=== PATIENT | female | born 1955 | race Caucasian/White ===

== ENCOUNTER → 2017-11-10 17:59 | Outpatient (CLI) | payer OTHER, SELFPAY ==
[2017-11-16 10:28] LABS: HPV Reflexed? NOT INDICATED
== END ==
PROVIDERS: Family Provider Internal Medicine; PCP Internal Medicine; Visit Provider Obstetrics & Gynecology
DX: Z12.4 Encounter for screening for malignant neoplasm of cervix (principal)
CPT/HCPCS: 88175; G0145

== ENCOUNTER → 2020-01-16 | Outpatient (CLI) | payer MEDICARE, OTHER, SELFPAY | END | disposition home or self-care (01) | LOC: LABSPEC 10:45 | PROVIDERS: PCP Internal Medicine; Referring Provider Internal Medicine Gastroenterology; Visit Provider Internal Medicine Gastroenterology | DX: Z20.828 Contact with and (suspected) exposure to other viral communicable diseases (principal) | CPT/HCPCS: 87635; C9803; U0003 ==

== ENCOUNTER → 2020-02-05 08:06 | Outpatient (CLI) | payer MEDICARE, OTHER, SELFPAY ==
--- NOTE | 2020-02-05 08:07 | US_ITS ---
STUDY: ABDOMINAL ULTRASOUND - RIGHT UPPER QUADRANT REASON FOR VISIT: Female, 64 years old fatty liver TECHNIQUE: Ultrasound evaluation of the right upper quadrant was performed with real-time and static cummins-scale imaging. TECHNICAL QUALITY: Adequate. COMPARISON: Comparison is made with prior examination dated 10/05/2010. FINDINGS: Liver: The liver is mildly enlarged and measures 19.2 cm. There is increased echogenicity consistent with fatty infiltration. The bile ducts are within normal limits. There is hepatic color flow. The direction of portal flow is hepatopetal. There is no demonstrated mass lesion. Gallbladder: The patient is status post cholecystectomy. Common Bile Duct (C.B.D.): The common bile duct measures 4 mm. Pancreas: Normal size of the head, body and tail of the pancreas. There is normal echogenicity of the pancreas. There is no demonstrated pancreatic mass or cyst. Right Kidney: Normal size of the right kidney. The right kidney measures 10.8 cm x 5.5 cm x 4.8 cm. Normal renal cortex. The right cortex measures 1.6 cm. There is no demonstrated renal mass or cyst. There is no right hydronephrosis. IMPRESSION: Mild hepatomegaly and fatty infiltration of the liver. Electronically Signed: Denny Chelsy, at 12:13 EST , Service support , STUDY: ABDOMINAL ULTRASOUND - ELASTOGRAPHY REASON FOR VISIT: Female, 64 years old. Fatty infiltration of the liver. TECHNIQUE: Liver stiffness measurements were obtained on a [employer] ultrasound machine using a CA 1-7 probe following the SRU guidelines. 3 measurements were obtained using a 2-D-SWE method. The IQR/M was 20% suggesting a quality data set. TECHNICAL QUALITY: Adequate. COMPARISON: None. FINDINGS: Liver: There is no demonstrated mass lesion. Median liver stiffness measured 7 kPa. US/Abdomen Limited IMPRESSION: Liver stiffness measures 7 kPa compatible with F2 -- F 3 Metavir score. Electronically Signed: Denny Valentino, at 12:15 EST , Service support ,
== END ==
PROVIDERS: PCP Internal Medicine; Referring Provider Internal Medicine Gastroenterology; Visit Provider Internal Medicine Gastroenterology
DX: K76.0 Fatty (change of) liver, not elsewhere classified (principal)
CPT/HCPCS: 76705; 76981

== ENCOUNTER 2020-07-15 10:48 | Day surgery (SDC) | payer MEDICARE, OTHER, SELFPAY ==
[2020-07-04 16:11] LABS: Hematocrit 41.6 % (37-47); Mean Corp Hgb Conc 31.3 g/dL (32-36); Mean Corpuscular Hgb 28.3 pg (27.0-32.0); Mean Corpuscular Volume 90.6 fL (81-99); Mean Platelet Vol. 12.9 fl (6.2-12.0); Platelet Count 206 K/mm3 (150-450); RBC Distribution Width CV 12.9 % (11.6-14.6); RBC Distribution Width SD 42.3 fl (35.1-43.9); Red Blood Count 4.59 M/mm3 (4.2-5.4); White Blood Count 7.4 K/mm3 (4.4-11.0)
[2020-07-04 16:19] LABS: Partial Thromboplast Time 30.1 Seconds (24.1-36.2); Prothrombin Time (Protime)PT. 12.5 SECONDS (11.7-14.9)
[2020-07-04 16:42] LABS: ALB/GLOB Ratio 0.9 RATIO (0.9-2.4); AST(SGOT) 46 U/L (15-37); Alanine Aminotransfer ALT/SGPT 53 U/L (13-56); Albumin, Serum 3.6 g/dL (3.2-5.0); Alkaline Phosphatase 91 U/L (45-117); Anion Gap 6 (5-15); BUN 15 mg/dL (7-18); BUN/Creat Ratio 15.9 RATIO (10-20); Calcium,Total 9.4 mg/dL (8.5-10.1); Chloride 104 mmol/L (98-107); Creatinine, Serum 0.94 mg/dL (0.55-1.02); EST Glomerular Filtration Rate 63 mL/min (>60); Est Glom Filt Rate - Afr Amer 76 mL/min (>60); Globulin 4.1 g/dL (2.2-4.2); Glucose 197 mg/dL (74-106); Potassium 3.8 mmol/L (3.5-5.1); Protein, Total 7.7 g/dL (6.4-8.2); Sodium Level 139 mmol/L (136-145)
[2020-07-08 10:15] LABS: Magnesium 2.1 mg/dL (1.6-2.6)
[2020-07-08 10:46] LABS: Hemoglobin A1c 7.2 % (3.8-5.6)
--- NOTE | 2020-07-14 21:21 | PCM.HP.BLA ---
History and Physical Date of Admission: 07/15/20 Surgical History and Physical Jen Pappas, a 65 year old female 2 0 0 0 2, presents for Vaginal Hysterectomy and AP Repair on July 15, 2020 at 7:30. -- Prolapse Symptoms -- Prolapse symptoms which began years ago. Jen claims it started gradually and has been present years. It occurs all the time. It is located in the vagina. Severity is severe and worsening; It is aggravated by cough and sneezing. Associated signs and symptoms are some incontinence. MEDICATIONS HISTORY: Patient is also takin. metformin 500 mg tablet, Two po bid 2. metoprolol tartrate 25 mg tablet, One pill by mouth once a day 3. glipizide 10 mg tablet, daily 4. Jardiance 10 mg tablet, daily 5. losartan 50 mg-hydrochlorothiazide 12.5 mg tablet, daily 6. naproxen sodium 220 mg capsule 7. omeprazole 20 mg capsule,delayed release, daily ALLERGIES: septra/sulfa, Rash and itching, Sulfa (Sulfonamide Antibiotics), Hives and/or rash, Tylenol and Liver toxicity Infections - Chicken pox Illnesses - HTN, DM II, microscopic colitis Accidents - no injuries of consequence Hospitalizations - Childbirth and see surgery by [facility]; Review of Systems: GENERAL - Denies fever, or chills SKIN - Denies skin changes EYES - Denies visual changes EARS - Denies difficulty hearing NOSE - Denies nasal congestion or bleeding MOUTH - Denies sore throat or difficulty swallowing NECK - Denies pain or swelling RESPIRATORY - Denies shortness of breath or wheezing CARDIOVASCULAR - Denies palpitations or chest pain GASTROINTESTINAL - Denies nausea, vomiting, diarrhea, constipation GENITOURINARY - Denies dysuria, frequency of urination, incontinence of urine MUSCULOSKELETAL - Denies joint or muscle pain NEUROLOGICAL - Denies localized numbness or weakness PSYCHIATRIC - Denies depression or anxiety ENDOCRINE - Denies heat or cold intolerance, weight loss or gain HEMATO-IMMUNOLOGIC - Denies excessive bleeding with cuts SOCIAL HISTORY: Alcohol Use - RARELY Smoking - denies smoking Diet - no special diet Lifestyle - high stress lifestyle Exercise - minimal Seat Belt Use - always Employer - retired Illicit Drug Use - denies use of street drugs Sexual Activity - Hours 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 MENSTRUAL HISTORY: LMP Known?- Postmenopausal, LMP - 06/14/07 PAST PREGNANCIES: Total Pregnancies - 2; Full Term Pregnancies - 2; Premature - 0; Abortions, Induced - 0; Abortions, Spontaneous - 0; Ectopics - 0; Multiple Births - 0; Living Children - 2 SURGICAL HISTORY: 1. D and C 2. cholecystectomy 3. hydrothermal ablation 4. 10/12/2007 H/S, D+C ; Lj Dickinson M.D. - PMB 5. rotator cuff surgery right arm, 01-27 6. 10/15/2010 left knee ; Dr. Tello 7. 08/08/2010 right knee ; Dr. Tello vein stripping bilat 2013 (L) Shoulder Surgery . 05/2013 (L) Vein Stripping PHYSICAL EXAM BP- 136/74 Sitting, Right arm, large cuff Weight- 226.39181 lbs Height- 67 inch BMI:35.47 CONSTITUTIONAL - NAD, well nourished, and well developed SKIN - No rash, lesions, or ulcers HEENT - Normocephalic, PERRLA, EOMI NECK - no nodes, no nuchal rigidity and thyroid normal size and texture LYMPH NODES - Palpation of lymph nodes in neck and groins within normal limits LUNGS - CTA x2 without wheezes, crackles or rales CARDIAC - Regular rate and rhythm without rubs, murmurs, or gallops BREAST - no dominant masses, no tenderness, no axillary adenopathy, no nipple discharge and no skin changes ABDOMEN - Without hepatosplenomegaly, distention, masses, rebound, or guarding; normal bowel sounds, no hernias EXTREMITIES - No edema or calf tenderness NEUROLOGICAL - Cranial nerves II-XII grossly intact PSYCHIATRIC - A and O to time, place, person, mood and affect External Genital Vagina - non-tender without lesions Urethra/Urethral Meatus - non-tender Bladder - non-tender Vagina - loss of rugae, cystocele to introitus, mild rectocele and open perineum Cervix - without cervical motion tenderness and has normal size and features without evident lesions and cervix to within 2 cm of introitus Uterus - multiparous size 6 cm & wt 75-125 g Adnexa - clear without masses or tenderness ASSESSMENT/PLAN: Cystocele Midline, Incomplete Uterovaginal Prolapse, Rectocele, Stress Incontinence and Female Very symptomatic. Wants to proceed with surgery. Declines pessary. Discussed Vag Hyst, AP Repair with/without TVT and wants to do without TVT first and if still has XIAO would then see Urology for XIAO if remains. Discussed RBA at length and all questions answered. Rx intravaginal estradiol given and has been used for about a month.
[2020-07-15] VITALS (16 sets, daily range): BP systolic 128–147; BP diastolic 65–90; PULSE 65–79; RESP 16–18; TEMP 36.3–36.8; O2SAT 93–100; BMI 34.4
[2020-07-15] MEDS: Lactated Ringers 1,000 ML 40 ML IV (11:22)
[2020-07-15] MEDS: Gabapentin 600 MG Tablet PO (11:23)
[2020-07-15 11:35] LABS: Bedside Glucose 163 mg/dL (70-110)
[2020-07-15] MEDS: Cefazolin 2 GM in 0.9% Normal Saline 100 ML IV (12:14)
--- NOTE | 2020-07-15 12:45 | HYST_PTH ---
PATIENT: RASHEL DAVALOS LOC: [facility] [place] U#:[id number] AGE/SX: 65/F ROOM: RE07/15/[address]: Dr. Lj Dickinson MD : [id number] BED: DIS: 07/16/2020 SPEC #: [id number] RECD: 07/15/20 15:09 STATUS: TIFFANIE REErika #: [id number] ÁNGELA: 07/15/20 12:[address]: Lj Dickinson DEPT: SURGICAL PATHOLOGY RECD BY: Daxa Hunt ENTERED: 07/16/20 08:35 SP TYPE: HYSTERECT OTHR DR: Dr. Sandra Miller, DO Tissues: Uterus, NOS Procedures: Surgery Specimen Level V HEADER OPERATION: ERAS, vaginal hysterectomy, A & P repair PRE-OP DIAGNOSIS: Cystocele midline, incomplete uterovaginal prolapse, rectocele, stress incontinence TISSUE SUBMITTED: Uterus MICROSCOPIC DIAGNOSIS Uterus, vaginal hysterectomy: Cervix ? mild chronic cystic cervicitis. Endometrium ? weakly proliferative to atrophic endometrium. Myometrium ? focal superficial adenomyosis. ONEYDA:andria 07/17/2020 MICROSCOPIC DESCRIPTION Slides are reviewed. GROSS DESCRIPTION Received in fixative is one container labeled with the patient's name and designated uterus. The specimen consists of a hysterectomy specimen consisting of uterus with cervix weighing 36 gm and measuring 7 x 4 x 2.5 cm. The serosal surface is focally ragged and congested. The ectocervix appears to be partly disrupted. A portion of anterior ectocervix is not clearly demarcated. The external os is slit-like in contour. No mass lesion is identified. The endocervical canal measures 2 cm in length and the endocervical mucosa is manuel, glistening and unremarkable. The narrow, elongated endometrial cavity measures 3 cm in length and up to 0.5 cm in width. The endometrium is without any mass lesion and measures <0.1 cm in thickness. Sections of the uterine wall do not reveal any mass lesion and it measures up to 1.5 cm in thickness. Sports Medicine Physician sections are submitted in six cassettes as follows: 1?- anterior cervix, 2 - posterior cervix, 3 & 4 - anterior uterine wall, 5 & 6 - posterior uterine wall. / ONEYDA:andria 07/16/20 TC:5 CPT: 98460
[2020-07-15] MEDS: Lactated Ringers 1,000 ML 125 ML IV ×2 (14:16→20:55)
[2020-07-15] MEDS: Ondansetron 4 MG/2 ML Vial IV (14:26)
--- NOTE | 2020-07-15 14:42 | PCM.OPRPT ---
Report of Operation Date of Procedure: 07/15/20 Pre-Operative Diagnosis: Uterovaginal Prolapse, Cystocele, Rectocele Post-Operative Diagnosis: Uterovaginal Prolapse, Cystocele, Rectocele Surgery/Procedure Performed:: Vaginal Hysterectomy and Anterior Posterior Repair Description of Surgical Findings:: 6 cm uterus with normal-appearing fallopian tubes and ovaries. Cystocele which protruded 2 cm outside the vaginal introitus. Moderate rectocele. recycling operations manager: Arnaldo Morrison recycling operations manager: Fatimah Whipple Type of Anesthesia:: General - Endotracheal Anesthesiologist: Ciara Wright Specimen's removed: Uterus and vaginal mucosa Drains: Snyder to straight drain Estimated Blood Loss (mL): 200 cc Fluids Replaced: Crystalloid Description of Procedure: Surgeon: Lj Dickinson MD, FACOG Indications: This is a 65-year-old patient who is been having problems with prolapse symptoms and some stress incontinence. Conservative measures including intravaginal estrogen have not been helpful. Given this the patient desires that we proceed the above procedure. She has been counseled regarding the risk and indications of this procedure including the possibility of bleeding, infection, and injury to surrounding structures such as bowel bladder. All questions were answered. Procedure: Patient was taken to the operating room where after induction of general anesthesia she was placed in the dorsal lithotomy position and prepped and draped in the usual sterile fashion. A Nsyder catheter was placed. Anterior cervix was grasped with a tenaculum and anterior cervix circumscribed with cautery on a setting of 35 W coagulation. Anterior vaginal mucosa was undermined and anterior peritoneum was easily entered. The posterior aspect of the cervix was circumscribed with a knife and posterior peritoneum easily entered. Progressive bites were taken on either side of the uterine cervix and each pedicle ligated with 0 Vicryl suture. Superior pedicles were ligated ?2 with 0 Vicryl suture and sidewall pedicles were examined and oversewn where necessary with [id number] 0 Vicryl suture to achieve hemostasis. Posterior vaginal cuff was oversewn with running locked 0 Vicryl suture. Hemostasis was noted and peritoneum was closed in a pursestring fashion incorporating superior pedicles into the stitch. Hemostasis was noted. Attention was turned toward the anterior repair portion of the procedure. Anterior vaginal mucosa was undermined and divided and then imbricated toward the midline with interrupted 0 Vicryl sutures. Vaginal mucosa was trimmed and then closed with interrupted 2-0 chromic suture. Vaginal cuff was then closed front to back with interrupted [id number] 0 Vicryl suture. Hemostasis was noted. Attention was turned toward the posterior repair portion of the procedure. Remnants of the hymenal ring were grasped with Allises and a V-shaped incision was made in the perineum. Rectovaginal mucosa was then undermined divided and then imbricated toward the midline with interrupted 0 Vicryl suture. Vaginal mucosa was trimmed and then closed with running locked 2-0 chromic suture. Perineum was closed in the usual fashion with running and subcuticular, and [id number] 2-0 chromic suture. Hemostasis was noted. Snyder catheter was again opened and clear yellow urine was noted. Vagina was packed with iodoform tape. Patient tolerated the procedure well was taken to recovery room in satisfactory condition; sponge instrument and needle counts were all reportedly correct. Estimated blood loss for the case was 200 cc. Cefotan 2 g IV was given prior to beginning the operative procedure. There were no apparent complications of the surgery. Specimen to pathology was uterus and vaginal mucosa. Grafts/Implants Used: None - Complications None - Admit VTE Documentation VTE Present on Admission: Yes VTE Mechan Device Prophylaxis: SCD's VTE Pharm Prophylaxis ordered?: Yes
--- NOTE | 2020-07-15 14:49 | PCM.DC.VHY ---
Discharge Diet: No Restrictions Discharge Activity: Return to Normal Activity, May Not Drive - while taking narcotic pain medications., May Shower May resume sexual activity in: 6-8 weeks, 6 weeks Call your doctor if your incision/area has: Continuous Slow Oozing, Sudden Increased Bleeding, Increased Pain/ Swelling, Increased Redness, Foul Smelling Discharge Call your doctor if you observe: Fever of 101 or Higher, Inability to urinate, Inability to have a bowel movement, Using more than one pad per hour Additional Instructions: Nothing in the vagina for 6 weeks please; no lifting more than 20-25 lbs for 6 weeks. Use either Naprosyn as directed or Ibuprophen 800 mg orally every 8 hours as needed for pain. If Ibuprophen is not effective then use the Oxycodone but keep in mind it can cause serious constipation issues. Drink lots of water. Call if bleeding more than a pad per hour. Use the colace as constipation is a big issue after this type of surgery. Steps and walking are OK. Activity is encouraged but do not over do it !! Allergies/Adverse Reactions: Allergies Sulfa (Sulfonamide Antibiotics) Allergy (Verified 07/15/20 10:57) Hives sulfamethoxazole [From Septra] Allergy (Verified 07/15/20 10:57) Hives trimethoprim [From Septra] Allergy (Verified 07/15/20 10:57) Hives acetaminophen [From Tylenol] Adverse Reaction (Verified 07/15/20 10:57) d/t fatty liver Medications to take at Discharge metFORMIN HCl [Glucophage] 1,000 mg PO BIDCM 01/17/13 Cholecalciferol (VIT D3) [Vitamin D] 1,000 unit PO DAILY 07/08/20 Empagliflozin [Jardiance] 10 mg PO QHS 07/08/20 Glipizide [Glipizide ER] 10 mg PO DAILY 07/08/20 Losartan/Hydrochlorothiazide [Losartan-Hctz 50-12.5 mg Tab] 1 each PO QHS 07/08/20 Metoprolol Tartrate [Lopressor (Beta Fiorella)] 25 mg PO QHS 07/08/20 Multivitamin with Minerals [Multiple Vitamin] 1 each PO DAILY 07/08/20 Naproxen 500 mg PO PRN PRN 07/08/20 [place]-3 Fatty Acids/Fish Oil [Fish Oil 1,000 mg Capsule] 1 each PO BID 07/08/20 Omeprazole Magnesium [Prilosec Otc] 20 mg PO PRN PRN 07/08/20 Docusate Sodium [Colace] 100 mg PO BID PRN PRN #60 capsule 07/15/20 Oxycodone [Oxyir] 5 mg PO Q6H PRN PRN 7 Days #10 tablet 07/15/20 The following prescriptions were given: Docusate Sodium [Colace] 100 mg PO BID PRN PRN #60 capsule PRN Reason: Constipation Transmission Status: Pending to [facility] Oxycodone [Oxyir] 5 mg PO Q6H PRN PRN 7 Days #10 tablet PRN Reason: Pain Score 6-10 Transmission Status: Sent to [facility] Primary Care Physician: Sandra Miller DO [Primary Care Provider] - Test Results: Test results from this visit will be discussed in further detail at your follow-up appointment, if applicable. Please Follow Up With: Lj Dickinson MD When: 2 to 3 weeks
[2020-07-15 15:06] LABS: Bedside Glucose 159 mg/dL (70-110)
[2020-07-15] MEDS: Ketorolac 15 MG/ML Vial IV ×2 (18:04→23:08)
[2020-07-15] MEDS: 0.9% Saline Lock 10 ML Syringe IV (18:04)
[2020-07-15] MEDS: metFORMIN HCl 500 MG Tablet 1000 MG PO (18:04)
[2020-07-15] MEDS: oxyCODONE 5 MG Tablet PO (19:22)
[2020-07-15] MEDS: Enoxaparin 30 MG/0.3 ML Syringe SC (20:04)
[2020-07-15] MEDS: Ondansetron ODT 4 MG Tablet PO (22:15)
[2020-07-15 22:30] LABS: Bedside Glucose 215 mg/dL (70-110)
[2020-07-15] MEDS: Metoprolol Tartrate 25 MG Tablet PO (23:05)
[2020-07-15] MEDS: Docusate Sodium 100 MG Capsule PO (23:06)
[2020-07-15] MEDS: Empagliflozin 10 MG Tablet PO (23:06)
[2020-07-16 00:39] VITALS: BP 126/62; PULSE 69; RESP 18; TEMP 36.4; O2SAT 96
[2020-07-16] MEDS: 0.9% Saline Lock 10 ML Syringe IV (04:55)
[2020-07-16] MEDS: Ketorolac 15 MG/ML Vial IV ×2 (05:05→12:56)
[2020-07-16 07:20] LABS: Bedside Glucose 119 mg/dL (70-110)
--- NOTE | 2020-07-16 07:30 | PCM.PN.OB ---
Subjective Subjective: Patient without complaints. Tolerating diet well. Wants to go home. This note is for July 16, 2020. Objective Data Objective Data Vital Signs: Vital Signs Temp Pulse Resp BP Pulse Ox 98.1 F 65 18 119/55 L 96 07/16/20 13:18 07/16/20 13:18 07/16/20 13:18 07/16/20 13:18 07/16/20 13:18 Oxygen Flow Rate (L/min) 1 Oxygen Delivery Method Room Air Weight: 226 lb 3.108 oz Body Mass Index (BMI) 34.4 Finger Stick Blood Glucose 159 Intake & Output: Intake and Output for Last 24 Hours 07/15/20 07/16/20 07/17/20 23:59 23:59 23:59 Intake Total 3067.25 / 3067.25 1100 / 1100 Output Total 1400 / 1400 950 / 950 Balance 1667.25 / 1667.25 150 / 150 Lab / Micro Data Result Diagrams: 07/16/20 05:45 07/16/20 05:45 Labs: Laboratory Results - last 24 hr 07/16/20 11:53 POC Glucose 178 H Physical Exam Narrative Vaginal pack removed and minimal bleeding noted. Good urine output. Hemoglobin okay. Assessment & Plan Assessment/Plan (1) Prolapse of female genital organs: Status: Acute Code(s): N81.9 - Female genital prolapse, unspecified Qualifiers: Prolapse type: incomplete uterovaginal prolapse Qualified Code(s): N81.2 - Incomplete uterovaginal prolapse Plan: Doing well postoperative day #1 status post vaginal hysterectomy and anterior posterior repair. Will discharge to home with routine instructions.
[2020-07-16 07:48] LABS: Creatinine, Serum 0.83 mg/dL (0.55-1.02); EST Glomerular Filtration Rate 73 mL/min (>60); Est Glom Filt Rate - Afr Amer 88 mL/min (>60); Estimated Creatinine Clearance 66.35 ml/min
[2020-07-16 08:06] LABS: Hematocrit 37.3 % (37-47); Hemoglobin 11.5 g/dL (12.0-15.0); Mean Corp Hgb Conc 30.8 g/dL (32-36); Mean Corpuscular Volume 90.8 fL (81-99); Mean Platelet Vol. 12.8 fl (6.2-12.0); Platelet Count 190 K/mm3 (150-450); RBC Distribution Width CV 12.7 % (11.6-14.6); RBC Distribution Width SD 41.7 fl (35.1-43.9); Red Blood Count 4.11 M/mm3 (4.2-5.4); White Blood Count 11.1 K/mm3 (4.4-11.0)
[2020-07-16] MEDS: metFORMIN HCl 500 MG Tablet 1000 MG PO (08:20)
[2020-07-16] MEDS: glipiZIDE XL 5 MG Tablet 10 MG PO (08:20)
[2020-07-16 08:25] VITALS: PULSE 76
[2020-07-16 08:30] VITALS: BP 121/63; PULSE 68; RESP 18; TEMP 36.4; O2SAT 97
[2020-07-16 08:43] LABS: Scan Indicated on CBC? Y/N NO
[2020-07-16 09:02] VITALS: O2SAT 92
[2020-07-16] MEDS: Losartan Potassium 50 MG Tablet PO (10:50)
[2020-07-16] MEDS: Docusate Sodium 100 MG Capsule PO (10:50)
[2020-07-16] MEDS: hydroCHLOROthiazide 12.5mg 12.5 MG PO (10:50)
[2020-07-16 12:00] LABS: Bedside Glucose 178 mg/dL (70-110)
[2020-07-16 13:18] VITALS: BP 119/55; PULSE 65; RESP 18; TEMP 36.7; O2SAT 96
== END 2020-07-16 13:37 ==
LOC: SDC 10:48 → AC 10:49 → MS3 14:56
PROVIDERS: Anesthesiology; PCP Family Medicine; Referring Provider Obstetrics & Gynecology; Visit Provider Obstetrics & Gynecology
PROC: (CPT 58260; principal; 2020-07-15 12:25)
DX: N81.2 Incomplete uterovaginal prolapse (principal); N39.3 Stress incontinence (female) (male); N72 Inflammatory disease of cervix uteri; N80.0 Endometriosis of uterus; I34.1 Nonrheumatic mitral (valve) prolapse; I10 Essential (primary) hypertension; E11.9 Type 2 diabetes mellitus without complications; K76.0 Fatty (change of) liver, not elsewhere classified; Z79.84 Long term (current) use of oral hypoglycemic drugs; Z79.899 Other long term (current) drug therapy
CPT/HCPCS: 00944; 57260; 58260; 36415; 80053; 82565; 82962; 83036; 83735; 85027; 85610; 85730; 86850; 86900; 86901; 88307; 99251; J7120; A4216; G0463; J2405

== ENCOUNTER → 2020-07-25 | Outpatient (CLI) | payer MEDICARE, OTHER, SELFPAY ==
[2020-07-15 16:34] VITALS: BMI 34.4
== END | disposition home or self-care (01) ==
LOC: LABSPEC 15:24
PROVIDERS: PCP Family Medicine; Visit Provider Obstetrics & Gynecology
DX: R30.0 Dysuria (principal)
CPT/HCPCS: 87086; 87088

== ENCOUNTER 2021-03-05 10:36 | Day surgery (SDC) | payer MEDICARE, OTHER, SELFPAY ==
--- NOTE | 2021-03-03 08:47 | EKG12_ITS ---
Test Reason : PREOP Blood Pressure : / mmHG Vent. Rate : 062 BPM Atrial Rate : 062 BPM P-R Int : 140 ms QRS Dur : 094 ms QT Int : 428 ms P-R-T Axes : 057 -09 020 degrees QTc Int : 434 ms Normal sinus rhythm Normal ECG Confirmed by CHRISTEL PENA, JOSE ALEJANDRO ([id number]), communications editor MICHAEL BENJAMIN ([id number]) on 03/04/2021 7:28:31 AM Referred By: Daniel Sapp Confirmed By:JOSE ALEJANDRO KEARNEY MD
[2021-03-03 09:33] LABS: Hematocrit 43.5 % (37-47); Hemoglobin 14.2 g/dL (12.0-15.0); Mean Corp Hgb Conc 32.6 g/dL (32-36); Mean Corpuscular Hgb 29.6 pg (27.0-32.0); Mean Corpuscular Volume 90.6 fL (81-99); Mean Platelet Vol. 12.8 fl (6.2-12.0); Platelet Count 201 K/mm3 (150-450); RBC Distribution Width CV 12.8 % (11.6-14.6); RBC Distribution Width SD 42.1 fl (35.1-43.9)
[2021-03-03 09:50] LABS: Hemoglobin A1c 7.2 % (3.8-5.6)
[2021-03-03 09:57] LABS: Anion Gap 7 (5-15); BUN 16 mg/dL (7-18); Calcium,Total 9.5 mg/dL (8.5-10.1); Chloride 102 mmol/L (98-107); EST Glomerular Filtration Rate 59 mL/min (>60); Est Glom Filt Rate - Afr Amer 71 mL/min (>60); Glucose 190 mg/dL (74-106); Potassium 3.9 mmol/L (3.5-5.1); Sodium Level 137 mmol/L (136-145)
[2021-03-05 11:12] VITALS: BP 119/62; PULSE 69; RESP 18; TEMP 36.9; O2SAT 96; BMI 33.3
[2021-03-05 13:05] LABS: Bedside Glucose 177 mg/dL (70-110)
[2021-03-05] MEDS: Lidocaine 1% /Epi 1:100 (20ml) 20 ML Vial (13:09)
--- NOTE | 2021-03-05 13:52 | PCM.HP.STD ---
HPI - General HPI Narrative RASHEL DAVALOS, is a 66 F who presents for placement of a transvaginal tension-free vaginal tape she has a history of stress urinary incontinence and is failed conservative measures. COUNTS INCLUDE 234 BEDS AT THE [facility] Medical History (Updated 02/26/21 @ 15:11 by Adelita Palma) Alcohol use Arthritis Back pain Cardiology follow-up encounter Diabetes Dietary restriction Fatty liver Heartburn High cholesterol History of echocardiogram History of hiatal hernia History of renal disease History of stress test Hx of mitral valve prolapse Hypertension Injury of head and neck Leg cramps Non-smoker Wears glasses Home Medications metformin 1,000 mg PO BIDCM 01/17/13 [History Last Taken Unknown] cholecalciferol (vitamin D3) 1,000 unit PO DAILY 07/08/20 [History Last Taken Unknown] glipizide 10 mg PO DAILY 07/08/20 [History Last Taken Unknown] losartan-hydrochlorothiazide 1 each PO QHS 07/08/20 [History Last Taken Unknown] metoprolol tartrate 25 mg PO QHS 07/08/20 [History Last Taken Unknown] multivitamin with minerals 1 each PO DAILY 07/08/20 [History Last Taken Unknown] naproxen 500 mg PO PRN PRN 07/08/20 [History Last Taken Unknown] omega-3 fatty acids-fish oil 1 each PO BID 07/08/20 [History Last Taken Unknown] omeprazole magnesium 20 mg PO PRN PRN 07/08/20 [History Last Taken 07/15/20] Jardiance 25 mg PO DAILY 02/26/21 [History Last Taken Unknown] estradiol 0.5 mg PO SUTH 02/26/21 [History Last Taken Unknown] pravastatin 10 mg PO QHS 02/26/21 [History Last Taken Unknown] cephalexin 500 mg PO BID #10 cap 03/05/21 [Rx Last Taken Unknown] Allergy/AdvReac Type Severity Reaction Status Date / Time Sulfa (Sulfonamide Allergy Hives Verified 03/05/21 11:09 Antibiotics) sulfamethoxazole Allergy Hives Verified 03/05/21 11:09 [From Septra] trimethoprim [From Septra] Allergy Hives Verified 03/05/21 11:09 acetaminophen [From Tylenol] AdvReac d/t fatty Verified 03/05/21 11:09 liver Surgical History (Updated 02/26/21 @ 15:11 by Adelita Schriber) History of cardiac catheterization History of esophagogastroduodenoscopy (EGD) Hx of cholecystectomy Hx of left knee surgery Hx of repair of left rotator cuff Hx of repair of right rotator cuff Hx of right knee surgery Hx of vaginal hysterectomy Hx of vein stripping Social History Smoking Status: Never smoker Vital Signs Vital Signs Vital Signs: 03/05/21 11:11 03/05/21 11:12 Temperature 98.4 F Temperature Source Temporal Pulse Rate 69 Respiratory Rate 18 Respiratory Pattern Normal Blood Pressure 119/62 Blood Pressure Mean 81 Blood Pressure Source Monitor Blood Pressure Position Semi-Fowlers Blood Pressure Location Right Arm Pulse Ox 96 Oxygen Delivery Method Room Air Weight Weight: 99.337 kg Body Mass Index (BMI) 33.3 Results Lab / Micro Data Result Diagrams: 03/03/21 09:02 03/03/21 09:02 Labs: Laboratory Results - last 24 hr 03/05/21 11:06: POC Glucose 177 H
--- NOTE | 2021-03-05 13:53 | PCM.DC ---
Discharge Instructions Diet Discharge Diet: No restrictions Activity Discharge Activity: Return to Normal Activity and May Not Drive (while taking narcotic pain medications.) Dressing / Incision Call your doctor if you observe: Fever of 101 or Higher Follow Up Care Please Follow Up With: Daniel Sapp MD When: Call [phone] for an appointment Test Results: Test results from this visit will be discussed in further detail at your follow-up appointment, if applicable. Discharge Plan Admission Primary Reason for Your Visit: Sling Attending Provider: Daniel Sapp Primary Care Provider: Sandra Miller Discharge Orders/Prescriptions Prescriptions: New cephalexin 500 mg capsule 500 mg PO BID Qty: 10 RF: 0 Continued metformin 500 MG tablet 1,000 mg PO BIDCM RF: 0 glipizide 10 MG tablet extended release 24hr 10 mg PO DAILY RF: 0 multivitamin with minerals 1 EACH tablet 1 each PO DAILY RF: 0 losartan-hydrochlorothiazide 1 EACH tablet 1 each PO QHS RF: 0 naproxen 500 MG tablet 500 mg PO PRN PRN (Reason: Pain 1-10 Or Fever) RF: 0 omeprazole magnesium 20 MG tablet,delayed release (DR/EC) 20 mg PO PRN PRN (Reason: Indigestion) RF: 0 metoprolol tartrate 25 MG tablet 25 mg PO QHS RF: 0 cholecalciferol (vitamin D3) 25 MCG tablet 1,000 unit PO DAILY RF: 0 omega-3 fatty acids-fish oil 1 EACH capsule 1 each PO BID RF: 0 pravastatin 10 mg Tablet 10 mg PO QHS RF: 0 estradiol 0.5 mg Tablet 0.5 mg PO SUTH RF: 0 Jardiance 25 mg Tablet 25 mg PO DAILY RF: 0 Referrals / Follow Up: Daniel Sapp MD [STAFF PHYSICIAN] - Sandra Miller DO [Primary Care Provider] - Disposition Disposition (needs filled in before D/C Order can be placed): Home, Self Care
--- NOTE | 2021-03-05 13:54 | OP.PCM_ITS ---
Report of Operation Date of Procedure: 03/05/21 Pre-Operative Diagnosis: Stress urinary incontinence Post-Operative Diagnosis: same Surgery/Procedure Performed:: Tension Free Vaginal Sling Description of Surgical Findings:: Patient presents today for placement of a tension-free vaginal sling, she has a diagnosis of incontinence and has been evaluated in the preoperative setting. We discussed how the procedure will be done what to expect afterwards. She understands is possible she may need a catheter in the short-term. We discussed the risk of bleeding and also the possibility of infection with the placement of the sling. We discussed the fact that we can be using artificial mesh and that there is a small risk of infection, erosion into the urethra, vaginal area, bladder and a small risk that she may require surgery down the road to address any problems or erosions with the mesh in the long-term. She was also given no guarantees as to how well the sling would work and that her incontinence may not improved to her satisfaction. After reviewing this with the patient she agreed to proceed with the placement of the sling. Patient was taken back to the operating room, after smooth induction of general anesthesia she was placed in dorsolithotomy position. She underwent vaginal prep and was placed in dorsolithotomy position. A Snyder catheter was placed into the bladder and Inflated with 10 cc of sterile water into the balloon. I then marked out the bladder neck with a marking pen and marked out the mid urethra. The urethra was then infiltrated with lidocaine with 1:1000 epinephrine, after the injecting into the urethra then a midline incision was made in the urethra long enough to create a space for the trocar. I then used curved Metzenbaum scissors to dissect periurethrally up to the right side undern eath the pubic bone, and then dissect periurethrally up to the left side underneath the pubic bone creating the tunnel for the sling. I then went up to the pubic bone and the patient was in Trendelenburg position and marked two incision site 2 cm from the midline on the left and right side. I then infiltrated the skin with lidocaine and then made a small stab incision in the right and left side exactly where the heard were above the pubic bone. Making sure that the bladder was completely empty I then guided the suprpubid desera trocar top-down on the right side first coming behind the pubic bone following it into the incision below the urethra. Once the suprapubic trocar was passed then I deflated the balloon and remove the Snyder catheter went into the bladder with a 70 degree lens and inspected the bladder and there was no perforation damage or injury to the bladder, no damage to the ureter, and no damage to the urethra. I then hooked the end of the desara sling to the suprapubic trocar and advanced it up through the tunnel and then put a snap on the end of the sling. I then went to the other side to pass the sling. The 18fr Snyder catheter was replaced into the bladder with 10 cc of water into the balloon and then drained the bladder completely and then I guided the suprapubic trocar down on the left side from top down behind the pubic bone into the incision below the urethra. I then deflated the balloon removed the Snyder catheter and performed a cystoscopy again and inspected the bladder with a 70 degree there was no injury to the bladder, the ureter, or the urethra on inspection. I then grabbed the other end of the sling and using the suprapubic trocar pulled the sling on the other side and put a snap on the sling end. I then put a snap in the middle the sling and then both ends of the slings were then pulled up and then the sling was tensioned below the urethra ensuring that the sling was flat that there was no kinking or pulling or twisting and laid nicely tension-free underneath the urethra. Then both ends of the slings were cut and then the plastic sheath covering the mesh was removed deploying the sling, the excess mesh was then trimmed from the suprapubic area and the mesh ends were dunked down deep in the subcutaneous fat. The Snyder catheter was removed and we checked the bladder with a 30 and 70 degree lens making sure there is no injury to the urethra, bladder and no perforation with a mesh. The urine was nice and clear with no blood. I then closed the incision below the urethra with a running 3-0 Vicryl and thenclosed the 2 suprapubic incisions with interrupted 4-0 Monocryl. The bladder was left empty anesthetic was reversed and she was taken back to the PACU and will undergo a voiding trial before discharge. Type of Anesthesia: General Admit VTE Documentation VTE Present on Admission: No VTE Mechan Device Prophylaxis: SCD's VTE Pharm Prophylaxis ordered?: No
[2021-03-05 14:03] VITALS: BP 119/62; BP 128/64; PULSE 71; RESP 16; TEMP 36.1; O2SAT 97
[2021-03-05 14:15] VITALS: BP 115/61; BP 119/62; PULSE 68; RESP 16; O2SAT 97
[2021-03-05 14:30] VITALS: BP 117/62; BP 119/62; PULSE 69; RESP 16; O2SAT 99
[2021-03-05 14:45] VITALS: BP 119/62; BP 120/80; PULSE 70; RESP 16; TEMP 36.3; O2SAT 96
[2021-03-05 14:56] LABS: Bedside Glucose 122 mg/dL (70-110)
[2021-03-05] MEDS: oxyCODONE 5 MG Tablet PO (15:35)
[2021-03-05 16:07] VITALS: BP 119/62; BP 129/63; PULSE 66; RESP 16; O2SAT 99
== END 2021-03-05 16:28 | disposition home or self-care (01) ==
LOC: SDC 10:36 → AC 10:37
PROVIDERS: Anesthesiology; PCP Family Medicine; Referring Provider Urology; Visit Provider Urology
PROC: 0TJB8ZZ Inspection of Bladder, Via Natural or Artificial Opening Endoscopic (ICD-10-PCS; CPT 57288; principal; 2021-03-05 12:25)
DX: N39.3 Stress incontinence (female) (male) (principal); I10 Essential (primary) hypertension; E11.9 Type 2 diabetes mellitus without complications; E78.00 Pure hypercholesterolemia, unspecified; K21.9 Gastro-esophageal reflux disease without esophagitis; M19.90 Unspecified osteoarthritis, unspecified site; Z79.84 Long term (current) use of oral hypoglycemic drugs; Z79.899 Other long term (current) drug therapy
CPT/HCPCS: 57288; 36415; 80048; 82962; 83036; 85027; 93005; J7120; C1771; J2405

== ENCOUNTER → 2022-10-23 | Outpatient (CLI) | payer MEDICARE, OTHER, SELFPAY ==
--- NOTE | 2022-10-23 09:53 | US_ITS ---
STUDY: ABDOMINAL ULTRASOUND - RIGHT UPPER QUADRANT; ELASTOGRAPHY REASON FOR VISIT: Female, 67 years old. Fatty infiltration of the liver. TECHNIQUE: Ultrasound evaluation of the right upper quadrant was performed with real-time and static cummins-scale imaging. Point quantification shear wave elastography was performed ([employer]). TECHNICAL QUALITY: Adequate. COMPARISON: None. FINDINGS: Liver: The liver measures 18.7 cm. There is increased echogenicity consistent with fatty infiltration. The bile ducts are within normal limits. There is hepatic color flow. The direction of portal flow is hepatopetal. There is no demonstrated mass lesion. Median liver stiffness measured 9.6 kPa. Gallbladder: The patient is status post cholecystectomy. Common Bile Duct (C.B.D.): The common bile duct measures 7.1 mm. Pancreas: There is increased echogenicity of the pancreas. There is no demonstrated pancreatic mass or cyst. Right Kidney: Normal size of the right kidney. The right kidney measures 10.5 cm x 6 cm x 4.4 cm. Normal renal cortex. The right cortex measures 1.5 cm. There is no demonstrated renal mass or cyst. There is no right hydronephrosis. US/ABD Limited w/ Elastography IMPRESSION: 1. Liver stiffness measures 9.6 kPa compatible with F2-F3 (Mild to moderate liver fibrosis) Metavir score. Electronically Signed: Denny Valentino MD at 13:21 EDT ,
== END | disposition home or self-care (01) ==
LOC: US 09:51
PROVIDERS: PCP Family Medicine; Referring Provider Internal Medicine Gastroenterology; Visit Provider Internal Medicine Gastroenterology
DX: K76.0 Fatty (change of) liver, not elsewhere classified (principal)
CPT/HCPCS: 76705; 76981

== ENCOUNTER 2023-04-02 13:56 | Inpatient (IN) | payer MEDICARE, OTHER, SELFPAY ==
--- NOTE | 2023-04-02 15:09 | PCM.HP.STD ---
[facility] - General General Date of Admission: 04/02/23 Date of Service: 04/02/23 Chief Complaint: Debility due to MS with cardiac arrest and Takotsubo's cardiomyopathy. HPI Narrative RASHEL DAVALOS, is a 68 F with a PMH of CAD, DM II, HTN, MVP, GERD, VILLASENOR, CKD and CABG on 03/08/2023 at [facility] by Dr. Christian. She had a MCINTOSH to the LAD and a saphenous vein graft to the first diagonal. She was discharged home on 03/12/2023. On 03/14/23 she developed CP and her family summoned EMS. Approximately 1 minute prior to arrival of EMS she arrested. When EMS arrived they found her unresponsive with a heart rhythm of Torsades. She received 1 shock, 1 epi and IV fluids were started. During transport to [facility] she was in and out of PEA and had spontaneous breathing. At arrival to the ED at [facility] she had VT and was shocked X 1 and intubated. She was placed on amiodarone, Levophed for severe hypotension and propofol. EKG showed diffuse nonspecific ST changes. She was transported to [facility] for urgent cardiac catheterization. Echocardiogram showed an EF of about 10%, down from 55% post CABG. there was septal akinesis with severe global hypokinesis of the left ventricle. She had Impella placement and was placed on heparin. She had a right heart cath following Impella placement and the RA pressure was 17 mmHg. RV was 53/23 mmHg, PA was 55/27 mmHg and the wedge was 25 mmHg. Left heart cath showed the left anterior descending to be a large-caliber vessel tapering down towards the apex. There was a 70% mid lesion just after the first diagonal branch. The distal LAD filled via a MCINTOSH graft. There was SALLY-3 flow distally. The saphenous vein graft to the major diagonal branch had mid vessel occlusion and immediately after the anastomosis. The left circumflex was a moderate caliber vessel with no significant disease. The obtuse marginal, right coronary, right posterior descending and right posterior lateral arteries had no significant disease. There was minimal left to left collaterals filling the distal major diagonal branch. The Impella was removed on 03/17/2023 and she was extubated. She was still requiring pressors to maintain an adequate blood pressure. While in the intensive care unit she had paroxysmal atrial fibrillation but had no further ventricular dysrhythmias. She developed thrombocytopenia which could have been due to shock liver, HIT or hemolysis. She was closely monitored for any further signs of TAYLER but, argatroban/bivalirudin was not immediately started. She went on to develop left upper extremity DVT thought to be due to TAYLER and she was started on on argatroban infusion. Additional complications at [facility] included a right pneumothorax requiring a chest tube and bilateral exudative pleural effusions thought to be secondary to aspiration pneumonia. The chest tube was removed on 03/21/2023. Follow-up chest x-ray was negative for pneumothorax. She had persistent dysphagia and failed an MBS. Barium swallow on 03/23/2023 demonstrated aspiration of thin and mildly thick liquids.. MBS also showed a Zenker's diverticulum A PEG tube was inserted on 03/23/2023 to provide adequate nutrition. Argatroban was held for a short time to allow insertion of the PEG tube. Significant lab at prior hospitals included an LDL of 64, HDL of 24 and triglycerides of 188. Hemoglobin A1c was 5.6. While at [facility] she had acute transaminitis due to shock liver. Transesophageal echocardiogram on 03/24/2023 showed a 55% left ventricular ejection fraction and normal left ventricular systolic function. There were no wall motion abnormalities. The IVC diameter decreased by greater than 50% during inspiration which reflects an estimated normal right atrial pressure. All records from [facility] were personally reviewed. Lab results from 04/01/2023 showed a sodium of 133, potassium 3.2, CO2 of 24, normal phosphorus, BUN of 18 and a creatinine of 0.63. Hemoglobin is 10.1 and the white blood cell count is normal. Platelets are within normal limits and thrombocytopenia has resolved. Magnesium is 2.0. AST, ALT, alkaline phosphatase and bilirubin were all normal at the time of discharge from [facility]. She was seen by ENT prior to discharge from [facility] and had a bedside laryngoscopy which revealed completely normal laryngeal exam. Vocal cords had normal movement and were without lesions. She had dysphonia secondary to resolving vocal weakness after intubation. Bilateral nasal passages had swelling, crusting, debris, dryness and irritation and saline nasal spray was prescribed. She was also placed on Bactroban in the nasal passages twice daily and started on Nasonex. [facility] Medical History (Updated 04/02/23 @ 17:[address] Gail Pena DO) Back pain Cardiology follow-up encounter Diabetes mellitus, type 2 Family history of heart disease GERD (gastroesophageal reflux disease) History of hiatal hernia History of renal disease Hx of mitral valve prolapse Hyperlipidemia Hypertension Injury of head and neck Low HDL (under 40) VILLASENOR (nonalcoholic steatohepatitis) Non-smoker Osteoarthritis Pneumothorax Prolapse of anterior vaginal wall Prolapse of female genital organs Wears glasses Zenkers diverticulum Home Medications metformin 500 mg tablet 1,000 mg PO BIDCM glucose 01/17/13 [History Last Taken Unknown] glipizide 10 mg tablet, extended release 24 hr 10 mg PO DAILY glucose 07/08/20 [History Last Taken Unknown] metoprolol tartrate 25 mg tablet 25 mg PO DAILY blood pressure 07/08/20 [History Last Taken Unknown] multivitamin with minerals 1 each PO DAILY supplement 07/08/20 [History Last Taken Unknown] naproxen 500 mg tablet 500 mg PO PRN PRN Pain 1-10 Or Fever 07/08/20 [History Last Taken Unknown] omega-3 fatty acids-fish oil 340 mg-1,000 mg capsule 1 each PO BID supplement 07/08/20 [History Last Taken Unknown] omeprazole magnesium 20 mg tablet,delayed release 20 mg PO PRN PRN Indigestion 07/08/20 [History Last Taken 07/15/20] empagliflozin 25 mg tablet (Jardiance) 25 mg PO DAILY glucose 02/26/21 [History Last Taken Unknown] estradiol 0.5 mg tablet 0.5 mg PO SUTH estrogen 02/26/21 [History Last Taken Unknown] pravastatin 10 mg tablet 10 mg PO QHS . 02/26/21 [History Last Taken Unknown] amiodarone 200 mg tablet 200 mg feeding tube DAILY heart 04/02/23 [History Last Taken 04/02/23] apixaban 5 mg tablet 5 mg feeding tube BID blood thinner 04/02/23 [History Last Taken Unknown] aspirin 81 mg chewable tablet 1 tab feeding tube DAILY heart 04/02/23 [History Last Taken 04/02/23] atorvastatin 40 mg tablet 40 mg feeding tube QHS cholesterol 04/02/23 [History Last Taken Unknown] cholecalciferol (vitamin D3) 125 mcg (5,000 unit) tablet (Vitamin D3) 50,000 unit feeding tube MO supplement 04/02/23 [History Last Taken Unknown] ciprofloxacin HCl 500 mg tablet (Cipro) 500 mg feeding tube BID ATB 04/02/23 [History Last Taken 04/02/23] fluticasone propionate 50 mcg/actuation nasal spray,suspension (Allergy Relief (fluticasone)) 2 spray intranasal DAILY allergy 04/02/23 [History Last Taken 04/02/23] lansoprazole 30 mg capsule,delayed release (Prevacid) 30 mg feeding tube DAILY heart burn 04/02/23 [History Last Taken Unknown] losartan 25 mg tablet (Cozaar) 12.5 mg feeding tube DAILY blood pressure 04/02/23 [History Last Taken Unknown] melatonin 3 mg tablet 3 mg feeding tube QHS sleep 04/02/23 [History Last Taken Unknown] nitroglycerin 0.4 mg sublingual tablet 0.4 mg sublingual Q5M heart 04/02/23 [History Last Taken Unknown] nystatin 100,000 unit/mL oral suspension 400,000 unit PO TID thrush 04/02/23 [History Last Taken 04/02/23] oxycodone 5 mg tablet 5 mg PO Q4H PRN pain 04/02/23 [History Last Taken Unknown] semaglutide 0.25 mg or 0.5 mg (2 mg/3 mL) subcutaneous pen injector (Ozempic) 0.25 mg subcut STARKEY glucose 04/02/23 [History Last Taken Unknown] Allergy/AdvReac Type Severity Reaction Status Date / Time Sulfa (Sulfonamide Allergy Hives Verified 03/05/21 11:09 Antibiotics) sulfamethoxazole Allergy Hives Verified 03/05/21 11:09 [From Septra] trimethoprim [From Septra] Allergy Hives Verified 03/05/21 11:09 acetaminophen [From Tylenol] AdvReac d/t fatty Verified 03/05/21 11:09 liver Surgical History (Updated 04/02/23 @ 16:[address] 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 Snores but denies restless leg, chronic fatigue. Her states he has never observed her stop breathing at night. ; Denies abnormal hearing, headache(s) or hearing loss Cardiovascular Cardiovascular: Reports dyspnea on exertion and edema; Denies chest pain, lightheadedness, orthopnea, palpitations, paroxysmal nocturnal dyspnea or syncope Respiratory/Chest Respiratory/Chest: Reports shortness of breath with exertion; Denies cough, dyspnea, shortness of breath at rest or wheezing Gastrointestinal Gastrointestinal: Reports constipation and diarrhea; Denies abdominal pain, dyspepsia, hematemesis, hematochezia, nausea or vomiting Genitourinary Genitourinary: Reports other; Denies dysuria, hematuria, nocturia, urinary frequency, urinary hesitancy, urinary incontinence or urinary urgency Musculoskeletal Musculoskeletal: Reports back pain, joint stiffness and muscle weakness; Denies joint pain, joint swelling or neck pain Integumentary Integumentary: Denies acne, alopecia, hirsutism, jaundice or rash Neurologic Neurologic: Reports weakness; Denies abnormal speech, confusion, disequilibrium, dizziness, focal weakness, frequent falls, headache(s), paresthesias, radicular pain, restless legs, seizures, tremor(s) or vertigo Psychiatric Psychiatric: Reports anxiety; Denies depression, homicidal ideation or suicidal ideation Endocrine Endocrinology: Denies change in body appearance, polydipsia or polyuria Hematologic/Lymphatic Hematologic/Lymphatic: Reports easy bruising; Denies easy bleeding or lymphadenopathy Allergic/Immunologic Allergic/Immunologic: Reports rhinitis; Denies eczemia or asthma Physical Exam Const alert, oriented x3 and well nourished Constitutional Narrative: Hoarse voice. Pleasant, appropriate, makes good eye contact when speaking with me. Appears stated age. Does not appear toxic. General Appearance: cooperative HEENT normocephalic and head/scalp atraumatic HEENT Narrative: Very dry mucous membranes. Eyes PERRL, EOMs intact bilaterally, conjunctivae normal and no scleral icterus Eyes Narrative: No visual field cuts. Neck full ROM, supple, No nodes and no carotid bruits Chest Chest Narrative: CABG incision is healing well and there is no dehiscence. Chest: symmetrical chest wall rise Resp normal respiratory effort, normal air movement, no use of accessory muscles and clear to auscultation bilaterally Resp Narrative: Anterior and lateral. No cough with deep breathing. Not tachypneic. Effort and Inspection: able to speak in complete sentences Cardio regular rate, regular rhythm, no murmurs, no rub and no gallops Cardio Narrative: No ectopy GI soft to palpation and non-tender GI Narrative: Bowel sounds are somewhat diminished. No significant tympany. No guarding with palpation of the abdomen. PEG site is without erythema or purulent discharge. She had no significant discomfort with palpation in the. PEG area. No abdominal bruits. Inspection: Negative for abdominal aortic bruit Narrative: No visible vaginal discharge. Normal external female genitalia. No evidence of intertrigo. She has some hyperpigmentation of the perineum. Extremity Extremity Narrative: No ankle edema. Dorsalis pedis pulses are 3/3 bilaterally. She has bilateral heel decubiti. The right heel shows a unstageable ulcer with a fair amount of eschar present. The left heel has a smaller stage II decubitus ulcer with no eschar. No increased warmth to touch in the heel. No purulent discharge and no odor. There is swelling of the left upper extremity and hand secondary to DVT. She is on apixaban 5 mg twice daily for anticoagulation. General Extremity: Negative for clubbing Peripheral Pulses: Yes pulses 2+ throughout Skin no jaundice and no mottling Skin Narrative: No rashes...... see the extremity exam for description of the bilateral heel decubiti. She has stage II decubiti in the perirectal area on both buttocks. The sternal incision is intact with no dehiscence. There is no rg-incisional erythema and no rg-incisional swelling. Drain sites have small scabs and are healing. Neuro oriented x3, CN's II-XII intact bilaterally and moves all extremities Psych mental status grossly normal, thought process normal, cooperative, denies hallucinations, denies homicidal ideation and denies suicidal ideation Psych Narrative: She admits to feeling anxious and she is having trouble falling asleep and staying asleep at night. Appearance: appropriate and well kempt Attitude: engaged Activity / Motor Behavior: appropriate eye contact Speech: normal speech Assessment & Plan Assessment/Plan (1) Physical debility: (2) History of coronary artery bypass graft x 2: PLAN: MCINTOSH to the LAD and saphenous vein graft to the first diagonal on 03/08/2023 at [facility] by Dr. Lozano. (3) STEMI (ST elevation myocardial infarction): PLAN: 03/14/23 due to total occlusion of SVG to diagonal at the anastomosis. (4) History of torsades de pointes: PLAN: With witnessed Out of hospital arrest. (5) Takotsubo cardiomyopathy: PLAN: Initial EF with STEMI was 10% and at DC from [facility] it was 55% with no wall motion abnormalities. (6) Ventricular tachycardia (paroxysmal): PLAN: Has a life visit at presentation to [facility] - may need a AICD in the future but, has had no recurrence of Torsades or VT the last week at [facility]. (7) Paroxysmal atrial fibrillation: PLAN: She is on amiodarone. (8) Shock liver: PLAN: LFTs were back to baseline at the time of discharge from [facility]. (9) History of heparin-induced thrombocytopenia: PLAN: Was on our Bactroban at [facility] but was then transition to apixaban. (10) Aspiration pneumonia: QUALIFIERS: Aspiration pneumonia type: unspecified Laterality: bilateral Lung location: unspecified part of lung Qualified Code(s): J69.0 - Pneumonitis due to inhalation of food and vomit (11) History of thoracentesis: PLAN: BL for exudative effusions more likely than not secondary to aspiration/pneumonia. (12) Pneumothorax: QUALIFIERS: Pneumothorax type: unspecified pneumothorax Qualified Code(s): J93.9 - Pneumothorax, unspecified (13) History of chest tube placement: PLAN: R side (14) Dysphagia: QUALIFIERS: Dysphagia type: unspecified Qualified Code(s): R13.10 - Dysphagia, unspecified PLAN: Had a PEG placed (15) Acute blood loss anemia: PLAN: Stable (16) Deep vein thrombosis (DVT) of left upper extremity: QUALIFIERS: Affected thrombotic vein of extremity: unspecified vein of extremity Chronicity: acute Qualified Code(s): I82.622 - Acute embolism and thrombosis of deep veins of left upper extremity PLAN: Possibly secondary to TAYLER but, she had been on Estrogen as an OP. (17) History of cardiac catheterization: PLAN: 03/14/2023 (18) Decubitus ulcer of both feet: PLAN: Right foot is open with eschar present and unstageable at the present time. Left foot is a stage II with no eschar. (19) Decubitus ulcer limited to breakdown of skin (stage 2): QUALIFIERS: Pressure injury location: buttock Laterality: unspecified laterality Qualified Code(s): L89.302 - Pressure ulcer of unspecified buttock, stage 2 PLAN: Stage II decubitus ulcers in the bilateral perirectal area. (20) Diabetes mellitus, type 2: QUALIFIERS: Diabetes mellitus chcf insulin use: without supervisor intermediates use Diabetes mellitus complication status: with circulatory complication Diabetes mellitus complication detail: with other circulatory complications Qualified Code(s): E11.59 - Type 2 diabetes mellitus with other circulatory complications (21) VILLASENOR (nonalcoholic steatohepatitis): PLAN: She had acute shock liver while at the previous hospital secondary to hypotension, biventricular congestive heart failure and acute STEMI. (22) Hyperlipidemia: QUALIFIERS: Hyperlipidemia type: mixed hyperlipidemia Qualified Code(s): E78.2 - Mixed hyperlipidemia (23) Low HDL (under 40): PLAN: 24 (24) GERD (gastroesophageal reflux disease): QUALIFIERS: Esophagitis presence: esophagitis presence not specified Qualified Code(s): K21.9 - Gastro-esophageal reflux disease without esophagitis (25) Hx of mitral valve prolapse: (26) History of renal disease: PLAN: Paperwork from [facility] states she has stage III chronic renal failure however the GFR at discharge from [facility] was greater than 90 which is not consistent with stage III chronic renal failure. (27) Zenkers diverticulum: (28) Urine retention: PLAN: Plan PLAN PT for gait stability OT for ADL's ST for evaluation Analgesics as needed Bowel protocol Fall precautions Assess for Anxiety/Depression -patient admits to being anxious and having insomnia. She has trouble falling asleep and then staying asleep. Will start Remeron 15 mg p.o. nightly. GI prophylaxis with lansoprazole DVT prophylaxis -continue apixaban 5 mg p.o. twice daily for paroxysmal atrial fibrillation and DVT of the left upper extremity. Follow up with cardiology, PCP, cardiothoracic surgery following DC from Rehab AM lab including CMP, CBC, Mag and Phos Decrease metformin to 500 mg twice daily from 1000 mg twice daily due to complaint of diarrhea when given with tube feed. Consult the dietitian to place the patient on bolus feedings rather than continuous tube feed Accu-Cheks before meals and at bedtime Rosuvastatin is not on formulary and she has been taking 40 mg daily so will start atorvastatin 80 mg daily. Limited visitation to no more than 15 minutes at a time and no more than 3 people a day. I told the patient and her that we could limit visitation is much as they want because she will need her rest. Continue fluticasone and nasal saline. RX Biotene for dry mouth Straight cath and order a UA. She did have urine retention following discontinuation of the Snyder catheter and has had to be straight cath occasionally. Make the senna/docusate 2 tablets p.o. twice daily as needed constipation. Postvoid residuals x 3 Charges/Coding Visit Charges Inpatient E&M: 25363 Init Hosp L3
[2023-04-02 16:35] LABS: Bedside Glucose 250 mg/dL (74-106)
[2023-04-02 16:46] VITALS: BMI 28.3
[2023-04-02 16:47] VITALS: BP 126/69; PULSE 75; RESP 17; TEMP 36.8; O2SAT 97
--- NOTE | 2023-04-02 17:30 | REHABEVAL_ITS ---
Admission Information Primary Diagnosis:: Physical debility secondary to acute STEMI/witnessed cardiac arrest and Takotsubo's CM. Status Changes from Prescreening?: No changes Identified Actual Problem List:: DVT (Left upper extremity), Infection, Aspiration, Skin Intergrity, Pain, ALteration in Cmfrt, Bowel, Incontinence, Alteration in Sleep, Alteration in Nutrition, Mobility Impaired, Self Care Deficit, BP, Hypotension and Alteration-Leisure Activ. Potential Problem List:: DVT, Bleeding, Infection, UTI, Aspiration, Falls, Skin Integrity and Depression Risk of Complications DVT: MARKEL Alfaro and - (Apixaban 5 mg p.o. twice daily for paroxysmal atrial fibrillation and DVT left upper extremity) Bleeding: Monitor Lab Values, Nursing to Teach Precautions for anti-coagulation therapy., Wound, if applicable, to be assessed every shift. and Stroke patients assessed for lethargy or change in status. Infection: Clinical Staff to Monitor for S/S of infection: and S/S of infection include fever, redness, warmth, etc. Urinary Tract Infection: Monitor for frequency, burning, discomfort, or incontinence. and Nursing will obtain urine sample for urinalysis and C&S when ordered. Aspiration: Clinical staff will monitor for coughing, drooling, congestion., Speech will evaluate swallowing and dsyphasia. and Nursing will monitor patient swallowing during meals. Falls: Patient will be evaluated for Fall Precautions and Patient will be placed on Fall Precautions as indicated per protocol. Skin Breakdown: Nursing will assess skin daily using assessment tool. and Nursing will place on Skin Breakdown Precautions as indicated. Pain: Clinical staff will assess patient's pain level per protocol., Medications will be given, if needed, and the pain level reassessed. and Other methods: Massage, distraction, decrease stimulus, etc. used PRN. Plan of Care Patient requires physician specializing in physical medicine and rehab oversight to provide close medical supervision of rehab issues including: Pain Management, Sleep Problems, Bowel and Bladder, Medical and co-morbidity Management, DVT prophylaxis, Rehabilitation Leadership and Coordination of treatment team Patient needs Physical Therapy: For a minimum of 1 hour and At least 5 out of 7 days Patient needs Physical Therapy to improve:: Mobility, Strengthening, Transfers, Stretching, ROM, Endurance, Stairs, Gait and Balance Patient needs Occupational Therapy: For a minimum of 1 hour and At least 5 out of 7 days Patient needs Occupational Therapy to improve ADL's incl.: Eating, Grooming, Bathing, Dressing, Toileting, Toilet transfers, Community Reintegration, Higher functioning activities, Household tasks, Adaptive Equipment, Splinting and Other activities as determined Patient requires speech therapy: For a minimum of 1 hour and At least 5 out of 7 days Patient requires speech therapy for: Swallowing, Cognition, Language Skills and Compensatory Strategies Patient requires 24/7 Rehabilitation Nursing for: Pain Issues, Identifying and preventing risk factors, Monitoring and reporting current medical conditions, Assisting with ambulation, transfer, and all ADL's, Teaching patients about disease process and medications, Family teaching, Providing safe environment, Bowel and Bladder Issues, Skin integrity and Medication Management Patient needs Wood Processing Worker/ Case Management for: Discharge Planning, Arranging Home Equipment or Services and Family Interventions Patient needs Dietary and Nutrition Services for: Adequate Nutrition, Nutritional Supplements and Nutritional Education Goals Goals Patient will remain: free from falls and or injury at time of discharge. Patient will perform eating at: MOD I level of assist. Patient will perform bed mobility at: MOD I level of assist. Patient will complete transfers from bed to chair at: MOD I level of assist. Patient will ambulate: with LRD and - (At least 50 feet with the least restrictive device at mod I) Patient will complete upper body dressing at: MOD I level of assist. Patient will complete lower body dressing at: MOD I level of assist. (With adaptive equipment as needed) Patient will complete toilet transfer at: MOD I level of assist. (Supervision) Patient will complete toileting at: MOD I level of assist. Patient will perform bathing at: - (Supervision) Patient will perform Tub/Shower transfer at: - (Supervision) Patient will complete grooming at: MOD I level of assist. Patient will complete home management skills at: MOD I level of assist. Patient will achieve: - (1 curb step and 8 stairs at mod I) Patient will have pain level of: of 3 or less Patient's skin will: remain intact Patient will receive: adequate nutrition. Discharge Planning Estimated Length of stay (days): 30 Anticipated D/C Destination: Home w/ family or friends Was Preadmission Assessment Accurate?: Yes
[2023-04-02] MEDS: Insulin Lispro 100 UNIT/ML INSULN.PEN SC ×2 (18:26→20:54)
[2023-04-02 19:35] VITALS: BP 126/69; PULSE 75; RESP 17; TEMP 36.8; O2SAT 97
[2023-04-02 20:15] VITALS: PULSE 84; RESP 18; O2SAT 96
[2023-04-02] MEDS: Ipratropium/Albuterol Sulfate 3 ML AMPUL.NEB INHALATION (20:15)
[2023-04-02] MEDS: APIXABAN 5 MG TABLET GT (20:33)
[2023-04-02] MEDS: Ciprofloxacin 500 MG Tablet GT (20:33)
[2023-04-02 20:34] VITALS: BP 126/69; PULSE 75
[2023-04-02] MEDS: Atorvastatin Calcium 80 MG Tablet GT (20:34)
[2023-04-02] MEDS: Metoprolol Tartrate 25 MG Tablet GT (20:34)
[2023-04-02] MEDS: NYSTATIN 500,000 UNIT/5 ML UDC 400000 UNIT PO (20:35)
[2023-04-02] MEDS: Mirtazapine 15 MG Tablet PO (20:36)
[2023-04-02] MEDS: Pivot 1.5 Cal 1,000 ML BOTTLE 200 ML GT (21:09)
[2023-04-02 21:15] LABS: Bedside Glucose 299 mg/dL (74-106)
[2023-04-03 00:54] LABS: Bacteria 0 SEEN /hpf (None Seen); Mucous, Urine 0 SEEN /hpf (<or=2+); Red Blood Cells-Urine 0 SEEN /hpf (0-5)
[2023-04-03 01:26] LABS: Color, Urine Yellow (Yellow); Glucose, Dipstick 1000 mg/dl (Normal); Ketone-Dipstick Negative (Negative); Leukocyte Esterase-Dipstick 500 /ul (Negative); Nitrite-Dipstick Negative (Negative); Occult Blood-Urine 10 /ul (Negative); Protein-Dipstick 15 mg/dl (Negative); Urine Bilirubin Dipstick Negative (Negative); Urine Clarity Clear (Clear); Urine Urobilinogen Normal (Normal)
[2023-04-03 01:53] LABS: Squamous Epithelial Cells - UA 5-10 SEEN /hpf (5-10); White Blood Cells 10-25 SEEN /hpf (0-5)
[2023-04-03 01:54] LABS: Yeast-Urine 2+ /hpf (None Seen)
[2023-04-03] MEDS: NYSTATIN 500,000 UNIT/5 ML UDC 400000 UNIT PO ×3 (05:30→20:47)
[2023-04-03 06:00] VITALS: BMI 28.5
--- NOTE | 2023-04-03 06:36 | NURSING ---
PEG site dressing changed. Site cleansed w/ soap and water, rinsed, and dried. One split 2x2 applied- did not secure w/ tape. Scant amount of dried blood to site w/ cleaning. Pt tolerated well. Bumper is tight to abdomen.
[2023-04-03 06:45] VITALS: PULSE 76; RESP 16; O2SAT 98
[2023-04-03] MEDS: Ipratropium/Albuterol Sulfate 3 ML AMPUL.NEB INHALATION ×2 (06:45→19:30)
[2023-04-03 06:58] LABS: Bedside Glucose 277 mg/dL (74-106)
[2023-04-03 07:40] LABS: Absolute Lymphocyte Count 1.68 X10^3/uL (0.83-4.51); Absolute Neutrophil Count 4.1 X10^3/uL (2.0-7.7); Basophil# 0.06 X10^3/uL; Basophil% 0.9 % (0-1); Eosinophil# 0.16 X10^3/uL; Eosinophils% 2.4 % (0-5); Hemoglobin 10.6 g/dL (12.0-15.0); Lymphocyte # 1.68 X10^3/ul (0.83-4.51); Lymphocyte % 25.5 % (19-41); Mean Corp Hgb Conc 30.3 g/dL (32-36); Mean Corpuscular Hgb 30.6 pg (27.0-32.0); Mean Corpuscular Volume 101.2 fL (81-99); Mean Platelet Vol. 11.5 fl (6.2-12.0); Monocyte# 0.55 X10^3/uL; Monocyte% 8.3 % (0-10); NRBC Flagged by Analyzer 0 % (0-5); Neutrophil # 4.08 X10^3/uL (2.7-7.7); Platelet Count 273 K/mm3 (150-450); RBC Distribution Width SD 59.2 fl (35.1-43.9); Red Blood Count 3.46 M/mm3 (4.2-5.4); White Blood Count 6.6 K/mm3 (4.4-11.0)
[2023-04-03] MEDS: Insulin Lispro 100 UNIT/ML INSULN.PEN SC ×4 (08:03→22:18)
[2023-04-03 08:04] VITALS: PULSE 77
[2023-04-03] MEDS: Ciprofloxacin 500 MG Tablet GT ×2 (08:04→20:37)
[2023-04-03] MEDS: Metoprolol Tartrate 25 MG Tablet GT ×2 (08:04→20:37)
[2023-04-03] MEDS: Empagliflozin 25 MG Tablet GT (08:04)
[2023-04-03] MEDS: APIXABAN 5 MG TABLET GT ×2 (08:04→20:37)
[2023-04-03] MEDS: Multivitamin/Minerals/Iron (9 mg/15 ml) Liquid GT (08:04)
[2023-04-03] MEDS: Aspirin 81 MG TAB.CHEW GT (08:05)
[2023-04-03] MEDS: Losartan Potassium 25 MG Tablet 12.5 MG GT (08:05)
[2023-04-03] MEDS: Lansoprazole 15 MG Capsule.DR 30 MG GT (08:05)
[2023-04-03] MEDS: Amiodarone 200 MG Tablet GT (08:05)
[2023-04-03] MEDS: metFORMIN HCl 500 MG Tablet GT ×2 (08:05→17:20)
[2023-04-03] MEDS: Fluticasone 0.05% 1 SPRAY NASAL.SRY 2 SPRAY NASAL (08:06)
[2023-04-03] MEDS: glipiZIDE XL 5 MG Tablet 10 MG PO (08:06)
[2023-04-03 08:44] LABS: ALB/GLOB Ratio 0.5 RATIO (0.9-2.4); AST(SGOT) 21 U/L (15-37); Alanine Aminotransfer ALT/SGPT 18 U/L (13-56); Alkaline Phosphatase 114 U/L (45-117); Anion Gap 7 (5-15); BUN 11 mg/dL (7-18); BUN/Creat Ratio 17.4 RATIO (10-20); Calcium,Total 8.8 mg/dL (8.5-10.1); Chloride 110 mmol/L (98-107); Creatinine, Serum 0.63 mg/dL (0.55-1.02); EST Glomerular Filtration Rate 99 mL/min (>60); Est Glom Filt Rate - Afr Amer 120 mL/min (>60); Estimated Creatinine Clearance 74.85 ml/min; Globulin 3.9 g/dL (2.2-4.2); Glucose 288 mg/dL (74-106); Magnesium 2.2 mg/dL (1.6-2.6); Phosphorus 2.5 mg/dL (2.5-4.9); Potassium 3.9 mmol/L (3.5-5.1); Protein, Total 5.9 g/dL (6.4-8.2); Sodium Level 138 mmol/L (136-145)
[2023-04-03 09:38] VITALS: BP 121/63; PULSE 77; RESP 14; TEMP 36.3; O2SAT 93
[2023-04-03 11:47] LABS: Bedside Glucose 160 mg/dL (74-106)
--- NOTE | 2023-04-03 15:49 | EKG12_ITS ---
Test Reason : S/P CABG Blood Pressure : / mmHG Vent. Rate : 079 BPM Atrial Rate : 079 BPM P-R Int : 180 ms QRS Dur : 092 ms QT Int : 490 ms P-R-T Axes : 040 049 127 degrees QTc Int : 561 ms Normal sinus rhythm Low voltage QRS T wave abnormality, consider lateral ischemia Abnormal ECG No previous ECGs available Confirmed by CHRISTEL PENA, JOSE ALEJANDRO ([id number]), book or script editor MICHAEL BENJAMIN ([id number]) on 04/05/2023 2:06:25 PM Referred By: Gail Pena Confirmed By:JOSE ALEJANDRO KEARNEY MD
[2023-04-03 16:46] LABS: Bedside Glucose 195 mg/dL (74-106)
[2023-04-03] MEDS: Juven (unflavored) Packet 1 PACKET PO (17:20)
[2023-04-03 19:30] VITALS: PULSE 80; RESP 16; O2SAT 98
[2023-04-03 19:55] VITALS: BP 115/67; PULSE 81; RESP 16; TEMP 36.9; O2SAT 97
[2023-04-03 20:37] VITALS: BP 115/67; PULSE 87
[2023-04-03] MEDS: Atorvastatin Calcium 80 MG Tablet GT (20:37)
[2023-04-03] MEDS: Mirtazapine 15 MG Tablet PO (20:37)
[2023-04-03] MEDS: Pivot 1.5 Cal 1,000 ML BOTTLE 200 ML GT (20:38)
[2023-04-03 22:40] LABS: Bedside Glucose 225 mg/dL (74-106)
[2023-04-04 05:55] VITALS: BMI 28.6
[2023-04-04] MEDS: NYSTATIN 500,000 UNIT/5 ML UDC 400000 UNIT PO ×3 (05:57→21:12)
[2023-04-04 06:39] LABS: Bedside Glucose 178 mg/dL (74-106)
[2023-04-04] MEDS: Ipratropium/Albuterol Sulfate 3 ML AMPUL.NEB INHALATION (07:04)
[2023-04-04 07:05] VITALS: PULSE 74; RESP 16; O2SAT 97
[2023-04-04 07:24] VITALS: BP 125/69; PULSE 73; RESP 16; TEMP 36.6; O2SAT 94
[2023-04-04 08:17] VITALS: PULSE 73
[2023-04-04] MEDS: Lansoprazole 15 MG Capsule.DR 30 MG GT (08:17)
[2023-04-04] MEDS: Insulin Lispro 100 UNIT/ML INSULN.PEN SC ×4 (08:17→21:10)
[2023-04-04] MEDS: Juven (unflavored) Packet 1 PACKET PO ×2 (08:17→17:31)
[2023-04-04] MEDS: Metoprolol Tartrate 25 MG Tablet GT ×2 (08:17→21:11)
[2023-04-04] MEDS: Losartan Potassium 25 MG Tablet 12.5 MG GT (08:18)
[2023-04-04] MEDS: Amiodarone 200 MG Tablet GT (08:18)
[2023-04-04] MEDS: glipiZIDE XL 5 MG Tablet 10 MG PO (08:18)
[2023-04-04] MEDS: Empagliflozin 25 MG Tablet GT ×2 (08:18→08:19)
[2023-04-04] MEDS: Aspirin 81 MG TAB.CHEW GT (08:18)
[2023-04-04] MEDS: metFORMIN HCl 500 MG Tablet GT ×2 (08:19→17:31)
[2023-04-04] MEDS: APIXABAN 5 MG TABLET GT ×2 (08:19→21:10)
[2023-04-04] MEDS: Fluticasone 0.05% 1 SPRAY NASAL.SRY 2 SPRAY NASAL (08:19)
[2023-04-04] MEDS: Multivitamin/Minerals/Iron (9 mg/15 ml) Liquid GT (08:19)
[2023-04-04] MEDS: Ciprofloxacin 500 MG Tablet GT ×2 (08:19→21:10)
[2023-04-04] MEDS: SEMAGLUTIDE 0.25 MG/0.368 ML PEN.INJCTR 0.5 MG SQ (09:44)
[2023-04-04 11:52] LABS: Bedside Glucose 265 mg/dL (74-106)
[2023-04-04] MEDS: oxyCODONE 5 MG Tablet GT (14:03)
[2023-04-04 17:38] LABS: Bedside Glucose 213 mg/dL (74-106)
[2023-04-04] MEDS: Senna/Docusate Sodium 1 Tablet 2 TABLET GT (18:09)
[2023-04-04 20:59] VITALS: BP 119/60; PULSE 83; RESP 16; TEMP 36.7; O2SAT 96
[2023-04-04] MEDS: Pivot 1.5 Cal 1,000 ML BOTTLE 200 ML GT (21:07)
[2023-04-04 21:11] VITALS: PULSE 83
[2023-04-04] MEDS: Atorvastatin Calcium 80 MG Tablet GT (21:11)
[2023-04-04] MEDS: Mirtazapine 15 MG Tablet PO (21:12)
[2023-04-04] MEDS: Menthol/Lanolin/Calamine/Znox 113 GM Tube 1 APPLIC TOPICAL (21:24)
[2023-04-04 22:00] LABS: Bedside Glucose 192 mg/dL (74-106)
[2023-04-05] VITALS (7 sets, daily range): BP systolic 112–148; BP diastolic 65–85; PULSE 80–93; RESP 16–84; TEMP 36.4–36.6; O2SAT 16–96; BMI 28.7
[2023-04-05 07:01] LABS: Bedside Glucose 195 mg/dL (74-106)
[2023-04-05] MEDS: Multivitamin/Minerals/Iron (9 mg/15 ml) Liquid GT (09:11)
[2023-04-05] MEDS: glipiZIDE XL 5 MG Tablet 10 MG PO (09:11)
[2023-04-05] MEDS: metFORMIN HCl 500 MG Tablet GT ×2 (09:11→17:58)
[2023-04-05] MEDS: Aspirin 81 MG TAB.CHEW GT (09:11)
[2023-04-05] MEDS: Metoprolol Tartrate 25 MG Tablet GT ×2 (09:11→20:45)
[2023-04-05] MEDS: Lansoprazole 15 MG Capsule.DR 30 MG GT (09:12)
[2023-04-05] MEDS: APIXABAN 5 MG TABLET GT ×2 (09:12→20:44)
[2023-04-05] MEDS: Amiodarone 200 MG Tablet GT (09:12)
[2023-04-05] MEDS: Losartan Potassium 25 MG Tablet 12.5 MG GT (09:12)
[2023-04-05] MEDS: Fluticasone 0.05% 1 SPRAY NASAL.SRY 2 SPRAY NASAL (09:13)
[2023-04-05] MEDS: Insulin Lispro 100 UNIT/ML INSULN.PEN SC ×2 (09:14→12:28)
[2023-04-05] MEDS: Menthol/Lanolin/Calamine/Znox 113 GM Tube 1 APPLIC TOPICAL ×2 (09:40→20:43)
--- NOTE | 2023-04-05 11:30 | PCM.PROGNOTE ---
Subjective Subjective Tamara was seen on team rounds today. Afebrile VSS Maintaining appropriate oxygen saturation on RA Oral intake has been good until this a.m. The blood sugar record was reviewed. Blood sugars are not adequately controlled. Discussed with nursing -nursing reports that the patient was nauseated this a.m. and vomited. She refused breakfast. She ate 75 to 100% of her lunch and supper yesterday. Reviewed the PT/OT/ST notes. Tamara was placed on a easy to chew, carb controlled diet with thin liquids over the weekend. Medication list reviewed. Jen is c/o R medial foot pain on the dorsal surface over the 5th metatarsal. She had an XRAY of the alysha in the recent past and there was no fracture or dislocation. the pain occurs with weight bearing. She has had nausea/vomiting this morning but, she feels somewhat better after Compazine and she is able to keep water down. All lab drawn Wednesday was personally reviewed. Serum bicarb was borderline low at 21. Due to Jardiance? Magnesium and phosphorus were within normal limits. LFTs were normal. Albumin is low at 2.0. Calcium corrected for hypoalbuminemia is high at 10.7 but I suspect this is due to being bedridden for a prolonged period of time. Tamara denies chest pain, shortness of breath, palpitations, lightheadedness, dysuria and calf pain. Objective Data Objective Data Vital Signs: Vital Signs Temp Pulse Resp BP Pulse Ox O2 Del Method 97.6 F L 86 16 112/76 93 Room Air 04/05/23 09:45 04/05/23 09:45 04/05/23 09:45 04/05/23 09:45 04/05/23 09:45 04/05/23 09:45 Oxygen Delivery Method Room Air Weight: 188 lb 14.978 oz Body Mass Index (BMI) 28.7 Intake & Output: Intake and Output for Last 24 Hours 04/03/23 04/04/23 04/05/23 23:59 23:59 23:59 Intake Total 1440 / 1440 3040 / 3040 350 / 350 Output Total 1850 / 2650 3550 / 3550 1000 / 1000 Balance -410 / -1210 -510 / -510 -650 / -650 Lab / Micro Data 04/05/23 12:18 01/15/24 12:18 Labs: Laboratory Results - last 24 hr 04/04/23 11:32: POC Glucose 265 H 04/04/23 17:20: POC Glucose 213 H 04/04/23 21:06: POC Glucose 192 H 04/05/23 06:16: POC Glucose 195 H Micro: Microbiology 04/03/23 11:30 Urine Catheter - Catheter Urine Culture - Final Culture exhibits no growth. Physical Exam Const alert and oriented x3 Constitutional Narrative: Looks fatigued and ill. MM are moist. General Appearance: cooperative Orientation / Consciousness: Negative for confused Resp normal respiratory effort and clear to auscultation bilaterally Effort and Inspection: Negative for tachypneic or respiratory distress Cardio regular rate, regular rhythm and no gallops GI GI Narrative: The abdomen is soft to palpation and nontender. There is no abdominal distention. Bowel sounds are somewhat diminished but they are present in all 4 quadrants. No guarding with palpation. No tympany. Extremity no calf tenderness General Extremity: Negative for edema Skin Rashes: no rashes Wound Narrative: The eschar on the R heel is softening and the area around the eschar is more pink than red today and there is no odor and no purulent DC. No increased warmth to touch. she is tender R lateral side of the posterior heel. She can guide me the area that is painful on the R foot with bearing weight.......it is over the fifth mid metatarsal and it could be a stress fracture. Neuro CN's II-XII intact bilaterally and no focal motor deficits Psych thought process normal, cooperative and affect normal Appearance: appropriate Attitude: No agitated Activity / Motor Behavior: Negative for restless Assessment & Plan Assessment/Plan (1) Nausea & vomiting: (2) Physical debility: (3) History of coronary artery bypass graft x 2: (4) STEMI (ST elevation myocardial infarction): (5) Deep vein thrombosis (DVT) of left upper extremity: QUALIFIERS: Affected thrombotic vein of extremity: unspecified vein of extremity Chronicity: acute Qualified Code(s): I82.622 - Acute embolism and thrombosis of deep veins of left upper extremity (6) Acute blood loss anemia: (7) Shock liver: (8) Takotsubo cardiomyopathy: PLAN: Plan 1. Continue therapy 2. Hold tube feeds for now....... may no longer need tube feed as she was taking 75 to 100% of her meals prior to being nauseated today. Her grandchildren visited over the weekend and she thinks they may have gotten her sick. 3. Compazine 5 mg p.o. or PEG every 6 hours as needed nausea 4. Continue sliding scale insulin for now. Once she starts eating again consider increasing glipizide to 10 mg twice daily. 5. BMP now and also H&H. Capacity Legal Inspector [employer]ards Reflex Medical hold order details:: IF a medical hold is selected below, a suggested order for a MEDICAL HOLD will reflex upon signing the document. Next of kin: [place] law dictates a PRIORITY LIST for identifying legal decision-maker/legal next of kin in the following order (LNOK): 1st: The patient?s legal guardian, if any 2nd: The patient's spouse (if status is questionable, consult Risk Management) 3rd: The patient?s adult child(jay) (majority, if multiple children) 4th: The patient?s parents 5th: The patient?s adult siblings (majority, if multiple children siblings) Charges/Coding Visit Charges Inpatient E&M: 28269 Subs Hosp L2
[2023-04-05 11:39] LABS: Bedside Glucose 153 mg/dL (74-106)
[2023-04-05] MEDS: proCHLORPERazine 5 MG Tablet GT (12:25)
[2023-04-05 12:26] LABS: Hematocrit 35.8 % (37-47)
--- NOTE | 2023-04-05 13:09 | CASEMGMT ---
Social Work IDT met with patient and via conference call for Team meeting. Discussed patient's progress in PT/OT/ST/SN. Educated to Medicare benefit. SW to update pt and once Medicare approval days are given. IDT encouraged pt to participate more in therapy. Staff noted pt's preference is to remain in bed for all tasks and therapy. SW to speak with pt further about participation once assessment is completed. Pt's goal is to return home with at [facility] [address] Will ReTeam next week. SW will continue to follow for DC planning. JOHN RmW
[2023-04-05 14:03] LABS: Anion Gap 6 (5-15); BUN 16 mg/dL (7-18); BUN/Creat Ratio 25.2 RATIO (10-20); Calcium,Total 9.1 mg/dL (8.5-10.1); Chloride 109 mmol/L (98-107); Creatinine, Serum 0.64 mg/dL (0.55-1.02); EST Glomerular Filtration Rate 98 mL/min (>60); Est Glom Filt Rate - Afr Amer 119 mL/min (>60); Estimated Creatinine Clearance 75.02 ml/min; Glucose 136 mg/dL (74-106); Potassium 3.8 mmol/L (3.5-5.1); Sodium Level 139 mmol/L (136-145)
--- NOTE | 2023-04-05 16:02 | CHAPLAIN ---
Type of Pastoral Visit _x__ Initial Visit ___ Follow-up Visit ___ On-call Visit ___ General Patient Visit ___ Spiritual Assessment ___ Family Conference ___ Bereavement ___ Rapid Response ___ Code Blue ___ Other (describe below) Pastoral Care Referral From _x_ Patient ___ Family ___ Nurse ___ Physician ___ Guest Services Coordinator ___ Patient Resource Coordinator ___ Other (describe below) Sacrament/Intervention _x__ Active listening ___ Anointing ___ Hinduism ___ Bereavement ___ Communion ___ Cassandra exploration ___ ___ Life review _x__ Prayer ___ Reconciliation ___ Sacrament of Sick _x__ Supportive presence ___ Wedding ___ Other (describe below) Pastoral Comments patient was sleeping but easily awoke to her name; pt gives details of what it looked/felt like for her two heart attacks; pt is thankful to be closer to home and in a good rehab facility; pt has family in the area; two pastors have checked on this patient since she has been in rehab; pt admits to being tired after a long day of therapy and asks for this vp purchasing to return another day
[2023-04-05 17:15] LABS: Bedside Glucose 115 mg/dL (74-106)
[2023-04-05] MEDS: traMADol 50 MG Tablet PO (17:58)
[2023-04-05] MEDS: Ipratropium/Albuterol Sulfate 3 ML AMPUL.NEB INHALATION (19:30)
[2023-04-05] MEDS: Atorvastatin Calcium 80 MG Tablet GT (20:45)
[2023-04-05] MEDS: Mirtazapine 15 MG Tablet PO (20:45)
[2023-04-05] MEDS: NYSTATIN 500,000 UNIT/5 ML UDC 400000 UNIT PO (20:49)
[2023-04-05 21:20] LABS: Bedside Glucose 134 mg/dL (74-106)
[2023-04-06] VITALS (8 sets, daily range): BP systolic 109–122; BP diastolic 59–65; PULSE 72–91; RESP 16–18; TEMP 36.3–36.4; O2SAT 94–96; BMI 28.6
[2023-04-06] MEDS: NYSTATIN 500,000 UNIT/5 ML UDC 400000 UNIT PO ×3 (06:32→21:54)
[2023-04-06] MEDS: Ipratropium/Albuterol Sulfate 3 ML AMPUL.NEB INHALATION ×2 (07:08→19:55)
[2023-04-06 07:18] LABS: Bedside Glucose 144 mg/dL (74-106)
[2023-04-06] MEDS: Fluticasone 0.05% 1 SPRAY NASAL.SRY 2 SPRAY NASAL (09:08)
[2023-04-06] MEDS: Losartan Potassium 25 MG Tablet 12.5 MG GT (09:09)
[2023-04-06] MEDS: Lansoprazole 15 MG Capsule.DR 30 MG GT (09:09)
[2023-04-06] MEDS: Multivitamin/Minerals/Iron (9 mg/15 ml) Liquid GT (09:09)
[2023-04-06] MEDS: metFORMIN HCl 500 MG Tablet GT ×2 (09:09→18:12)
[2023-04-06] MEDS: Amiodarone 200 MG Tablet GT (09:09)
[2023-04-06] MEDS: Aspirin 81 MG TAB.CHEW GT (09:09)
[2023-04-06] MEDS: Metoprolol Tartrate 25 MG Tablet GT ×2 (09:09→21:55)
[2023-04-06] MEDS: glipiZIDE XL 5 MG Tablet 10 MG PO (09:09)
[2023-04-06] MEDS: Empagliflozin 25 MG Tablet GT (09:10)
[2023-04-06] MEDS: APIXABAN 5 MG TABLET GT ×2 (09:10→21:57)
[2023-04-06] MEDS: oxyCODONE 5 MG Tablet GT ×2 (09:13→21:45)
[2023-04-06] MEDS: Menthol/Lanolin/Calamine/Znox 113 GM Tube 1 APPLIC TOPICAL ×2 (09:15→21:57)
[2023-04-06 11:21] LABS: Bedside Glucose 189 mg/dL (74-106)
[2023-04-06] MEDS: Insulin Lispro 100 UNIT/ML INSULN.PEN SC ×3 (12:10→21:56)
[2023-04-06] MEDS: Collagenase 30gm Tube 1 APPLIC TOPICAL (14:24)
--- NOTE | 2023-04-06 16:58 | PCM.PROGNOTE ---
Subjective Subjective Afebrile VSS Maintaining appropriate oxygen saturation on RA Oral intake is good Discussed with nursing - no problems that need addressed Reviewed the PT/OT/ST notes Medication list reviewed. Tamara denies nausea or vomiting today. She also denies abdominal pain and diarrhea. She tells me that the surgical shoe helps considerably with pain when she is bearing weight on the right foot. The AFO for heel pressure relief was brought in by her today and will be applied anytime she is in bed. Jen denies cephalgia, chest pain, shortness of breath at rest, palpitations, lightheadedness, epigastric pain, nausea/vomiting, dysuria and calf tenderness. Her biggest complaint is she feels very tired. Visitors are making the situation worse because they are staying too long and increasing her exhaustion. she is not able to ask them to leave. She is OK with us posting a sign on the door that all visitors must report to the nurses station prior to entering her room. Objective Data Objective Data Vital Signs: Vital Signs Temp Pulse Resp BP Pulse Ox O2 Del Method 97.5 F L 82 16 109/59 L 95 Room Air 04/06/23 07:36 04/06/23 09:09 04/06/23 08:22 04/06/23 09:09 04/06/23 08:22 04/06/23 08:22 Oxygen Delivery Method Room Air Weight: 188 lb 7.924 oz Body Mass Index (BMI) 28.6 Intake & Output: Intake and Output for Last 24 Hours 04/04/23 04/05/23 04/06/23 23:59 23:59 23:59 Intake Total 3040 / 3040 1400 / 1400 785 / 785 Output Total 3550 / 3550 2600 / 2600 1430 / 1430 Balance -510 / -510 -1200 / -1200 -645 / -645 Lab / Micro Data 04/05/23 12:18 04/05/23 12:18 Labs: Laboratory Results - last 24 hr 04/05/23 16:52: POC Glucose 115 H 04/05/23 21:00: POC Glucose 134 H 04/06/23 06:45: POC Glucose 144 H 04/06/23 11:03: POC Glucose 189 H Micro: Microbiology 04/03/23 11:30 Urine Catheter - Catheter Urine Culture - Final Culture exhibits no growth. Physical Exam Const alert, oriented x3 and no apparent distress Orientation / Consciousness: Negative for confused Resp normal respiratory effort Resp Narrative: Still with coarse crackles in the bases which I suspect are due to atelectasis. They do clears somewhat with a few deep breaths. She is using the incentive spirometer and also the PEP. Still coughing with deep breathing. No conversational dyspnea and she is able to speak in complete sentences. Effort and Inspection: Negative for tachypneic Cardio regular rate, regular rhythm, no rub and no gallops Cardio Narrative: No ectopy GI normal to inspection, nondistended, normoactive bowel sounds, soft to palpation and non-tender GI Narrative: The PEG site has no discharge and no erythema around the site. She has no pain with palpation around the PEG tube. The abdomen is not distended and bowel sounds are present. Narrative: No visible vaginal discharge. Normal external female genitalia. No evidence of intertrigo. She has some hyperpigmentation of the perineum. Extremity no calf tenderness General Extremity: Negative for edema Skin no jaundice Rashes: no rashes Assessment & Plan Assessment/Plan (1) Nausea & vomiting: QUALIFIERS: Vomiting type: unspecified Qualified Code(s): R11.2 - Nausea with vomiting, unspecified (2) Physical debility: (3) History of coronary artery bypass graft x 2: (4) STEMI (ST elevation myocardial infarction): QUALIFIERS: Involved coronary artery: other coronary artery Qualified Code(s): I21.29 - ST elevation (STEMI) myocardial infarction involving other sites (5) Deep vein thrombosis (DVT) of left upper extremity: QUALIFIERS: Affected thrombotic vein of extremity: unspecified vein of extremity Chronicity: acute Qualified Code(s): I82.622 - Acute embolism and thrombosis of deep veins of left upper extremity (6) Acute blood loss anemia: (7) Shock liver: (8) Takotsubo cardiomyopathy: (9) Urine retention: PLAN: Plan 1. Continue therapy 2. Place a sign on her door and have visitors stop at the nurses station prior to going into her room. Nursing will ask her if she is wanting a visit and if not will ask visitors to leave. Will also tell them to limit their visit to no more than 10 minutes. 3. Continue stool softeners. 4. Voiding trial later this week. Capacity Legal Heat Set Operator Reflex Medical hold order details:: IF a medical hold is selected below, a suggested order for a MEDICAL HOLD will reflex upon signing the document. Next of kin: [place] law dictates a PRIORITY LIST for identifying legal decision-maker/legal next of kin in the following order (LNOK): 1st: The patient?s legal guardian, if any 2nd: The patient's spouse (if status is questionable, consult Risk Management) 3rd: The patient?s adult child(jay) (majority, if multiple children) 4th: The patient?s parents 5th: The patient?s adult siblings (majority, if multiple children siblings) Charges/Coding Visit Charges Inpatient E&M: 68206 Subs Hosp L2
[2023-04-06 17:45] LABS: Bedside Glucose 159 mg/dL (74-106)
[2023-04-06] MEDS: Mirtazapine 15 MG Tablet PO (21:54)
[2023-04-06] MEDS: Atorvastatin Calcium 80 MG Tablet GT (21:56)
[2023-04-06 22:23] LABS: Bedside Glucose 174 mg/dL (74-106)
[2023-04-07] VITALS (8 sets, daily range): BP systolic 101–117; BP diastolic 62–79; PULSE 78–95; RESP 14–17; TEMP 36.1–36.2; O2SAT 93–97; BMI 28.4
[2023-04-07] MEDS: NYSTATIN 500,000 UNIT/5 ML UDC 400000 UNIT PO ×3 (05:01→21:49)
[2023-04-07 07:16] LABS: Bedside Glucose 109 mg/dL (74-106)
[2023-04-07] MEDS: Fluticasone 0.05% 1 SPRAY NASAL.SRY 2 SPRAY NASAL ×2 (09:05→21:47)
[2023-04-07] MEDS: Metoprolol Tartrate 25 MG Tablet GT ×2 (09:05→21:56)
[2023-04-07] MEDS: glipiZIDE XL 5 MG Tablet 10 MG PO (09:05)
[2023-04-07] MEDS: APIXABAN 5 MG TABLET GT ×2 (09:05→21:47)
[2023-04-07] MEDS: Aspirin 81 MG TAB.CHEW GT (09:05)
[2023-04-07] MEDS: Losartan Potassium 25 MG Tablet 12.5 MG GT (09:06)
[2023-04-07] MEDS: Empagliflozin 25 MG Tablet GT (09:06)
[2023-04-07] MEDS: Multivitamins,Therapeutic Tablet 1 TABLET PO (09:06)
[2023-04-07] MEDS: metFORMIN HCl 500 MG Tablet GT ×2 (09:06→17:15)
[2023-04-07] MEDS: Amiodarone 200 MG Tablet GT (09:06)
[2023-04-07] MEDS: Lansoprazole 15 MG Capsule.DR 30 MG GT (09:06)
[2023-04-07] MEDS: Menthol/Lanolin/Calamine/Znox 113 GM Tube 1 APPLIC TOPICAL ×2 (09:08→21:52)
[2023-04-07 11:24] LABS: Bedside Glucose 129 mg/dL (74-106)
[2023-04-07] MEDS: oxyCODONE 5 MG Tablet GT (12:04)
[2023-04-07] MEDS: Ipratropium/Albuterol Sulfate 3 ML AMPUL.NEB INHALATION ×2 (12:13→19:45)
[2023-04-07] MEDS: Collagenase 30gm Tube 1 APPLIC TOPICAL (13:18)
[2023-04-07 17:11] LABS: Bedside Glucose 167 mg/dL (74-106)
[2023-04-07] MEDS: Insulin Lispro 100 UNIT/ML INSULN.PEN SC (17:15)
[2023-04-07 21:33] LABS: Bedside Glucose 149 mg/dL (74-106)
[2023-04-07] MEDS: Atorvastatin Calcium 80 MG Tablet GT (21:48)
[2023-04-07] MEDS: Mirtazapine 15 MG Tablet PO (21:49)
[2023-04-07] MEDS: Petrolatum 33% Tube 1 APPLIC TOPICAL (21:51)
[2023-04-08] MEDS: NYSTATIN 500,000 UNIT/5 ML UDC 400000 UNIT PO ×3 (05:59→21:05)
[2023-04-08] MEDS: Petrolatum 33% Tube 1 APPLIC TOPICAL ×2 (05:59→20:58)
[2023-04-08 06:00] VITALS: BMI 27.8
[2023-04-08] MEDS: Menthol/Lanolin/Calamine/Znox 113 GM Tube 1 APPLIC TOPICAL ×2 (06:00→21:00)
[2023-04-08 06:10] VITALS: PULSE 74; RESP 16; O2SAT 93
[2023-04-08 06:58] LABS: Bedside Glucose 139 mg/dL (74-106)
[2023-04-08] MEDS: Ipratropium/Albuterol Sulfate 3 ML AMPUL.NEB INHALATION ×2 (07:38→18:50)
[2023-04-08] MEDS: Losartan Potassium 25 MG Tablet 12.5 MG GT (07:51)
[2023-04-08] MEDS: APIXABAN 5 MG TABLET GT (07:51)
[2023-04-08] MEDS: glipiZIDE XL 5 MG Tablet 10 MG PO (07:52)
[2023-04-08] MEDS: Empagliflozin 25 MG Tablet GT (07:52)
[2023-04-08] MEDS: Aspirin 81 MG TAB.CHEW GT (07:52)
[2023-04-08] MEDS: Amiodarone 200 MG Tablet GT (07:52)
[2023-04-08] MEDS: Multivitamins,Therapeutic Tablet 1 TABLET PO (07:52)
[2023-04-08 07:53] VITALS: PULSE 80
[2023-04-08] MEDS: Lansoprazole 15 MG Capsule.DR 30 MG GT (07:53)
[2023-04-08] MEDS: Metoprolol Tartrate 25 MG Tablet GT (07:53)
[2023-04-08] MEDS: metFORMIN HCl 500 MG Tablet GT ×2 (07:53→16:26)
[2023-04-08] MEDS: Fluticasone 0.05% 1 SPRAY NASAL.SRY 2 SPRAY NASAL ×2 (07:53→21:02)
[2023-04-08] MEDS: Collagenase 30gm Tube 1 APPLIC TOPICAL (07:54)
[2023-04-08 10:00] VITALS: BP 108/65; PULSE 80; RESP 16; TEMP 36.3; O2SAT 94
[2023-04-08 11:31] LABS: Bedside Glucose 122 mg/dL (74-106)
--- NOTE | 2023-04-08 15:12 | PN_ITS ---
Subjective Subjective Afebrile VSS Maintaining appropriate oxygen saturation on RA Oral intake is improving. She is eating 50 to 100% of the majority of meal she takes now. She has good fluid intake. Fluid balance has been negative every day since she arrived on acute rehab and this is likely due to mobilization of fluids used at the previous hospital to treat hypotension in addition to pressors. She has no symptoms of dehydration. Blood sugar record was reviewed. Blood sugars are excellent control. There is a rare need for any additional lispro with meals and if she gets lispro it is only 1 unit. Will discontinue sliding scale insulin. Has not had a TSH since 2011.. Discussed with nursing - no problems that need addressed Reviewed the PT/OT/ST notes Medication list reviewed. Has only needed 0-2 Oxycodone a day for pain control No discharges from the [facility]. The AFO is in place on the right lower extremity anytime she is in bed or in the recliner with her legs elevated to take the pressure off the right heel d ecubitus ulcers. Pain is well-controlled. Her only complaint is constipation. She tells me she is sleeping well at night. She denies cephalgia, lightheadedness, palpitations, chest pain, shortness of breath at rest, nausea/vomiting/abdominal pain, dysuria and calf tenderness. She fatigues easily. she is getting a lot of company and they are not limiting their visits. On person wanted to know if she and 13 other people could bring a BD cake in this weekend for a birthday celebration. She was told no. Will have the visitors stop at the nurses station prior to going into the room and we will ask the pt if she is up for company. Limit visits to 15 minutes, expept for immediate family. Objective Data Objective Data Vital Signs: Vital Signs Temp Pulse Resp BP Pulse Ox O2 Del Method 97.4 F L 80 16 108/65 94 Room Air 04/08/23 10:00 04/08/23 10:04/08/23 10:00 04/08/23 10:04/08/23 10:04/08/23 10:00 Oxygen Delivery Method Room Air Weight: 183 lb 3.266 oz Body Mass Index (BMI) 27.8 Intake & Output: Intake and Output for Last 24 Hours 04/06/23 04/07/23 04/08/23 23:59 23:59 23:59 Intake Total 1155 / 1155 2710 / 2710 200 / 200 Output Total 3080 / 3080 2875 / 2875 1475 / 1475 Balance -1925 / -1925 -165 / -165 -1275 / -1275 Lab / Micro Data 04/05/23 12:18 04/05/23 12:18 Labs: Laboratory Results - last 24 hr 04/07/23 16:42: POC Glucose 167 H 04/07/23 21:14: POC Glucose 149 H 04/08/23 06:04: POC Glucose 139 H 04/08/23 11:09: POC Glucose 122 H Micro: Microbiology 04/03/23 11:30 Urine Catheter - Catheter Urine Culture - Final Culture exhibits no growth. Physical Exam Const alert and no apparent distress Constitutional Narrative: Voice is still hoarse and she looks fatigued but she has better color in her face. She has noticed some difficulty with memory since the cardiac arrest. General Appearance: cooperative and well developed HEENT head/scalp atraumatic Mouth: dry mucous membranes Eyes PERRL and EOMs intact bilaterally Resp Resp Narrative: Normal respiratory effort. Not tachypneic. No conversational dyspnea and she is speaking in complete sentences. She has coarse crackles in both bases posteriorly and when I have her take a deep breath she coughs. We discussed that this is more likely than not secondary to atelectasis and I recommended she use the incentive spirometer 10 times an hour while awake. Cardio regular rate, regular rhythm, no murmurs, no rub and no gallops Cardio Narrative: No ectopy. Denies palpitations. Denies lightheadedness. GI normal to inspection, nondistended, normoactive bowel sounds, soft to palpation and non-tender GI Narrative: Bowel sounds are very active at present. Tells me that she has not had a bowel movement in 4 days. The PEG tube site is clean with no erythema and no discharge. Extremity no calf tenderness General Extremity: edema bilateral (Still with trace ankle edema bilaterally but the pretibial edema has completely resolved and she has no posterior thigh edema.) Skin Rashes: no rashes Wound Narrative: Will examine the wounds on her buttocks and also both heels tomorrow when the dressings are changed. Neuro CN's II-XII intact bilaterally and no focal motor deficits Psych Psych Narrative: Thought processes a little slow and I suspect there may be some anoxic encephalopathy following the cardiac arrest and hypotension. She is working with speech therapy. Appearance: appropriate Attitude: No agitated Activity / Motor Behavior: Negative for restless Assessment & Plan Assessment/Plan (1) Nausea & vomiting: (2) Physical debility: (3) History of coronary artery bypass graft x 2: (4) STEMI (ST elevation myocardial infarction): (5) Deep vein thrombosis (DVT) of left upper extremity: QUALIFIERS: Affected thrombotic vein of extremity: unspecified vein of extremity Chronicity: acute Qualified Code(s): I82.622 - Acute embolism and thrombosis of deep veins of left upper extremity (6) Acute blood loss anemia: (7) Shock liver: (8) Takotsubo cardiomyopathy: PLAN: Plan 1. Continue therapy 2. Discontinue the Kuldeep wrap's to the lower extremities and apply MARKEL hose instead per patient request. The edema is much improved since admission and the Kuldeep wrap's are falling down. 3. She had a low blood sugar this afternoon so I am going to Discontinue glipizide and continue blood sugars before meals and at bedtime with sliding scale insulin coverage. Metformin was decreased at admission from 1000 mg twice daily to 500 mg twice daily. Continue Jardiance and Ozempic. 4. Voiding trial tomorrow 5. Change the stool softeners to scheduled rather than as needed since she is now complaining of constipation. Capacity Legal Bottom Br[employer]her Reflex Medical hold order details:: IF a medical hold is selected below, a suggested order for a MEDICAL HOLD will reflex upon signing the document. Next of kin: [place] law dictates a PRIORITY LIST for identifying legal decision-maker/legal next of kin in the following order (LNOK): 1st: The patient?s legal guardian, if any 2nd: The patient's spouse (if status is questionable, consult Risk Management) 3rd: The patient?s adult child(jay) (majority, if multiple children) 4th: The patient?s parents 5th: The patient?s adult siblings (majority, if multiple children siblings) Charges/Coding Visit Charges Inpatient E&M: 91234 Subs Hosp L2
[2023-04-08 17:07] LABS: Bedside Glucose 76 mg/dL (74-106)
[2023-04-08 18:50] VITALS: PULSE 93; RESP 18
[2023-04-08 20:16] VITALS: BP 129/59; PULSE 85; RESP 18; TEMP 36.8; O2SAT 93
[2023-04-08] MEDS: Senna/Docusate Sodium 1 Tablet 2 TABLET PO (21:03)
[2023-04-08] MEDS: Mirtazapine 15 MG Tablet PO (21:03)
[2023-04-08] MEDS: Atorvastatin Calcium 80 MG Tablet PO (21:03)
[2023-04-08] MEDS: APIXABAN 5 MG TABLET PO (21:03)
[2023-04-08 21:04] VITALS: BP 129/59; PULSE 85
[2023-04-08] MEDS: Metoprolol Tartrate 25 MG Tablet PO (21:04)
[2023-04-08 21:59] LABS: Bedside Glucose 147 mg/dL (74-106)
[2023-04-09] MEDS: Menthol/Lanolin/Calamine/Znox 113 GM Tube 1 APPLIC TOPICAL ×2 (03:52→20:47)
[2023-04-09] MEDS: Petrolatum 33% Tube 1 APPLIC TOPICAL ×2 (03:53→20:47)
[2023-04-09 04:03] VITALS: BMI 28.0
[2023-04-09 06:53] VITALS: PULSE 84; RESP 16
[2023-04-09] MEDS: Ipratropium/Albuterol Sulfate 3 ML AMPUL.NEB INHALATION ×2 (06:53→19:50)
[2023-04-09 06:54] LABS: Bedside Glucose 124 mg/dL (74-106)
[2023-04-09 08:15] VITALS: BP 118/72; PULSE 83; RESP 18; TEMP 36.6; O2SAT 95
[2023-04-09 08:46] VITALS: PULSE 83
[2023-04-09] MEDS: Losartan Potassium 25 MG Tablet 12.5 MG PO (08:46)
[2023-04-09] MEDS: Metoprolol Tartrate 25 MG Tablet PO ×2 (08:46→20:46)
[2023-04-09] MEDS: Amiodarone 200 MG Tablet PO (08:46)
[2023-04-09] MEDS: Empagliflozin 25 MG Tablet PO (08:52)
[2023-04-09] MEDS: Aspirin 81 MG TAB.CHEW PO (08:52)
[2023-04-09] MEDS: APIXABAN 5 MG TABLET PO ×2 (08:52→20:46)
[2023-04-09] MEDS: Multivitamins,Therapeutic Tablet 1 TABLET PO (08:52)
[2023-04-09] MEDS: Senna/Docusate Sodium 1 Tablet 2 TABLET PO ×2 (08:52→20:51)
[2023-04-09] MEDS: metFORMIN HCl 500 MG Tablet PO ×2 (08:53→16:21)
[2023-04-09] MEDS: Fluticasone 0.05% 1 SPRAY NASAL.SRY 2 SPRAY NASAL ×2 (08:55→20:48)
[2023-04-09] MEDS: NYSTATIN 500,000 UNIT/5 ML UDC 400000 UNIT PO ×3 (08:55→20:46)
[2023-04-09 11:46] LABS: Bedside Glucose 108 mg/dL (74-106)
[2023-04-09] MEDS: oxyCODONE 5 MG Tablet PO (12:53)
[2023-04-09] MEDS: Collagenase 30gm Tube 1 APPLIC TOPICAL (14:06)
[2023-04-09 17:08] LABS: Bedside Glucose 183 mg/dL (74-106)
--- NOTE | 2023-04-09 18:33 | PN_ITS ---
Subjective Subjective Afebrile VSS Maintaining appropriate oxygen saturation on RA Oral intake is good. She is taking in 75 to 100% of her meals and has not required any tube feed. Oral fluid intake has also been good. Discussed with nursing - no problems that need addressed. Reviewed the PT/OT/ST notes Medication list reviewed. The patient. Fasting blood sugar this morning is 124. Blood sugar prior to supper was 183. Will continue to monitor before meals and at bedtime. No chest pain, no shortness of breath at rest, no dysuria, no calf tenderness, no nausea/vomiting/abdominal pain. Still complaining of constipation. The Snyder catheter was discontinued today and she is still retaining urine. Will continue with straight cath as needed for the next 72 hours and if she continues to retain will consult Dr. Latrice Tom. Tamara informs me that she had a bladder sling in the past done by Dr. Sapp. She has had a hysterectomy in the past. Tamara would like to decrease oxycodone use because she knows it causes constipation but she is only had 1 dose since admission. Objective Data Objective Data Vital Signs: Vital Signs Temp Pulse Resp BP Pulse Ox O2 Del Method 97.9 F 83 18 118/72 95 Room Air 04/09/23 08:15 04/09/23 08:46 04/09/23 08:15 04/09/23 08:15 04/09/23 08:15 04/09/23 08:15 Oxygen Delivery Method Room Air Weight: 184 lb 8.43 oz Body Mass Index (BMI) 28.0 Intake & Output: Intake and Output for Last 24 Hours 04/07/23 04/08/23 04/09/23 23:59 23:59 23:59 Intake Total 2710 / 2710 1060 / 1060 860 / 860 Output Total 2875 / 2875 2375 / 2725 1425 / 1425 Balance -165 / -165 -1315 / -1665 -565 / -565 Lab / Micro Data 04/05/23 12:18 04/05/23 12:18 Labs: Laboratory Results - last 24 hr 04/08/23 21:40: POC Glucose 147 H 04/09/23 06:36: POC Glucose 124 H 04/09/23 11:21: POC Glucose 108 H 04/09/23 16:48: POC Glucose 183 H Micro: Microbiology 04/03/23 11:30 Urine Catheter - Catheter Urine Culture - Final Culture exhibits no growth. Physical Exam Const alert, oriented x3 and no apparent distress Constitutional Narrative: Looks a little more rested today. General Appearance: cooperative and well developed Orientation / Consciousness: Negative for confused HEENT normocephalic and head/scalp atraumatic Eyes PERRL, EOMs intact bilaterally, conjunctivae normal and no scleral icterus Eyes Narrative: No visual field cuts. Neck full ROM, supple, No nodes and no carotid bruits Chest Chest Narrative: CABG incision is healing well and there is no dehiscence. Chest: symmetrical chest wall rise Resp normal respiratory effort Resp Narrative: Still with coarse crackles in the bases which I suspect are due to atelectasis. They do clears somewhat with a few deep breaths. She is using the incentive spirometer and also the PEP. Still coughing with deep breathing. No conversational dyspnea and she is able to speak in complete sentences. Effort and Inspection: Negative for tachypneic Cardio regular rate, regular rhythm, no rub and no gallops Cardio Narrative: No ectopy GI normal to inspection, nondistended, normoactive bowel sounds, soft to palpation and non-tender GI Narrative: The PEG site has no discharge and no erythema around the site. She has no pain with palpation around the PEG tube. The abdomen is not distended and bowel sounds are present. Inspection: Negative for abdominal aortic bruit Narrative: No visible vaginal discharge. Normal external female genitalia. No evidence of intertrigo. She has some hyperpigmentation of the perineum. Extremity no calf tenderness Extremity Narrative: No ankle edema. Dorsalis pedis pulses are 3/3 bilaterally. She has bilateral heel decubiti. The right heel shows a unstageable ulcer with a fair amount of eschar present. The left heel has a smaller stage II decubitus ulcer with no eschar. No increased warmth to touch in the heel. No purulent discharge and no odor. There is swelling of the left upper extremity and hand secondary to DVT. She is on apixaban 5 mg twice daily for anticoagulation. General Extremity: Negative for edema Skin no jaundice and no mottling Skin Narrative: No rashes...... see the extremity exam for description of the bilateral heel decubiti. She has stage II decubiti in the perirectal area on both buttocks. The sternal incision is intact with no dehiscence. There is no rg-incisional erythema and no rg-incisional swelling. Drain sites have small scabs and are healing. Rashes: no rashes Wound Narrative: He is stage I and II decubiti on the buttocks that were present at admission are improving. The unstageable decubitus ulcer on the right heel is shrinking in size and is more superficial. The eschar is softening and there is no purulent DC. AFO for pressure relief on the heel is present anytime she is in bed and she feels this is helping. there was a tiny bit of bleeding from the R heel after she ambulated today. Neuro oriented x3, CN's II-XII intact bilaterally, moves all extremities and no focal motor deficits Psych mental status grossly normal, thought process normal, cooperative, affect normal, denies hallucinations, denies homicidal ideation and denies suicidal ideation Psych Narrative: Thought processes a little slow and I suspect there may be some anoxic encepha lopathy following the cardiac arrest and hypotension. She is working with speech therapy. Appearance: appropriate and well kempt Attitude: engaged and No agitated Activity / Motor Behavior: appropriate eye contact; Negative for restless Speech: normal speech Assessment & Plan Assessment/Plan (1) Nausea & vomiting: (2) Physical debility: (3) History of coronary artery bypass graft x 2: (4) STEMI (ST elevation myocardial infarction): (5) Deep vein thrombosis (DVT) of left upper extremity: QUALIFIERS: Affected thrombotic vein of extremity: unspecified vein of extremity Chronicity: acute Qualified Code(s): I82.622 - Acute embolism and thrombosis of deep veins of left upper extremity (6) Acute blood loss anemia: (7) Shock liver: (8) Takotsubo cardiomyopathy: PLAN: Plan 1. Continue therapy 2. Continue to have visitors stop at the nurses station prior to going into her room and then we will check with Tamara to see if she wants company. Limit visits to no more than 10 to 15 minutes except for immediate family. 3. Continue to monitor Accu-Cheks before meals and at bedtime. Would like all BS's < 150 with no hypoglycemia. May need to add back 5 mg of Glipizide in the AM if the $PM BS's remain elevated. 4. Obtain a KUB of the abdomen to rule out fecal impaction as contributing to constipation and urine retention. Continue to straight cath as needed for the n ext 72 hours and reevaluate on Wednesday. If she is still retaining will consult Dr. Latrice Tom from urology. 5. BMP, CBC and magnesium are ordered for Wednesday a.m. Charges/Coding Visit Charges Inpatient E&M: 47060 Subs Hosp L2
--- NOTE | 2023-04-09 18:40 | RAD_ITS ---
STUDY: X-RAY - ABDOMEN/PELVIS REASON FOR EXAM: Female, 68 years old. Constipation/urinary retention TECHNIQUE: Single AP view of the abdomen / pelvis. COMPARISON: None. FINDINGS: Limited by prominent overlying artifact from defibrillator vest. Atelectasis or infiltrate in the left lung base. PEG tube appears to be in satisfactory position within the stomach. There is an unremarkable bowel gas pattern. There is no demonstrated free abdominal air. The visualized liver, spleen and kidneys are grossly normal in size and morphology. Normal soft tissue structures. Normal visualized osseous structures. RAD/Abdomen Single View (Portable) IMPRESSION: Limited as above. No gross acute abnormality seen. Electronically Signed: Stu Andrade MD at 19:04 [facility] ,
[2023-04-09 19:37] VITALS: BP 101/53; PULSE 76; RESP 18; TEMP 36.6; O2SAT 92
[2023-04-09 19:50] VITALS: PULSE 81; RESP 16
[2023-04-09 20:46] VITALS: BP 101/53; PULSE 76
[2023-04-09] MEDS: Atorvastatin Calcium 80 MG Tablet PO (20:46)
[2023-04-09] MEDS: Mirtazapine 15 MG Tablet PO (20:46)
[2023-04-09 23:05] LABS: Bedside Glucose 164 mg/dL (74-106)
[2023-04-10] MEDS: Menthol/Lanolin/Calamine/Znox 113 GM Tube 1 APPLIC TOPICAL ×2 (06:33→21:36)
[2023-04-10] MEDS: Petrolatum 33% Tube 1 APPLIC TOPICAL ×2 (06:33→21:37)
[2023-04-10] MEDS: NYSTATIN 500,000 UNIT/5 ML UDC 400000 UNIT PO ×2 (06:33→13:57)
[2023-04-10 06:39] VITALS: BMI 27.0
[2023-04-10 06:53] LABS: Bedside Glucose 115 mg/dL (74-106)
[2023-04-10 07:11] VITALS: PULSE 77; RESP 16
[2023-04-10 07:40] VITALS: BP 107/61; PULSE 76; RESP 18; TEMP 36.1; O2SAT 93
--- NOTE | 2023-04-10 08:20 | NURSING ---
0800 bladder scan over 400cc as per order gamboa to be inserted urine specimen sent to lab for UA, CS. pt tolerated procedure well day shift RN to send urine to lab. Urine clear/yellow 400cc removed from gamboa bag
[2023-04-10 08:36] LABS: Bacteria 0 SEEN /hpf (None Seen); Mucous, Urine 0 SEEN /hpf (<or=2+); Red Blood Cells-Urine 0 SEEN /hpf (0-5); Squamous Epithelial Cells - UA 0 SEEN /hpf (5-10); White Blood Cells 0 SEEN /hpf (0-5)
[2023-04-10] MEDS: Multivitamins,Therapeutic Tablet 1 TABLET PO (08:53)
[2023-04-10] MEDS: Aspirin 81 MG TAB.CHEW PO (08:53)
[2023-04-10] MEDS: metFORMIN HCl 500 MG Tablet PO ×2 (08:53→17:36)
[2023-04-10] MEDS: Amiodarone 200 MG Tablet PO (08:54)
[2023-04-10] MEDS: Losartan Potassium 25 MG Tablet 12.5 MG PO (08:54)
[2023-04-10] MEDS: APIXABAN 5 MG TABLET PO ×2 (08:54→21:33)
[2023-04-10] MEDS: Empagliflozin 25 MG Tablet PO (08:55)
[2023-04-10] MEDS: Fluticasone 0.05% 1 SPRAY NASAL.SRY 2 SPRAY NASAL ×2 (08:58→21:31)
[2023-04-10 08:59] VITALS: BP 107/61; PULSE 76
[2023-04-10] MEDS: Metoprolol Tartrate 25 MG Tablet PO ×2 (08:59→21:33)
[2023-04-10 09:06] LABS: Color, Urine Yellow (Yellow); Glucose, Dipstick 1000 mg/dl (Normal); Ketone-Dipstick 5 mg/dl (Negative); Leukocyte Esterase-Dipstick Negative /ul (Negative); Nitrite-Dipstick Negative (Negative); Occult Blood-Urine Negative /ul (Negative); Protein-Dipstick Negative (Negative); Urine Bilirubin Dipstick Negative (Negative); Urine Clarity Clear (Clear); Urine Urobilinogen 1 mg/dl (Normal); Urine pH 6.5 (5.0 - 8.0)
[2023-04-10 11:44] LABS: Bedside Glucose 165 mg/dL (74-106)
[2023-04-10] MEDS: Insulin Lispro 100 UNIT/ML INSULN.PEN SC ×2 (12:08→17:35)
[2023-04-10] MEDS: Collagenase 30gm Tube 1 APPLIC TOPICAL (13:56)
[2023-04-10 17:10] LABS: Bedside Glucose 150 mg/dL (74-106)
[2023-04-10] MEDS: oxyCODONE 5 MG Tablet PO (18:46)
[2023-04-10 19:55] VITALS: BP 105/63; PULSE 84; RESP 17; TEMP 36.7; O2SAT 95
[2023-04-10 21:00] VITALS: PULSE 84; RESP 18
[2023-04-10] MEDS: Ipratropium/Albuterol Sulfate 3 ML AMPUL.NEB INHALATION (21:00)
[2023-04-10 21:33] VITALS: BP 105/63; PULSE 84
[2023-04-10] MEDS: Mirtazapine 15 MG Tablet PO (21:33)
[2023-04-10] MEDS: Atorvastatin Calcium 80 MG Tablet PO (21:34)
[2023-04-10 22:35] LABS: Bedside Glucose 142 mg/dL (74-106)
[2023-04-11] MEDS: Menthol/Lanolin/Calamine/Znox 113 GM Tube 1 APPLIC TOPICAL ×2 (03:50→20:38)
[2023-04-11] MEDS: Petrolatum 33% Tube 1 APPLIC TOPICAL ×2 (03:50→20:38)
[2023-04-11 04:10] LABS: Bedside Glucose 127 mg/dL (74-106)
[2023-04-11 07:32] VITALS: BP 103/64; PULSE 77; RESP 16; TEMP 36.4; O2SAT 95
[2023-04-11] MEDS: Aspirin 81 MG TAB.CHEW PO (08:42)
[2023-04-11] MEDS: Multivitamins,Therapeutic Tablet 1 TABLET PO (08:43)
[2023-04-11] MEDS: Amiodarone 200 MG Tablet PO (08:43)
[2023-04-11] MEDS: Losartan Potassium 25 MG Tablet 12.5 MG PO (08:43)
[2023-04-11] MEDS: metFORMIN HCl 500 MG Tablet PO ×2 (08:43→16:30)
[2023-04-11] MEDS: APIXABAN 5 MG TABLET PO ×2 (08:44→20:38)
[2023-04-11] MEDS: Empagliflozin 25 MG Tablet PO (08:44)
[2023-04-11] MEDS: Fluticasone 0.05% 1 SPRAY NASAL.SRY 2 SPRAY NASAL ×2 (08:44→20:35)
[2023-04-11 08:45] VITALS: PULSE 77
[2023-04-11] MEDS: Metoprolol Tartrate 25 MG Tablet PO ×2 (08:45→20:38)
[2023-04-11] MEDS: Collagenase 30gm Tube 1 APPLIC TOPICAL (08:48)
[2023-04-11] MEDS: Senna/Docusate Sodium 1 Tablet 2 TABLET PO ×2 (08:52→20:37)
[2023-04-11] MEDS: SEMAGLUTIDE 0.25 MG/0.368 ML PEN.INJCTR 0.5 MG SQ (08:53)
[2023-04-11 09:00] VITALS: BMI 27.6
[2023-04-11 10:49] VITALS: PULSE 75; RESP 16
[2023-04-11] MEDS: Ipratropium/Albuterol Sulfate 3 ML AMPUL.NEB INHALATION ×2 (10:49→19:30)
[2023-04-11 12:16] LABS: Bedside Glucose 121 mg/dL (74-106)
[2023-04-11] MEDS: NYSTATIN 500,000 UNIT/5 ML UDC 400000 UNIT PO ×2 (14:40→20:39)
[2023-04-11 15:35] VITALS: BP 107/63; PULSE 72; RESP 15; TEMP 37; O2SAT 98
[2023-04-11 16:32] LABS: Bedside Glucose 138 mg/dL (74-106)
[2023-04-11 19:30] VITALS: PULSE 82; RESP 16
[2023-04-11 20:38] VITALS: PULSE 82
[2023-04-11] MEDS: Mirtazapine 15 MG Tablet PO (20:38)
[2023-04-11] MEDS: Atorvastatin Calcium 80 MG Tablet PO (20:38)
[2023-04-11 21:29] LABS: Bedside Glucose 144 mg/dL (74-106)
[2023-04-12] VITALS (7 sets, daily range): BP systolic 94–103; BP diastolic 53–64; PULSE 81–89; RESP 16–18; TEMP 36.4–37.2; O2SAT 93–97; BMI 27.0
[2023-04-12] MEDS: proCHLORPERazine 5 MG Tablet PO (01:10)
[2023-04-12] MEDS: Petrolatum 33% Tube 1 APPLIC TOPICAL ×2 (05:18→20:57)
[2023-04-12] MEDS: Menthol/Lanolin/Calamine/Znox 113 GM Tube 1 APPLIC TOPICAL ×2 (05:18→20:58)
[2023-04-12 05:44] LABS: Bedside Glucose 134 mg/dL (74-106)
[2023-04-12 06:07] LABS: Hematocrit 34.9 % (37-47); Hemoglobin 10.9 g/dL (12.0-15.0); Mean Corp Hgb Conc 31.2 g/dL (32-36); Mean Corpuscular Hgb 30.1 pg (27.0-32.0); Mean Corpuscular Volume 96.4 fL (81-99); Mean Platelet Vol. 11.8 fl (6.2-12.0); Platelet Count 280 K/mm3 (150-450); RBC Distribution Width SD 49.3 fl (35.1-43.9); Red Blood Count 3.62 M/mm3 (4.2-5.4); White Blood Count 7.1 K/mm3 (4.4-11.0)
[2023-04-12 06:50] LABS: Anion Gap 8 (5-15); BUN 8 mg/dL (7-18); BUN/Creat Ratio 14.7 RATIO (10-20); Calcium,Total 9.4 mg/dL (8.5-10.1); Chloride 107 mmol/L (98-107); Creatinine, Serum 0.54 mg/dL (0.55-1.02); EST Glomerular Filtration Rate 117 mL/min (>60); Est Glom Filt Rate - Afr Amer 142 mL/min (>60); Estimated Creatinine Clearance 73.72 ml/min; Glucose 150 mg/dL (74-106); Magnesium 2.1 mg/dL (1.6-2.6); Potassium 4.1 mmol/L (3.5-5.1); Sodium Level 138 mmol/L (136-145)
[2023-04-12] MEDS: Aspirin 81 MG TAB.CHEW PO (07:38)
[2023-04-12] MEDS: Empagliflozin 25 MG Tablet PO (07:38)
[2023-04-12] MEDS: Fluticasone 0.05% 1 SPRAY NASAL.SRY 2 SPRAY NASAL ×2 (07:38→20:56)
[2023-04-12] MEDS: metFORMIN HCl 500 MG Tablet PO ×2 (07:38→17:41)
[2023-04-12] MEDS: Multivitamins,Therapeutic Tablet 1 TABLET PO (07:38)
[2023-04-12] MEDS: Amiodarone 200 MG Tablet PO (07:38)
[2023-04-12] MEDS: APIXABAN 5 MG TABLET PO ×2 (07:41→20:54)
[2023-04-12] MEDS: Senna/Docusate Sodium 1 Tablet 2 TABLET PO ×2 (07:44→20:55)
[2023-04-12] MEDS: Ipratropium/Albuterol Sulfate 3 ML AMPUL.NEB INHALATION ×2 (07:58→20:15)
--- NOTE | 2023-04-12 11:35 | PN_ITS ---
Subjective Subjective Jen was seen on team rounds today. Her was present in the room for rounds. Afebrile VSS-blood pressure is on the low side today at 94/64. Heart rate is within normal limits. She denies lightheadedness. Maintaining appropriate oxygen saturation on RA Oral intake is good for food and not as good for fluids. Urine output has been exceeding oral fluid intake. She is not on a diuretic. Her weight on Wednesday was 178 pounds which is down from 188.1 pounds the prior week. Constipation has resolved. Snyder catheter was reinserted over the weekend for large postvoid residuals. The blood sugar record was reviewed. Blood sugars are under excellent control. Discussed with nursing - no problems that need addressed. She is sleeping well at night. Reviewed the PT/OT/ST notes Medication list reviewed. She has not taken an oxycodone since 04/10/2023. All lab from this AM was personally reviewed. The white blood cell count is normal at 7.1. Hemoglobin is stable at 10.9. Platelets are within normal limits. Sodium is 138 and the potassium is 4.1. Serum bicarb is normal at 23. The BUN is 8 with a creatinine of 0.54 and a BUNs/creatinine ratio of 14.7. Magnesium is 2.1 and the calcium is 9.4....... Objective Data Objective Data Vital Signs: Vital Signs Temp Pulse Resp BP Pulse Ox O2 Del Method 97.5 F L 81 16 94/64 97 Room Air 04/12/23 07:27 04/12/23 09:22 04/12/23 09:22 04/12/23 07:39 04/12/23 09:22 04/12/23 09:22 Oxygen Delivery Method Room Air Weight: 182 lb Body Mass Index (BMI) 27.6 Intake & Output: Intake and Output for Last 24 Hours 04/10/23 04/11/23 04/12/23 23:59 23:59 23:59 Intake Total 1400 / 1400 1400 / 1400 Output Total 3185 / 3185 1950 / 2200 1450 / 1450 Balance -1785 / -1785 -550 / -800 -1450 / -1450 Lab / Micro Data 04/12/23 05:48 04/12/23 05:48 Labs: Laboratory Results - last 24 hr 04/11/23 11:49: POC Glucose 121 H 04/11/23 16:15: POC Glucose 138 H 04/11/23 20:41: POC Glucose 144 H 04/12/23 05:18: POC Glucose 134 H 04/12/23 05:48: WBC 7.1, RBC 3.62 L, Hgb 10.9 L, Hct 34.9 L, MCV 96.4, MCH 30.1, MCHC 31.2 L, RDW Std Deviation 49.3 H, RDW Coeff of Reyna 14.0, Plt Count 280, MPV 11.8, Sodium 138, Potassium 4.1, Chloride 107, Carbon Dioxide 23.0, Anion Gap 8, BUN 8, Creatinine 0.54 L, Estim Creat Clear Calc 73.72, Est GFR (MDRD) Af Amer 142, Est GFR (MDRD) Non-Af 117, BUN/Creatinine Ratio 14.7, Glucose 150 H, Calcium 9.4, Magnesium 2.1 Micro: Microbiology 04/03/23 11:30 Urine Catheter - Catheter Urine Culture - Final Culture exhibits no growth. Physical Exam Const alert and oriented x3 Constitutional Narrative: Looks exhausted on rounds today. She is pale and her voice is weaker. She is lying in bed. General Appearance: cooperative Resp Resp Narrative: Still with coarse crackles in the bases but air exchange is mildly improved over what it was last week. No wheezes or rhonchi noted. She still coughs when she takes a deep breath. She tells me she is using the IS and the Pep. Cardio regular rate, regular rhythm, no rub and no gallops Cardio Narrative: No ectopy Extremity Extremity Narrative: the stage 2 decub on the plantar surface of the L foot is much smaller and g ranulating well. No erythema, no odor and no purulent DC. The unstageable decubitus on the plantar surface of the R foot is improving. I debrided all the tissue at the periphery of the wound today and she tolerated the procedure well. There is desquamation present of the heel. The central eschar is hard and I could not debride at the bedside. The area was anesthetized with Lidocaine and I was able to score the eschar without her having pain. the area around the eschar is superficial and there is new epithelium at the periphery. There is no erythema of the heel, no odor and no purulent discharge. She tolerated the scoring of the eschar well. Will continue Santyl covered by an Adaptic or Vaseline gauze, covered by 4 x 4's and then application of the AFO daily. Continue Mepilex on the left heel. Skin Wound Narrative: The sternal incision is intact with no dehiscence, no discharge and no rg-incisional erythema. Assessment & Plan Assessment/Plan (1) Nausea & vomiting: QUALIFIERS: Vomiting type: unspecified Qualified Code(s): R11.2 - Nausea with vomiting, unspecified (2) Physical debility: (3) History of coronary artery bypass graft x 2: (4) STEMI (ST elevation myocardial infarction): QUALIFIERS: Involved coronary artery: other coronary artery Qualified Code(s): I21.29 - ST elevation (STEMI) myocardial infarction involving other sites (5) Deep vein thrombosis (DVT) of left upper extremity: QUALIFIERS: Affected thrombotic vein of extremity: unspecified vein of extremity Chronicity: acute Qualified Code(s): I82.622 - Acute embol ism and thrombosis of deep veins of left upper extremity (6) Acute blood loss anemia: (7) Shock liver: (8) Takotsubo cardiomyopathy: (9) Urine retention: PLAN: Plan 1. Continue therapy 2. Consult Dr. Latrice Tom for urine retention 3. Encourage increased fluid intake.......Since she is not c/o lightheadedness will not give IV fluids at this time. I suspect the mild decrease in the BP is due to IV volume depletion. Both the Cozaar and the Lopressor were held today. Will decrease the Metoprolol to 12.5 mg BID. Due to the recent STEMI and CABG I do not want to hold the beta [place] completely. 4. Check a serum albumin. The calcium is 9.4 today and her last albumin was 2.0. If you corrected for hypoalbuminemia this puts the calcium in the high range. I do not feel she is going to be ready to go home Wednesday. She is still very weak and fatigues easily. She is adamant she will be going home. will come in for shared care later this week. I urged her to reconsider SNF for 1-2 weeks to strengthen prior to going home. I am concerned she will do a lot of sitting and not progress in her recovery.......her expressed the same concerns to her. Charges/Coding Visit Charges Inpatient E&M: 59018 Subs Hosp L2
[2023-04-12 12:11] LABS: Albumin, Serum 2.3 g/dL (3.2-5.0)
[2023-04-12 12:11] LABS: Bedside Glucose 120 mg/dL (74-106)
--- NOTE | 2023-04-12 13:52 | CASEMGMT ---
Social Work IDT met with patient and for Team meeting. Discussed patient's progress in PT/OT/ST/SN. Educated to Medicare DC 04/18. IDT recommending pt continue with skilled therapy in SNF for 1-2 more weeks. Pt has not improved with activity tolerance and physical abilities to return home safely, per IDT recommendation. Pt is adamant about returning home. agrees with IDT and prefers pt DC to a SNF for continued therapy. SW suggested attend therapy training to determine pt's LOC and husbands abilities to assist. agreed and scheduled for 04/14 at 0800. Then pt and to discuss DC plans and notify this worker. SW will continue to follow for DC planning. JOHN RmW
[2023-04-12 17:17] LABS: Bedside Glucose 127 mg/dL (74-106)
[2023-04-12] MEDS: NYSTATIN 500,000 UNIT/5 ML UDC 400000 UNIT PO ×2 (17:40→20:54)
[2023-04-12] MEDS: Collagenase 30gm Tube 1 APPLIC TOPICAL (17:41)
[2023-04-12] MEDS: Lidocaine/Prilocaine HCl 5 GM Tube TOPICAL (17:42)
[2023-04-12] MEDS: Atorvastatin Calcium 80 MG Tablet PO (20:16)
[2023-04-12] MEDS: Mirtazapine 15 MG Tablet PO (20:16)
[2023-04-12] MEDS: Insulin Lispro 100 UNIT/ML INSULN.PEN SC (20:55)
[2023-04-12] MEDS: Metoprolol Tartrate 25 MG Tablet 12.5 MG PO (21:01)
[2023-04-12 21:23] LABS: Bedside Glucose 157 mg/dL (74-106)
[2023-04-13] VITALS (8 sets, daily range): BP systolic 104–116; BP diastolic 55–68; PULSE 80–97; RESP 16; TEMP 36.6–37; O2SAT 94; BMI 26.9
[2023-04-13] MEDS: Petrolatum 33% Tube 1 APPLIC TOPICAL ×2 (05:36→21:12)
[2023-04-13] MEDS: Menthol/Lanolin/Calamine/Znox 113 GM Tube 1 APPLIC TOPICAL ×2 (05:36→21:13)
[2023-04-13 06:09] LABS: Bedside Glucose 156 mg/dL (74-106)
[2023-04-13] MEDS: Ipratropium/Albuterol Sulfate 3 ML AMPUL.NEB INHALATION ×2 (07:18→19:50)
[2023-04-13] MEDS: Insulin Lispro 100 UNIT/ML INSULN.PEN SC (08:08)
[2023-04-13] MEDS: metFORMIN HCl 500 MG Tablet PO ×2 (08:12→17:29)
[2023-04-13] MEDS: Multivitamins,Therapeutic Tablet 1 TABLET PO (08:12)
[2023-04-13] MEDS: Aspirin 81 MG TAB.CHEW PO (08:12)
[2023-04-13] MEDS: Amiodarone 200 MG Tablet PO (08:13)
[2023-04-13] MEDS: Losartan Potassium 25 MG Tablet 12.5 MG PO (08:13)
[2023-04-13] MEDS: APIXABAN 5 MG TABLET PO ×2 (08:13→21:12)
[2023-04-13] MEDS: Metoprolol Tartrate 25 MG Tablet 12.5 MG PO ×2 (08:14→21:18)
[2023-04-13] MEDS: Fluticasone 0.05% 1 SPRAY NASAL.SRY 2 SPRAY NASAL ×2 (08:14→21:13)
[2023-04-13] MEDS: Empagliflozin 25 MG Tablet PO (08:14)
[2023-04-13] MEDS: Senna/Docusate Sodium 1 Tablet 2 TABLET PO ×2 (08:15→21:14)
--- NOTE | 2023-04-13 10:39 | PCM.PROGNOTE ---
Subjective Subjective Afebrile VSS-blood pressure is a little better today at 104/68. Mean arterial pressure is good at 80. Orthostatics were + yesterday. Maintaining appropriate oxygen saturation on RA Oral intake is good. We are giving extra fluid via the PEG. Fluid intake still consistently less than fluid output. Weight is down 11 pounds since admission. Calcium corrected for hypoalbuminemia is high at 10.76. this may be the reason for diuresis. The blood sugar record was reviewed. Blood sugars are under excellent control with no blood sugars over 170 and no hypoglycemia. Discussed with nursing - no problems that need addressed Reviewed the PT/OT/ST notes Medication list reviewed. Jen denies chest pain, lightheadedness, shortness of breath at rest, palpitations, nausea/vomiting/abdominal pain, diarrhea, calf pain and suprapubic pain. She complains of still feeling tired and weak. Objective Data Objective Data Vital Signs: Vital Signs Temp Pulse Resp BP Pulse Ox O2 Del Method 97.8 F 82 16 104/68 94 Room Air 04/13/23 07:46 04/13/23 08:14 04/13/23 07:46 04/13/23 08:14 04/13/23 07:46 04/13/23 07:46 Oxygen Delivery Method Room Air Weight: 177 lb 7.554 oz Body Mass Index (BMI) 26.9 Intake & Output: Intake and Output for Last 24 Hours 04/11/23 04/12/23 04/13/23 23:59 23:59 23:59 Intake Total 1400 / 1400 1080 / 1200 570 / 570 Output Total 1950 / 2200 2425 / 3145 1470 / 1470 Balance -550 / -800 -1345 / -1945 -900 / -900 Lab / Micro Data 04/12/23 05:48 04/12/23 05:48 Labs: Laboratory Results - last 24 hr 04/12/23 05:48: Albumin 2.3 L 04/12/23 11:36: POC Glucose 120 H 04/12/23 16:45: POC Glucose 127 H 04/12/23 20:52: POC Glucose 157 H 04/13/23 05:50: POC Glucose 156 H Micro: Microbiology 04/03/23 11:30 Urine Catheter - Catheter Urine Culture - Final Culture exhibits no growth. Physical Exam Const alert and oriented x3 Constitutional Narrative: Voice is still weak and hoarse. HEENT Mouth: dry mucous membranes Resp Resp Narrative: Still with coarse crackles in both bases that improved after a few deep breaths but do not completely resolve. No wheezing, no rhonchi. Occasional cough productive of clear sputum. No conversational dyspnea. Cardio regular rate, regular rhythm, no murmurs, no rub and no gallops Cardio Narrative: No ectopy GI normal to inspection, nondistended, normoactive bowel sounds, soft to palpation and non-tender GI Narrative: The PEG site has no erythema and no purulent discharge around it. No guarding with palpation around the tube. Extremity no calf tenderness General Extremity: Negative for edema Skin Rashes: no rashes Wound Narrative: The decubitus ulcers of the left foot, bilateral buttocks and right foot are all improving and have no sign of infection Neuro CN's II-XII intact bilaterally and no focal motor deficits Neuro Narrative: Generalized weakness Coordination / Balance: [id number] test normal and [id number] test normal Speech: speech normal Psych Appearance: appropriate Assessment & Plan Assessment/Plan (1) Hypercalcemia: (2) Uses LifeVest defibrillator: (3) Constipation: QUALIFIERS: Constipation type: slow transit constipation Qualified Code(s): K59.01 - Slow transit constipation (4) Sudden cardiac due to cardiac arrhythmia: (5) Urine retention: (6) Physical debility: (7) Deep vein thrombosis (DVT) of left upper extremity: QUALIFIERS: Affected thrombotic vein of extremity: unspecified vein of extremity Chronicity: acute Qualified Code(s): I82.622 - Acute embolism and thrombosis of deep veins of left upper extremity (8) Diabetes mellitus, type 2: QUALIFIERS: Diabetes mellitus halfway insulin use: without halfway use Diabetes mellitus complication status: with circulatory complication Diabetes mellitus complication detail: with other circulatory complications Qualified Code(s): E11.59 - Type 2 diabetes mellitus with other circulatory complications PLAN: Plan 1. Continue therapy 2. Decrease the Accu-Cheks to twice daily. 3. Continue water flushes 300 cc 4 times daily. 4. Recheck orthostatics in a.m. 5. Check a PTH level. I suspect the high calcium is due to immobility for the past few weeks. Charges/Coding Visit Charges Inpatient E&M: 99250 Subs Hosp L2
[2023-04-13 12:38] LABS: PTHIN 27.2 pg/mL (18.4-80.1)
[2023-04-13 17:23] LABS: Bedside Glucose 125 mg/dL (74-106)
[2023-04-13] MEDS: Collagenase 30gm Tube 1 APPLIC TOPICAL (17:28)
[2023-04-13] MEDS: Mirtazapine 15 MG Tablet PO (20:47)
[2023-04-13] MEDS: Atorvastatin Calcium 80 MG Tablet PO (20:49)
[2023-04-14 06:00] VITALS: BMI 27.3
[2023-04-14] MEDS: Petrolatum 33% Tube 1 APPLIC TOPICAL ×2 (06:14→20:40)
[2023-04-14] MEDS: Menthol/Lanolin/Calamine/Znox 113 GM Tube 1 APPLIC TOPICAL ×2 (06:16→20:36)
[2023-04-14 07:05] LABS: Bedside Glucose 139 mg/dL (74-106)
[2023-04-14 07:43] VITALS: BP 102/63; BP 120/73; BP 87/63; PULSE 71; PULSE 84; RESP 16; TEMP 36.4; O2SAT 95
[2023-04-14 10:04] VITALS: PULSE 84
[2023-04-14] MEDS: metFORMIN HCl 500 MG Tablet PO ×2 (10:04→16:44)
[2023-04-14] MEDS: Aspirin 81 MG TAB.CHEW PO (10:04)
[2023-04-14] MEDS: Metoprolol Tartrate 25 MG Tablet 12.5 MG PO ×2 (10:04→20:37)
[2023-04-14] MEDS: Amiodarone 200 MG Tablet PO (10:05)
[2023-04-14] MEDS: Empagliflozin 25 MG Tablet PO (10:05)
[2023-04-14] MEDS: APIXABAN 5 MG TABLET PO ×2 (10:05→20:34)
[2023-04-14] MEDS: Multivitamins,Therapeutic Tablet 1 TABLET PO (10:05)
[2023-04-14] MEDS: Losartan Potassium 25 MG Tablet 12.5 MG PO (10:05)
[2023-04-14] MEDS: Fluticasone 0.05% 1 SPRAY NASAL.SRY 2 SPRAY NASAL ×2 (10:06→20:35)
[2023-04-14] MEDS: Senna/Docusate Sodium 1 Tablet 2 TABLET PO ×2 (10:07→20:34)
[2023-04-14] MEDS: Collagenase 30gm Tube 1 APPLIC TOPICAL (10:08)
[2023-04-14] MEDS: Acetaminophen 325 MG Tablet 650 MG PO ×2 (12:08→20:49)
--- NOTE | 2023-04-14 16:04 | CASEMGMT ---
Social Work Pt's presented to this worker's office stating after therapy training today, pt agreed to TCU for another week of therapy. SW sent referral to TCU. Will await outcome. JOHN RmW
--- NOTE | 2023-04-14 16:12 | CHAPLAIN ---
Type of Pastoral Visit ___ Initial Visit _x__ Follow-up Visit ___ On-call Visit ___ General Patient Visit ___ Spiritual Assessment ___ Family Conference ___ Bereavement ___ Rapid Response ___ Code Blue ___ Other (describe below) Pastoral Care Referral From _x__ Patient ___ Family ___ Nurse ___ Physician ___ Diet Counselor ___ Upholstery Department Supervisor ___ Other (describe below) Sacrament/Intervention _x__ Active listening ___ Anointing ___ Anglican ___ Bereavement ___ Communion ___ Cassandra exploration ___ _x__ Life review _x__ Prayer ___ Reconciliation ___ Sacrament of Sick _x__ Supportive presence ___ Wedding ___ Other (describe below) Pastoral Comments patient was seen briefly early on in her therapy days; several attempts to visit again did not materialize until today; pt is welcoming and talks mostly about her family and desire to get out of the hospital when I am ready; pt interacts but also limits the conversation when she admitted to being weary; supportive presence and prayer given
[2023-04-14 16:52] LABS: Bedside Glucose 130 mg/dL (74-106)
[2023-04-14 19:22] VITALS: BP 109/61; PULSE 83; RESP 16; TEMP 36.3; O2SAT 98
[2023-04-14] MEDS: Atorvastatin Calcium 80 MG Tablet PO (20:34)
[2023-04-14] MEDS: Mirtazapine 15 MG Tablet PO (20:35)
[2023-04-14 20:37] VITALS: BP 102/60; PULSE 80
--- NOTE | 2023-04-14 20:41 | CON.PCM_ITS ---
Assessment & Plan Assessment/Plan (1) Urine retention: (2) Constipation: PLAN: Plan trial of void tomorrow continue bowel management continue ambulation etc follow up 1-2 weeks after discharge HPI Consult Data Date of Consult: 04/14/23 HPI Narrative Reason for Consultation: urinary retention HPI Narrative: RASHEL DAVALOS, is a 68 F who is here for rehabilitation after a cardiac arrest and stabilization. She was transferred here from [facility] over the weekend. She was very constipated and had a recent urine culture with linda. She had a trial of void upon arrival, and the gamboa was reinserted for residual of more than 500cc. She has a history of urinary sling insertion and hysterectomy more than 4 years ago, but had normal voiding function other than mild stress incontinence prior to this admission. She has rare urinary tract infections, no nocturia, urgency or hematuria. Over the last 3-4 days she has had several large bowel movements and significant improvement in her mobility and ambulation. She would like to have another trial of void when we feel she is ready. [facility] Medical History (Updated 04/14/23 @ 20:[address] Latrice Tom MD) Back pain Cardiology follow-up encounter Constipation Diabetes mellitus, type 2 Family history of heart disease GERD (gastroesophageal reflux disease) History of hiatal hernia History of renal disease Hx of mitral valve prolapse Hyperlipidemia Hypertension Injury of head and neck Low HDL (under 40) VILLASENOR (nonalcoholic steatohepatitis) Non-smoker Osteoarthritis Pneumothorax Prolapse of anterior vaginal wall Prolapse of female genital organs Wears glasses Zenkers diverticulum Home Medications metformin 500 mg tablet 1,000 mg PO BIDCM glucose 01/17/13 [History Last Taken U nknown] glipizide 10 mg tablet, extended release 24 hr 10 mg PO DAILY glucose 07/08/20 [History Last Taken Unknown] metoprolol tartrate 25 mg tablet 25 mg PO DAILY blood pressure 07/08/20 [History Last Taken Unknown] multivitamin with minerals 1 each PO DAILY supplement 07/08/20 [History Last Taken Unknown] naproxen 500 mg tablet 500 mg PO PRN PRN Pain 1-10 Or Fever 07/08/20 [History Last Taken Unknown] omega-3 fatty acids-fish oil 340 mg-1,000 mg capsule 1 each PO BID supplement 07/08/20 [History Last Taken Unknown] omeprazole magnesium 20 mg tablet,delayed release 20 mg PO PRN PRN Indigestion 07/08/20 [History Last Taken 07/15/20] empagliflozin 25 mg tablet (Jardiance) 25 mg PO DAILY glucose 02/26/21 [History Last Taken Unknown] estradiol 0.5 mg tablet 0.5 mg PO SUTH estrogen 02/26/21 [History Last Taken Unknown] pravastatin 10 mg tablet 10 mg PO QHS . 02/26/21 [History Last Taken Unknown] amiodarone 200 mg tablet 200 mg feeding tube DAILY heart 04/02/23 [History Last Taken 04/02/23] apixaban 5 mg tablet 5 mg feeding tube BID blood thinner 04/02/23 [History Last Taken Unknown] aspirin 81 mg chewable tablet 1 tab feeding tube DAILY heart 04/02/23 [History Last Taken 04/02/23] atorvastatin 40 mg tablet 40 mg feeding tube QHS cholesterol 04/02/23 [History Last Taken Unknown] cholecalciferol (vitamin D3) 125 mcg (5,000 unit) tablet (Vitamin D3) 50,000 unit feeding tube MO supplement 04/02/23 [History Last Taken Unknown] ciprofloxacin HCl 500 mg tablet (Cipro) 500 mg feeding tube BID ATB 04/02/23 [History Last Taken 04/02/23] fluticasone propionate 50 mcg/actuation nasal spray,suspension (Allergy Relief (fluticasone)) 2 spray intranasal DAILY allergy 04/02/23 [History Last Taken 04/02/23] lansoprazole 30 mg capsule,delayed release (Prevacid) 30 mg feeding tube DAILY heart burn 04/02/23 [History Last Taken Unknown] losartan 25 mg tablet (Cozaar) 12.5 mg feeding tube DAILY blood pressure 04/02/23 [History Last Taken Unknown] melatonin 3 mg tablet 3 mg feeding tube QHS sleep 04/02/23 [History Last Taken Unknown] nitroglycerin 0.4 mg sublingual tablet 0.4 mg sublingual Q5M heart 04/02/23 [History Last Taken Unknown] nystatin 100,000 unit/mL oral suspension 400,000 unit PO TID thrush 04/02/23 [History Last Taken 04/02/23] oxycodone 5 mg tablet 5 mg PO Q4H PRN pain 04/02/23 [History Last Taken Unknown] semaglutide 0.25 mg or 0.5 mg (2 mg/3 mL) subcutaneous pen injector (Ozempic) 0.25 mg subcut STARKEY glucose 04/02/23 [History Last Taken Unknown] Allergy/AdvReac Type Severity Reaction Status Date / Time Sulfa (Sulfonamide Allergy Hives Verified 03/05/21 11:09 Antibiotics) sulfamethoxazole Allergy Hives Verified 03/05/21 11:09 [From Septra] trimethoprim [From Septra] Allergy Hives Verified 03/05/21 11:09 acetaminophen [From Tylenol] AdvReac d/t fatty Verified 03/05/21 11:09 liver Surgical History History of cardiac catheterization History of cardiac catheterization History of coronary artery bypass graft x 2 History of esophagogastroduodenoscopy (EGD) Hx of cholecystectomy Hx of left knee surgery Hx of repair of left rotator cuff Hx of repair of right rotator cuff Hx of right knee surgery Hx of vaginal hysterectomy Hx of vein stripping Social History household members: spouse current occupational status: 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 pets and animals: Yes pets and animals: dog(s) Smoking Status: Never smoker alcohol intake: current alcohol intake frequency: holidays/special occasions only substance use type: does not use ROS Constitutional Constitutional: Reports systems reviewed and no addt'l complaints, except as documented Eyes Eyes: Reports systems reviewed and no addt'l complaints, except as documented ENT HEENT: Reports systems reviewed and no addt'l complaints, except as documented Cardiovascular Cardiovascular: Reports systems reviewed and no addt'l complaints, except as documented Respiratory/Chest Respiratory/Chest: Reports systems reviewed and no addt'l complaints, except as documented Gastrointestinal Gastrointestinal: Reports bloating and constipation Genitourinary Genitourinary: Reports difficulty urinating and urinary incontinence; Denies flank pain, nocturia or urinary urgency Musculoskeletal Musculoskeletal: Reports systems reviewed and no addt'l complaints, except as documented Integumentary Integumentary: Reports systems reviewed and no addt'l complaints, except as documented Neurologic Neurologic: Reports systems reviewed and no addt'l complaints, except as documented Psychiatric Psychiatric: Reports systems reviewed and no addt'l complaints, except as doc umented Endocrine Endocrinology: Reports systems reviewed and no addt'l complaints, except as documented Hematologic/Lymphatic Hematologic/Lymphatic: Reports systems reviewed and no addt'l complaints, except as documented Physical Exam Const alert, oriented x3 and no apparent distress General Appearance: cooperative, comfortable and well kempt HEENT normocephalic, head/scalp atraumatic, hearing grossly normal bilaterally, external ears normal, external nose normal and moist oral mucous membranes Eyes General Eye: normal appearance of both eyes Neck supple Lymph Lymphatic: no lymphedema noted Chest inspection of chest normal Resp normal respiratory effort and normal air movement Cardio regular rate GI normal to inspection, nondistended, normoactive bowel sounds and soft to palpation Narrative: gamboa catheter draining clear yellow urine Extremity normal to inspection Extremity Narrative: right lower leg in boot Skin no rashes or lesions noted Neuro oriented x3, CN's II-XII intact bilaterally and moves all extremities Psych mental status grossly normal, thought process normal, cooperative and affect normal Lab / Micro Data 04/12/23 05:48 04/12/23 05:48 Labs: Laboratory Results - last 24 hr 04/14/23 06:46: POC Glucose 139 H 04/14/23 16:32: POC Glucose 130 H
[2023-04-14 21:05] VITALS: PULSE 78; RESP 16
[2023-04-14] MEDS: Ipratropium/Albuterol Sulfate 3 ML AMPUL.NEB INHALATION (21:05)
[2023-04-15] MEDS: Petrolatum 33% Tube 1 APPLIC TOPICAL (05:45)
[2023-04-15] MEDS: Menthol/Lanolin/Calamine/Znox 113 GM Tube 1 APPLIC TOPICAL ×2 (05:45→21:26)
[2023-04-15 06:00] VITALS: BMI 27.2
--- NOTE | 2023-04-15 06:00 | NURSING ---
Pts gamboa was removed per 's order.
[2023-04-15 06:55] LABS: Bedside Glucose 132 mg/dL (74-106)
[2023-04-15 07:20] VITALS: BP 99/61; PULSE 80; RESP 16; TEMP 36.2; O2SAT 99
[2023-04-15] MEDS: Ipratropium/Albuterol Sulfate 3 ML AMPUL.NEB INHALATION (07:20)
[2023-04-15 07:22] VITALS: PULSE 77; RESP 16; O2SAT 97
[2023-04-15] MEDS: APIXABAN 5 MG TABLET PO ×2 (08:09→21:24)
[2023-04-15] MEDS: Fluticasone 0.05% 1 SPRAY NASAL.SRY 2 SPRAY NASAL ×2 (08:09→21:25)
[2023-04-15 08:10] VITALS: PULSE 80
[2023-04-15] MEDS: Amiodarone 200 MG Tablet PO (08:10)
[2023-04-15] MEDS: Multivitamins,Therapeutic Tablet 1 TABLET PO (08:10)
[2023-04-15] MEDS: Metoprolol Tartrate 25 MG Tablet 12.5 MG PO ×2 (08:10→21:25)
[2023-04-15] MEDS: Aspirin 81 MG TAB.CHEW PO (08:10)
[2023-04-15] MEDS: Empagliflozin 25 MG Tablet PO (08:11)
[2023-04-15] MEDS: Losartan Potassium 25 MG Tablet 12.5 MG PO (08:11)
[2023-04-15] MEDS: Collagenase 30gm Tube 1 APPLIC TOPICAL (08:12)
[2023-04-15] MEDS: metFORMIN HCl 500 MG Tablet PO ×2 (08:12→17:04)
[2023-04-15] MEDS: Senna/Docusate Sodium 1 Tablet 2 TABLET PO (08:13)
[2023-04-15] MEDS: Acetaminophen 325 MG Tablet 650 MG PO ×2 (08:18→21:30)
[2023-04-15] MEDS: Juven (unflavored) Packet 1 PACKET PO (08:25)
--- NOTE | 2023-04-15 10:21 | NURSING ---
Dr Tom made aware of Snyder cath removal this am. Pt voided 300ml and bladder scan for 54ml. New order to Bladder scan again in AM can call for scan greater than 250ml
--- NOTE | 2023-04-15 11:49 | PCM.PROGNOTE ---
Subjective Subjective Afebrile VSS Maintaining appropriate oxygen saturation on RA Oral intake is good Urine output continues to exceed fluid intake. Weight has decreased from 188.1 pounds at admission to rehab 04/22/1978 today. The blood sugar record was reviewed and the blood sugars are under excellent control with no hypoglycemia. Discussed with nursing -the Snyder catheter was removed last night per Dr. Tom's order. Postvoid residual this morning was 54. She has failed 2 prior attempts at Snyder removal. Reviewed the PT/OT/ST notes she is supervision/set up for eating, upper body dressing and grooming and requires moderate assistance with bathing, lower body dressing and toileting. Still requiring total assistance for tub/shower transfer. Had shakes in her legs and arms with stair climbing. Still fatigues easily. Required voice cues 50% of the time for hand placement when going from the edge of the bed to the wheelchair and 20% of the time to push up from surfaces. Able to ambulate only very short distances of 10 to 15 feet with a front wheel walker at contact-guard assist before fatiguing. Medication list reviewed. Dr. Tom's consult was personally reviewed. PTH is normal at 27.2. Hypercalcemia is more likely than not secondary to immobility. Jen denies lightheadedness, vertigo, CP, SOB at rest, SOB with exertion, cough, nausea, vomiting, abd pain, diarrhea, constipation, dysuria, calf pain and ankle swelling. Still fatiguing very easily. Objective Data Objective Data Vital Signs: Vital Signs Temp Pulse Resp BP Pulse Ox O2 Del Method 97.2 F L 80 16 99/61 97 Room Air 04/15/23 07:20 04/15/23 08:10 04/15/23 07:22 04/15/23 07:20 04/15/23 07:22 04/15/23 07:22 Oxygen Delivery Method Room Air Weight: 179 lb 0.246 oz Body Mass Index (BMI) 27.2 Intake & Output: Intake and Output for Last 24 Hours 04/13/23 04/14/23 04/15/23 23:59 23:59 23:59 Intake Total 3020 / 3020 2370 / 2370 720 / 720 Output Total 3270 / 3270 1150 / 1450 2400 / 2400 Balance -250 / -250 1220 / 920 -1680 / -1680 Lab / Micro Data 04/12/23 05:48 04/12/23 05:48 Labs: Laboratory Results - last 24 hr 04/14/23 16:32: POC Glucose 130 H 04/15/23 06:38: POC Glucose 132 H Micro: Microbiology 04/10/23 08:00 Urine Catheter - Snyder Urine Culture - Final Yeast, not Kianna albicans 04/03/23 11:30 Urine Catheter - Catheter Urine Culture - Final Culture exhibits no growth. Physical Exam Const alert, oriented x3 and no apparent distress Constitutional Narrative: Frequently clearing her throat. HEENT Mouth: dry mucous membranes Resp Resp Narrative: Nontachypneic, no conversational dyspnea. Few coarse crackles in the bases but generally much improved over last week. Effort and Inspection: Negative for labored Cardio regular rate, regular rhythm and no gallops GI normal to inspection, nondistended, normoactive bowel sounds, soft to palpation and non-tender GI Narrative: The PEG site is without erythema or discharge. She has no pain with palpation around the PEG site. They are not using the PEG tube for feedings now however it cannot be removed for at least 6 weeks after it was placed due to increased risk for hemorrhage with removal. Extremity no calf tenderness Skin Skin Narrative: The decubitus ulcers on the right side of the buttocks are healed. There is still a stage II ulcer on the left buttock. The R heel decubitus is shrinking. The eschar now measures 1.2 X 2.3. The eschar is softer since it was scored a few days ago. The eschar is tender to palpation. There is no erythema or increased warmth to touch around the decubitus. No odor. No purulent discharge. After application of lidocaine ointment for 5 minutes the eschar was debrided. She tolerated the procedure well. The remaining eschar was scored once again and a dressing with Santyl was reapplied. Rashes: no rashes Neuro CN's II-XII intact bilaterally and no focal motor deficits Psych cooperative and affect normal Appearance: appropriate Assessment & Plan Assessment/Plan (1) Uses LifeVest defibrillator: (2) Constipation: QUALIFIERS: Constipation type: slow transit constipation Qualified Code(s): K59.01 - Slow transit constipation (3) Hypercalcemia: (4) Sudden cardiac due to cardiac arrhythmia: (5) Urine retention: (6) Physical debility: (7) Deep vein thrombosis (DVT) of left upper extremity: QUALIFIERS: Affected thrombotic vein of extremity: unspecified vein of extremity Chronicity: acute Qualified Code(s): I82.622 - Acute embolism and thrombosis of deep veins of left upper extremity (8) Diabetes mellitus, type 2: 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 Continue therapy 2. Add a calcium restriction to her diet 3. Continue to urged increased fluid intake Charges/Coding Visit Charges Inpatient E&M: 74942 Subs Hosp L2
[2023-04-15 14:39] VITALS: BP 100/67; BP 113/74; BP 117/62; PULSE 75; PULSE 87; PULSE 90
[2023-04-15] MEDS: Juven (unflavored) Packet 1 PACKET JT (17:04)
[2023-04-15 17:10] LABS: Bedside Glucose 143 mg/dL (74-106)
[2023-04-15 19:30] VITALS: BP 144/68; PULSE 80; RESP 16; TEMP 36.4; O2SAT 98
[2023-04-15] MEDS: Atorvastatin Calcium 80 MG Tablet PO (20:36)
[2023-04-15] MEDS: Mirtazapine 15 MG Tablet PO (20:36)
[2023-04-15] MEDS: AMOXICILLIN 500 MG CAPSULE PO (21:24)
[2023-04-15 21:25] VITALS: PULSE 80
[2023-04-16 06:00] VITALS: BMI 27.1
[2023-04-16] MEDS: AMOXICILLIN 500 MG CAPSULE PO ×3 (06:29→20:15)
[2023-04-16] MEDS: Petrolatum 33% Tube 1 APPLIC TOPICAL (06:30)
[2023-04-16] MEDS: Menthol/Lanolin/Calamine/Znox 113 GM Tube 1 APPLIC TOPICAL ×2 (06:30→20:17)
[2023-04-16 06:56] LABS: Bedside Glucose 136 mg/dL (74-106)
[2023-04-16 07:51] VITALS: PULSE 91; RESP 16
[2023-04-16] MEDS: Ipratropium/Albuterol Sulfate 3 ML AMPUL.NEB INHALATION ×2 (07:51→20:28)
[2023-04-16] MEDS: Aspirin 81 MG TAB.CHEW PO (08:04)
[2023-04-16] MEDS: Losartan Potassium 25 MG Tablet 12.5 MG PO (08:04)
[2023-04-16] MEDS: Multivitamins,Therapeutic Tablet 1 TABLET PO (08:04)
[2023-04-16] MEDS: Juven (unflavored) Packet 1 PACKET JT (08:04)
[2023-04-16 08:05] VITALS: PULSE 75
[2023-04-16] MEDS: Metoprolol Tartrate 25 MG Tablet 12.5 MG PO ×2 (08:05→20:16)
[2023-04-16] MEDS: Empagliflozin 25 MG Tablet PO (08:05)
[2023-04-16] MEDS: APIXABAN 5 MG TABLET PO ×2 (08:06→20:15)
[2023-04-16] MEDS: Amiodarone 200 MG Tablet PO (08:06)
[2023-04-16] MEDS: Fluticasone 0.05% 1 SPRAY NASAL.SRY 2 SPRAY NASAL (08:06)
[2023-04-16] MEDS: metFORMIN HCl 500 MG Tablet PO ×2 (08:06→16:44)
[2023-04-16 08:12] VITALS: BP 117/61; PULSE 75; RESP 17; TEMP 36.3; O2SAT 95
[2023-04-16] MEDS: Acetaminophen 325 MG Tablet 650 MG PO (12:32)
[2023-04-16] MEDS: Lidocaine 5% 35GM Tube 1 APPLIC TOPICAL (14:21)
[2023-04-16] MEDS: Collagenase 30gm Tube 1 APPLIC TOPICAL (14:24)
--- NOTE | 2023-04-16 15:00 | PCM.PROGNOTE ---
Subjective Subjective Afebrile VSS Maintaining appropriate oxygen saturation on RA Oral intake is good. Urinary output exceeds fluid intake more often than not. This is likely secondary to hypercalcemia due to immobility. The blood sugar record was reviewed and the blood sugars are under excellent control with no hypoglycemia. Discussed with nursing -the Snyder catheter remains out and she has had no residuals greater than 200. Reviewed the PT/OT notes Medication list reviewed. Jen is c/o PND and is frequently clearing her throat. Has mild cough with clear sputum. Denies shortness of breath, chest pain, chills, night sweats. Denies dysuria or suprapubic pain. No calf tenderness. Objective Data Objective Data Vital Signs: Vital Signs Temp Pulse Resp BP Pulse Ox O2 Del Method 97.3 F L 75 17 117/61 95 Room Air 04/16/23 08:12 04/16/23 08:12 04/16/23 08:12 04/16/23 08:12 04/16/23 08:12 04/16/23 08:12 Oxygen Delivery Method Room Air Weight: 179 lb 0.246 oz Body Mass Index (BMI) 27.1 Intake & Output: Intake and Output for Last 24 Hours 04/14/23 04/15/23 04/16/23 23:59 23:59 23:59 Intake Total 2370 / 2370 3460 / 3460 1540 / 1540 Output Total 1150 / 1450 4150 / 4150 1000 / 1000 Balance 1220 / 920 -690 / -690 540 / 540 Lab / Micro Data 04/12/23 05:48 04/12/23 05:48 Labs: Laboratory Results - last 24 hr 04/15/23 16:53: POC Glucose 143 H 04/16/23 06:36: POC Glucose 136 H Micro: Microbiology 04/10/23 08:00 Urine Catheter - Snyder Urine Culture - Final Yeast, not Kianna albicans 04/03/23 11:30 Urine Catheter - Catheter Urine Culture - Final Culture exhibits no growth. Physical Exam Const alert, oriented x3 and no apparent distress Constitutional Narrative: Frequently clearing her throat. HEENT Mouth: dry mucous membranes Resp Resp Narrative: Nontachypneic, no conversational dyspnea. Few coarse crackles in the bases but generally much improved over last week. Effort and Inspection: Negative for labored Cardio regular rate, regular rhythm and no gallops GI normal to inspection, nondistended, normoactive bowel sounds, soft to palpation and non-tender GI Narrative: The PEG site is without erythema or discharge. She has no pain with palpation around the PEG site. They are not using the PEG tube for feedings now however it cannot be removed for at least 6 weeks after it was placed due to increased risk for hemorrhage with removal. Extremity no calf tenderness Skin Skin Narrative: The decubitus ulcers on the right side of the buttocks are healed. There is still a stage II ulcer on the left buttock. The R heel decubitus is shrinking. The eschar now measures 1.2 X 2.3. The eschar is softer since it was scored a few days ago. The eschar is tender to palpation. There is no erythema or increased warmth to touch around the decubitus. No odor. No purulent discharge. After application of lidocaine ointment for 5 minutes the eschar was debrided. She tolerated the procedure well. The remaining eschar was scored once again and a dressing with Santyl was reapplied. Rashes: no rashes Neuro CN's II-XII intact bilaterally and no focal motor deficits Psych cooperative and affect normal Appearance: appropriate Assessment & Plan Assessment/Plan (1) Physical debility: (2) Sudden cardiac due to cardiac arrhythmia: PLAN: Torsades (3) History of torsades de pointes: PLAN: Likely due to acute STEMI caused by total occlusion of the SVG to the diagonal. (4) History of coronary artery bypass graft x 2: PLAN: 03/08/[address] Christian at [facility]. (5) STEMI (ST elevation myocardial infarction): QUALIFIERS: Involved coronary artery: other coronary artery Qualified Code(s): I21.29 - ST elevation (STEMI) myocardial infarction involving other sites PLAN: 03/14/2023 due to acute occlusion of the diagonal saphenous vein graft. (6) Paroxysmal atrial fibrillation: (7) Decubitus ulcer limited to breakdown of skin (stage 2): QUALIFIERS: Pressure injury location: buttock Laterality: unspecified laterality Qualified Code(s): L89.302 - Pressure ulcer of unspecified buttock, stage 2 (8) Decubitus ulcer of both feet: (9) Hypercalcemia: PLAN: PTH is normal. Hypercalcemia is most likely related to immobility for prolonged period of time. (10) Constipation: QUALIFIERS: Constipation type: slow transit constipation Qualified Code(s): K59.01 - Slow transit constipation PLAN: This is also likely related to hypercalcemia. (11) Acute blood loss anemia: (12) Deep vein thrombosis (DVT) of left upper extremity: QUALIFIERS: Affected thrombotic vein of extremity: unspecified vein of extremity Chronicity: acute Qualified Code(s): I82.622 - Acute embolism and thrombosis of deep veins of left upper extremity PLAN: On apixaban 5 mg twice daily. 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 (14) Urine retention: PLAN: resolved PLAN: Plan 1. Continue therapy 2. Pamidronate 30 mg IV today. 3. Recheck a BMP and albumin next week to calculate the calcium corrected for hypoalbuminemia. Continue to encourage increased fluid intake. She is gradually becoming more mobile and I suspect the hypercalcemia will improve. Calcium corrected for hypoalbuminemia on 04/12/2022 was 10.76. she continues to have polyuria with urine outputs exceeding fluid intake. 4. DC the fluticasone nasal spray and start Atrovent nasal spray 2 sprays each nostril 3 times daily. 5. Plan discharge to the transitional care unit on Wednesday for additional therapy/strengthening prior to returning home. Charges/Coding Visit Charges Inpatient E&M: 65753 Subs Hosp L2
[2023-04-16] MEDS: Ipratropium Bromide 0.06% NASAL SPRAY 2 SPRAY NASAL ×2 (16:42→20:13)
[2023-04-16 16:47] LABS: Bedside Glucose 184 mg/dL (74-106)
[2023-04-16] MEDS: Mirtazapine 15 MG Tablet PO (20:13)
[2023-04-16] MEDS: Atorvastatin Calcium 80 MG Tablet PO (20:14)
[2023-04-16 20:16] VITALS: BP 101/61; PULSE 79
[2023-04-16 20:17] VITALS: BP 101/61; PULSE 81; RESP 16; TEMP 36.4; O2SAT 95
[2023-04-16 20:28] VITALS: PULSE 75; RESP 16
[2023-04-17 06:50] VITALS: PULSE 74; RESP 16
[2023-04-17] MEDS: Ipratropium/Albuterol Sulfate 3 ML AMPUL.NEB INHALATION (06:50)
--- NOTE | 2023-04-17 06:57 | NURSING ---
Meds not given this am yet d/t pt request, requesting to sleep in this am and does not want woke up.
[2023-04-17] MEDS: AMOXICILLIN 500 MG CAPSULE PO ×3 (07:53→19:59)
[2023-04-17] MEDS: Ipratropium Bromide 0.06% NASAL SPRAY 2 SPRAY NASAL ×3 (07:53→20:14)
[2023-04-17] MEDS: metFORMIN HCl 500 MG Tablet PO ×2 (07:54→17:40)
[2023-04-17] MEDS: Aspirin 81 MG TAB.CHEW PO (07:54)
[2023-04-17] MEDS: Multivitamins,Therapeutic Tablet 1 TABLET PO (07:54)
[2023-04-17] MEDS: Juven (unflavored) Packet 1 PACKET JT ×2 (07:54→18:22)
[2023-04-17 08:00] VITALS: BP 122/74; PULSE 89; RESP 18; TEMP 36.2; O2SAT 97
[2023-04-17] MEDS: Collagenase 30gm Tube 1 APPLIC TOPICAL (08:13)
[2023-04-17 08:35] LABS: Bedside Glucose 163 mg/dL (74-106)
[2023-04-17 10:16] VITALS: BMI 27.0
[2023-04-17] MEDS: Amiodarone 200 MG Tablet PO (10:19)
[2023-04-17] MEDS: Losartan Potassium 25 MG Tablet 12.5 MG PO (10:19)
[2023-04-17] MEDS: APIXABAN 5 MG TABLET PO ×2 (10:19→20:00)
[2023-04-17] MEDS: Empagliflozin 25 MG Tablet PO (10:19)
[2023-04-17 10:20] VITALS: PULSE 81
[2023-04-17] MEDS: Metoprolol Tartrate 25 MG Tablet 12.5 MG PO ×2 (10:20→20:00)
[2023-04-17 16:46] LABS: Bedside Glucose 189 mg/dL (74-106)
[2023-04-17] MEDS: Acetaminophen 325 MG Tablet 650 MG PO (18:22)
[2023-04-17] MEDS: Mirtazapine 15 MG Tablet PO (19:59)
[2023-04-17] MEDS: Atorvastatin Calcium 80 MG Tablet PO (19:59)
[2023-04-17 20:00] VITALS: BP 102/71; PULSE 81
[2023-04-17] MEDS: Senna/Docusate Sodium 1 Tablet 2 TABLET PO (20:07)
[2023-04-17] MEDS: Menthol/Lanolin/Calamine/Znox 113 GM Tube 1 APPLIC TOPICAL (20:13)
--- NOTE | 2023-04-17 20:15 | NURSING ---
Pt requested all 2200 medications early.
[2023-04-17 20:30] VITALS: BP 102/71; PULSE 81; RESP 17; TEMP 36.2; O2SAT 97
[2023-04-18 06:00] VITALS: BMI 27.3
[2023-04-18] MEDS: AMOXICILLIN 500 MG CAPSULE PO (06:29)
[2023-04-18] MEDS: Ipratropium Bromide 0.06% NASAL SPRAY 2 SPRAY NASAL (06:30)
[2023-04-18 06:54] VITALS: PULSE 72; RESP 16
[2023-04-18] MEDS: Ipratropium/Albuterol Sulfate 3 ML AMPUL.NEB INHALATION (06:55)
[2023-04-18 07:05] LABS: Bedside Glucose 106 mg/dL (74-106)
[2023-04-18 07:20] VITALS: BP 101/64; PULSE 73; RESP 16; TEMP 36.6; O2SAT 95
[2023-04-18 07:21] VITALS: BMI 27.3
[2023-04-18 08:05] VITALS: PULSE 73
[2023-04-18] MEDS: Metoprolol Tartrate 25 MG Tablet 12.5 MG PO (08:05)
[2023-04-18] MEDS: APIXABAN 5 MG TABLET PO (08:05)
[2023-04-18] MEDS: Empagliflozin 25 MG Tablet PO (08:05)
[2023-04-18] MEDS: Acetaminophen 325 MG Tablet 650 MG PO (08:05)
[2023-04-18] MEDS: Amiodarone 200 MG Tablet PO (08:07)
[2023-04-18] MEDS: Aspirin 81 MG TAB.CHEW PO (08:07)
[2023-04-18] MEDS: Multivitamins,Therapeutic Tablet 1 TABLET PO (08:07)
[2023-04-18] MEDS: Losartan Potassium 25 MG Tablet 12.5 MG PO (08:07)
[2023-04-18] MEDS: metFORMIN HCl 500 MG Tablet PO (08:07)
[2023-04-18] MEDS: Senna/Docusate Sodium 1 Tablet 2 TABLET PO (08:12)
[2023-04-18] MEDS: SEMAGLUTIDE 0.25 MG/0.368 ML PEN.INJCTR 0.5 MG SQ (08:13)
[2023-04-18] MEDS: Collagenase 30gm Tube 1 APPLIC TOPICAL (08:16)
--- NOTE | 2023-04-18 09:04 | PCM.TXEXTCAR ---
Diet Diet Order/Speech Therapy: 04/15/23 15:30 Diet: Consistent Carb - Calorie Controlled Food consistency:: Regular Liquid Consistency:: Regular/Thin Dietary Modifications:: Cardiac / Heart Healthy Type of Dietary Supplement:: Glucerna Shake Is pt able to select menu?: Yes Diet Comments: 120mL chocolate glucerna shake BID w/ breakfast and lunch, CALCIUM Restrict How many daily calories?: 1800 calorie Routine Orders/Code Status Enema Type: Fleetz Enema Frequency: Daily PRN Suppository Type: Dulcolax 10mg Suppository Frequency: Daily PRN O2 Liters per Minute: 2 O2 Frequency: PRN Keep PO Greater than or Equal to (%): 90 Routine Lab Work: - (Serum albumin and calcium in the AM.) Code Status: Full Code Wound(s) Rt Heel: Wound Type: Pressure Injury (Unstageable due to presence of eschar. Much improved. Continue dressing changes once a day. Santyl covered by an adaptic then then dry 4X4's. MUST use the AFO anytime she is in the bed. ) Lt Heel: Wound Type: Pressure Injury (Resolved. Continue the Duoderm patch for 1 week and then can discontinue if no breakdown. Change the Duoderm every 3 days and PRN. ) Bilt Buttocks: Wound Type: Pressure Injury (R side is healed but, the left side still has a stage II decubitus ulcer. ) Chest: Wound Type: Surgical Incision Therapies Weight Bearing: Full weight bearing Extremity Affected:: Bilateral Lower Physical Therapy: Eval and Treat Occupational Therapy: Eval and Treat Speech Therapy: Eval and Treat Problem/Diagnosis (1) Physical debility: Status: Acute Code(s): R53.81 - Other malaise Plan: Transfer to TCU for additional therapy/strengthening prior to returning home. (2) Sudden cardiac due to cardiac arrhythmia: Status: Inactive Code(s): I49.9 - Cardiac arrhythmia, unspecified Plan: She has a life vest and will need to continue this for 6 months. Possible need for AICD going forward....to be determined by cardiology. Comment: With [facility] on 03/14/2023. Due to Torsades due to acute STEMI due to occlusion of diagonal vein graft. (3) History of torsades de pointes: Status: Inactive Code(s): Z86.79 - Personal history of other diseases of the circulatory system Plan: Lik Comment: Likely due to acute STEMI caused by total occlusion of the SVG to the diagonal. (4) History of coronary artery bypass graft x 2: Status: Chronic Code(s): Z95.1 - Presence of aortocoronary bypass graft Plan: 03/08/[address] Christian at [facility]. Comment: MCINTOSH to the LAD and saphenous vein graft to the major diagonal from the LAD on 03/08/[address] Christian at [facility] (5) STEMI (ST elevation myocardial infarction): Status: Inactive Code(s): I21.3 - ST elevation (STEMI) myocardial infarction of unspecified site Plan: 03/14/2023 due to acute occlusion of the diagonal saphenous vein graft. Comment: Due to complete occlusion of the SVG to the major LAD diagonal at the anastomosis (6) Paroxysmal atrial fibrillation: Status: Acute Code(s): I48.0 - Paroxysmal atrial fibrillation Comment: No PAF on PE while on acute rehab. (7) Decubitus ulcer limited to breakdown of skin (stage 2): Status: Acute Code(s): L89.92 - Pressure ulcer of unspecified site, stage 2 Plan: Continue Calmoseptine or Triad cream to both buttocks. The decubiti on the R buttock have healed but, there is still a stage II on the Left buttock. Pt advised not to lie on her back but to turn from side to side every 2 hours. Comment: Buttocks (8) Decubitus ulcer of both feet: Status: Acute Code(s): L89.899 - Pressure ulcer of other site, unspecified stage Plan: Continue Santyl daily to the left heel. MUST use the AFO to keep pressure off the Left heel any time she is in Bed. OK to remove AFO for therapy. Comment: Stage II decubitus ulcer of the left heel is healed. Unstageable decubitus ulcer of the right heel with eschar present has improved significantly. We have been enzymatically debriding the eschar with Santyl and also surgically debriding at the bedside using 5% lidocaine ointment for anesthesia. (9) Hypercalcemia: Status: Acute Code(s): E83.52 - Hypercalcemia Plan: PTH is normal. Hypercalcemia is most likely related to immobility for prolonged period of time. Pt refused IV fluids and also refused a low dose of Pamidronate. She is to drink 3 liters of fluid daily and if she does not she will need to continue water flushes per the PEG. (10) Constipation: Status: Acute Code(s): K59.00 - Constipation, unspecified Plan: This is also likely related to hypercalcemia and immobility. Continue stool softeners and increased fluid intake. (11) Acute blood loss anemia: Status: Acute Code(s): D62 - Acute posthemorrhagic anemia Plan: HGB is stable. Continue to monitor weakly. (12) Deep vein thrombosis (DVT) of left upper extremity: Status: Acute Code(s): I82.622 - Acute embolism and thrombosis of deep veins of left upper extremity Plan: On apixaban 5 mg twice daily. (13) Diabetes mellitus, type 2: Status: Acute Code(s): E11.9 - Type 2 diabetes mellitus without complications Plan: Currently under excellent control with no hypoglycemia. Continue 1800 calorie, carb controlled, cardiac diet. (14) Urine retention: Status: Resolved Code(s): R33.9 - Retention of urine, unspecified Plan: After 2 failed voiding trials retention has resolved and she no longer has a Snyder. PVR's are good. She will follow up with Dr. Tom in 1-2 weeks post DC from acute rehab. Plan 1. Transfer to TCU today for additional therapy to strengthen prior to going home. Allergies/Procedures Done in Hospital Allergies Sulfa (Sulfonamide Antibiotics) Allergy (Verified 03/05/21 11:09) Hives sulfamethoxazole [From Septra] Allergy (Verified 03/05/21 11:09) Hives trimethoprim [From Septra] Allergy (Verified 03/05/21 11:09) Hives acetaminophen [From Tylenol] Adverse Reaction (Verified 03/05/21 11:09) d/t fatty liver Procedures: None Type of Care/Length of Stay Estimated LOS: Convalescent Care Less Than 30 days Type of Care Needed: Skilled Rehab Potential: Good Prognosis: Good Additional Orders/Day of Discharge Additional Orders: IF she does not get 3 Liters of fluid intake from 0600 to 1800 please calculate the deficit and give 300 CC water flushes through the night until the difference is made up. 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 Will d/c 120mL chocolate glucerna shake BID w/ breakfast and lunch meals. Amarjit BID via PEG. Will continue to monitor wts- consider increasing diet to 2000 calories/day if wt loss continues. Wt loss due to dehydration RELATED TO POLYURIA FROM HYPERCALCEMIA. Follow Up Care Please follow up with your Primary Care Physician in: Following DC from TCU Please Follow Up With: Dr. Lozano When: Call the office for an appt. Please Follow Up With: Latrice Tom MD When: 1-2 weeks following DC from rehab. Discharge Plan Admission Admit Date/Time: 04/02/23 13:56 Primary Reason for Your Visit: Debility due to STEMI/Takotsubo's CM Attending Provider: Gail Pena Primary Care Provider: Sandra Miller Consulting Providers: Latrice Tom Instructions Patient Instructions: Obesity and Its Impact on Health, Understanding Body Mass Index (BMI), Hypercalcemia Dc, Caring for Your Incision Additional Instructions / Restrictions: 1. The calcium in your blood is too high. This is most likely due to the immobility since the CABG. This will resolve as you become more active. High calcium causes confusion, drowsiness, constipation, excessive urine output, muscle weakness, kidney failure and kidney stones. You refused the medication I prescribed in a 1 time dose to lower the calcium so you will need to drink 3-4 Liters of fluids a day and restrict the calcium in the diet. until you are more mobile. No need to drink more than that. I stopped the vitamin D supplement (cholecalciferol) because of the the high calcium. Once the calcium comes down to normal you PCP will likely want to restart this medication. 2. Your blood sugars are under very good control. You are on an 1,800 calorie, heart healthy diet. If you stick to this diet at home the blood sugars should remain under good control. Bypasses do NOT last forever. It is very important to keep the HGBA1C <7, the LDL (bad cholesterol) < 70 and the BP less than 130/80 to maximize the likelihood that the arterial graft to the left coronary artery remains patent. You should always know the HGBA1c and LDL. Also important to keep your weight down. Your BMI is now 27.4. I recommend you do not let this get any higher. 3. Remember that exercise is important for good heart health. Following discharge from TCU you should start an exercise program at home. The therapists will give you an exercise routine when you are discharged from TCU. Plan on exercising 5-6 times a week. Following discharge from rehab you will also likely be going to cardiac rehab and they will monitor you while you are exercising to make sure the BP and heart rate remain well controlled and you have no problems with the rhythm of the heart. We have a cardiac rehab program hear at the hospital on the first floor. 4. I has been a pleasure meeting you Jen. I wish you many years of good heart health! If you have any questions for me after leaving rehab please do not hesitate to call. OFFICE: [phone] CELL: [phone] Discharge Orders/Prescriptions Prescriptions: New metformin 500 mg Tablet 500 mg PO BIDCM Qty: 1 0RF atorvastatin 80 mg Tablet 80 mg PO 2000 Qty: 1 0RF amiodarone 200 mg Tablet 200 mg PO DAILY Qty: 1 0RF aspirin 81 mg Tablet,Chewable 81 mg PO DAILYCM Qty: 1 0RF metoprolol tartrate 25 mg Tablet 12.5 mg PO BID Qty: 1 0RF Eliquis 5 mg Tablet 5 mg PO BID Qty: 1 0RF amoxicillin 500 mg Capsule 500 mg PO Q8 Qty: 15 0RF acetaminophen 325 mg Tablet 650 mg PO Q6H PRN PRN (Reason: PAIN 1-10/ FEVER) Qty: 1 0RF bisacodyl 10 mg Suppository 10 mg IN DAILY PRN (Reason: Constipation) Qty: 1 0RF bisacodyl 10 mg Suppository 10 mg IN X1 PRN (Reason: Constipation) Qty: 1 0RF Santyl 250 unit/gram Ointment 1 applic topical DAILY Qty: 1 0RF Protocol: *Topical Application Instructions APPLICATION INSTRUCTIONS: apply to rt heel ipratropium bromide 42 mcg (0.06 %) Orrick,Non-Aerosol 2 spray NASAL BID Qty: 1 0RF multivitamin Tablet 1 tab PO BREAKFAST Qty: 1 0RF ipratropium-albuterol 0.5 mg-3 mg(2.5 mg base)/3 mL Solution For Nebulization 3 ml inhalation Q4H PRN PRN (Reason: WHEEZING) Qty: 1 0RF sennosides-docusate sodium [Stool Softener-Stimulant Laxat] 8.6-50 mg Tablet 2 tab PO BID Qty: 1 0RF magnesium hydroxide 400 mg/5 mL Suspension 30 ml PO X1 PRN (Reason: Constipation) Qty: 1 0RF mirtazapine 15 mg Tablet 15 mg PO 1999 Qty: 1 0RF menthol-zinc oxide [Calmoseptine] 0.44-20.6 % Ointment 1 applic topical [phone] Qty: 1 0RF Protocol: *Topical Application Instructions APPLICATION INSTRUCTIONS: Apply to buttock Biotene Dry Mouth Oral Rinse Mouthwash 15 ml mucous membrane 5X/DAY PRN (Reason: Dry Mouth) Qty: 15 0RF Amarjit (with collagen) 7-7-1.5 gram Powder In Packet 1 packet J-tube BIDCM Qty: 1 0RF Ozempic 0.25 mg or 0.5 mg (2 mg/3 mL) Pen Injector 0.5 mg SQ QWEEK Qty: 1 0RF Petrolatum 33% [Eucerin Eqivalent] 1 applic topical [id number] Qty: 1 0RF Continued Jardiance 25 mg Tablet 25 mg PO DAILY nitroglycerin 0.4 mg tablet, sublingual 0.4 mg sublingual Q5M Rx Instructions: do not exceed 3 doses per episode oxycodone 5 mg tablet 5 mg PO Q4H PRN (Reason: pain) Ozempic 0.25 mg or 0.5 mg (2 mg/3 mL) pen injector 0.25 mg subcut STARKEY Rx Instructions: for 4 weeks losartan [Cozaar] 25 mg tablet 12.5 mg feeding tube DAILY Discontinued metformin 500 MG tablet 1,000 mg PO BIDCM glipizide 10 MG tablet extended release 24hr 10 mg PO DAILY multivitamin with minerals 1 EACH tablet 1 each PO DAILY naproxen 500 MG tablet 500 mg PO PRN PRN (Reason: Pain 1-10 Or Fever) omeprazole magnesium 20 MG tablet,delayed release (DR/EC) 20 mg PO PRN PRN (Reason: Indigestion) metoprolol tartrate 25 MG tablet 25 mg PO DAILY omega-3 fatty acids-fish oil 1 EACH capsule 1 each PO BID pravastatin 10 mg Tablet 10 mg PO QHS estradiol 0.5 mg Tablet 0.5 mg PO SUTH Hold Instructions: DVT amiodarone 200 mg tablet 200 mg feeding tube DAILY apixaban 5 mg tablet 5 mg feeding tube BID aspirin 81 mg tablet,chewable 1 tab feeding tube DAILY atorvastatin 40 mg tablet 40 mg feeding tube QHS ciprofloxacin HCl [Cipro] 500 mg tablet 500 mg feeding tube BID fluticasone propionate [Allergy Relief (fluticasone)] 50 mcg/actuation spray,suspension 2 spray intranasal DAILY Rx Instructions: administer into each nostril melatonin 3 mg tablet 3 mg feeding tube QHS nystatin 100,000 unit/mL suspension 400,000 unit PO TID Rx Instructions: administer 1/2 of dose in each side of the mouth lansoprazole [Prevacid] 30 mg capsule,delayed release(DR/EC) 30 mg feeding tube DAILY cholecalciferol (vitamin D3) [Vitamin D3] 125 mcg (5,000 unit) tablet 50,000 unit feeding tube MO Referrals / Follow Up: Sandra Miller DO [Primary Care Provider] - Disposition Disposition (needs filled in before D/C Order can be placed): [facility] (5) STEMI (ST elevation myocardial infarction) Qualifiers: Involved coronary artery: other coronary artery Qualified Code(s): I21.29 - ST elevation (STEMI) myocardial infarction involving other sites (7) Decubitus ulcer limited to breakdown of skin (stage 2) Qualifiers: Pressure injury location: buttock Laterality: unspecified laterality Qualified Code(s): L89.302 - Pressure ulcer of unspecified buttock, stage 2 (10) Constipation Qualifiers: Constipation type: slow transit constipation Qualified Code(s): K59.01 - Slow transit constipation (12) Deep vein thrombosis (DVT) of left upper extremity Qualifiers: Affected thrombotic vein of extremity: unspecified vein of extremity Chronicity: acute Qualified Code(s): I82.622 - Acute embolism and thrombosis of deep veins of left upper extremity (13) Diabetes mellitus, type 2 Qualifiers: Diabetes mellitus termite control servicer insulin use: without termite control servicer use Diabetes mellitus complication status: with circulatory complication Diabetes mellitus complication detail: with other circulatory complications Qualified Code(s): E11.59 - Type 2 diabetes mellitus with other circulatory complications
--- NOTE | 2023-04-18 10:23 | PCM.DC.SUM ---
Providers Date of Admission: 04/02/23 Date of Discharge: 04/18/23 Primary Care Physician: Dr. Sandra Miller, Consultations 04/12/23 11:49 Consult: Urology Routine Consulting Provider: Latrice Tom Reason for Consult: urine retention EMERGENT Consult: No MD Notified: Yes Date Notified: 04/12/23 Time Notified: 11:49 Method of Notification: Verbal Comments:: Spoke with Roberta Reason For Visit: CARDIAC ARREST Diagnosis Discharge Diagnosis (1) Physical debility: Status: Acute Code(s): R53.81 - Other malaise (2) Sudden cardiac due to cardiac arrhythmia: Status: Inactive Code(s): I49.9 - Cardiac arrhythmia, unspecified (3) History of torsades de pointes: Status: Inactive Code(s): Z86.79 - Personal history of other diseases of the circulatory system (4) STEMI (ST elevation myocardial infarction): Status: Inactive Code(s): I21.3 - ST elevation (STEMI) myocardial infarction of unspecified site Qualifiers: Involved coronary artery: other coronary artery Qualified Code(s): I21.29 - ST elevation (STEMI) myocardial infarction involving other sites (5) Takotsubo cardiomyopathy: Status: Resolved Code(s): I51.81 - Takotsubo syndrome (6) Ventricular tachycardia (paroxysmal): Status: Resolved Code(s): I47.29 - Other ventricular tachycardia (7) Paroxysmal atrial fibrillation: Status: Acute Code(s): I48.0 - Paroxysmal atrial fibrillation (8) Uses LifeVest defibrillator: Status: Acute Code(s): Z95.810 - Presence of automatic (implantable) cardiac defibrillator (9) Coronary artery disease: Status: Acute Code(s): I25.10 - Atherosclerotic heart disease of [place] coronary artery without angina pectoris (10) History of coronary artery bypass graft x 2: Status: Chronic Code(s): Z95.1 - Presence of aortocoronary bypass graft (11) Deep vein thrombosis (DVT) of left upper extremity: Status: Acute Code(s): I82.622 - Acute embolism and thrombosis of deep veins of left upper extremity Qualifiers: Affected thrombotic vein of extremity: unspecified vein of extremity Chronicity: acute Qualified Code(s): I82.622 - Acute embolism and thrombosis of deep veins of left upper extremity (12) Pneumothorax: Status: Resolved Code(s): J93.9 - Pneumothorax, unspecified Qualifiers: Pneumothorax type: unspecified pneumothorax Qualified Code(s): J93.9 - Pneumothorax, unspecified (13) Shock liver: Status: Resolved Code(s): K72.00 - Acute and subacute hepatic failure without coma (14) History of heparin-induced thrombocytopenia: Status: Resolved Code(s): Z86.2 - Personal history of diseases of the blood and blood-forming organs and certain disorders involving the immune mechanism (15) History of thoracentesis: Status: Inactive Code(s): Z98.890 - Other specified postprocedural states (16) Decubitus ulcer limited to breakdown of skin (stage 2): Status: Acute Code(s): L89.92 - Pressure ulcer of unspecified site, stage 2 Qualifiers: Laterality: unspecified laterality Pressure injury location: buttock Qualified Code(s): L89.302 - Pressure ulcer of unspecified buttock, stage 2 (17) Decubitus ulcer of both feet: Status: Acute Code(s): L89.899 - Pressure ulcer of other site, unspecified stage (18) Hypercalcemia: Status: Acute Code(s): E83.52 - Hypercalcemia (19) Dysphagia: Status: Acute Code(s): R13.10 - Dysphagia, unspecified Qualifiers: Dysphagia type: unspecified Qualified Code(s): R13.10 - Dysphagia, unspecified (20) Zenkers diverticulum: Status: Chronic Code(s): K22.5 - Diverticulum of esophagus, acquired (21) Urine retention: Status: Resolved Code(s): R33.9 - Retention of urine, unspecified (22) Constipation: Status: Acute Code(s): K59.00 - Constipation, unspecified Qualifiers: Constipation type: slow transit constipation Qualified Code(s): K59.01 - Slow transit constipation (23) Diabetes mellitus, type 2: Status: Deleted Code(s): E11.9 - Type 2 diabetes mellitus without complications Qualifiers: Diabetes mellitus complication detail: with other circulatory complications Diabetes mellitus complication status: with circulatory complication Diabetes mellitus director long term care insulin use: without director long term care use Qualified Code(s): E11.59 - Type 2 diabetes mellitus with other circulatory complications (24) Hyperlipidemia: Status: Acute Code(s): E78.5 - Hyperlipidemia, unspecified Qualifiers: Hyperlipidemia type: mixed hyperlipidemia Qualified Code(s): E78.2 - Mixed hyperlipidemia (25) Low HDL (under 40): Status: Acute Code(s): E78.6 - Lipoprotein deficiency (26) GERD (gastroesophageal reflux disease): Status: Acute Code(s): K21.9 - Gastro-esophageal reflux disease without esophagitis Qualifiers: Esophagitis presence: esophagitis presence not specified Qualified Code(s): K21.9 - Gastro-esophageal reflux disease without esophagitis (27) Hx of mitral valve prolapse: Status: Acute Code(s): Z86.79 - Personal history of other diseases of the circulatory system (28) Acute blood loss anemia: Status: Acute Code(s): D62 - Acute posthemorrhagic anemia (29) VILLASENOR (nonalcoholic steatohepatitis): Status: Acute Code(s): K75.81 - Nonalcoholic steatohepatitis (VILLASENOR) Plan 1. Discharge to transitional care unit for additional therapy/strengthening prior to returning home Medications at Discharge Home Medications empagliflozin 25 mg tablet (Jardiance) 25 mg PO DAILY glucose 02/26/21 losartan 25 mg tablet (Cozaar) 12.5 mg feeding tube DAILY blood pressure 04/02/23 nitroglycerin 0.4 mg sublingual tablet 0.4 mg sublingual Q5M heart 04/02/23 oxycodone 5 mg tablet 5 mg PO Q4H PRN pain 04/02/23 semaglutide 0.25 mg or 0.5 mg (2 mg/3 mL) subcutaneous pen injector (Ozempic) 0.25 mg subcut STARKEY glucose 04/02/23 Petrolatum 33% [Eucerin Eqivalent] 1 applic topical 0600,2200 Skin Care 04/18/23 acetaminophen 325 mg tablet 650 mg (2 x 325 mg) PO Q6H PRN PRN PAIN 1-10/ FEVER #1 TAB 04/18/23 amiodarone 200 mg tablet 200 mg PO DAILY Heart #1 TAB 04/18/23 amoxicillin 500 mg capsule 500 mg PO Q8 Antibiotic #15 caps 04/18/23 apixaban 5 mg tablet (Eliquis) 5 mg PO BID Anticoagulant #1 TAB 04/18/23 arginine 7 gram-glutam 7 gram-CaHMB 1.5 enhb-ssacy-xx-min oral pwd pkt (Amarjit (with collagen)) 1 packet J-tube BIDCM Wound Healing #1 ea 04/18/23 aspirin 81 mg chewable tablet 81 mg PO DAILYCM Heart #1 TAB 04/18/23 atorvastatin 80 mg tablet 80 mg PO 1999 Cholesterol #1 TAB 04/18/23 bisacodyl 10 mg rectal suppository 10 mg [place] DAILY PRN Constipation #1 ea 04/18/23 bisacodyl 10 mg rectal suppository 10 mg IL X1 PRN Constipation #1 ea 04/18/23 collagenase clostridium histo. 250 unit/gram topical ointment (Santyl) 1 applic topical DAILY Wound #1 g 04/18/23 ipratropium 0.5 mg-albuterol 3 mg (2.5 mg base)/3 mL nebulization soln 3 ml inhalation Q4H PRN PRN WHEEZING #1 mL 04/18/23 ipratropium bromide 42 mcg (0.06 %) nasal spray 2 spray NASAL BID Allergies #1 mL 04/18/23 magnesium hydroxide 400 mg/5 mL oral suspension 30 ml PO X1 PRN Constipation #1 mL 04/18/23 menthol 0.44 %-zinc oxide 20.6 % topical ointment (Calmoseptine) 1 applic topical 0600,2200 Skin care #1 g 04/18/23 metformin 500 mg tablet 500 mg PO BIDCM DM #1 TAB 04/18/23 metoprolol tartrate 25 mg tablet 12.5 mg (1/2 x 25 mg) PO BID BP #1 TAB 04/18/23 mirtazapine 15 mg tablet 15 mg PO 1999 Appetite #1 TAB 04/18/23 multivitamin 1 tab PO BREAKFAST Supplement #1 TAB 04/18/23 saliva substitute combo no.9 (Biotene Dry Mouth Oral Rinse mouthwash) 15 ml mucous membrane 5X/DAY PRN Dry Mouth #15 mL 04/18/23 semaglutide 0.25 mg or 0.5 mg (2 mg/3 mL) subcutaneous pen injector (Ozempic) 0.5 mg (0.736 mL) SQ QWEEK Diabetes #1 mL 04/18/23 sennosides 8.6 mg-docusate sodium 50 mg tablet (Stool Softener-Stimulant Laxative) 2 tab PO BID Constipation #1 TAB 04/18/23 Hospital Course Operations - (CABG x 2 vessels on 03/08/2023) Procedures - (Bilateral thoracentesis/chest tube/intubation/Impella insertion/application of LifeVest At [facility] prior to coming to [facility]) Summary of Care Provided Minutes Spent on Discharge: 45 Hospital Course: RASHEL DAVALOS, is a 68 F with a PMH of CAD, DM II, HTN, MVP, GERD, VILLASENOR, CKD and CABG on 03/08/2023 at [facility] by Dr. Christian. She had a MCINTOSH to the LAD and a saphenous vein graft to the first diagonal. She was discharged home on 03/12/2023. On 03/14/23 she developed CP and her family summoned EMS. Approximately 1 minute prior to arrival of EMS she arrested. When EMS arrived they found her unresponsive with a heart rhythm of Torsades. She received 1 shock, 1 epi and IV fluids were started. During transport to [facility] she was in and out of PEA and had spontaneous breathing. At arrival to the ED at [facility] she had VT and was shocked X 1 and intubated. She was placed on amiodarone, Levophed for severe hypotension and propofol. EKG showed diffuse nonspecific ST changes. She was transported to [facility] for urgent cardiac catheterization. Echocardiogram showed an EF of about 10%, down from 55% post CABG. there was septal akinesis with severe global hypokinesis of the left ventricle. She had Impella placement and was placed on heparin. She had a right heart cath following Impella placement and the RA pressure was 17 mmHg. RV was 53/23 mmHg, PA was 55/27 mmHg and the wedge was 25 mmHg. Left heart cath showed the left anterior descending to be a large-caliber vessel tapering down towards the apex. There was a 70% mid lesion just after the first diagonal branch. The distal LAD filled via a MCINTOSH graft. There was SALLY-3 flow distally. The saphenous vein graft to the major diagonal branch had mid vessel occlusion and immediately after the anastomosis. The left circumflex was a moderate caliber vessel with no significant disease. The obtuse marginal, right coronary, right posterior descending and right posterior lateral arteries had no significant disease. There was minimal left to left collaterals filling the distal major diagonal branch. The Impella was removed on 03/17/2023 and she was extubated. She was still requiring pressors to maintain an adequate blood pressure. While in the intensive care unit she had paroxysmal atrial fibrillation but had no further ventricular dysrhythmias. She developed thrombocytopenia which could have been due to shock liver, HIT or hemolysis. She was closely monitored for any further signs of TAYLER but, argatroban/bivalirudin was not immediately started. She went on to develop left upper extremity DVT thought to be due to TAYLER and she was started on on argatroban infusion. Additional complications at [facility] included a right pneumothorax requiring a chest tube and bilateral exudative pleural effusions thought to be secondary to aspiration pneumonia. The chest tube was removed on 03/21/2023. Follow-up chest x-ray was negative for pneumothorax. She had persistent dysphagia and failed an MBS. Barium swallow on 03/23/2023 demonstrated aspiration of thin and mildly thick liquids.. MBS also showed a Zenker's diverticulum A PEG tube was inserted on 03/23/2023 to provide adequate nutrition. Argatroban was held for a short time to allow insertion of the PEG tube. Rashel was transferred to the acute inpatient rehab unit at [facility] on 04/02/2023 for 3 hours of therapy daily to restore function/independence at or near her level prior to CABG. Rashel had stage II decubitus ulcers on her buttocks. She also had an unstageable large decubitus ulcer with eschar on the plantar surface of the R heel and a smaller stage II ulcer on the plantar surface of the L heel. The left heel ulcer was healed at the time of DC from rehab and the R heel eschar was much smaller. The R heel ulcer was treated with off-loading, Santyl and sharps debridement while on rehab. There was still a small eschar on the plantar surface of the R heel but, it is soft and decreasing in size. Plan on continuing Santyl and she will be followed by the ostomy nurse while on TCU. Rashel had while on rehab was hypercalcemia. The most likely cause is immobility. Urine outputs consistently exceeded fluid intake and she became dehydrated. She refused an IV and also refused IV pamidronate. As she became more mobile the calcium came down and the calcium corrected for hypoalbuminemia prior to discharge was 10 .36 which is only mildly elevated. She should continue with increased fluid intake until the calcium is less than 10.1. Hemoglobin at admission to rehab was 10.6 and prior to discharge was stable at 10.7. Creatinine is stable at 0.57 and the GFR is stable at 111. She reportedly has a history of chronic renal failure but this GFR is not consistent with chronic renal failure. Recommend she remains well hydrated following DC from TCU. She had Takotsubo's cardiomyopathy with a markedly reduced ejection fraction following sudden cardiac with ROSC. The EF prior to leaving the previous hospital was back up to 55%. We had no problems with congestive heart failure while she resided on acute rehab. She initially had atelectasis in both bases but with IS and PEP the crackles improved significantly. Rashel had a Snyder catheter at presentation to rehab due to urine retention. We did 2 voiding trials 4 to 5 days apart and she failed both trials. A KUB was obtained and it revealed no excessive stool accumulation. Dr. Tom was consulted for persistent urine retention and she thought the retention was due to constipation. Rashel had been taking stool softeners for the duration of stay on rehab. She c/o constipation and I suspect this was related to immobility and hypercalcemia. The third voiding trial was successful and she was discharged to TCU without a Snyder. Dr. Tom would like to see Rashel in the office in 1-2 weeks post DC from rehab. Blood sugars were well controlled while on rehab. We have not needed to use the PEG for feedings because she is eating well. We have used the PEG for fluids when she has not been drinking enough. PEG tube should remain in for 6 weeks after insertion before attempting to remove due to the increased risk of bleeding if it is removed prior to 6 weeks. Rashel improved significantly while on rehab but, she was not strong enough to go home at the time of DC so she was transferred to the TCU for additional strengthening prior to going home. She will need to follow up with her PCP and regulatory administrator following DC from TCU. Physical Exam Const alert General Appearance: cooperative HEENT normocephalic Eyes PERRL and EOMs intact bilaterally Eyes Narrative: Voice is still hoarse but is projecting better now. Neck no lymphadenopathy, supple, no JVD and no carotid bruits Neck Narrative: No JVD General: trachea midline Chest Chest Narrative: LifeVest present. Chest: symmetrical chest wall rise Resp normal respiratory effort, normal air movement and clear to auscultation bilaterally Resp Narrative: She initially had coarse crackles in the bases but these completely resolved after a few deep breaths. No rhonchi and no wheezes. No conversational dyspnea. Cardio regular rate, regular rhythm, no murmurs, no rub and no gallops Cardio Narrative: No ectopy GI normal to inspection, nondistended, normoactive bowel sounds, non-tender and non-distended GI Narrative: PEG present. The PEG site has no erythema, no swelling and no discharge. She has no tenderness to palpation in the area surrounding the PEG tube. Extremity normal capillary refill and no calf tenderness General Extremity: Negative for edema Skin no rashes or lesions noted Skin Narrative: The stage II decubitus ulcer on the left heel has resolved/healed. She no longer has any decubitus ulcers on the right buttock but there is a stage II on the left buttock. She should continue turning mipg-eu-lamn at least every 2 hours and avoid lying on her back. The decubitus ulcer on the right heel is much smaller in size and the eschar is softening. There is no odor, no discharge and no erythema around the wound. The eschar was scored on 3 occasions allowing the Santyl to better penetrate the wound. Would continue Santyl and offloading while on TCU. General Skin Exam: no breakdown Wound Narrative: The sternal incision is coapted well with no dehiscence. There is no discharge from the incision and no rg-incisional erythema. Neuro CN's II-XII intact bilaterally and no focal motor deficits Neuro Narrative: Generalized weakness. Psych affect normal Appearance: appropriate Attitude: No agitated Activity / Motor Behavior: Negative for restless Weight / BMI Weight Weight: 180 lb 1.883 oz Body Mass Index (BMI) 27.3 ABG / Lab / Microbiology Data 04/12/23 05:48 04/12/23 05:48 Laboratory: Laboratory Results - last 24 hr 04/17/23 16:22: POC Glucose 189 H 04/18/23 06:38: POC Glucose 106 Microbiology: Microbiology 04/10/23 08:00 Urine Catheter - Snyder Urine Culture - Final Yeast, not Kianna albicans 04/03/23 11:30 Urine Catheter - Catheter Urine Culture - Final Culture exhibits no growth. D/C Instructions Please Follow Up With: Dr. Lozano Meaningful Use Info Meaningful Use Diagnoses (Choose all that apply): AMI AMI/Post PCI/Angioplasty Aspirin given w/in 24hrs of arrival?: Yes ASA at discharge?: Yes Antiplatelet Therapy at Discharge:: Yes Statins at discharge?: Yes Kuldeep/ARB at discharge?: Yes Beta Fiorella at discharge?: Yes Done w/ Acute UT measure.: Yes Documented LVEF (%): 55 Discharge Plan Admission Admit Date/Time: 04/02/23 13:56 Primary Reason for Your Visit: Debility due to STEMI/Takotsubo's CM Attending Provider: Gail Pena Primary Care Provider: Sandra Miller Consulting Providers: Latrice Tom Instructions Patient Instructions: Obesity and Its Impact on Health, Understanding Body Mass Index (BMI), Hypercalcemia Dc, Caring for Your Incision Additional Instructions / Restrictions: 1. The calcium in your blood is too high. This is most likely due to the immobility since the CABG. This will resolve as you become more active. High calcium causes confusion, drowsiness, constipation, excessive urine output, muscle weakness, kidney failure and kidney stones. You refused the medication I prescribed in a 1 time dose to lower the calcium so you will need to drink 3-4 Liters of fluids a day and restrict the calcium in the diet. until you are more mobile. No need to drink more than that. I stopped the vitamin D supplement (cholecalciferol) because of the the high calcium. Once the calcium comes down to normal you PCP will likely want to restart this medication. 2. Your blood sugars are under very good control. You are on an 1,800 calorie, heart healthy diet. If you stick to this diet at home the blood sugars should remain under good control. Bypasses do NOT last forever. It is very important to keep the HGBA1C <7, the LDL (bad cholesterol) < 70 and the BP less than 130/80 to maximize the likelihood that the arterial graft to the left coronary artery remains patent. You should always know the HGBA1c and LDL. Also important to keep your weight down. Your BMI is now 27.4. I recommend you do not let this get any higher. 3. Remember that exercise is important for good heart health. Following discharge from TCU you should start an exercise program at home. The therapists will give you an exercise routine when you are discharged from TCU. Plan on exercising 5-6 times a week. Following discharge from rehab you will also likely be going to cardiac rehab and they will monitor you while you are exercising to make sure the BP and heart rate remain well controlled and you have no problems with the rhythm of the heart. We have a cardiac rehab program hear at the hospital on the first floor. 4. I has been a pleasure meeting you Rashel. I wish you many years of good heart health! If you have any questions for me after leaving rehab please do not hesitate to call. OFFICE: [phone] CELL: [phone] Discharge Orders/Prescriptions Prescriptions: New metformin 500 mg Tablet 500 mg PO BIDCM Qty: 1 0RF atorvastatin 80 mg Tablet 80 mg PO 2000 Qty: 1 0RF amiodarone 200 mg Tablet 200 mg PO DAILY Qty: 1 0RF aspirin 81 mg Tablet,Chewable 81 mg PO DAILYCM Qty: 1 0RF metoprolol tartrate 25 mg Tablet 12.5 mg PO BID Qty: 1 0RF Eliquis 5 mg Tablet 5 mg PO BID Qty: 1 0RF amoxicillin 500 mg Capsule 500 mg PO Q8 Qty: 15 0RF acetaminophen 325 mg Tablet 650 mg PO Q6H PRN PRN (Reason: PAIN 1-10/ FEVER) Qty: 1 0RF bisacodyl 10 mg Suppository 10 mg IL DAILY PRN (Reason: Constipation) Qty: 1 0RF bisacodyl 10 mg Suppository 10 mg IL X1 PRN (Reason: Constipation) Qty: 1 0RF Santyl 250 unit/gram Ointment 1 applic topical DAILY Qty: 1 0RF Protocol: *Topical Application Instructions APPLICATION INSTRUCTIONS: apply to rt heel ipratropium bromide 42 mcg (0.06 %) [place],Non-Aerosol 2 spray NASAL BID Qty: 1 0RF multivitamin Tablet 1 tab PO BREAKFAST Qty: 1 0RF ipratropium-albuterol 0.5 mg-3 mg(2.5 mg base)/3 mL Solution For Nebulization 3 ml inhalation Q4H PRN PRN (Reason: WHEEZING) Qty: 1 0RF sennosides-docusate sodium [Stool Softener-Stimulant Laxat] 8.6-50 mg Tablet 2 tab PO BID Qty: 1 0RF magnesium hydroxide 400 mg/5 mL Suspension 30 ml PO X1 PRN (Reason: Constipation) Qty: 1 0RF mirtazapine 15 mg Tablet 15 mg PO 1999 Qty: 1 0RF menthol-zinc oxide [Calmoseptine] 0.44-20.6 % Ointment 1 applic topical 0600,2200 Qty: 1 0RF Protocol: *Topical Application Instructions APPLICATION INSTRUCTIONS: Apply to buttock Biotene Dry Mouth Oral Rinse Mouthwash 15 ml mucous membrane 5X/DAY PRN (Reason: Dry Mouth) Qty: 15 0RF Amarjit (with collagen) 7-7-1.5 gram Powder In Packet 1 packet J-tube BIDCM Qty: 1 0RF Ozempic 0.25 mg or 0.5 mg (2 mg/3 mL) Pen Injector 0.5 mg SQ QWEEK Qty: 1 0RF Patient Comments: Takes Every Wednesday Continued Jardiance 25 mg Tablet 25 mg PO DAILY nitroglycerin 0.4 mg tablet, sublingual 0.4 mg sublingual Q5M Rx Instructions: do not exceed 3 doses per episode oxycodone 5 mg tablet 5 mg PO Q4H PRN (Reason: pain) Ozempic 0.25 mg or 0.5 mg (2 mg/3 mL) pen injector 0.25 mg subcut STARKEY Rx Instructions: for 4 weeks losartan [Cozaar] 25 mg tablet 12.5 mg feeding tube DAILY Discontinued metformin 500 MG tablet 1,000 mg PO BIDCM glipizide 10 MG tablet extended release 24hr 10 mg PO DAILY multivitamin with minerals 1 EACH tablet 1 each PO DAILY naproxen 500 MG tablet 500 mg PO PRN PRN (Reason: Pain 1-10 Or Fever) omeprazole magnesium 20 MG tablet,delayed release (DR/EC) 20 mg PO PRN PRN (Reason: Indigestion) metoprolol tartrate 25 MG tablet 25 mg PO DAILY omega-3 fatty acids-fish oil 1 EACH capsule 1 each PO BID pravastatin 10 mg Tablet 10 mg PO QHS estradiol 0.5 mg Tablet 0.5 mg PO SUTH Hold Instructions: DVT amiodarone 200 mg tablet 200 mg feeding tube DAILY apixaban 5 mg tablet 5 mg feeding tube BID aspirin 81 mg tablet,chewable 1 tab feeding tube DAILY atorvastatin 40 mg tablet 40 mg feeding tube QHS ciprofloxacin HCl [Cipro] 500 mg tablet 500 mg feeding tube BID fluticasone propionate [Allergy Relief (fluticasone)] 50 mcg/actuation spray,suspension 2 spray intranasal DAILY Rx Instructions: administer into each nostril melatonin 3 mg tablet 3 mg feeding tube QHS nystatin 100,000 unit/mL suspension 400,000 unit PO TID Rx Instructions: administer 1/2 of dose in each side of the mouth lansoprazole [Prevacid] 30 mg capsule,delayed release(DR/EC) 30 mg feeding tube DAILY cholecalciferol (vitamin D3) [Vitamin D3] 125 mcg (5,000 unit) tablet 50,000 unit feeding tube MO No Action Petrolatum 33% [Eucerin Eqivalent] 1 applic topical 0600,2200 Referrals / Follow Up: Sandra Miller DO [Primary Care Provider] - Disposition Disposition (needs filled in before D/C Order can be placed): Custodial Facility Charges/Coding Visit Charges Inpatient E&M: 00091 Disch Hosp >30min
[2023-04-18] MEDS: Juven (unflavored) Packet 1 PACKET JT (11:34)
== END 2023-04-18 13:02 | disposition skilled nursing facility (03) | DRG 949 ==
PROVIDERS: Admitting Provider Internal Medicine; PCP Family Medicine; Referring Provider Internal Medicine; Visit Provider Internal Medicine
DX: Z48.812 Encounter for surgical aftercare following surgery on the circulatory system (principal); I21.3 ST elevation (STEMI) myocardial infarction of unspecified site; K72.00 Acute and subacute hepatic failure without coma; J69.0 Pneumonitis due to inhalation of food and vomit; I13.0 Hypertensive heart and chronic kidney disease with heart failure and stage 1 through stage 4 chronic kidney disease, or unspecified chronic kidney disease; I82.622 Acute embolism and thrombosis of deep veins of left upper extremity; I47.20 Ventricular tachycardia, unspecified; L89.312 Pressure ulcer of right buttock, stage 2; L89.322 Pressure ulcer of left buttock, stage 2; E11.621 Type 2 diabetes mellitus with foot ulcer; N18.30 Chronic kidney disease, stage 3 unspecified; I50.82 Biventricular heart failure; L89.610 Pressure ulcer of right heel, unstageable; I48.0 Paroxysmal atrial fibrillation; L89.622 Pressure ulcer of left heel, stage 2; E11.22 Type 2 diabetes mellitus with diabetic chronic kidney disease; Z93.1 Gastrostomy status; K75.81 Nonalcoholic steatohepatitis (NASH); K22.5 Diverticulum of esophagus, acquired; K21.9 Gastro-esophageal reflux disease without esophagitis; E78.2 Mixed hyperlipidemia; K59.01 Slow transit constipation; E83.52 Hypercalcemia; Z79.84 Long term (current) use of oral hypoglycemic drugs; Z79.01 Long term (current) use of anticoagulants; Z79.899 Other long term (current) drug therapy; Z79.82 Long term (current) use of aspirin; Z95.810 Presence of automatic (implantable) cardiac defibrillator; R33.9 Retention of urine, unspecified
CPT/HCPCS: 36415; 74018; 80048; 80053; 81001; 82040; 82962; 83735; 83970; 84100; 85014; 85018; 85025; 85027; 87086; 87088; 92507; 92523; 92526; 92610; 93005; 94640; 94668; 97110; 97116; 97129; 97130; 97163; 97166; 97530; 97535; 97802; 97803

== ENCOUNTER 2023-04-18 13:06 | Inpatient (IN) | payer MEDICARE, OTHER, SELFPAY ==
[2023-04-18 14:10] VITALS: BP 103/65; PULSE 79; RESP 16; TEMP 36.1; O2SAT 99; BMI 27.2; BMI 27.3
--- NOTE | 2023-04-18 16:20 | HP.PCM_ITS ---
HPI - General General Date of Admission: 04/18/23 Date of Service: 04/19/23 Chief Complaint: Here for rehabilitation. HPI Narrative RASEHL DAVALOS, is a 68 Female who presents with followin03/08/[address]23 [facility] Dr. Christian performed CABG x 2. 03/12/2023 Patient discharged home. 03/14/2023 Chest pain, EMS called, cardiac arrest. Transport to [facility], [place], Shocked, intubated, Amiodarone, Propofol, Levophed for hypotension. Transfer to [facility]. Right heart cath showed EF 10%, 55% post CABG. Impella placed. 03/17/2023 Left heart cath, no intervention, impella removed, extubated. Pressors, afib. 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 Right pneumothorax treated with chest tube. 03/21/2023 Chest tube removed. Dysphagia, failed MBS. 03/23/2023 MBS showed aspiration of thin/mildly thick liquids. 03/23/2023 PEG placed. 04/02/2023 Admit to RU. 04/02/2023 PT/OT/ST. Remeron 15mg qhs for anxiety/depression/insomnia. Eliquis 5mg bid for atrial fibrillation/LUE DVT. 04/05/2023 Hold TF, eating 75% to 100%. Compazine for nausea. 04/06/2023 Limit visitors. 04/08/2023 Stop Glipizide 2/2 hypoglycemia. 04/09/2023 No TF. Straight cath for urinary retention. 04/12/[address] Tom for urinary retention. Encourage fluids PO. Weak, tired. 04/13/2023 H2O 300cc 4x/day, check orthostatics for lightheadedness. 04/14/2023 Snyder for urinary retention. Dr. Tom recommended voiding trials, improved BM's. 04/15/2023 Snyder removed. PTH normal, hypercalcemia 2/2 immobility. 04/18/2023 Pamidronate 300mg iv for hypercalcemia. 04/18/2023 Admit to TCU with debility, here for rehabilitation, strengthening, prior to discharge home with . [facility] Medical History (Updated 01/28/24 @ 16:[address] Joby Goldstein MD) Back pain Cardiology follow-up encounter Constipation Diabetes mellitus, type 2 Family history of heart disease GERD (gastroesophageal reflux disease) History of hiatal hernia History of renal disease History of torsades de pointes Hx of mitral valve prolapse Hyperlipidemia Hypertension Injury of head and neck Low HDL (under 40) VILLASENOR (nonalcoholic steatohepatitis) Non-smoker Osteoarthritis Pneumothorax Prolapse of anterior vaginal wall Prolapse of female genital organs Sudden cardiac due to cardiac arrhythmia Wears glasses Zenkers diverticulum Home Medications empagliflozin 25 mg tablet (Jardiance) 25 mg PO DAILY glucose 02/26/21 [History Last Taken 04/18/23 08:05] losartan 25 mg tablet (Cozaar) 12.5 mg feeding tube DAILY blood pressure 04/02/23 [History Last Taken 04/18/23 08:05] nitroglycerin 0.4 mg sublingual tablet 0.4 mg sublingual Q5M heart 04/02/23 [History Last Taken Unknown] oxycodone 5 mg tablet 5 mg PO Q4H PRN pain 04/02/23 [History Last Taken 04/10/23] semaglutide 0.25 mg or 0.5 mg (2 mg/3 mL) subcutaneous pen injector (Ozempic) 0.25 mg subcut STARKEY glucose 04/02/23 [History Last Taken Unknown] Petrolatum 33% [Eucerin Eqivalent] 1 applic topical 0600,2200 Skin Care 04/18/23 [History Last Taken 04/16/23] acetaminophen 325 mg tablet 650 mg (2 x 325 mg) PO Q6H PRN PRN PAIN 1-10/ FEVER #1 TAB 04/18/23 [Rx Last Taken 04/18/23 08:00] amiodarone 200 mg tablet 200 mg PO DAILY Heart #1 TAB 04/18/23 [Rx Last Taken 04/18/23] amoxicillin 500 mg capsule 500 mg PO Q8 Antibiotic #15 caps 04/18/23 [Rx Last Taken 04/18/23 06:30] apixaban 5 mg tablet (Eliquis) 5 mg PO BID Anticoagulant #1 TAB 04/18/23 [Rx Last Taken 04/18/23 08:02] arginine 7 gram-glutam 7 gram-CaHMB 1.5 [id number]-oc-min oral pwd pkt (Amarjit (with collagen)) 1 packet J-tube BIDCM Wound Healing #1 ea 04/18/23 [Rx Last Taken 04/18/23 11:30] aspirin 81 mg chewable tablet 81 mg PO DAILYCM Heart #1 TAB 04/18/23 [Rx Last Taken 04/18/23 08:05] atorvastatin 80 mg tablet 80 mg PO 1999 Cholesterol #1 TAB 04/18/23 [Rx Last Taken 04/17/23] bisacodyl 10 mg rectal suppository 10 mg AR DAILY PRN Constipation #1 ea 04/18/23 [Rx Last Taken Unknown] bisacodyl 10 mg rectal suppository 10 mg AR X1 PRN Constipation #1 ea 04/18/23 [Rx Last Taken Unknown] collagenase clostridium histo. 250 unit/gram topical ointment (Santyl) 1 applic topical DAILY Wound #1 g 04/18/23 [Rx Last Taken 04/18/23 08:15] ipratropium 0.5 mg-albuterol 3 mg (2.5 mg base)/3 mL nebulization soln 3 ml inhalation Q4H PRN PRN WHEEZING #1 mL 04/18/23 [Rx Last Taken 04/13/23] ipratropium bromide 42 mcg (0.06 %) nasal spray 2 spray NASAL BID Allergies #1 mL 04/18/23 [Rx Last Taken 04/18/23 06:00] magnesium hydroxide 400 mg/5 mL oral suspension 30 ml PO X1 PRN Constipation #1 mL 04/18/23 [Rx Last Taken Unknown] menthol 0.44 %-zinc oxide 20.6 % topical ointment (Calmoseptine) 1 applic topical 0600,2200 Skin care #1 g 04/18/23 [Rx Last Taken 04/17/23 20:15] metformin 500 mg tablet 500 mg PO BIDCM DM #1 TAB 04/18/23 [Rx Last Taken 04/18/23 08:05] metoprolol tartrate 25 mg tablet 12.5 mg (1/2 x 25 mg) PO BID BP #1 TAB 04/18/23 [Rx Last Taken 04/18/23 08:05] mirtazapine 15 mg tablet 15 mg PO 1999 Appetite #1 TAB 04/18/23 [Rx Last Taken 04/17/23 20:00] multivitamin 1 tab PO BREAKFAST Supplement #1 TAB 04/18/23 [Rx Last Taken 04/18/23 08:05] saliva substitute combo no.9 (Biotene Dry Mouth Oral Rinse mouthwash) 15 ml mucous membrane 5X/DAY PRN Dry Mouth #15 mL 04/18/23 [Rx Last Taken Unknown] semaglutide 0.25 mg or 0.5 mg (2 mg/3 mL) subcutaneous pen injector (Ozempic) 0.5 mg (0.736 mL) SQ QWEEK Diabetes #1 mL 04/18/23 [Rx Last Taken 04/18/23 08:15] sennosides 8.6 mg-docusate sodium 50 mg tablet (Stool Softener-Stimulant Laxative) 2 tab PO BID Constipation #1 TAB 04/18/23 [Rx Last Taken 04/18/23 08:10] Allergy/AdvReac Type Severity Reaction Status Date / Time Sulfa (Sulfonamide Allergy Hives Verified 03/05/21 11:09 Antibiotics) sulfamethoxazole Allergy Hives Verified 03/05/21 11:09 [From Septra] trimethoprim [From Septra] Allergy Hives Verified 03/05/21 11:09 acetaminophen [From Tylenol] AdvReac d/t fatty Verified 03/05/21 11:09 liver Surgical History History of cardiac catheterization History of cardiac catheterization History of chest tube placement History of coronary artery bypass graft x 2 History of esophagogastroduodenoscopy (EGD) Hx of cholecystectomy Hx of left knee surgery Hx of repair of left rotator cuff Hx of repair of right rotator cuff Hx of right knee surgery Hx of vaginal hysterectomy Hx of vein stripping Social History household members: spouse current occupational status: 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 pets and animals: Yes pets and animals: dog(s) Smoking Status: Never smoker alcohol intake: current alcohol intake frequency: holidays/special occasions only substance use type: does not use ROS Constitutional Constitutional: Denies chills, fever(s) or weight gain ENT HEENT: Denies headache(s), nasal congestion or nasal discharge Cardiovascular Cardiovascular: Denies chest pain or palpitations Respiratory/Chest Respiratory/Chest: Denies cough, excessive phlegm production or shortness of breath with exertion Gastrointestinal Gastrointestinal: Denies abdominal pain, nausea or vomiting Genitourinary Genitourinary: Denies dysuria Musculoskeletal Musculoskeletal: Denies joint pain or joint swelling Integumentary Integumentary: Denies rash or wounds Neurologic Neurologic: Denies focal weakness, numbness or tingling Psychiatric Psychiatric: Denies anxiety, auditory hallucinations, depression, homicidal ideation or suicidal ideation Vital Signs Vital Signs Vital Signs: 04/18/23 14:10 Temperature 97.0 F L Temperature Source Oral Pulse Rate 79 Respiratory Rate 16 Blood Pressure 103/65 Blood Pressure Mean 77 Blood Pressure Source Monitor Blood Pressure Position Semi-Fowlers Blood Pressure Location Left Arm Pulse Ox 99 Oxygen Delivery Method Room Air Weight Weight: 81.556 kg Body Mass Index (BMI) 27.2 Physical Exam Const alert General Appearance: cooperative HEENT normocephalic Eyes PERRL and EOMs intact bilaterally Neck supple, no JVD and no carotid bruits Chest Chest Narrative: LifeVest. Resp normal respiratory effort, normal air movement and clear to auscultation bilaterally Cardio regular rate and regular rhythm GI normal to inspection, nondistended, normoactive bowel sounds, non-tender and non-distended GI Narrative: PEG present. Extremity normal capillary refill General Extremity: Negative for edema Skin no rashes or lesions noted General Skin Exam: no breakdown Psych affect normal Appearance: appropriate Results Lab / Micro Data 04/19/23 05:19 04/19/23 05:19 Assessment & Plan Assessment/Plan (1) Debility: (2) Sudden cardiac due to cardiac arrhythmia: (3) Takotsubo cardiomyopathy: (4) Atrial fibrillation: (5) Deep vein thrombosis (DVT) of left upper extremity: QUALIFIERS: Affected thrombotic vein of extremity: unspecified vein of extremity Chronicity: acute Qualified Code(s): I82.622 - Acute embolism and thrombosis of deep veins of left upper extremity (6) Diabetes mellitus: (7) Hypertension: (8) Coronary artery disease: (9) Mitral valve prolapse: (10) GERD (gastroesophageal reflux disease): QUALIFIERS: Esophagitis presence: esophagitis presence not specified Qualified Code(s): K21.9 - Gastro-esophageal reflux disease without esophagitis (11) VILLASENOR (nonalcoholic steatohepatitis): PLAN: Plan 68 year old female with past medical history recent CABG x 2, hospitalized for cardiac arrest, myocardial infarction, takotsubo cardiomyopathy, complicated by dysphagia requiring PEG, atrial fibrillation, LUE DVT, heparin induced thrombocytopenia, admitted to TCU from with debility, here for rehabilitation, strengthening, prior to discharge home with . * Debility - PT/OT. * Pain - Tylenol 650mg q6 prn, Oxycodone 5mg q4 prn. * Bowel - senna/colace 2 tablets bid, MOM 30ml po x 1 prn, Ducolax 10mg pr x 1 prn. * Adult immunization - Administer pneumonia vaccine, covid vaccine, flu vaccine as appropriate. * DVT prophylaxis - on Eliquis. * Atrial fibrillation - Metoprolol 12.5mg bid, Amiodarone 200mg daily, Eliquis 5mg bid. * ID - Amoxicillin 500mg q8 thru 05/03/2023. * LUE DVT - Eliquis 5mg bid. * Coronary artery disease s/p cabg x 2 - Metoprolol 12.5mg bid, Losartan 12.5mg daily, Jardiance 25mg daily, Aspirin 81mg daily, NTG 0.4mg q5m prn. * Hyperlipidemia - Atorvastatin 80mg qhs. * Pressure ulcer - Santyl topical daily. * Diabetes Mellitus II - Metformin 500mg bid, Jardiance 25mg daily, Ozempic 0.5mg per week. * Allergic rhinitis - Atrovent nasal spray 2 sprays nasal bid. * Shortness of breath - Duoneb 3ml q4 prn. * Nutrition - Amarjit 1 packet bidcm, MVI daily. * Depression/insomnia/appetite loss - Mirtazapine 15mg qhs, stable chronic prison use, GDR not recommended. * Skin irritation - Eucerin topical bid. * Dry mouth - Biotene 15ml 5x/day prn. * Hypercalcemia - resident feels bloated from water flushes, will stop. * status post PEG - Consult General Surgery for removal.
[2023-04-18] MEDS: metFORMIN HCl 500 MG Tablet PO (17:46)
[2023-04-18] MEDS: Juven (unflavored) Packet 1 PACKET JT (17:47)
[2023-04-18] MEDS: Senna/Docusate Sodium 1 Tablet 2 TABLET PO (20:21)
[2023-04-18] MEDS: AMOXICILLIN 500 MG CAPSULE PO (20:21)
[2023-04-18] MEDS: Mirtazapine 15 MG Tablet PO (20:23)
[2023-04-18] MEDS: Atorvastatin Calcium 80 MG Tablet PO (20:23)
[2023-04-18 20:25] VITALS: BP 110/63; PULSE 82
[2023-04-18] MEDS: Metoprolol Tartrate 25 MG Tablet 12.5 MG PO (20:25)
[2023-04-18] MEDS: Petrolatum 33% Tube 1 APPLIC TOPICAL (20:27)
[2023-04-18] MEDS: APIXABAN 5 MG TABLET PO (20:27)
[2023-04-18 21:27] LABS: Bedside Glucose 135 mg/dL (74-106)
[2023-04-19 05:49] LABS: Absolute Lymphocyte Count 2.06 X10^3/uL (0.83-4.51); Absolute Neutrophil Count 3.9 X10^3/uL (2.0-7.7); Basophil# 0.05 X10^3/uL; Basophil% 0.7 % (0-1); Eosinophils% 4.3 % (0-5); Hematocrit 35.3 % (37-47); Hemoglobin 10.9 g/dL (12.0-15.0); Lymphocyte # 2.06 X10^3/ul (0.83-4.51); Lymphocyte % 29.8 % (19-41); Mean Corp Hgb Conc 30.9 g/dL (32-36); Mean Corpuscular Hgb 30.2 pg (27.0-32.0); Mean Corpuscular Volume 97.8 fL (81-99); Monocyte# 0.52 X10^3/uL; Monocyte% 7.5 % (0-10); NRBC Flagged by Analyzer 0 % (0-5); Neutrophil # 3.94 X10^3/uL (2.7-7.7); Platelet Count 250 K/mm3 (150-450); RBC Distribution Width CV 13.8 % (11.6-14.6); RBC Distribution Width SD 50.1 fl (35.1-43.9); Red Blood Count 3.61 M/mm3 (4.2-5.4); White Blood Count 6.9 K/mm3 (4.4-11.0)
[2023-04-19 06:25] LABS: Anion Gap 5 (5-15); BUN 16 mg/dL (7-18); BUN/Creat Ratio 27.2 RATIO (10-20); Calcium,Total 9.1 mg/dL (8.5-10.1); Chloride 113 mmol/L (98-107); Creatinine, Serum 0.59 mg/dL (0.55-1.02); EST Glomerular Filtration Rate 108 mL/min (>60); Est Glom Filt Rate - Afr Amer 130 mL/min (>60); Glucose 147 mg/dL (74-106); Potassium 3.4 mmol/L (3.5-5.1); Sodium Level 141 mmol/L (136-145)
[2023-04-19 06:36] LABS: Bedside Glucose 141 mg/dL (74-106)
[2023-04-19] MEDS: Acetaminophen 325 MG Tablet 650 MG PO (06:45)
[2023-04-19] MEDS: AMOXICILLIN 500 MG CAPSULE PO ×3 (06:45→20:34)
[2023-04-19] MEDS: Multivitamins,Therapeutic Tablet 1 TABLET PO (08:16)
[2023-04-19] MEDS: Aspirin 81 MG TAB.CHEW PO (08:16)
[2023-04-19] MEDS: Potassium Chloride Oral Tablet 20 MEQ PO (08:16)
[2023-04-19] MEDS: metFORMIN HCl 500 MG Tablet PO ×2 (08:16→16:25)
[2023-04-19] MEDS: Losartan Potassium 25 MG Tablet 12.5 MG PO (08:17)
[2023-04-19] MEDS: Amiodarone 200 MG Tablet PO (08:17)
[2023-04-19] MEDS: Juven (unflavored) Packet 1 PACKET JT ×2 (08:17→16:25)
[2023-04-19] MEDS: Empagliflozin 25 MG Tablet PO (08:18)
[2023-04-19] MEDS: Senna/Docusate Sodium 1 Tablet 2 TABLET PO ×2 (08:18→20:35)
[2023-04-19] MEDS: APIXABAN 5 MG TABLET PO ×2 (08:18→20:35)
[2023-04-19 08:21] VITALS: BP 104/61; PULSE 74
[2023-04-19] MEDS: Metoprolol Tartrate 25 MG Tablet 12.5 MG PO ×2 (08:21→20:35)
[2023-04-19] MEDS: Ipratropium Bromide 0.06% NASAL SPRAY 2 SPRAY NASAL (08:21)
[2023-04-19] MEDS: Petrolatum 33% Tube 1 APPLIC TOPICAL (08:22)
[2023-04-19] MEDS: Collagenase 30gm Tube 1 APPLIC TOPICAL (08:23)
--- NOTE | 2023-04-19 09:43 | PHA.CONS_ITS ---
Documented by User: Mayco Dougherty 04/19/23 10:18 TCU RX Drug Regimen Review Subjective/Objective Subjective/Objective: Subjective: 68 year old female with past medical history recent CABG x 2, hospitalized for cardiac arrest, myocardial infarction, takotsubo cardiomyopa thy, complicated by dysphagia requiring PEG, atrial fibrillation, LUE DVT, heparin induced thrombocytopenia, admitted to TCU from with debility, here for rehabilitation, strengthening, prior to discharge home with . Objective: Allergies Sulfa (Sulfonamide Antibiotics) Allergy (Verified 03/05/21 11:09) Hives sulfamethoxazole [From Septra] Allergy (Verified 03/05/21 11:09) Hives trimethoprim [From Septra] Allergy (Verified 03/05/21 11:09) Hives acetaminophen [From Tylenol] Adverse Reaction (Verified 03/05/21 11:09) d/t fatty liver Current Medications Generic Name Dose Route Start Last Admin Trade Name Freq PRN Reason Stop Dose Admin Acetaminophen 650 mg 04/18/23 14:19 04/19/23 06:45 Acetaminophen 325 Mg Tablet PO 650 mg Q6H PRN PRN Administration PAIN 1-10/ FEVER Albuterol/Ipratropium 3 ml 04/18/23 14:19 Ipratropium/Albuterol Sulfate 3 Ml Ampul.Neb INHALATION Q4H PRN PRN Wheezing Amiodarone HCl 200 mg 04/19/23 10:00 04/19/23 08:17 Amiodarone 200 Mg Tablet PO 200 mg DAILY CHANCE Administration Amoxicillin 500 mg 04/18/23 22:00 04/19/23 06:45 Amoxicillin 500 Mg Capsule PO 05/03/23 22:01 500 mg Q8 CHANCE Administration Apixaban 5 mg 04/18/23 22:00 04/19/23 08:18 Apixaban 5 Mg Tablet PO 5 mg BID CHANCE Administration Aspirin 81 mg 04/19/23 08:00 04/19/23 08:16 Aspirin 81 Mg Tab.Chew PO 81 mg DAILYCM CHANCE Administration Atorvastatin Calcium 80 mg 04/18/23 20:00 04/18/23 20:23 Atorvastatin Calcium 80 Mg Tablet PO 80 mg 2000 CHANCE Administration Bisacodyl 10 mg 04/18/23 14:19 Bisacodyl 10 Mg Suppository RC X1 PRN Constipation Calamine/Phenol 1 applic 04/18/23 22:00 04/19/23 06:46 Menthol/Lanolin/Calamine/Znox 113 Gm Tube TOPICAL Not Given 0600,2200 [facility] Protocol Collagenase 1 applic 04/19/23 10:00 04/19/23 08:23 Collagenase 30gm Tube TOPICAL 1 applic DAILY [facility] Administration Protocol Empagliflozin 25 mg 04/19/23 10:00 04/19/23 08:18 Empagliflozin 25 Mg Tablet PO 25 mg DAILY CHANCE Administration Sodium Chloride 250 mls @ 15 mls/hr 04/18/23 14:11 IV .[id number] PRN Saline Flush Ipratropium [place] 2 spray 04/18/23 22:00 04/19/23 08:21 Ipratropium [place] 0.06% Nasal [place] NASAL 2 spray BID [facility] Administration L-Arginine/L-Glutamine/Calcium HMB 1 packet 04/18/23 17:00 04/19/23 08:17 Amarjit (Unflavored) Packet JT 1 packet BIDCM [facility] Administration Losartan Potassium 12.5 mg 04/19/23 10:00 04/19/23 08:17 Losartan Potassium 25 Mg Tablet PO 12.5 mg DAILY [facility] Administration Protocol Magnesium Hydroxide 30 ml 04/18/23 14:19 Magnesium Hydroxide 30 Ml Udc PO X1 PRN Constipation Metformin HCl 500 mg 04/18/23 17:00 04/19/23 08:16 Metformin Hcl 500 Mg Tablet PO 500 mg BIDCM CHANCE Administration Metoprolol Tartrate 12.5 mg 04/18/23 22:00 04/19/23 08:21 Metoprolol Tartrate 25 Mg Tablet PO 12.5 mg BID [facility] Administration Protocol Mirtazapine 15 mg 04/18/23 20:00 04/18/23 20:23 Mirtazapine 15 Mg Tablet PO 15 mg 2000 [facility] Administration Multi-Ingredient Cream 1 applic 04/18/23 22:00 04/19/23 08:22 Petrolatum 33% Tube TOPICAL 1 applic 0600,2200 [facility] Administration Multivitamins 1 tablet 04/19/23 08:00 04/19/23 08:16 Multivitamins,Therapeutic Tablet PO 1 tablet BREAKFAST [facility] Administration Nitroglycerin 0.4 mg 04/18/23 14:51 Nitroglycerin (Inpatient Use) 0.4 Mg Tab.Subl SL Q5M PRN CARDIAC/CHEST PAIN Non-Formulary Medication 0.5 mg 04/25/23 14:27 Semaglutide [Ozempic] SQ QWEEK CHANCE Oxycodone HCl 5 mg 04/18/23 14:24 Oxycodone 5 Mg Tablet PO Q4H PRN pain Saliva Substitute 15 ml 04/18/23 14:24 Saliva Substitute 237 Ml Bottle MUCOUS MEM 5X/DAY PRN Dry Mouth Senna/Docusate Sodium 2 tablet 04/18/23 22:00 04/19/23 08:18 Senna/Docusate Sodium 1 Tablet PO 1 tablet BID CHANCE Administration Sodium Chloride 10 - 40 ml 04/18/23 14:11 0.9% Saline Lock 10 Ml Syringe IV UD PRN SALINE FLUSH Tuberculin PPD 0.1 ml 04/26/23 10:00 Tuberculin,Purif.Prot.Deriv. 50 Tu/Ml Vial ID 04/26/23 10:01 X1 ONE Tuberculin PPD 0.1 ml 04/19/23 10:00 Tuberculin,Purif.Prot.Deriv. 50 Tu/Ml Vial ID 04/19/23 10:01 X1 ONE Problem List (Updated 04/18/23 @ 16:[address] Joby Goldstein MD) Mitral valve prolapse (Acute) Coronary artery disease (Acute) Hypertension (Chronic) Diabetes mellitus (Acute) Atrial fibrillation (Acute) Debility (Acute) Deep vein thrombosis (DVT) of left upper extremity (Acute) GERD (gastroesophageal reflux disease) (Acute) VILLASENOR (nonalcoholic steatohepatitis) (Acute) Vital Signs Temp Pulse Resp BP Pulse Ox O2 Del Method 97.0 F L 74 16 104/61 99 Room Air 04/18/23 14:10 04/19/23 08:21 04/18/23 14:10 04/19/23 08:21 04/18/23 14:10 04/18/23 20:15 Oxygen Delivery Method Room Air Weight: 81.556 kg Body Mass Index (BMI) 27.2 Sodium 141 mmol/L (136-145) 04/19/23 05:19 Potassium 3.4 mmol/L (3.5-5.1) L 04/19/23 05:19 Chloride 113 mmol/L (98-107) H 04/19/23 05:19 Carbon Dioxide 23.0 mmol/L (21.0-32.0) 04/19/23 05:19 Anion Gap 5 (5-15) 04/19/23 05:19 BUN 16 mg/dL (7-18) 04/19/23 05:19 Creatinine 0.59 mg/dL (0.55-1.02) 04/19/23 05:19 Est GFR (MDRD) Af Amer 130 mL/min (>60) 04/19/23 05:19 Est GFR (MDRD) Non-Af 108 mL/min (>60) 04/19/23 05:19 BUN/Creatinine Ratio 27.2 RATIO (10-20) H 04/19/23 05:19 Glucose 147 mg/dL (74-106) H 04/19/23 05:19 Assessment/Plan: 1. Pain: acetaminophen 650 mg PO Q6H PRN pain, oxycodone 5 mg PO Q4H PRN pain. The patient has used 1 dose of PRN acetaminophen and 0 doses of PRN oxycodone for pain so far this admission. Please continue to monitor pain levels, PRN medication usage, LFTs (AST/ALT = 21/18 U/L on 04/03/23), for respiratory depression, syncope/ataxia/falls, drowsiness and constipation. 2. Bowel: senna/docusate 2 tablets PO BID, bisacodyl 10 mg RC x1 PRN constipation, magnesium hydroxide 30 mL PO x1 PRN constipation. The patient has not required any PRN doses of bisacodyl or magnesium hydroxide this admission. The patient's last bowel movement is documented as 04/14/23. Please continue to monitor for diarrhea, constipation and bowel movements. As the patient does not have a documented bowel movement since 04/14/23 please consider administering a PRN medication. 3. Atrial fibrillation/coronary artery disease/hyperlipidemia: metoprolol tartrate 12.5 mg PO BID, amiodarone 200 mg PO daily, apixaban 5 mg PO BID, aspirin 81 mg PO daily, atorvastatin 80 mg PO daily, losartan 12.5 mg PO daily, nitroglycerin 0.4 mg PO Q5M PRN chest pain. The patient has not required any PRN nitroglycerin administration this admission. Please continue to monitor for chest pain, heart rates (recent range = 72-89 beats/min), blood pressures (recent range = 100-144/61-74 mmHg), for fatigue, LFTs (AST/ALT = 21/18 U/L on 04/03/23), thyroid function tests (no recent thyroid levels documented), for s/s of bleeding/excessive bruising, hemoglobin (Hgb = 10.9 g/dL on 04/19/23), platelets (Plt = 250 K/mm3 on 04/19/23), renal function (serum creatinine = 0.59 mg/dL with creatinine clearance = 73 mL/min on 04/19/23), for GI distress with aspirin administration, lipid levels (no recent lipid levels documented), potassium levels (K = 3.4 mmol/L on 04/19/23), and sodium levels (Na = 141 mmol/L on 04/19/23). Please consider ordering thyroid function tests and lipid levels as there are no recent levels documented. 4. Infectious disease: amoxicillin 500 mg PO Q8H through 05/03/23. Please continue to monitor for s/s of infection such as fevers (recent temps = 97.0- 98.9 F), WBC counts (WBC = 6.9 K/mm3 on 04/19/23), for diarrhea, and for GI distress with amoxicillin administration. 5. Diabetes Mellitus: metformin 500 mg PO BID with meals, empagliflozin 25 mg PO daily. Please continue to monitor blood glucose readings (recent range = 106- 189 mg/dL), hemoglobin A1C levels (A1C = 7.2% on 03/03/21), B12 levels (no recent vitamin B12 levels documented), renal function (serum creatinine = 0.59 mg/dL on 04/19/23, GFR = 108 mL/min on 04/19/23), for s/s of euglycemic DKA such as nausea and fatigue, for diarrhea, and for GI distress with metformin administration. Please consider ordering a hemoglobin A1C level and and a vitamin B12 level as the patient does not have recent levels documented. 6. Allergic rhinitis: ipratropium nasal spray 2 sprays in each nostril BID. Please continue to monitor for s/s of allergic rhinitis, and for headaches. 7. Shortness of breath: ipratropium/albuterol 3 mL inhalation Q4H PRN wheezing. The patient has not required any PRN doses of ipratropium/albuterol so far this admission. Please continue to monitor for wheezing, for PRN medication usage and for shortness of breath. 8. Dry mouth: biotene 15 mL PO 5 times/day PRN dry mouth. The patient has not required any PRN doses of biotene so far this admission. Please continue to monitor for PRN medication usage and for dry mouth. 9. Skin irritation/pressure ulcer: collagenase 1 application topically daily, calmoseptine 1 application topically BID, eucerin equivalent 1 application topically BID. Please continue to monitor for pressure ulcer healing, skin irritation, and skin integrity. 10. Nutrition: amarjit 1 packet PO BID, multivitamin 1 tablet PO daily. Please continue to monitor nutritional status. Assessment/Plan for indications treated with psychotropic medications: 1. Depression/insomnia/weight loss: mirtazapine 15 mg PO QHS. Please see provider notes regarding stable chronic detention use GDR not recommended. Please continue to monitor for depression/insomnia/weight loss, for SI, for drowsiness, for s/s of serotonin syndrome, for sodium levels (Na = 141 mmol/L on 04/19/23), for s/s of orthostasis, and for constipation. Medical chart and medication regimen reviewed. The following medication irregularities or issues were identified: 3. Atrial fibrillation/coronary artery disease/hyperlipidemia: metoprolol tartrate 12.5 mg PO BID, amiodarone 200 mg PO daily, apixaban 5 mg PO BID, aspirin 81 mg PO daily, atorvastatin 80 mg PO daily, losartan 12.5 mg PO daily, nitroglycerin 0.4 mg PO Q5M PRN chest pain. Please consider ordering thyroid function tests and lipid levels as there are no recent levels documented. 5. Diabetes Mellitus: metformin 500 mg PO BID with meals, empagliflozin 25 mg PO daily. Please consider ordering a hemoglobin A1C level and and a vitamin B12 level as the patient does not have recent levels documented. Date Date of Note:: 04/19/23 Documented by User: Dr. Joby Goldstein MD 04/19/23 10:20 TCU RX Drug Regimen Review Provider Comments Provider responsibility Provider Comments to Recommendations by Pharmacy: Agree
--- NOTE | 2023-04-19 10:12 | WOUNDNOTE ---
wound photo: right heel
--- NOTE | 2023-04-19 10:12 | WOUNDNOTE ---
wound photo: left heel
--- NOTE | 2023-04-19 10:13 | WOUNDNOTE ---
wound photo: left inner buttock
--- NOTE | 2023-04-19 11:13 | CASEMGMT ---
Social Work Pt admitted from . No changes to assessment. Pt previously educated on Medicare benefit and copay coverage for TCU stay. Pt's goal is to return home with . SW reminded pt for to provide copies of advanced directives. Bobbi Samaniego, PATIENT EXPERIENCE COORDINATOR [employer]
--- NOTE | 2023-04-19 11:17 | NURSING ---
Offered covid vaccine, VIS provided. Patient refuses at this time.
[2023-04-19 11:18] LABS: Vitamin B12 268 pg/mL (211-911)
[2023-04-19 11:20] LABS: Hemoglobin A1c 5.9 % (3.8-5.6)
[2023-04-19 11:25] LABS: Bedside Glucose 149 mg/dL (74-106)
[2023-04-19 11:40] LABS: Cholesterol 85 mg/dL (200); High Density Lipoprotein 36 mg/dL; Thyroid Stim Hormone (TSH) 1.63 uIU/mL (0.358-3.74); Triglycerides 124 mg/dL; Very Low Density Lipoprotein 25 mg/dL (5-40)
[2023-04-19] MEDS: Tuberculin,Purif.prot.deriv. 50 TU/ML Vial 0.100000000000000006 ML ID (11:49)
[2023-04-19 13:54] VITALS: BP 105/64; PULSE 80; RESP 14; TEMP 36.6; O2SAT 98
--- NOTE | 2023-04-19 14:34 | NURSING ---
Notching Machine Operator Note; Activity Asset: Vee Li is independent in her choice of daily activities. She has her smartphone to talk w/family and friends on along w/texting, reading and watching shows. Her is her daily and very involved in her care. She welcomes group activities, the therapy dog and room visits. She did state she prefers to visit w/her transformer inspector only. Her will bring in her colored pencils and coloring books and I gave her word search puzzles. Staff will remind her of daily activities and respect her right to say no.
[2023-04-19 16:49] LABS: Bedside Glucose 190 mg/dL (74-106)
[2023-04-19] MEDS: Atorvastatin Calcium 80 MG Tablet PO (20:34)
[2023-04-19] MEDS: Mirtazapine 15 MG Tablet PO (20:34)
[2023-04-19 20:35] VITALS: BP 97/68; PULSE 83
[2023-04-19 22:32] VITALS: PULSE 94; RESP 16; O2SAT 96
[2023-04-20] MEDS: AMOXICILLIN 500 MG CAPSULE PO ×3 (05:56→21:30)
[2023-04-20] MEDS: Petrolatum 33% Tube 1 APPLIC TOPICAL ×2 (05:56→21:32)
[2023-04-20 06:19] LABS: Anion Gap 4 (5-15); BUN 15 mg/dL (7-18); BUN/Creat Ratio 26.3 RATIO (10-20); Chloride 110 mmol/L (98-107); Creatinine, Serum 0.57 mg/dL (0.55-1.02); EST Glomerular Filtration Rate 111 mL/min (>60); Est Glom Filt Rate - Afr Amer 135 mL/min (>60); Glucose 144 mg/dL (74-106); Potassium 3.6 mmol/L (3.5-5.1); Sodium Level 138 mmol/L (136-145)
[2023-04-20 06:20] LABS: Bedside Glucose 148 mg/dL (74-106)
[2023-04-20] MEDS: metFORMIN HCl 500 MG Tablet PO ×2 (09:10→17:36)
[2023-04-20] MEDS: Aspirin 81 MG TAB.CHEW PO (09:10)
[2023-04-20] MEDS: Multivitamins,Therapeutic Tablet 1 TABLET PO (09:11)
[2023-04-20] MEDS: Amiodarone 200 MG Tablet PO (09:11)
[2023-04-20 09:12] VITALS: BP 107/67; PULSE 87
[2023-04-20] MEDS: Empagliflozin 25 MG Tablet PO (09:12)
[2023-04-20] MEDS: APIXABAN 5 MG TABLET PO ×2 (09:12→21:31)
[2023-04-20] MEDS: Losartan Potassium 25 MG Tablet 12.5 MG PO (09:12)
[2023-04-20] MEDS: Metoprolol Tartrate 25 MG Tablet 12.5 MG PO ×2 (09:12→21:30)
[2023-04-20] MEDS: Senna/Docusate Sodium 1 Tablet 2 TABLET PO ×2 (09:13→21:31)
[2023-04-20] MEDS: Juven (unflavored) Packet 1 PACKET JT ×2 (09:17→17:36)
[2023-04-20] MEDS: Acetaminophen 325 MG Tablet 650 MG PO (09:27)
[2023-04-20 09:52] VITALS: BMI 27.3
--- NOTE | 2023-04-20 13:42 | NURSING ---
Addendum entered by Katie Napoles 04/21/23 07:24: Wrong patient documentation. Disregard. Original Note: Spoke with Dr. Chan's office to make them aware of increased redness/pain to left hip. Office contacted Dr. Chan and called back asking if ortho can see patient for the increased redness/pain and this nurse reports patient will be seeing Dr. Gallardo on 04/22/23. No further orders at this time.
[2023-04-20 14:26] VITALS: BP 102/55; PULSE 84; RESP 14; TEMP 36.2; O2SAT 100
[2023-04-20 16:40] LABS: Bedside Glucose 156 mg/dL (74-106)
[2023-04-20] MEDS: Collagenase 30gm Tube 1 APPLIC TOPICAL (17:37)
[2023-04-20 21:30] VITALS: BP 104/60; PULSE 78
[2023-04-20] MEDS: Mirtazapine 15 MG Tablet PO (21:30)
[2023-04-20] MEDS: Atorvastatin Calcium 80 MG Tablet PO (21:31)
[2023-04-21 06:17] LABS: Bedside Glucose 133 mg/dL (74-106)
[2023-04-21] MEDS: AMOXICILLIN 500 MG CAPSULE PO ×3 (06:19→20:06)
[2023-04-21] MEDS: Menthol/Lanolin/Calamine/Znox 113 GM Tube 1 APPLIC TOPICAL ×2 (06:22→13:34)
[2023-04-21] MEDS: Petrolatum 33% Tube 1 APPLIC TOPICAL (06:22)
[2023-04-21] MEDS: Aspirin 81 MG TAB.CHEW PO (08:50)
[2023-04-21] MEDS: metFORMIN HCl 500 MG Tablet PO ×2 (08:50→17:08)
[2023-04-21] MEDS: Multivitamins,Therapeutic Tablet 1 TABLET PO (08:50)
[2023-04-21] MEDS: Juven (unflavored) Packet 1 PACKET JT ×2 (08:50→17:08)
[2023-04-21] MEDS: Amiodarone 200 MG Tablet PO (08:51)
[2023-04-21] MEDS: Losartan Potassium 25 MG Tablet 12.5 MG PO (08:51)
[2023-04-21 08:52] VITALS: BP 102/55; PULSE 77
[2023-04-21] MEDS: Metoprolol Tartrate 25 MG Tablet 12.5 MG PO (08:52)
[2023-04-21] MEDS: APIXABAN 5 MG TABLET PO ×2 (08:52→20:07)
[2023-04-21] MEDS: Senna/Docusate Sodium 1 Tablet 2 TABLET PO ×2 (08:52→20:06)
[2023-04-21] MEDS: Empagliflozin 25 MG Tablet PO (08:52)
[2023-04-21] MEDS: Ipratropium Bromide 0.06% NASAL SPRAY 2 SPRAY NASAL ×2 (09:00→20:06)
--- NOTE | 2023-04-21 11:39 | NURSING ---
Marisol HAMILTON spoke with Dr. Posey today and he reports patient will have to follow-up as outpatient to have PEG removed after D/C. Patient made aware of this and made aware of other f/u appointmentt that will be needed after D/C. Patient denies further questions.
--- NOTE | 2023-04-21 12:48 | CASEMGMT ---
Addendum entered by Bobbi Samaniego 04/22/23 08:54: Pt presented to this worker's office and requested to DC earlier on 04/23, d/t COVID outbreak. IDT agreeable. SW updated [facility]. Plan: DC 04/23 with same services Original Note: Social Work IDT met with patient and for care plan meeting. Discussed patient's progress in PT/OT/ST/SN. Educated to Medicare benefit and copay coverage. Inquired about readiness for DC. Pt and requesting to DC home 04/25. IDT agreeable. Discussed HHC vs OP. Pt would like to start with HHC then transition to OP. SW offered skilled HHC list of providers with quality and resource data via COM DEV Guide. [facility] SW agreed. No DME needs identified. to transport. SW sent referral to [facility] PT/OT/ST/SN via [employer]. 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
[2023-04-21] MEDS: Collagenase 30gm Tube 1 APPLIC TOPICAL (13:35)
[2023-04-21 13:58] VITALS: BP 111/68; PULSE 81; RESP 16; TEMP 36.5; O2SAT 98
[2023-04-21 16:51] LABS: Bedside Glucose 174 mg/dL (74-106)
--- NOTE | 2023-04-21 16:51 | NURSING ---
Patient and made aware of positive Covid patient on unit and that Jen will be tested in the AM of 04/22 and of precautions being taken on unit. Patient request if she can d/c early after hearing news. SW made aware. Deny further questions at this time.
--- NOTE | 2023-04-21 19:23 | DS.PCM_ITS ---
Providers Date of Admission: 04/18/23 Primary Care Physician: Dr. Sandra Miller DO Consultations 04/19/23 05:28 Consult: Onc/Wound/floral associate Routine Comment: Reason for Consult:: Bilateral Heel Ulcers- rt is unstageable; Left Buttock Ulcer 04/19/23 07:43 Consult: General Surgery Routine Consulting Provider: Tin Posey Reason for Consult: PEG removal. EMERGENT Consult: No MD Notified: Yes Date Notified: 04/19/23 Time Notified: 07:43 Method of Notification: Text Reason For Visit: CARDIAC ARREST Diagnosis Discharge Diagnosis (1) Debility: Status: Acute Code(s): R53.81 - Other malaise (2) Sudden cardiac due to cardiac arrhythmia: Status: Inactive Code(s): I49.9 - Cardiac arrhythmia, unspecified (3) Takotsubo cardiomyopathy: Status: Resolved Code(s): I51.81 - Takotsubo syndrome (4) Atrial fibrillation: Status: Deleted Code(s): I48.91 - Unspecified atrial fibrillation (5) Deep vein thrombosis (DVT) of left upper extremity: Status: Acute Code(s): I82.622 - Acute embolism and thrombosis of deep veins of left upper extremity Qualifiers: Affected thrombotic vein of extremity: unspecified vein of extremity Chronicity: acute Qualified Code(s): I82.622 - Acute embolism and thrombosis of deep veins of left upper extremity (6) Diabetes mellitus: Status: Deleted Code(s): E11.9 - Type 2 diabetes mellitus without complications (7) Hypertension: Status: Chronic Code(s): I10 - Essential (primary) hypertension (8) Coronary artery disease: Status: Acute Code(s): I25.10 - Atherosclerotic heart disease of [place] coronary artery without angina pectoris (9) Mitral valve prolapse: Status: Deleted Code(s): I34.1 - Nonrheumatic mitral (valve) prolapse (10) GERD (gastroesophageal reflux disease): Status: Acute Code(s): K21.9 - Gastro-esophageal reflux disease without esophagitis Qualifiers: Esophagitis presence: esophagitis presence not specified Qualified Code(s): K21.9 - Gastro-esophageal reflux disease without esophagitis (11) VILLASENOR (nonalcoholic steatohepatitis): Status: Acute Code(s): K75.81 - Nonalcoholic steatohepatitis (VILLASENOR) Plan 68 year old female with past medical history recent CABG x 2, hospitalized for cardiac arrest, myocardial infarction, takotsubo cardiomyopathy, complicated by dysphagia requiring PEG, atrial fibrillation, LUE DVT, heparin induced thrombocytopenia, admitted to TCU from with debility, here for rehabilitation, strengthening, prior to discharge home with . * Debility - PT/OT. * Pain - Tylenol 650mg q6 prn, Oxycodone 5mg q4 prn. * Bowel - senna/colace 2 tablets bid, MOM 30ml po x 1 prn, Ducolax 10mg pr x 1 prn. * Adult immunization - Administer pneumonia vaccine, covid vaccine, flu vaccine as appropriate. * DVT prophylaxis - on Eliquis. * Atrial fibrillation - Metoprolol 12.5mg bid, Amiodarone 200mg daily, Eliquis 5mg bid. * ID - Amoxicillin 500mg q8 thru 05/03/2023. * LUE DVT - Eliquis 5mg bid. * Coronary artery disease s/p cabg x 2 - Metoprolol 12.5mg bid, Losartan 12.5mg daily, Jardiance 25mg daily, Aspirin 81mg daily, NTG 0.4mg q5m prn. * Hyperlipidemia - Atorvastatin 80mg qhs. * Pressure ulcer - Santyl topical daily. * Diabetes Mellitus II - Metformin 500mg bid, Jardiance 25mg daily, Ozempic 0.5m g per week. * Allergic rhinitis - Atrovent nasal spray 2 sprays nasal bid. * Shortness of breath - Duoneb 3ml q4 prn. * Nutrition - Amarjit 1 packet bidcm, MVI daily. * Depression/insomnia/appetite loss - Mirtazapine 15mg qhs, stable chronic intermediate card tender use, GDR not recommended. * Skin irritation - Eucerin topical bid. * Dry mouth - Biotene 15ml 5x/day prn. * Hypercalcemia - resident feels bloated from water flushes, will stop. * status post PEG - Consult General Surgery for removal. Medications at Discharge Home Medications empagliflozin 25 mg tablet (Jardiance) 25 mg PO DAILY glucose 02/26/21 aspirin 81 mg chewable tablet 81 mg PO DAILYCM Heart #1 TAB 04/18/23 ipratropium bromide 42 mcg (0.06 %) nasal spray 2 spray NASAL BID Allergies #1 mL 04/18/23 semaglutide 0.25 mg or 0.5 mg (2 mg/3 mL) subcutaneous pen injector (Ozempic) 0.5 mg (0.736 mL) SQ QWEEK Diabetes #1 mL 04/18/23 acetaminophen 325 mg tablet 650 mg (2 x 325 mg) PO Q6H PRN PRN PAIN 1-10/ FEVER #0 tabs 04/21/23 amiodarone 200 mg tablet 200 mg PO DAILY Heart 30 days #30 tabs 04/21/23 amoxicillin 500 mg capsule 500 mg PO Q8 Antibiotic 8 days #24 caps 04/21/23 apixaban 5 mg tablet (Eliquis) 5 mg PO BID Anticoagulant 30 days #60 tabs 04/21/23 atorvastatin 80 mg tablet 80 mg PO 1999 Cholesterol 30 days #30 tabs 04/21/23 collagenase clostridium histo. 250 unit/gram topical ointment (Santyl) 1 applic topical DAILY Wound 30 days #30 grams 04/21/23 losartan 25 mg tablet 12.5 mg (1/2 x 25 mg) PO DAILY 30 days #15 tabs 04/21/23 metformin 500 mg tablet 500 mg PO BIDCM DM 30 days #60 tabs 04/21/23 metoprolol tartrate 25 mg tablet 12.5 mg (1/2 x 25 mg) PO BID BP 30 days #30 tabs 04/21/23 mirtazapine 15 mg tablet 15 mg PO 2000 Appetite 30 days #30 tabs 04/21/23 nitroglycerin 0.4 mg sublingual tablet 0.4 mg sublingual Q5M heart 30 days #30 tabs 04/21/23 Hospital Course Operations - (See below.) Procedures None Summary of Care Provided Minutes Spent on Discharge: 35 Hospital Course: 68 year old female with past medical history recent CABG x 2, hospitalized for cardiac arrest, myocardial infarction, takotsubo cardiomyopathy, complicated by dysphagia requiring PEG, atrial fibrillation, LUE DVT, heparin induced thrombocytopenia, admitted to TCU from with debility, here for r ehabilitation, strengthening, prior to discharge home with . Dr. Posey to remove PEG 05/04/2023. DC home with 04/25, M[facility] PT/OT/ST/SN Physical Exam Const alert General Appearance: cooperative HEENT normocephalic Eyes PERRL and EOMs intact bilaterally Neck supple, no JVD and no carotid bruits Chest Chest Narrative: LifeVest. Resp normal respiratory effort, normal air movement and clear to auscultation bilaterally Cardio regular rate and regular rhythm GI normal to inspection, nondistended, normoactive bowel sounds, non-tender and non-distended GI Narrative: PEG present. Extremity normal capillary refill General Extremity: Negative for edema Skin no rashes or lesions noted General Skin Exam: no breakdown Psych affect normal Appearance: appropriate Weight / BMI Weight Weight: 81.737 kg Body Mass Index (BMI) 27.3 ABG / Lab / Microbiology Data 04/19/23 05:19 04/20/23 05:36 Laboratory: Laboratory Results - last 24 hr 04/21/23 05:58: POC Glucose 133 H 04/21/23 16:25: POC Glucose 174 H D/C Instructions Discharge Diet: No restrictions Discharge Activity: Return to Normal Activity, May Shower and Use Walker Weight Bearing Status: Weight bearing as tolerated Call your doctor if you observe: Fever of 101 or Higher, Inability to urinate, Inability to have a bowel movement, Shortness of breath, Dizziness, Fainting spells, Swelling in the ankles, Chest pain and Uncontrolled pain Additional Instructions: DC home with 2/4, Mally [facility] PT/OT/ST/SN Please Follow Up With: Dr. Sandra Miller When: Within 1 week. Meaningful Use Info Meaningful Use Diagnoses (Choose all that apply): AMI AMI/Post PCI/Angioplasty Aspirin given w/in 24hrs of arrival?: Yes ASA at discharge?: Yes Statins at discharge?: Yes Kuldeep/ARB at discharge?: Yes Beta Fiorella at discharge?: Yes Done w/ Acute OH measure.: Yes Discharge Plan Admission Admit Date/Time: 04/18/23 13:06 Primary Reason for Your Visit: Debility. Attending Provider: Joby Goldstein Chi Primary Care Provider: Sandra Miller Consulting Providers: Tin Posey Instructions Additional Instructions / Restrictions: DC home with 2/4, Mally [facility] PT/OT/ST/SN Discharge Orders/Prescriptions Prescriptions: New acetaminophen 325 mg Tablet 650 mg PO Q6H PRN PRN (Reason: PAIN 1-10/ FEVER) Qty: 0 0RF losartan 25 mg Tablet 12.5 mg PO DAILY 30 Days Qty: 15 0RF Continued Jardiance 25 mg Tablet 25 mg PO DAILY aspirin 81 mg Tablet,Chewable 81 mg PO DAILYCM Qty: 1 0RF ipratropium bromide 42 mcg (0.06 %) [place],Non-Aerosol 2 spray NASAL BID Qty: 1 0RF Ozempic 0.25 mg or 0.5 mg (2 mg/3 mL) Pen Injector 0.5 mg SQ QWEEK Qty: 1 0RF Patient Comments: Takes Every Wednesday amoxicillin 500 mg Capsule 500 mg PO Q8 8 Days Qty: 24 0RF metformin 500 mg Tablet 500 mg PO BIDCM 30 Days Qty: 60 0RF atorvastatin 80 mg Tablet 80 mg PO 1999 30 Days Qty: 30 0RF amiodarone 200 mg Tablet 200 mg PO DAILY 30 Days Qty: 30 0RF nitroglycerin 0.4 mg tablet, sublingual 0.4 mg sublingual Q5M 30 Days Qty: 30 0RF Rx Instructions: do not exceed 3 doses per episode mirtazapine 15 mg Tablet 15 mg PO 1999 30 Days Qty: 30 0RF Santyl 250 unit/gram Ointment 1 applic topical DAILY 30 Days Qty: 30 0RF Protocol: *Topical Application Instructions APPLICATION INSTRUCTIONS: apply to rt heel metoprolol tartrate 25 mg Tablet 12.5 mg PO BID 30 Days Qty: 30 0RF Eliquis 5 mg Tablet 5 mg PO BID 30 Days Qty: 60 0RF Discontinued oxycodone 5 mg tablet 5 mg PO Q4H PRN (Reason: pain) Ozempic 0.25 mg or 0.5 mg (2 mg/3 mL) pen injector 0.25 mg subcut STARKEY Rx Instructions: for 4 weeks losartan [Cozaar] 25 mg tablet 12.5 mg feeding tube DAILY acetaminophen 325 mg Tablet 650 mg PO Q6H PRN PRN (Reason: PAIN 1-10/ FEVER) Qty: 1 0RF bisacodyl 10 mg Suppository 10 mg NH DAILY PRN (Reason: Constipation) Qty: 1 0RF bisacodyl 10 mg Suppository 10 mg NH X1 PRN (Reason: Constipation) Qty: 1 0RF multivitamin Tablet 1 tab PO BREAKFAST Qty: 1 0RF ipratropium-albuterol 0.5 mg-3 mg(2.5 mg base)/3 mL Solution For Nebulization 3 ml inhalation Q4H PRN PRN (Reason: WHEEZING) Qty: 1 0RF sennosides-docusate sodium [Stool Softener-Stimulant Laxat] 8.6-50 mg Tablet 2 tab PO BID Qty: 1 0RF magnesium hydroxide 400 mg/5 mL Suspension 30 ml PO X1 PRN (Reason: Constipation) Qty: 1 0RF menthol-zinc oxide [Calmoseptine] 0.44-20.6 % Ointment 1 applic topical 0600,2200 Qty: 1 0RF Protocol: *Topical Application Instructions APPLICATION INSTRUCTIONS: Apply to buttock Biotene Dry Mouth Oral Rinse Mouthwash 15 ml mucous membrane 5X/DAY PRN (Reason: Dry Mouth) Qty: 15 0RF Amarjit (with collagen) 7-7-1.5 gram Powder In Packet 1 packet J-tube BIDCM Qty: 1 0RF Petrolatum 33% [Eucerin Eqivalent] 1 applic topical 0600,2200 Referrals / Follow Up: Vasile Christian [Other] (After D/C) Latrice Tom MD [Med Staff - Active Staff] - (1-2 weeks after D/C) Sandra Miller DO [Primary Care Provider] - (Jen said she will call & schedule this appointment) Tin Posey MD [Med Staff - Active Staff] - (PEG removal) Disposition Disposition (needs filled in before D/C Order can be placed): Home Health Service
[2023-04-21] MEDS: Mirtazapine 15 MG Tablet PO (20:07)
[2023-04-21] MEDS: Atorvastatin Calcium 80 MG Tablet PO (20:07)
[2023-04-21 20:09] VITALS: BP 97/47
--- NOTE | 2023-04-21 20:13 | NURSING ---
Addendum entered by Angelita Hines 04/21/23 22:58: Patient denied any symptoms of BP being taken at . Original Note: Patient is requesting all medications be given at this time. Patient ok with holding metoprolol due to low BP. When taken BP was 97/47, taken again and was 99/43.
[2023-04-22 06:16] LABS: Bedside Glucose 117 mg/dL (74-106)
--- NOTE | 2023-04-22 06:34 | NURSING ---
When asked if patient would like her 0600 ATB, patient looked at this nurse and stated, Nah, im not taking it. I dont need it anymore. Patient educated on importance of why medication was prescribed patient continues to refuse.
[2023-04-22] MEDS: metFORMIN HCl 500 MG Tablet PO ×2 (09:48→17:07)
[2023-04-22] MEDS: Amiodarone 200 MG Tablet PO (09:48)
[2023-04-22] MEDS: Multivitamins,Therapeutic Tablet 1 TABLET PO (09:49)
[2023-04-22] MEDS: Aspirin 81 MG TAB.CHEW PO (09:49)
[2023-04-22] MEDS: Losartan Potassium 25 MG Tablet 12.5 MG PO (09:49)
[2023-04-22] MEDS: APIXABAN 5 MG TABLET PO ×2 (09:50→20:36)
[2023-04-22 09:51] VITALS: BP 108/63; PULSE 87
[2023-04-22] MEDS: Metoprolol Tartrate 25 MG Tablet 12.5 MG PO ×2 (09:51→20:34)
[2023-04-22] MEDS: Empagliflozin 25 MG Tablet PO (09:51)
[2023-04-22] MEDS: Collagenase 30gm Tube 1 APPLIC TOPICAL (09:52)
[2023-04-22] MEDS: Senna/Docusate Sodium 1 Tablet 2 TABLET PO (09:52)
[2023-04-22] MEDS: Ipratropium Bromide 0.06% NASAL SPRAY 2 SPRAY NASAL ×2 (09:53→20:37)
[2023-04-22 10:00] VITALS: BP 108/63; PULSE 87
--- NOTE | 2023-04-22 10:01 | NURSING ---
SULLYRN/WOUND NURSE IN PT ROOM TO CHANGE DRESSINGS TO SNE HEELS AND BUTTOCKS.
--- NOTE | 2023-04-22 11:31 | CASEMGMT ---
Social Work BIMS () and PHQ-2 () completed for MDS assessment. Bobbi Samaniego, PLUMBING MECHANIC MANAGER [employer]ANCIAL PLANNING
--- NOTE | 2023-04-22 11:44 | MDS.RN ---
Pain interview for MDS completed.
[2023-04-22] MEDS: AMOXICILLIN 500 MG CAPSULE PO ×2 (13:21→20:34)
--- NOTE | 2023-04-22 13:23 | NURSING ---
PT STATED SHE DIDN'T THINK SHE NEEDED HER AMOXICILLIN. EDUCATED PT ON THE RISKS OF NOT TAKING THE AMOXICILLIN PRESCRIBED AND HER RESENT HEART PROBLEMS. PT STATED SHE THOUGHT SHE ONLY HAD TO TAKE IT A FEW DAYS. STATED TO PT YOU SHOULD TAKE IT. PT AGREED TO TAKE MED.
[2023-04-22 15:40] VITALS: BP 101/54; PULSE 79; RESP 16; TEMP 36.6; O2SAT 97
[2023-04-22 17:04] LABS: Bedside Glucose 221 mg/dL (74-106)
[2023-04-22 20:34] VITALS: BP 106/66; PULSE 78
[2023-04-22] MEDS: Atorvastatin Calcium 80 MG Tablet PO (20:34)
[2023-04-22] MEDS: Mirtazapine 15 MG Tablet PO (20:37)
[2023-04-22] MEDS: Menthol/Lanolin/Calamine/Znox 113 GM Tube 1 APPLIC TOPICAL (20:38)
[2023-04-22 22:22] VITALS: O2SAT 96
[2023-04-23 06:22] LABS: Bedside Glucose 125 mg/dL (74-106)
[2023-04-23] MEDS: Aspirin 81 MG TAB.CHEW PO (06:46)
[2023-04-23] MEDS: AMOXICILLIN 500 MG CAPSULE PO (06:46)
[2023-04-23] MEDS: metFORMIN HCl 500 MG Tablet PO (06:47)
[2023-04-23] MEDS: Amiodarone 200 MG Tablet PO (06:48)
[2023-04-23] MEDS: Multivitamins,Therapeutic Tablet 1 TABLET PO (06:48)
[2023-04-23] MEDS: Losartan Potassium 25 MG Tablet 12.5 MG PO (06:48)
[2023-04-23 06:49] VITALS: BP 114/72; PULSE 80
[2023-04-23] MEDS: APIXABAN 5 MG TABLET PO (06:49)
[2023-04-23] MEDS: Empagliflozin 25 MG Tablet PO (06:49)
[2023-04-23] MEDS: Metoprolol Tartrate 25 MG Tablet 12.5 MG PO (06:49)
[2023-04-23] MEDS: Ipratropium Bromide 0.06% NASAL SPRAY 2 SPRAY NASAL (06:50)
[2023-04-23] MEDS: Acetaminophen 325 MG Tablet 650 MG PO (06:53)
[2023-04-23] MEDS: Menthol/Lanolin/Calamine/Znox 113 GM Tube 1 APPLIC TOPICAL (06:55)
--- NOTE | 2023-04-23 09:01 | NURSING ---
Meatman Note; MDS for 04/23/2023 complete
[2023-04-23 10:03] VITALS: BP 106/54; PULSE 81; RESP 16; TEMP 37.2; O2SAT 96
--- NOTE | 2023-04-23 10:05 | NURSING ---
Went to review PEG care with patient. She reported she had been shown and is comfortable flushing tube at home while waiting for it to be removed. Provided 2 syringes for her to take home and a print out of education on PEG care/flushing. Reviewed DC meds and info, she will set up all follow-up appts. She said she would follow-up with the wound center as well for her heel wound. She had no questions for nurse. DC'd home with .
--- NOTE | 2023-05-27 14:39 | MDS.RN ---
Admission MDS was completed on time , [facility] error rejected original MDS report RUSLAN 04/23/23.
== END 2023-04-23 09:50 | disposition home health service (06) | DRG 949 ==
PROVIDERS: Admitting Provider Family Medicine Geriatric Medicine; PCP Family Medicine; Visit Provider Family Medicine Geriatric Medicine
DX: Z48.812 Encounter for surgical aftercare following surgery on the circulatory system (principal); I82.622 Acute embolism and thrombosis of deep veins of left upper extremity; I51.81 Takotsubo syndrome; L89.322 Pressure ulcer of left buttock, stage 2; K75.81 Nonalcoholic steatohepatitis (NASH); Z86.74 Personal history of sudden cardiac arrest; E11.9 Type 2 diabetes mellitus without complications; I48.91 Unspecified atrial fibrillation; I10 Essential (primary) hypertension; F32.A Depression, unspecified; J30.9 Allergic rhinitis, unspecified; E78.5 Hyperlipidemia, unspecified; K21.9 Gastro-esophageal reflux disease without esophagitis; I25.10 Atherosclerotic heart disease of native coronary artery without angina pectoris; E83.52 Hypercalcemia; Z79.82 Long term (current) use of aspirin; Z79.84 Long term (current) use of oral hypoglycemic drugs; Z79.01 Long term (current) use of anticoagulants; Z79.899 Other long term (current) drug therapy; Z95.1 Presence of aortocoronary bypass graft
CPT/HCPCS: 36415; 80048; 80061; 82607; 82962; 83036; 84443; 85025; 87811; 92523; 92526; 92610; 97110; 97129; 97162; 97166; 97530; 97535; 97802

== ENCOUNTER 2023-05-19 13:45 | Outpatient (RCR) | payer MEDICARE, OTHER, SELFPAY ==
[2023-05-05 14:26] VITALS: BP 125/70; PULSE 84; RESP 18; TEMP 36.1
--- NOTE | 2023-05-05 15:03 | HP.PCM_ITS ---
History of Present Illness Date of Service: 05/05/23 Chief Complaint: Full-thickness wound right heel History of Wound: Pressure sore, right heel Progress of Wound: Mrs Sinha is a 68-year-old diabetic female with a past medical history of recent CABG x 2, hospitalization for cardiac arrest, myocardial infarction, Takotsubo cardiomyopathy, complicated by dysphagia requiring PEG, atrial fibrillation, LUE DVT, heparin-induced thrombocytopenia, admitted to the TCU for RUE with debility, at [facility] for rehabilitation, strengthening prior to discharge home with . Patient presents today to the wound care center for chief complaint of full-thickness ulceration secondary to pressure sore to the right heel. Patient has been doing home treatment with Santyl every other day with niece who is a RN. She admits her blood sugars well-controlled. She denies any drainage. She denies any trauma. Denies constitutional symptoms. No other pedal complaints at this time. 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 STEMI (ST elevation myocardial infarction) Sudden cardiac due to cardiac arrhythmia Wears glasses Zenkers diverticulum Home Medications empagliflozin 25 mg tablet (Jardiance) 25 mg PO DAILY glucose 02/26/21 [History Last Taken 04/18/23 08:05] aspirin 81 mg chewable tablet 81 mg PO DAILYCM Heart #1 TAB 04/18/23 [Rx Last Taken 04/18/23 08:05] ipratropium bromide 42 mcg (0.06 %) nasal spray 2 spray NASAL BID Allergies #1 mL 04/18/23 [Rx Last Taken 04/18/23 06:00] semaglutide 0.25 mg or 0.5 mg (2 mg/3 mL) subcutaneous pen injector (Ozempic) 0.5 mg (0.736 mL) SQ QWEEK Diabetes #1 mL 04/18/23 [Rx Last Taken 04/18/23 08:15] acetaminophen 325 mg tablet 650 mg (2 x 325 mg) PO Q6H PRN PRN PAIN 1-10/ FEVER #0 tabs 04/21/23 [Rx Last Taken Unknown] amiodarone 200 mg tablet 200 mg PO DAILY Heart 30 days #30 tabs 04/21/23 [Rx Last Taken Unknown] apixaban 5 mg tablet (Eliquis) 5 mg PO BID Anticoagulant 30 days #60 tabs 04/21/23 [Rx Last Taken Unknown] atorvastatin 80 mg tablet 80 mg PO 1999 Cholesterol 30 days #30 tabs 04/21/23 [Rx Last Taken Unknown] collagenase clostridium histo. 250 unit/gram topical ointment (Santyl) 1 applic topical DAILY Wound 30 days #30 grams 04/21/23 [Rx Last Taken Unknown] losartan 25 mg tablet 12.5 mg (1/2 x 25 mg) PO DAILY 30 days #15 tabs 04/21/23 [Rx Last Taken Unknown] metformin 500 mg tablet 500 mg PO BIDCM DM 30 days #60 tabs 04/21/23 [Rx Last Taken Unknown] metoprolol tartrate 25 mg tablet 12.5 mg (1/2 x 25 mg) PO BID BP 30 days #30 tabs 04/21/23 [Rx Last Taken Unknown] mirtazapine 15 mg tablet 15 mg PO 1999 Appetite 30 days #30 tabs 04/21/23 [Rx Last Taken 04/17/23 20:00] nitroglycerin 0.4 mg sublingual tablet 0.4 mg sublingual Q5M heart 30 days #30 tabs 04/21/23 [Rx Last Taken Unknown] Allergy/AdvReac Type Severity Reaction Status Date / Time Sulfa (Sulfonamide Allergy Hives Verified 05/05/23 14:19 Antibiotics) sulfamethoxazole Allergy Hives Verified 05/05/23 14:19 [From Septra] trimethoprim [From Septra] Allergy Hives Verified 05/05/23 14:19 acetaminophen [From Tylenol] AdvReac d/t fatty Verified 05/05/23 14:19 liver Surgical History History of cardiac catheterization History of chest tube placement History of coronary artery bypass graft x 2 History of esophagogastroduodenoscopy (EGD) History of thoracentesis Hx of cholecystectomy Hx of left knee surgery Hx of repair of left rotator cuff Hx of repair of right rotator cuff Hx of right knee surgery Hx of vaginal hysterectomy Hx of vein stripping Social History household members: spouse current occupational status: 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 CFT is brisk. Nonpitting edema appreciated to the right heel. Skin temperature great is warm to warm from proximal ankle to distal digits bilateral. No focal increase noted in warmth to the right heel. Blanchable erythema without proximal streaking. Neurological: Light touch and epicritic sensation is intact. Dermatological: Evidence of full-thickness ulceration appreciated to the right heel measuring 2.3 x 1.6 x 0.2 cm. Evidence of fibrotic base. Malodor is present. No drainage. No probe to bone. No erythema. No proximal streaking. Cannot rule out infection at this time. Toenails 1 through 5 within normal limits. Excision debridement down to and including subcutaneous tissue with a #15 blade without incident to the right heel. Predebridement measurement was 2.0 x 2.2 x 0.1 centimeter. Postdebridement measurement is 2.3 x 1.6 x 0.2 cm. Sanguinous drainage is appreciated. Musculoskeletal: Muscle strength deferred. Mild pain to palpation of the full- thickness ulceration. No pain with calf compression. Debridement Note Debridement Note Debridement Free Text: Excision debridement down to and including subcutaneous tissue with a #15 blade without incident to the right heel. Predebridement measurement was 2.0 x 2.2 x 0.1 centimeter. Postdebridement measurement is 2.3 x 1.6 x 0.2 cm. Sanguinous drainage is appreciated. Post-Debridement Measurements and Additional Note: Post-Debridement Measurements/Treatment WC - Nurse 1 - General Ulcer Assessment Start: 05/05/23 14:14 Freq: Status: Active Protocol: BETZAIDA Activity Type Activity Date Activity User E-sign Co-sign Detail Recorded Client Recorded Date Recorded By Document 05/05/23 14:26 KW Desktop 05/05/23 14:28 KW 05/05/23 14:26 WC - Today's Visit Information Type of service Initial Visit Arrival Mode Ambulatory Accompanied by Patient Identification Verified (Name & Yes ) Vital Signs Temperature (97.8 F-99.1 F) 96.9 F L Temperature Source Temporal Pulse Rate (60-100) 84 Pulse Location Monitor Respiratory Rate (12-18) 18 Respiratory rate source Observation Oxygen Delivery Method Room Air Blood Pressure (90/60-120/80) 125/70 H Blood Pressure Mean 88 Source Monitor Position Semi-Fowlers Blood Pressure Location Left Arm History Since Last Visit- (Skip if this is Patient's initial visit) Left Footwear Regular Shoe Right Footwear Regular Shoe Pain Scale: 0-10 Numeric Is Patient Pain Free? Yes Culture/Christianity/Actuarial Science Professor Cultural/Christianity Needs that may affect No Treatment Plan Would you allow our hospital residential appliance repair technician to No meet you for the purpose of spiritual/ emotional support? Actuarial Science Professor to contact place of caodaism No PILAR - Nurse 1 - General Ulcer Measurement Start: 05/05/23 14:14 Freq: Status: Active Protocol: Activity Type Activity Date Activity User E-sign Co-sign Detail Recorded Client Recorded Date Recorded By Document 05/05/23 14:26 KW [employer] 05/05/23 14:28 05/05/23 14:26 Wound Center Nurse 1 #1 RT HEEL -Current Size (cm) - Length 2.5 -Current Size (cm) - Width 1.5 -Current Size (cm) - Depth 0.1 -Total Square Cm 3.75 -Date of Last Picture (Recall this 05/05/23 field) -Photo Taken Yes -Exudate Amt Medium -Exudate Type Serosanguineous -Wound Margin Distinct, Outline Attached -Granulation Amt Small (1-33%) -Granulation Quality Red -Necrosis Amt Large (67-100%) -Necrotic Tissue Type Adherent Slough -Texture (Amanda-wound Skin Appearance) Assessed -Moisture (Amanda-wound Skin Appearance) Maceration -Color (Amanda-wound Skin Appearance) Assessed -Temperature (Amanda-wound Skin No Abnormality Appearance) (Pt Warm) -Ulcer Cleansing Soap and Water -Foul Odor after Cleansing No -Anesthetic Used 5% Lidocaine Gel WC - Nurse 2 - General Ulcer CM Notes Start: 05/05/23 14:14 Freq: Status: Active Protocol: Activity Type Activity Date Activity User E-sign Co-sign Detail Recorded Client Recorded Date Recorded By Document 05/05/23 14:37 Laptop 05/05/23 14:47 05/05/23 14:37 Wound Center Nurse 2 -Time 14:39 -Correct Patient Yes -Correct Side, Site, Position Yes -Correct Procedure Yes -Procedure Performed Yes -Type of Procedure Debridement -Clinical Debridement Subcutaneous -Tissue Removed Subcutaneous -Post Debridement (cm) - Length 2.3 -Post Debridement (cm) - Width 1.6 -Post Debridement (cm) - Depth 0.2 -Total Square (Post) (cm) 3.68 -Area of Debridement (cm) - Length 2.3 -Area of Debridement (cm) - Width 1.6 -Total Square (Area) (cm) 3.68 -Tunneling No -Undermining/Tunneling No -Circular Undermining No -Wound/Ulcer Outcome Not Healed -Ulcer Cleansing Rinsed/ Irrigated with Saline -Foul Odor after Cleansing No -Bioengineered Tissue No -Bleeding Controlled with Pressure -Treatment Response Procedure Tolerated Well -Offloading No -Debridement - Subq, 1st 20sq cm Yes Pain Scale: 0-10 Numeric Is Patient Pain Free? Yes Assessment/Plan Assessment/Plan (1) Non-pressure chronic ulcer of right heel and midfoot with fat layer exposed: CODE(S): L97.412 - Non-pressure chronic ulcer of right heel and midfoot with fat layer exposed PLAN: Patient was examined and evaluated. All findings were discussed with the patient. All questions were answered to the patient's satisfaction. Excision debridement down to and including subcutaneous tissue with a #15 blade without incident to the right heel. Predebridement measurement was 2.0 x 2.2 x 0.1 centimeter. Postdebridement measurement is 2.3 x 1.6 x 0.2 cm. Sanguinous drainage is appreciated. The right heel is white clean and patted dry. Santyl was applied nickel thick followed by wet gauze and dry sterile dressing. Patient was instructed to change her dressing daily as above. Will begin authorization for skin graft substitute through the patient's insurance. Home health care orders were sent for dressing changes. A culture was taken of the full-thickness ulceration right heel. Will follow microbiology for culture and sensitivity and place the patient on antibiotics if needed. Follow-up at the wound care center with Dr. Suh in 1 week. (2) Type 2 diabetes mellitus without complications: CODE(S): E11.9 - Type 2 diabetes mellitus without complications
--- NOTE | 2023-05-06 16:25 | WC ---
herberth from home health called. states pt is experiencing ^ pain w/ drsg changes. asking if they can use topical lidocaine (pt has a tube at home) w/ drsg chgs. this nurse called and spoke w/ dr zuñiga. he said ok to apply under the santyl. [facility] notified.
[2023-05-12 13:50] VITALS: BP 116/66; PULSE 81; RESP 18; TEMP 35.9
--- NOTE | 2023-05-12 15:04 | PCM.WC.PN ---
History of Present Illness Date of Service: 05/12/23 Chief Complaint: Full-thickness wound right heel History of Wound: Pressure sore, right heel Progress of Wound: Mrs Sinha is a 68-year-old diabetic female with a past medical history of recent CABG x 2, hospitalization for cardiac arrest, myocardial infarction, Takotsubo cardiomyopathy, complicated by dysphagia requiring PEG, atrial fibrillation, LUE DVT, heparin-induced thrombocytopenia, admitted to the TCU for RUE with debility, at [facility] for rehabilitation, strengthening prior to discharge home with . Patient presents today to the wound care center for chief complaint of full-thickness ulceration secondary to pressure sore to the right heel. Patient has been doing home treatment with Santyl every other day with niece who is a RN. She admits her blood sugars well-controlled. She denies any drainage. She denies any trauma. Denies constitutional symptoms. No other pedal complaints at this time. Subjective Subjective Ms. Sinha is a 68-year-old diabetic female presenting to the wound care center today for follow-up and evaluation of right heel ulceration secondary to pressure induced ulceration. Patient has been getting home dressing changes. She was continuing to use Santyl for every other day care. She admits her blood sugars well-controlled. She denies any drainage. Denies trauma. Denies constitutional symptoms. No other pedal complaints at this time. Objective Data Objective Data Vital Signs: Vital Signs Temp Pulse Resp BP O2 Del Method 96.6 F L 81 18 116/66 Room Air 05/12/23 13:50 05/12/23 13:50 05/12/23 13:50 05/12/23 13:50 05/12/23 13:50 Oxygen Delivery Method Room Air Lab / Micro Data Micro: Microbiology 05/05/23 14:45 Wound - Heel Right Gram Stain - Final 05/05/23 14:45 Wound - Heel Right Wound Culture - Final Meth. resistant Staph. aureus 05/05/23 14:45 Wound - Heel Right Anaerobic Culture - Final No growth in 5 days. Physical Exam Narrative Vascular: DP and PT pulses are palpable to the right lower extremity. CFT is brisk. Nonpitting edema appreciated to the right heel. Skin temperature great is warm to warm from proximal ankle to distal digits bilateral. No focal increase noted in warmth to the right heel. Blanchable erythema without proximal streaking. Neurological: Light touch and epicritic sensation is intact. Dermatological: Evidence of full-thickness ulceration appreciated to the right heel measuring 1.5 x 1.2 x 0.2 cm. Wound base is fibrogranular nature. No malodor. No probe to bone. No sign of infection. No erythema or proximal streaking. Excision debridement down to and including subcutaneous tissue with a #15 blade without incident to the right heel. Predebridement measurement was 1.3 x 1.0 x 0.1 centimeter. Postdebridement measurement is 1.5 x 1.2 x 0.2 cm. EpiFix 18 mm disc was applied to the right full-thickness ulceration with 100% use. First application. The graft site was free and clear of any infection. The wound/skin graft substitute was dressed with nonadherent bandage secured in place with Steri-Strips followed by bolster dressing as well as a double layer Tubigrip. Musculoskeletal: Muscle strength deferred. Mild pain to palpation of the full-thickness ulceration. No pain with calf compression. Debridement Note Debridement Note Debridement Free Text: Excision debridement down to and including subcutaneous tissue with a #15 blade without incident to the right heel. Predebridement measurement was 1.3 x 1.0 x 0.1 centimeter. Postdebridement measurement is 1.5 x 1.2 x 0.2 cm. EpiFix 18 mm disc was applied to the right full-thickness ulceration with 100% use. First application. The graft site was free and clear of any infection. The wound/skin graft substitute was dressed with nonadherent bandage secured in place with Steri-Strips followed by bolster dressing as well as a double layer Tubigrip. Post-Debridement Measurements and Additional Note: Post-Debridement Measurements/Treatment - Nurse 1 - General Ulcer Assessment Start: 05/05/23 14:14 Freq: Status: Active Protocol: BETZAIDA Activity Type Activity Date Activity User E-sign Co-sign Detail Recorded Client Recorded Date Recorded By Document 05/05/23 14:26 KW Desktop 05/05/23 14:28 KW Document 05/12/23 13:50 KW Desktop 05/12/23 13:56 KW 05/05/23 05/12/23 14:26 13:50 - Today's Visit Information Type of service Initial Visit Follow-up Visit (Physician/MEAT PICKLER ) Arrival Mode Ambulatory Ambulatory Accompanied by Patient Identification Verified (Name & Yes Yes ) Vital Signs Temperature (97.8 F-99.1 F) 96.9 F L 96.6 F L Temperature Source Temporal Temporal Pulse Rate (60-100) 84 81 Pulse Location Monitor Monitor Respiratory Rate (12-18) 18 18 Respiratory rate source Observation Observation Oxygen Delivery Method Room Air Room Air Blood Pressure (90/60-120/80) 125/70 H 116/66 Blood Pressure Mean (mm Hg) 88 82 Source Monitor Monitor Position Semi-Fowlers Semi-Fowlers Blood Pressure Location Left Arm Left Arm History Since Last Visit- (Skip if this is Patient's initial visit) Have you changed medications since your No last visit? Any new allergies or adverse reactions No Had a fall/change in ADL's that may No increase risk of falls Signs or symptoms of abuse and/or No neglect since last visit Have you been in the hospital since your No last visit? Has dressing in place as prescribed Yes Has compression in place as prescribed N/A Has offloadiing in place as prescribed N/A Experienced any changes in pain level or No management Left Footwear Regular Shoe Regular Shoe Right Footwear Regular Shoe Regular Shoe Pain Scale: 0-10 Numeric Is Patient Pain Free? Yes Yes Culture/Jainism/Professional Organizer Cultural/Jainism Needs that may affect No Treatment Plan Would you allow our hospital caravan park and camping ground manager to No meet you for the purpose of spiritual/ emotional support? Professional Organizer to contact place of scientologist No WC - Nurse 1 - General Ulcer Measurement Start: 05/05/23 14:14 Freq: Status: Active Protocol: Activity Type Activity Date Activity User E-sign Co-sign Detail Recorded Client Recorded Date Recorded By Document 05/05/23 14:26 KW Desktop 05/05/23 14:28 KW Document 05/12/23 13:50 KW Desktop 05/12/23 13:56 KW 05/05/23 05/12/23 14:26 13:50 Wound Center Nurse 1 #1 RT HEEL -Current Size (cm) - Length 2.5 2 -Current Size (cm) - Width 1.5 1.2 -Current Size (cm) - Depth 0.1 0.2 -Total Square Cm 3.75 2.4 -Date of Last Picture (Recall this 05/05/23 field) -Photo Taken Yes -Exudate Amt Medium Medium -Exudate Type Serosanguineous Serosanguineous -Wound Margin Distinct, Distinct, Outline Outline Attached Attached -Granulation Amt Small (1-33%) Small (1-33%) -Granulation Quality Red [place] -Necrosis Amt Large (67-100%) Large (67-100%) -Necrotic Tissue Type Adherent Slough Adherent Slough -Texture (Amanda-wound Skin Appearance) Assessed Assessed -Moisture (Amanda-wound Skin Appearance) Maceration Assessed -Color (Amanda-wound Skin Appearance) Assessed Assessed -Temperature (Amanda-wound Skin No Abnormality No Abnormality Appearance) (Pt Warm) (Pt Warm) -Ulcer Cleansing Soap and Water Rinsed/ Irrigated with Saline -Foul Odor after Cleansing No No -Anesthetic Used 5% Lidocaine 5% Lidocaine Gel Gel WC - Nurse 2 - General Ulcer CM Notes Start: 05/05/23 14:14 Freq: Status: Active Protocol: Activity Type Activity Date Activity User E-sign Co-sign Detail Recorded Client Recorded Date Recorded By Document 05/05/23 14:37 [employer] Laptop 05/05/23 14:47 [employer] Document 05/12/23 14:31 [employer] Laptop 05/12/23 14:33 05/05/23 05/12/23 14:37 14:31 Wound Center Nurse 2 #1 RT HEEL -Time 14:39 14:31 -Correct Patient Yes Yes -Correct Side, Site, Position Yes Yes -Correct Procedure Yes Yes -Procedure Performed Yes Yes -Type of Procedure Debridement Debridement -Clinical Debridement Subcutaneous Subcutaneous -Tissue Removed Subcutaneous Subcutaneous -Post Debridement (cm) - Length 2.3 1.5 -Post Debridement (cm) - Width 1.6 1.7 -Post Debridement (cm) - Depth 0.2 0.2 -Total Square (Post) (cm) 3.68 2.55 -Area of Debridement (cm) - Length 2.3 1.5 -Area of Debridement (cm) - Width 1.6 1.7 -Total Square (Area) (cm) 3.68 2.55 -Tunneling No No -Undermining/Tunneling No No -Circular Undermining No No -Wound/Ulcer Outcome Not Healed Not Healed -Ulcer Cleansing Rinsed/ Rinsed/ Irrigated with Irrigated with Saline Saline -Foul Odor after Cleansing No No -Bioengineered Tissue No Yes -Type of Bioengineered Tissue Epifix 18mm Disc -Expiration Date 12/21/27 -Product Lot Number [id number] -Percent Used 100 -Lot number of Saline Used [id number] -Bleeding Controlled with Pressure Pressure -Treatment Response Procedure Procedure Tolerated Well Tolerated Well -Offloading No No -Debridement - Subq, 1st 20sq cm Yes No -Apply Skin Sub - 1st 25 sq cm - Feet 1 -Epifix 18mm Disc 3 Pain Scale: 0-10 Numeric Is Patient Pain Free? Yes Yes - Nurse 3 - General Ulcer D/C NN Start: 05/05/23 14:14 Freq: Status: Active Protocol: Activity Type Activity Date Activity User E-sign Co-sign Detail Recorded Client Recorded Date Recorded By Document 05/12/23 14:39 KW Desktop 05/12/23 14:39 KW 05/12/23 14:39 Wound Care Center Nurse 3 #1 RT HEEL -Primary Dressing Covered/Secured with Dry Gauze & Roll Gauze, Secured with Tape Pain Scale: 0-10 Numeric Is Patient Pain Free? Yes WC - Visit Discharge Discharge Condition Stable Ambulatory Status Ambulatory Transportation Private Auto Accompanied by Medication Reconcilliation completed & No provided to patient/care provider Clinical Summary of Care Provided Yes Assessment/Plan Assessment/Plan (1) Non-pressure chronic ulcer of right heel and midfoot with fat layer exposed: CODE(S): L97.412 - Non-pressure chronic ulcer of right heel and midfoot with fat layer exposed PLAN: Patient was examined and evaluated. All findings were discussed with the patient. All questions were answered to the patient's satisfaction. Excision debridement down to and including subcutaneous tissue with a #15 blade without incident to the right heel. Predebridement measurement was 1.3 x 1.0 x 0.1 centimeter. Postdebridement measurement is 1.5 x 1.2 x 0.2 cm. EpiFix 18 mm disc was applied to the right full-thickness ulceration with 100% use. First application. The graft site was free and clear of any infection. The wound/skin graft substitute was dressed with nonadherent bandage secured in place with Steri-Strips followed by bolster dressing as well as a double layer Tubigrip. Patient will be placed on doxycycline 100 mg twice daily for 14 days. The patient's culture grew back MRSA and most likely is a superficial contamination. We will continue to proceed with grafting as the patient is on oral antibiotics. Follow-up at the wound care center with Dr. Suh in 1 week. (2) Type 2 diabetes mellitus without complications: CODE(S): E11.9 - Type 2 diabetes mellitus without complications
[2023-05-19 13:53] VITALS: BP 113/63; PULSE 83; RESP 16; TEMP 35.8
--- NOTE | 2023-05-19 14:25 | PCM.WC.PN ---
History of Present Illness Date of Service: 05/19/23 Chief Complaint: Full-thickness wound right heel History of Wound: Pressure sore, right heel Progress of Wound: Mrs Sinha is a 68-year-old diabetic female with a past medical history of recent CABG x 2, hospitalization for cardiac arrest, myocardial infarction, Takotsubo cardiomyopathy, complicated by dysphagia requiring PEG, atrial fibrillation, LUE DVT, heparin-induced thrombocytopenia, admitted to the TCU for RUE with debility, at [facility] for rehabilitation, strengthening prior to discharge home with . Patient presents today to the wound care center for chief complaint of full-thickness ulceration secondary to pressure sore to the right heel. Patient has been doing home treatment with Santyl every other day with niece who is a RN. She admits her blood sugars well-controlled. She denies any drainage. She denies any trauma. Denies constitutional symptoms. No other pedal complaints at this time. Subjective Subjective Ms. Sinha is a 68-year-old diabetic female presenting to the wound care center today for follow-up and evaluation of right heel ulceration secondary to pressure induced ulceration. Patient has been getting home dressing changes. She was continuing to use Santyl for every other day care. She admits her blood sugars well-controlled. She denies any drainage. Denies trauma. Denies constitutional symptoms. No other pedal complaints at this time. Objective Data Objective Data Vital Signs: Vital Signs Temp Pulse Resp BP O2 Del Method 96.4 F L 83 16 113/63 Room Air 05/19/23 13:53 05/19/23 13:53 05/19/23 13:53 05/19/23 13:53 05/19/23 13:53 Oxygen Delivery Method Room Air Lab / Micro Data Micro: Microbiology 05/05/23 14:45 Wound - Heel Right Gram Stain - Final 05/05/23 14:45 Wound - Heel Right Wound Culture - Final Meth. resistant Staph. aureus 05/05/23 14:45 Wound - Heel Right Anaerobic Culture - Final No growth in 5 days. Physical Exam Narrative Vascular: DP and PT pulses are palpable to the right lower extremity. CFT is brisk. Nonpitting edema appreciated to the right heel. Skin temperature great is warm to warm from proximal ankle to distal digits bilateral. No focal increase noted in warmth to the right heel. Blanchable erythema without proximal streaking. Neurological: Light touch and epicritic sensation is intact. Dermatological: Evidence of full-thickness ulceration appreciated to the right heel measuring 1.4 x 1.2 x 0.2 cm. Wound base is fibrogranular nature. No malodor. No probe to bone. No sign of infection. No erythema or proximal streaking. Excision debridement down to and including subcutaneous tissue with a #15 blade without incident to the right heel. Predebridement measurement was 1.2 x 0.9 x 0.1 centimeter. Postdebridement measurement is 1.4 x 1.2 x 0.2 cm. EpiFix 18 mm disc was applied to the right full-thickness ulceration with 100% use. Second application. The graft site was free and clear of any infection. The wound/skin graft substitute was dressed with nonadherent bandage secured in place with Steri-Strips followed by bolster dressing as well as a double layer Tubigrip. Musculoskeletal: Muscle strength deferred. Mild pain to palpation of the full-thickness ulceration. No pain with calf compression. Debridement Note Debridement Note Debridement Free Text: Excision debridement down to and including subcutaneous tissue with a #15 blade without incident to the right heel. Predebridement measurement was 1.2 x 0.9 x 0.1 centimeter. Postdebridement measurement is 1.4 x 1.2 x 0.2 cm. EpiFix 18 mm disc was applied to the right full-thickness ulceration with 100% use. Second application. The graft site was free and clear of any infection. The wound/skin graft substitute was dressed with nonadherent bandage secured in place with Steri-Strips followed by bolster dressing as well as a double layer Tubigrip. Post-Debridement Measurements and Additional Note: Post-Debridement Measurements/Treatment PILAR - Nurse 1 - General Ulcer Assessment Start: 05/05/23 14:14 Freq: Status: Active Protocol: BETZAIDA Activity Type Activity Date Activity User E-sign Co-sign Detail Recorded Client Recorded Date Recorded By Document 05/05/23 14:26 KW Desktop 05/05/23 14:28 KW Document 05/12/23 13:50 KW Desktop 05/12/23 13:56 KW Document 05/19/23 13:53 KW Desktop 05/19/23 14:01 KW 05/05/23 05/12/23 05/19/23 14:26 13:50 13:53 WC - Today's Visit Information Type of service Initial Visit Follow-up Visit Follow-up Visit (Physician/GROUND SOURCE HEAT PUMP TECHNICIAN (Physician/GROUND SOURCE HEAT PUMP TECHNICIAN ) ) Arrival Mode Ambulatory Ambulatory Ambulatory Accompanied by Patient Identification Verified (Name & Yes Yes Yes ) Vital Signs Temperature (97.8 F-99.1 F) 96.9 F L 96.6 F L 96.4 F L Temperature Source Temporal Temporal Temporal Pulse Rate (60-100) 84 81 83 Pulse Location Monitor Monitor Monitor Respiratory Rate (12-18) 18 18 16 Respiratory rate source Observation Observation Observation Oxygen Delivery Method Room Air Room Air Room Air Blood Pressure (90/60-120/80) 125/70 H 116/66 113/63 Blood Pressure Mean (mm Hg) 88 82 79 Source Monitor Monitor Monitor Position Semi-Fowlers Semi-Fowlers Semi-Fowlers Blood Pressure Location Left Arm Left Arm Right Arm History Since Last Visit- (Skip if this is Patient's initial visit) Have you changed medications since your No No last visit? Any new allergies or adverse reactions No No Had a fall/change in ADL's that may No No increase risk of falls Signs or symptoms of abuse and/or No No neglect since last visit Have you been in the hospital since your No No last visit? Has dressing in place as prescribed Yes Yes Has compression in place as prescribed N/A No Has offloadiing in place as prescribed N/A N/A Experienced any changes in pain level or No No management Left Footwear Regular Shoe Regular Shoe Regular Shoe Right Footwear Regular Shoe Regular Shoe Regular Shoe Pain Scale: 0-10 Numeric Is Patient Pain Free? Yes Yes Yes Culture/Anabaptism/Plating Foreman Cultural/Anabaptism Needs that may affect No Treatment Plan Would you allow our hospital vrt mechanic to No meet you for the purpose of spiritual/ emotional support? Plating Foreman to contact place of [facility] No - Nurse 1 - General Ulcer Measurement Start: 05/05/23 14:14 Freq: Status: Active Protocol: Activity Type Activity Date Activity User E-sign Co-sign Detail Recorded Client Recorded Date Recorded By Document 05/05/23 14:26 KW Desktop 05/05/23 14:28 KW Document 05/12/23 13:50 KW Desktop 05/12/23 13:56 KW Document 05/19/23 13:53 KW Desktop 05/19/23 14:01 KW 05/05/23 05/12/23 05/19/23 14:26 13:50 13:53 Wound Center Nurse 1 #1 RT HEEL -Current Size (cm) - Length 2.5 2 2.1 -Current Size (cm) - Width 1.5 1.2 1.0 -Current Size (cm) - Depth 0.1 0.2 0.1 -Total Square Cm 3.75 2.4 2.10 -Date of Last Picture (Recall this 05/05/23 field) -Photo Taken Yes -Exudate Amt Medium Medium Small -Exudate Type Serosanguineous Serosanguineous Serosanguineous -Wound Margin Distinct, Distinct, Distinct, Outline Outline Outline Attached Attached Attached -Granulation Amt Small (1-33%) Small (1-33%) -Granulation Quality [place] -Necrosis Amt Large (67-100%) Large (67-100%) -Necrotic Tissue Type Adherent Slough Adherent Slough -Texture (Amanda-wound Skin Appearance) Assessed Assessed Assessed -Moisture (Amanda-wound Skin Appearance) Maceration Assessed Assessed -Color (Amanda-wound Skin Appearance) Assessed Assessed Assessed -Temperature (Amanda-wound Skin No Abnormality No Abnormality No Abnormality Appearance) (Pt Warm) (Pt Warm) (Pt Warm) -Ulcer Cleansing Soap and Water Rinsed/ Soap and Water Irrigated with Saline -Foul Odor after Cleansing No No -Anesthetic Used 5% Lidocaine 5% Lidocaine 5% Lidocaine Gel Gel Gel WC - Nurse 2 - General Ulcer CM Notes Start: 05/05/23 14:14 Freq: Status: Active Protocol: Activity Type Activity Date Activity User E-sign Co-sign Detail Recorded Client Recorded Date Recorded By Document 05/05/23 14:37 Laptop 05/05/23 14:47 Document 05/12/23 14:31 Laptop 05/12/23 14:33 Document 05/19/23 14:12 Laptop 05/19/23 14:18 05/05/23 05/12/23 05/19/23 14:37 14:31 14:12 Wound Center Nurse 2 #1 RT HEEL -Time 14:39 14:31 14:13 -Correct Patient Yes Yes Yes -Correct Side, Site, Position Yes Yes Yes -Correct Procedure Yes Yes Yes -Procedure Performed Yes Yes Yes -Type of Procedure Debridement Debridement Debridement -Clinical Debridement Subcutaneous Subcutaneous Subcutaneous -Tissue Removed Subcutaneous Subcutaneous Subcutaneous -Post Debridement (cm) - Length 2.3 1.5 -Post Debridement (cm) - Width 1.6 1.7 -Post Debridement (cm) - Depth 0.2 0.2 -Total Square (Post) (cm) 3.68 2.55 -Area of Debridement (cm) - Length 2.3 1.5 -Area of Debridement (cm) - Width 1.6 1.7 -Total Square (Area) (cm) 3.68 2.55 -Tunneling No No No -Undermining/Tunneling No No No -Circular Undermining No No No -Wound/Ulcer Outcome Not Healed Not Healed Not Healed -Ulcer Cleansing Rinsed/ Rinsed/ Rinsed/ Irrigated with Irrigated with Irrigated with Saline Saline Saline -Foul Odor after Cleansing No No No -Bioengineered Tissue No Yes Yes -Type of Bioengineered Tissue Epifix 18mm Disc -Expiration Date 12/21/27 -Product Lot Number [id number] -Percent Used 100 -Lot number of Saline Used [id number] -Bleeding Controlled with Pressure Pressure Pressure -Treatment Response Procedure Procedure Procedure Tolerated Well Tolerated Well Tolerated Well -Offloading No No No -Debridement - Subq, 1st 20sq cm Yes No No -Apply Skin Sub - 1st 25 sq cm - Feet 1 1 -Epifix 18mm Disc 3 3 Pain Scale: 0-10 Numeric Is Patient Pain Free? Yes Yes Yes - Nurse 3 - General Ulcer D/C NN Start: 05/05/23 14:14 Freq: Status: Active Protocol: Activity Type Activity Date Activity User E-sign Co-sign Detail Recorded Client Recorded Date Recorded By Document 05/12/23 14:39 KW Desktop 05/12/23 14:39 KW 05/12/23 14:39 Wound Care Center Nurse 3 #1 RT HEEL -Primary Dressing Covered/Secured with Dry Gauze & Roll Gauze, Secured with Tape Pain Scale: 0-10 Numeric Is Patient Pain Free? Yes WC - Visit Discharge Discharge Condition Stable Ambulatory Status Ambulatory Transportation Private Auto Accompanied by Medication Reconcilliation completed & No provided to patient/care provider Clinical Summary of Care Provided Yes Assessment/Plan Assessment/Plan (1) Non-pressure chronic ulcer of right heel and midfoot with fat layer exposed: CODE(S): L97.412 - Non-pressure chronic ulcer of right heel and midfoot with fat layer exposed PLAN: Patient was examined and evaluated. All findings were discussed with the patient. All questions were answered to the patient's satisfaction. Excision debridement down to and including subcutaneous tissue with a #15 blade without incident to the right heel. Predebridement measurement was 1.2 x 0.9 x 0.1 centimeter. Postdebridement measurement is 1.4 x 1.2 x 0.2 cm. EpiFix 18 mm disc was applied to the right full-thickness ulceration with 100% use. Second application. The graft site was free and clear of any infection. The wound/skin graft substitute was dressed with nonadherent bandage secured in place with Steri-Strips followed by bolster dressing as well as a double layer Tubigrip. Patient will finish her doxycycline since she has an additional week. Follow-up at the wound care center with Dr. Suh in 1 week. (2) Type 2 diabetes mellitus without complications: CODE(S): E11.9 - Type 2 diabetes mellitus without complications
== END 2023-05-20 23:59 | disposition home or self-care (01) ==
LOC: WC 13:45
PROVIDERS: PCP Family Medicine; Referring Provider Family Medicine Geriatric Medicine; Visit Provider Podiatrist Foot & Ankle Surgery
DX: E11.621 Type 2 diabetes mellitus with foot ulcer (principal); L97.412 Non-pressure chronic ulcer of right heel and midfoot with fat layer exposed; Z79.82 Long term (current) use of aspirin; E78.5 Hyperlipidemia, unspecified; R53.81 Other malaise; I10 Essential (primary) hypertension; Z79.84 Long term (current) use of oral hypoglycemic drugs
CPT/HCPCS: 11042; 15275; 87070; 87075; 87077; 87101; 87186; 87205; 99214; Q4186; G0463

== ENCOUNTER 2023-06-15 08:00 | Outpatient (RCR) | payer MEDICARE, OTHER, SELFPAY ==
[2023-05-21 00:21] VITALS: BP 113/63; PULSE 83; RESP 16; TEMP 35.8
[2023-05-26 10:28] VITALS: BP 129/69; PULSE 67; RESP 20; TEMP 36.3
--- NOTE | 2023-05-26 11:59 | PCM.WC.PN ---
History of Present Illness Date of Service: 05/26/23 Chief Complaint: Full-thickness wound right heel History of Wound: Pressure sore, right heel Subjective Subjective Ms. Sinha is a 68-year-old diabetic female presenting to the wound care center today for follow-up and evaluation of right heel ulceration secondary to pressure induced ulceration. Patient has been getting home dressing changes. She was continuing to use Santyl for every other day care. She admits her blood sugars well-controlled. She denies any drainage. Denies trauma. Denies constitutional symptoms. No other pedal complaints at this time. Objective Data Objective Data Vital Signs: Vital Signs Temp Pulse Resp BP 97.3 F L 67 20 H 129/69 H 05/26/23 10:28 05/26/23 10:28 05/26/23 10:28 05/26/23 10:28 Physical Exam Narrative Vascular: DP and PT pulses are palpable to the right lower extremity. CFT is brisk. Nonpitting edema appreciated to the right heel. Skin temperature great is warm to warm from proximal ankle to distal digits bilateral. No focal increase noted in warmth to the right heel. Blanchable erythema without proximal streaking. Neurological: Light touch and epicritic sensation is intact. Dermatological: Evidence of full-thickness ulceration appreciated to the right heel measuring 1.5 x 1.5 x 0.2 cm. Wound base is fibrogranular nature. No malodor. No probe to bone. No sign of infection. No erythema or proximal streaking. Excision debridement down to and including subcutaneous tissue with a #15 blade without incident to the right heel. Predebridement measurement was 1.3 x 1.3 x 0.1 centimeter. Postdebridement measurement is 1.5 x 1.5 x 0.2 cm. EpiFix 18 mm disc was applied to the right full-thickness ulceration with 100% use. Third application. The graft site was free and clear of any infection. The wound/skin graft substitute was dressed with nonadherent bandage secured in place with Steri-Strips followed by bolster dressing as well as a double layer Tubigrip. Musculoskeletal: Muscle strength deferred. Mild pain to palpation of the full-thickness ulceration. No pain with calf compression. Debridement Note Debridement Note Debridement Free Text: Excision debridement down to and including subcutaneous tissue with a #15 blade without incident to the right heel. Predebridement measurement was 1.3 x 1.3 x 0.1 centimeter. Postdebridement measurement is 1.5 x 1.5 x 0.2 cm. EpiFix 18 mm disc was applied to the right full-thickness ulceration with 100% use. Third application. The graft site was free and clear of any infection. The wound/skin graft substitute was dressed with nonadherent bandage secured in place with Steri-Strips followed by bolster dressing as well as a double layer Tubigrip. Post-Debridement Measurements and Additional Note: Post-Debridement Measurements/Treatment WC - Nurse 1 - General Ulcer Assessment Start: 05/26/23 10:28 Freq: Status: Active Protocol: BETZAIDA Activity Type Activity Date Activity User E-sign Co-sign Detail Recorded Client Recorded Date Recorded By Document 05/26/23 10:28 DL Desktop 05/26/23 10:34 DL 05/26/23 10:28 WC - Today's Visit Information Type of service Follow-up Visit (Physician/PRODUCTION TROUBLESHOOTER ) Arrival Mode Ambulatory Transfer Assistance None Patient Identification Verified (Name & Yes ) Patient Requires Transmission-Based No Precautions Finger Stick Blood Sugar(mg/dl) (if 127 indicated): Blood Sugar Stated by Patient Vital Signs Temperature (97.8 F-99.1 F) 97.3 F L Temperature Source Oral Pulse Rate (60-100) 67 Pulse Location Monitor Respiratory Rate (12-18) 20 H Respiratory rate source Observation Blood Pressure (90/60-120/80) 129/69 H Blood Pressure Mean (mm Hg) 89 Source Monitor History Since Last Visit- (Skip if this is Patient's initial visit) Have you changed medications since your No last visit? Any new allergies or adverse reactions No Had a fall/change in ADL's that may No increase risk of falls Signs or symptoms of abuse and/or No neglect since last visit Have you been in the hospital since your No last visit? Has dressing in place as prescribed Yes Has compression in place as prescribed N/A Has offloadiing in place as prescribed Yes Experienced any changes in pain level or No management Pain Scale: 0-10 Numeric Is Patient Pain Free? Yes - Nurse 1 - General Ulcer Measurement Start: 05/26/23 10:28 Freq: Status: Active Protocol: Activity Type Activity Date Activity User E-sign Co-sign Detail Recorded Client Recorded Date Recorded By Document 05/26/23 10:28 DL Desktop 05/26/23 10:34 DL 05/26/23 10:28 Wound Center Nurse 1 #1 RT HEEL -Current Size (cm) - Length 1.5 -Current Size (cm) - Width 1 -Current Size (cm) - Depth 0.1 -Total Square Cm 1.5 -Exudate Amt Medium -Exudate Type Serosanguineous -Wound Margin Distinct, Outline Attached -Granulation Amt Large (67-100%) -Granulation Quality Red -Necrosis Amt None Present (0 %) -Structure Exposed N/A -Texture (Amanda-wound Skin Appearance) Scarring -Moisture (Amanda-wound Skin Appearance) No Abnormality -Color (Amanda-wound Skin Appearance) No Abnormality -Temperature (Amanda-wound Skin No Abnormality Appearance) (Pt Warm) -Tenderness on Palpation (Amanda-wound No Skin Appearance) -Ulcer Cleansing Soap and Water -Foul Odor after Cleansing No -Anesthetic Used 5% Lidocaine Gel -Wound Comment(s) Assessment completed by Samira matthews WC - Nurse 2 - General Ulcer CM Notes Start: 05/26/23 10:28 Freq: Status: Active Protocol: Activity Type Activity Date Activity User E-sign Co-sign Detail Recorded Client Recorded Date Recorded By Document 05/26/23 10:47 [facility] Desktop 05/26/23 10:53 [facility] 05/26/23 10:47 Wound Center Nurse 2 -Time 10:47 -Correct Patient Yes -Correct Side, Site, Position Yes -Correct Procedure Yes -Procedure Performed Yes -Type of Procedure Debridement -Clinical Debridement Subcutaneous -Tissue Removed Subcutaneous -Post Debridement (cm) - Length 1.5 -Post Debridement (cm) - Width 1.5 -Post Debridement (cm) - Depth 0.2 -Total Square (Post) (cm) 2.25 -Area of Debridement (cm) - Length 1.5 -Area of Debridement (cm) - Width 1.5 -Total Square (Area) (cm) 2.25 -Tunneling No -Undermining/Tunneling No -Circular Undermining No -Wound/Ulcer Outcome Not Healed -Ulcer Cleansing Rinsed/ Irrigated with Saline -Foul Odor after Cleansing No -Bioengineered Tissue Yes -Type of Bioengineered Tissue Epifix 18mm Disc -Expiration Date 12/21/27 -Product Lot Number [id number] -Percent Used 100 -Lot number of Saline Used [id number] -Bleeding Controlled with Pressure -Treatment Response Procedure Tolerated Well -Offloading No -Debridement - Subq, 1st 20sq cm No -Apply Skin Sub - 1st 25 sq cm - Feet 1 -Epifix 18mm Disc 3 Pain Scale: 0-10 Numeric Is Patient Pain Free? Yes WC - Nurse 3 - General Ulcer D/C NN Start: 05/26/23 10:28 Freq: Status: Active Protocol: Activity Type Activity Date Activity User E-sign Co-sign Detail Recorded Client Recorded Date Recorded By Document 05/26/23 11:05 DL Desktop 05/26/23 11:07 DL 05/26/23 11:05 Wound Care Center Nurse 3 #1 RT HEEL -Foul Odor after Cleansing No -Other Dressing epifix -Primary Dressing Covered/Secured with Dry Gauze & Roll Gauze, Secured with Tape -Other Covering Padding to heel Treatment Response Procedure Tolerated Well Pain Scale: 0-10 Numeric Is Patient Pain Free? Yes WC - Visit Discharge Discharge Condition Stable Ambulatory Status Ambulatory Transportation Private Auto Assessment/Plan Assessment/Plan (1) Non-pressure chronic ulcer of right heel and midfoot with fat layer exposed: CODE(S): L97.412 - Non-pressure chronic ulcer of right heel and midfoot with fat layer exposed PLAN: Patient was examined and evaluated. All findings were discussed with the patient. All questions were answered to the patient's satisfaction. Excision debridement down to and including subcutaneous tissue with a #15 blade without incident to the right heel. Predebridement measurement was 1.3 x 1.3 x 0.1 centimeter. Postdebridement measurement is 1.5 x 1.5 x 0.2 cm. EpiFix 18 mm disc was applied to the right full-thickness ulceration with 100% use. Third application. The graft site was free and clear of any infection. The wound/skin graft substitute was dressed with nonadherent bandage secured in place with Steri-Strips followed by bolster dressing as well as a double layer Tubigrip. Follow-up at the wound care center with Dr. Suh in 1 week. (2) Type 2 diabetes mellitus without complications: CODE(S): E11.9 - Type 2 diabetes mellitus without complications
[2023-06-02 15:32] VITALS: BP 133/73; PULSE 68; RESP 18
--- NOTE | 2023-06-02 16:38 | PN.PCM_ITS ---
History of Present Illness Date of Service: 06/02/23 Chief Complaint: Full-thickness wound right heel History of Wound: Pressure sore, right heel Subjective Subjective Ms. Sinha is a 68-year-old diabetic female presenting to the wound care center today for follow-up and evaluation of right heel ulceration secondary to pressure induced ulceration. Patient has been getting home dressing changes. She was continuing to use Santyl for every other day care. She admits her blood sugars well-controlled. She denies any drainage. Denies trauma. Denies constitutional symptoms. No other pedal complaints at this time. Objective Data Objective Data Vital Signs: Vital Signs Temp Pulse Resp BP O2 Del Method 97.3 F L 68 18 133/73 H Room Air 05/26/23 10:28 06/02/23 15:32 06/02/23 15:32 06/02/23 15:32 06/02/23 15:32 Oxygen Delivery Method Room Air Physical Exam Narrative Vascular: DP and PT pulses are palpable to the right lower extremity. CFT is brisk. Nonpitting edema appreciated to the right heel. Skin temperature great is warm to warm from proximal ankle to distal digits bilateral. No focal increase noted in warmth to the right heel. Blanchable erythema without proximal streaking. Neurological: Light touch and epicritic sensation is intact. Dermatological: Evidence of full-thickness ulceration appreciated to the right heel measuring 1.2 x 0.8 x 0.1 cm. Wound base is fibrogranular nature. No malodor. No probe to bone. No sign of infection. No erythema or proximal streaking. Excision debridement down to and including subcutaneous tissue with a #3 mm dermal curette without incident to the right heel. Predebridement measurement was 1.0 x 0.6 x 0.1 centimeter. Postdebridement measurement is 1.2 x 0.8 x 0.0 cm. EpiFix 18 mm disc was applied to the right full-thickness ulceration with 100% use. Fourth application. The graft site was free and clear of any infection. The wound/skin graft substitute was dressed with nonadherent bandage secured in place with Steri-Strips followed by bolster dressing as well as a double layer Tubigrip. Musculoskeletal: Muscle strength deferred. Mild pain to palpation of the full- thickness ulceration. No pain with calf compression. Debridement Note Debridement Note Debridement Free Text: Excision debridement down to and including subcutaneous tissue with a #3 mm dermal curette without incident to the right heel. Predebr idement measurement was 1.0 x 0.6 x 0.1 centimeter. Postdebridement measurement is 1.2 x 0.8 x 0.0 cm. EpiFix 18 mm disc was applied to the right full-thickness ulceration with 100% use. Fourth application. The graft site was free and clear of any infection. The wound/skin graft substitute was dressed with nonadherent bandage secured in place with Steri-Strips followed by bolster dressing as well as a double layer Tubigrip. Post-Debridement Measurements and Additional Note: Post-Debridement Measurements/Treatment WC - Nurse 1 - General Ulcer Assessment Start: 05/26/23 10:28 Freq: Status: Active Protocol: BETZAIDA Activity Type Activity Date Activity User E-sign Co-sign Detail Recorded Client Recorded Date Recorded By Document 05/26/23 10:28 DL Desktop 05/26/23 10:34 DL Document 06/02/23 15:32 KW Desktop 06/02/23 15:39 KW 05/26/23 06/02/23 10:28 15:32 WC - Today's Visit Information Type of service Follow-up Visit Follow-up Visit (Physician/ADVERTISING SALES CONSULTANT (Physician/ADVERTISING SALES CONSULTANT ) ) Arrival Mode Ambulatory Ambulatory Transfer Assistance None Accompanied by Patient Identification Verified (Name & Yes Yes ) Patient Requires Transmission-Based No Precautions Finger Stick Blood Sugar(mg/dl) (if 127 indicated): Blood Sugar Stated by Patient Vital Signs Temperature (97.8 F-99.1 F) 97.3 F L Temperature Source Oral Pulse Rate (60-100) 67 68 Pulse Location Monitor Monitor Respiratory Rate (12-18) 20 H 18 Respiratory rate source Observation Observation Oxygen Delivery Method Room Air Blood Pressure (90/60-120/80) 129/69 H 133/73 H Blood Pressure Mean (mm Hg) 89 93 Source Monitor Monitor Position Semi-Fowlers Blood Pressure Location Left Arm History Since Last Visit- (Skip if this is Patient's initial visit) Have you changed medications since your No No last visit? Any new allergies or adverse reactions No No Had a fall/change in ADL's that may No No increase risk of falls Signs or symptoms of abuse and/or No No neglect since last visit Have you been in the hospital since your No No last visit? Has dressing in place as prescribed Yes Yes Has compression in place as prescribed N/A N/A Has offloadiing in place as prescribed Yes N/A Experienced any changes in pain level or No No management Left Footwear Regular Shoe Right Footwear Regular Shoe Pain Scale: 0-10 Numeric Is Patient Pain Free? Yes Yes PILAR - Nurse 1 - General Ulcer Measurement Start: 05/26/23 10:28 Freq: Status: Active Protocol: Activity Type Activity Date Activity User E-sign Co-sign Detail Recorded Client Recorded Date Recorded By Document 05/26/23 10:28 DL Desktop 05/26/23 10:34 DL Document 06/02/23 15:32 KW Desktop 06/02/23 15:39 KW 05/26/23 06/02/23 10:28 15:32 Wound Center Nurse 1 #1 RT HEEL -Current Size (cm) - Length 1.5 0.7 -Current Size (cm) - Width 1 0.9 -Current Size (cm) - Depth 0.1 0.2 -Total Square Cm 1.5 0.63 -Exudate Amt Medium Medium -Exudate Type Serosanguineous Serosanguineous -Wound Margin Distinct, Distinct, Outline Outline Attached Attached -Granulation Amt Large (67-100%) Large (67-100%) -Granulation Quality Red Red -Necrosis Amt None Present (0 Small (1-33%) %) -Necrotic Tissue Type Adherent Slough -Structure Exposed N/A -Texture (Amanda-wound Skin Appearance) Scarring Assessed -Moisture (Amanda-wound Skin Appearance) No Abnormality Assessed -Color (Amanda-wound Skin Appearance) No Abnormality Assessed -Temperature (Amanda-wound Skin No Abnormality Appearance) (Pt Warm) -Tenderness on Palpation (Amanda-wound No Skin Appearance) -Ulcer Cleansing Soap and Water Soap and Water -Foul Odor after Cleansing No -Anesthetic Used 5% Lidocaine 5% Lidocaine Gel Gel -Wound Comment(s) Assessment completed by Samira QUEZADA - Nurse 2 - General Ulcer CM Notes Start: 05/26/23 10:28 Freq: Status: Active Protocol: Activity Type Activity Date Activity User E-sign Co-sign Detail Recorded Client Recorded Date Recorded By Document 05/26/23 10:47 BMF Desktop 05/26/23 10:53 [facility] Document 06/02/23 15:59 JF Laptop 06/02/23 16:04 JF 05/26/23 06/02/23 10:47 15:59 Wound Center Nurse 2 #1 RT HEEL -Time 10:47 16:00 -Correct Patient Yes Yes -Correct Side, Site, Position Yes Yes -Correct Procedure Yes Yes -Procedure Performed Yes Yes -Type of Procedure Debridement Debridement -Clinical Debridement Subcutaneous Subcutaneous -Tissue Removed Subcutaneous Subcutaneous -Post Debridement (cm) - Length 1.5 -Post Debridement (cm) - Width 1.5 -Post Debridement (cm) - Depth 0.2 -Total Square (Post) (cm) 2.25 -Area of Debridement (cm) - Length 1.5 -Area of Debridement (cm) - Width 1.5 -Total Square (Area) (cm) 2.25 -Tunneling No No -Undermining/Tunneling No No -Circular Undermining No No -Wound/Ulcer Outcome Not Healed Not Healed -Ulcer Cleansing Rinsed/ Rinsed/ Irrigated with Irrigated with Saline Saline -Foul Odor after Cleansing No No -Bioengineered Tissue Yes Yes -Type of Bioengineered Tissue Epifix 18mm Epifix 18mm Disc Disc -Expiration Date 12/21/27 01/21/28 -Product Lot Number [id number] -Percent Used 100 100 -Lot number of Saline Used [id number] -Bleeding Controlled with Pressure Pressure -Treatment Response Procedure Procedure Tolerated Well Tolerated Well -Offloading No No -Debridement - Subq, 1st 20sq cm No No -Apply Skin Sub - 1st 25 sq cm - Feet 1 1 -Epifix 18mm Disc 3 3 Pain Scale: 0-10 Numeric Is Patient Pain Free? Yes Yes WC - Nurse 3 - General Ulcer D/C NN Start: 05/26/23 10:28 Freq: Status: Active Protocol: Activity Type Activity Date Activity User E-sign Co-sign Detail Recorded Client Recorded Date Recorded By Document 05/26/23 11:05 DL Desktop 05/26/23 11:07 DL Document 06/02/23 16:07 KW Desktop 06/02/23 16:08 KW 05/26/23 06/02/23 11:05 16:07 Wound Care Center Nurse 3 #1 RT HEEL -Foul Odor after Cleansing No -Other Dressing epifix -Primary Dressing Covered/Secured with Dry Gauze & Dry Gauze & Roll Gauze, Roll Gauze, Secured with Secured with Tape Tape -Other Covering Padding to heel Treatment Response Procedure Tolerated Well Pain Scale: 0-10 Numeric Is Patient Pain Free? Yes Yes WC - Visit Discharge Discharge Condition Stable Stable Ambulatory Status Ambulatory Ambulatory Transportation Private Auto Private Auto Medication Reconcilliation completed & No provided to patient/care provider Clinical Summary of Care Provided Yes Assessment/Plan Assessment/Plan (1) Non-pressure chronic ulcer of right heel and midfoot with fat layer exposed: CODE(S): L97.412 - Non-pressure chronic ulcer of right heel and midfoot with fat layer exposed PLAN: Patient was examined and evaluated. All findings were discussed with the patient. All questions were answered to the patient's satisfaction. Excision debridement down to and including subcutaneous tissue with a #3 mm dermal curette without incident to the right heel. Predebridement measurement was 1.0 x 0.6 x 0.1 centimeter. Postdebridement measurement is 1.2 x 0.8 x 0.0 cm. EpiFix 18 mm disc was applied to the right full-thickness ulceration with 100% use. Fourth application. The graft site was free and clear of any infection. The wound/skin graft substitute was dressed with nonadherent bandage secured in place with Steri-Strips followed by bolster dressing as well as a double layer Tubigrip. Follow-up at the wound care center with Dr. Suh in 1 week. (2) Type 2 diabetes mellitus without complications: CODE(S): E11.9 - Type 2 diabetes mellitus without complications
[2023-06-09 11:34] VITALS: BP 114/66; PULSE 72; RESP 16; TEMP 35.9
--- NOTE | 2023-06-09 13:20 | PCM.WC.PN ---
History of Present Illness Date of Service: 06/09/23 Chief Complaint: Full-thickness wound right heel History of Wound: Pressure sore, right heel Subjective Subjective Ms. Sinha is a 68-year-old diabetic female presenting to the wound care center today for follow-up and evaluation of right heel ulceration secondary to pressure induced ulceration. Patient has been getting home dressing changes. She was continuing to use Santyl for every other day care. She admits her blood sugars well-controlled. She denies any drainage. Denies trauma. Denies constitutional symptoms. No other pedal complaints at this time. Objective Data Objective Data Vital Signs: Vital Signs Temp Pulse Resp BP O2 Del Method 96.7 F L 72 16 114/66 Room Air 06/09/23 11:34 06/09/23 11:34 06/09/23 11:34 06/09/23 11:34 06/09/23 11:34 Oxygen Delivery Method Room Air Physical Exam Narrative Vascular: DP and PT pulses are palpable to the right lower extremity. CFT is brisk. Nonpitting edema appreciated to the right heel. Skin temperature great is warm to warm from proximal ankle to distal digits bilateral. No focal increase noted in warmth to the right heel. Blanchable erythema without proximal streaking. Neurological: Light touch and epicritic sensation is intact. Dermatological: Evidence of full-thickness ulceration appreciated to the right heel measuring 1.1 x 0.6 x 0.1 cm. Wound base is fibrogranular nature. No malodor. No probe to bone. No sign of infection. No erythema or proximal streaking. Excision debridement down to and including subcutaneous tissue with a #3 mm dermal curette without incident to the right heel. Predebridement measurement was 0.8 x 0.5 x 0.1 centimeter. Postdebridement measurement is 1.1 x 0.6 x 0.1 cm. EpiFix 18 mm disc was applied to the right full-thickness ulceration with 100% use. Fifth application. The graft site was free and clear of any infection. The wound/skin graft substitute was dressed with nonadherent bandage secured in place with Steri-Strips followed by bolster dressing as well as a double layer Tubigrip. Musculoskeletal: Muscle strength deferred. Mild pain to palpation of the full-thickness ulceration. No pain with calf compression. Debridement Note Debridement Note Debridement Free Text: Excision debridement down to and including subcutaneous tissue with a #3 mm dermal curette without incident to the right heel. Predebridement measurement was 0.8 x 0.5 x 0.1 centimeter. Postdebridement measurement is 1.1 x 0.6 x 0.1 cm. EpiFix 18 mm disc was applied to the right full-thickness ulceration with 100% use. Fifth application. The graft site was free and clear of any infection. The wound/skin graft substitute was dressed with nonadherent bandage secured in place with Steri-Strips followed by bolster dressing as well as a double layer Tubigrip. Post-Debridement Measurements and Additional Note: Post-Debridement Measurements/Treatment - Nurse 1 - General Ulcer Assessment Start: 05/26/23 10:28 Freq: Status: Active Protocol: BETZAIDA Activity Type Activity Date Activity User E-sign Co-sign Detail Recorded Client Recorded Date Recorded By Document 05/26/23 10:28 DL Desktop 05/26/23 10:34 DL Document 06/02/23 15:32 KW Desktop 06/02/23 15:39 KW Document 06/09/23 11:34 GM Desktop 06/09/23 11:36 GM 05/26/23 06/02/23 06/09/23 10:28 15:32 11:34 - Today's Visit Information Type of service Follow-up Visit Follow-up Visit Follow-up Visit (Physician/INDUSTRIAL MAINTENANCE MECHANIC (Physician/INDUSTRIAL MAINTENANCE MECHANIC (Physician/INDUSTRIAL MAINTENANCE MECHANIC ) ) ) Arrival Mode Ambulatory Ambulatory Ambulatory Transfer Assistance None None Accompanied by spouse Patient Identification Verified (Name & Yes Yes Yes ) Patient Requires Transmission-Based No No Precautions Finger Stick Blood Sugar(mg/dl) (if 127 indicated): Blood Sugar Stated by Patient Vital Signs Temperature (97.8 F-99.1 F) 97.3 F L 96.7 F L Temperature Source Oral Temporal Pulse Rate (60-100) 67 68 72 Pulse Location Monitor Monitor Monitor Respiratory Rate (12-18) 20 H 18 16 Respiratory rate source Observation Observation Observation Oxygen Delivery Method Room Air Room Air Blood Pressure (90/60-120/80) 129/69 H 133/73 H 114/66 Blood Pressure Mean (mm Hg) 89 93 82 Source Monitor Monitor Monitor Position Semi-Fowlers Sitting Blood Pressure Location Left Arm Right Arm History Since Last Visit- (Skip if this is Patient's initial visit) Have you changed medications since your No No No last visit? Any new allergies or adverse reactions No No No Had a fall/change in ADL's that may No No No increase risk of falls Signs or symptoms of abuse and/or No No No neglect since last visit Have you been in the hospital since your No No No last visit? Has dressing in place as prescribed Yes Yes Yes Has compression in place as prescribed N/A N/A N/A Has offloadiing in place as prescribed Yes N/A Yes Experienced any changes in pain level or No No No management Left Footwear Regular Shoe Regular Shoe Right Footwear Regular Shoe Regular Shoe Pain Scale: 0-10 Numeric Is Patient Pain Free? Yes Yes Yes WC - Nurse 1 - General Ulcer Measurement Start: 05/26/23 10:28 Freq: Status: Active Protocol: Activity Type Activity Date Activity User E-sign Co-sign Detail Recorded Client Recorded Date Recorded By Document 05/26/23 10:28 DL [employer] 05/26/23 10:34 DL Document 06/02/23 15:32 KW Desktop 06/02/23 15:39 KW Document 06/09/23 11:34 GM Desktop 06/09/23 11:36 GM 05/26/23 06/02/23 06/09/23 10:28 15:32 11:34 Wound Center Nurse 1 #1 RT HEEL -Current Size (cm) - Length 1.5 0.7 1.2 -Current Size (cm) - Width 1 0.9 1 -Current Size (cm) - Depth 0.1 0.2 0.1 -Total Square Cm 1.5 0.63 1.2 -Date of Last Picture (Recall this 06/09/23 field) -Photo Taken Yes -Epithelialization Small 1-33% -Tunneling No -Undermining/Tunneling No -Circular Undermining No -Exudate Amt Medium Medium None Present -Exudate Type Serosanguineous Serosanguineous Serosanguineous -Wound Margin Distinct, Distinct, Distinct, Outline Outline Outline Attached Attached Attached -Granulation Amt Large (67-100%) Large (67-100%) Medium (34-66%) -Granulation Quality Red Red Red -Slough/Fibrin Yes -Necrosis Amt None Present (0 Small (1-33%) %) -Necrotic Tissue Type Adherent Slough Adherent Slough -Structure Exposed N/A N/A -Texture (Amanda-wound Skin Appearance) Scarring Assessed Assessed -Moisture (Amanda-wound Skin Appearance) No Abnormality Assessed Assessed -Color (Amanda-wound Skin Appearance) No Abnormality Assessed Assessed -Temperature (Amanda-wound Skin No Abnormality No Abnormality Appearance) (Pt Warm) (Pt Warm) -Tenderness on Palpation (Amanda-wound No Skin Appearance) -Ulcer Cleansing Soap and Water Soap and Water Soap and Water -Foul Odor after Cleansing No No -Anesthetic Used 5% Lidocaine 5% Lidocaine 5% Lidocaine Gel Gel Gel -Wound Comment(s) Assessment completed by Samira matthews WC - Nurse 2 - General Ulcer CM Notes Start: 05/26/23 10:28 Freq: Status: Active Protocol: Activity Type Activity Date Activity User E-sign Co-sign Detail Recorded Client Recorded Date Recorded By Document 05/26/23 10:47 [employer] Desktop 05/26/23 10:53 [facility] Document 06/02/23 15:59 Laptop 06/02/23 16:04 Document 06/09/23 11:46 Laptop 06/09/23 11:53 Edit Result 06/09/23 11:46 JF (1) Laptop 06/09/23 11:54 JF (1) #1 RT HEEL - Post Debridement (cm) - Length => 1.1 - Post Debridement (cm) - Width => 0.6 - Post Debridement (cm) - Depth => 0.1 - Total Square (Post) (cm) => 0.66 - Area of Debridement (cm) - Length => 1.1 - Area of Debridement (cm) - Width => 0.6 - Total Square (Area) (cm) => 0.66 05/26/23 06/02/23 06/09/23 10:47 15:59 11:46 Wound Center Nurse 2 #1 RT HEEL -Time 10:47 16:00 11:47 -Correct Patient Yes Yes Yes -Correct Side, Site, Position Yes Yes Yes -Correct Procedure Yes Yes Yes -Procedure Performed Yes Yes Yes -Type of Procedure Debridement Debridement Debridement -Clinical Debridement Subcutaneous Subcutaneous Subcutaneous -Tissue Removed Subcutaneous Subcutaneous Subcutaneous -Post Debridement (cm) - Length 1.5 1.1 -Post Debridement (cm) - Width 1.5 0.6 -Post Debridement (cm) - Depth 0.2 0.1 -Total Square (Post) (cm) 2.25 0.66 -Area of Debridement (cm) - Length 1.5 1.1 -Area of Debridement (cm) - Width 1.5 0.6 -Total Square (Area) (cm) 2.25 0.66 -Tunneling No No No -Undermining/Tunneling No No No -Circular Undermining No No No -Wound/Ulcer Outcome Not Healed Not Healed Not Healed -Ulcer Cleansing Rinsed/ Rinsed/ Rinsed/ Irrigated with Irrigated with Irrigated with Saline Saline Saline -Foul Odor after Cleansing No No No -Bioengineered Tissue Yes Yes Yes -Type of Bioengineered Tissue Epifix 18mm Epifix 18mm Epifix 18mm Disc Disc Disc -Expiration Date 12/21/27 01/21/28 01/21/28 -Product Lot Number [id number] -Percent Used 100 100 100 -Lot number of Saline Used [id number] -Bleeding Controlled with Pressure Pressure Pressure -Treatment Response Procedure Procedure Procedure Tolerated Well Tolerated Well Tolerated Well -Offloading No No No -Debridement - Subq, 1st 20sq cm No No No -Apply Skin Sub - 1st 25 sq cm - Feet 1 1 1 -Epifix 18mm Disc 3 3 3 Pain Scale: 0-10 Numeric Is Patient Pain Free? Yes Yes Yes WC - Nurse 3 - General Ulcer D/C NN Start: 05/26/23 10:28 Freq: Status: Active Protocol: Activity Type Activity Date Activity User E-sign Co-sign Detail Recorded Client Recorded Date Recorded By Document 05/26/23 11:05 DL Desktop 05/26/23 11:07 DL Document 06/02/23 16:07 KW Desktop 06/02/23 16:08 KW Document 06/09/23 11:59 GM Desktop 06/09/23 12:02 05/26/23 06/02/23 06/09/23 11:05 16:07 11:59 Wound Care Center Nurse 3 #1 RT HEEL -Ulcer Cleansing Not Cleansed -Foul Odor after Cleansing No No -Negative Pressure is Intermittent -Other Dressing epifix -Primary Dressing Covered/Secured with Dry Gauze & Dry Gauze & Dry Gauze & Roll Gauze, Roll Gauze, Roll Gauze, Secured with Secured with Secured with Tape Tape Tape -Other Covering Padding to heel Treatment Response Procedure Tolerated Well Pain Scale: 0-10 Numeric Is Patient Pain Free? Yes Yes Yes Teaching: Wound Center Eliminating Foot Pressure -Person Taught Patient -Teaching Method Discussion -Response to teaching Verbalize understanding WC - Visit Discharge Discharge Condition Stable Stable Stable Ambulatory Status Ambulatory Ambulatory Ambulatory Transportation Private Auto Private Auto Private Auto Accompanied by Medication Reconcilliation completed & No Yes provided to patient/care provider Clinical Summary of Care Provided Yes Yes Assessment/Plan Assessment/Plan (1) Non-pressure chronic ulcer of right heel and midfoot with fat layer exposed: CODE(S): L97.412 - Non-pressure chronic ulcer of right heel and midfoot with fat layer exposed PLAN: Patient was examined and evaluated. All findings were discussed with the patient. All questions were answered to the patient's satisfaction. Excision debridement down to and including subcutaneous tissue with a #3 mm dermal curette without incident to the right heel. Predebridement measurement was 0.8 x 0.5 x 0.1 centimeter. Postdebridement measurement is 1.1 x 0.6 x 0.1 cm. EpiFix 18 mm disc was applied to the right full-thickness ulceration with 100% use. Fifth application. The graft site was free and clear of any infection. The wound/skin graft substitute was dressed with nonadherent bandage secured in place with Steri-Strips followed by bolster dressing as well as a double layer Tubigrip. Follow-up at the wound care center with Dr. Matias in [address] return to Dr. Suh on week 2. (2) Type 2 diabetes mellitus without complications: CODE(S): E11.9 - Type 2 diabetes mellitus without complications
[2023-06-15 08:10] VITALS: BP 120/70; PULSE 81; RESP 18; TEMP 35.8
--- NOTE | 2023-06-15 09:06 | PN.PCM_ITS ---
History of Present Illness Date of Service: 06/15/23 Chief Complaint: Full-thickness wound right heel History of Wound: Pressure sore, right heel Progress of Wound: Presents today denies constitutional symptoms. Denies pain. Compliant with offloading dressing changes at current. No new complaints. Objective Data Objective Data Vital Signs: Vital Signs Temp Pulse Resp BP O2 Del Method 96.5 F L 81 18 120/70 Room Air 06/15/23 08:10 06/15/23 08:10 06/15/23 08:10 06/15/23 08:10 06/09/23 11:34 Oxygen Delivery Method Room Air Physical Exam Narrative Vascular: DP and PT pulses are palpable to the right lower extremity. CFT is brisk. Nonpitting edema appreciated to the right heel. Skin temperature great is warm to warm from proximal ankle to distal digits bilateral. No focal increase noted in warmth to the right heel. Blanchable erythema without proximal streaking. Neurological: Light touch and epicritic sensation is intact. Dermatological: Full-thickness wound to posterior right heel. Postdebridement wound demonstrated clean granular base with clean skin edges no deep probing undermining or signs of infection. Pre and postdebridement measurements documented nursing notes. Musculoskeletal: Muscle strength deferred. Mild pain to palpation of the full- thickness ulceration. No pain with calf compression. Debridement Note Debridement Note Post-Debridement Measurements and Additional Note: Post-Debridement Measurements/Treatment [facility] Nurse 1 - General Ulcer Assessment Start: 05/26/23 10:28 Freq: Status: Active Protocol: [email or web address] Activity Type Activity Date Activity User E-sign Co-sign Detail Recorded Client Recorded Date Recorded By Document 05/26/23 10:28 DL Desktop 05/26/23 10:34 DL Document 06/02/23 15:32 KW Desktop 06/02/23 15:39 KW Document 06/09/23 11:34 GM Desktop 06/09/23 11:36 GM Document 06/15/23 08:10 DL Desktop 06/15/23 08:15 DL 05/26/23 06/02/23 06/09/23 10:28 15:32 11:34 - Today's Visit Information Type of service Follow-up Visit Follow-up Visit Follow-up Visit (Physician/WATER RESOURCES BUSINESS SEGMENT LEADER (Physician/WATER RESOURCES BUSINESS SEGMENT LEADER (Physician/WATER RESOURCES BUSINESS SEGMENT LEADER ) ) ) Arrival Mode Ambulatory Ambulatory Ambulatory Transfer Assistance None None Accompanied by spouse Patient Identification Verified (Name & Yes Yes Yes ) Patient Requires Transmission-Based No No Precautions Finger Stick Blood Sugar(mg/dl) (if 127 indicated): Blood Sugar Stated by Patient Vital Signs Temperature (97.8 F-99.1 F) 97.3 F L 96.7 F L Temperature Source Oral Temporal Pulse Rate (60-100) 67 68 72 Pulse Location Monitor Monitor Monitor Respiratory Rate (12-18) 20 H 18 16 Respiratory rate source Observation Observation Observation Oxygen Delivery Method Room Air Room Air Blood Pressure (90/60-120/80) 129/69 H 133/73 H 114/66 Blood Pressure Mean (mm Hg) 89 93 82 Source Monitor Monitor Monitor Position Semi-Fowlers Sitting Blood Pressure Location Left Arm Right Arm History Since Last Visit- (Skip if this is Patient's initial visit) Have you changed medications since your No No No last visit? Any new allergies or adverse reactions No No No Had a fall/change in ADL's that may No No No increase risk of falls Signs or symptoms of abuse and/or No No No neglect since last visit Have you been in the hospital since your No No No last visit? Has dressing in place as prescribed Yes Yes Yes Has compression in place as prescribed N/A N/A N/A Has offloadiing in place as prescribed Yes N/A Yes Experienced any changes in pain level or No No No management Left Footwear Regular Shoe Regular Shoe Right Footwear Regular Shoe Regular Shoe Pain Scale: 0-10 Numeric Is Patient Pain Free? Yes Yes Yes 06/15/23 08:10 WC - Today's Visit Information Type of service Follow-up Visit (Physician/WATER RESOURCES BUSINESS SEGMENT LEADER ) Arrival Mode Ambulatory Transfer Assistance None Accompanied by Patient Identification Verified (Name & Yes ) Patient Requires Transmission-Based No Precautions Finger Stick Blood Sugar(mg/dl) (if not checked indicated): Blood Sugar Stated by Patient Vital Signs Temperature (97.8 F-99.1 F) 96.5 F L Temperature Source Temporal Pulse Rate (60-100) 81 Pulse Location Monitor Respiratory Rate (12-18) 18 Respiratory rate source Observation Oxygen Delivery Method Blood Pressure (90/60-120/80) 120/70 Blood Pressure Mean (mm Hg) 86 Source Monitor Position Blood Pressure Location History Since Last Visit- (Skip if this is Patient's initial visit) Have you changed medications since your No last visit? Any new allergies or adverse reactions No Had a fall/change in ADL's that may No increase risk of falls Signs or symptoms of abuse and/or No neglect since last visit Have you been in the hospital since your No last visit? Has dressing in place as prescribed Yes Has compression in place as prescribed N/A Has offloadiing in place as prescribed Yes Experienced any changes in pain level or No management Left Footwear Regular Shoe Right Footwear Regular Shoe Pain Scale: 0-10 Numeric Is Patient Pain Free? Yes WC - Nurse 1 - General Ulcer Measurement Start: 05/26/23 10:28 Freq: Status: Active Protocol: Activity Type Activity Date Activity User E-sign Co-sign Detail Recorded Client Recorded Date Recorded By Document 05/26/23 10:28 DL Desktop 05/26/23 10:34 DL Document 06/02/23 15:32 KW Desktop 06/02/23 15:39 KW Document 06/09/23 11:34 GM Desktop 06/09/23 11:36 GM Document 06/15/23 08:10 DL Desktop 06/15/23 08:15 DL 05/26/23 06/02/23 06/09/23 10:28 15:32 11:34 Wound Center Nurse 1 #1 RT HEEL -Current Size (cm) - Length 1.5 0.7 1.2 -Current Size (cm) - Width 1 0.9 1 -Current Size (cm) - Depth 0.1 0.2 0.1 -Total Square Cm 1.5 0.63 1.2 -Date of Last Picture (Recall this 06/09/23 field) -Photo Taken Yes -Epithelialization Small 1-33% -Tunneling No -Undermining/Tunneling No -Circular Undermining No -Exudate Amt Medium Medium None Present -Exudate Type Serosanguineous Serosanguineous Serosanguineous -Wound Margin Distinct, Distinct, Distinct, Outline Outline Outline Attached Attached Attached -Granulation Amt Large (67-100%) Large (67-100%) Medium (34-66%) -Granulation Quality Red Red Red -Slough/Fibrin Yes -Necrosis Amt None Present (0 Small (1-33%) %) -Necrotic Tissue Type Adherent Slough Adherent Slough -Structure Exposed N/A N/A -Texture (Amanda-wound Skin Appearance) Scarring Assessed Assessed -Moisture (Amanda-wound Skin Appearance) No Abnormality Assessed Assessed -Color (Amanda-wound Skin Appearance) No Abnormality Assessed Assessed -Temperature (Amanda-wound Skin No Abnormality No Abnormality Appearance) (Pt Warm) (Pt Warm) -Tenderness on Palpation (Amanda-wound No Skin Appearance) -Ulcer Cleansing Soap and Water Soap and Water Soap and Water -Foul Odor after Cleansing No No -Anesthetic Used 5% Lidocaine 5% Lidocaine 5% Lidocaine Gel Gel Gel -Wound Comment(s) Assessment completed by Samira [email or web address] 06/15/23 08:10 Wound Center Nurse 1 #1 RT HEEL -Current Size (cm) - Length 0.1 -Current Size (cm) - Width 0.1 -Current Size (cm) - Depth 0.1 -Total Square Cm 0.01 -Date of Last Picture (Recall this field) -Photo Taken -Epithelialization -Tunneling -Undermining/Tunneling -Circular Undermining -Exudate Amt None Present -Exudate Type Serosanguineous -Wound Margin Thickened -Granulation Amt None Present (0 %) -Granulation Quality -Slough/Fibrin -Necrosis Amt Large (67-100%) -Necrotic Tissue Type Eschar -Structure Exposed N/A -Texture (Amanda-wound Skin Appearance) Scarring -Moisture (Amanda-wound Skin Appearance) Dry/Scaly -Color (Amanda-wound Skin Appearance) No Abnormality -Temperature (Amanda-wound Skin Appearance) -Tenderness on Palpation (Amanda-wound Skin Appearance) -Ulcer Cleansing Soap and Water -Foul Odor after Cleansing No -Anesthetic Used 5% Lidocaine Gel -Wound Comment(s) - Nurse 2 - General Ulcer CM Notes Start: 05/26/23 10:28 Freq: Status: Active Protocol: Activity Type Activity Date Activity User E-sign Co-sign Detail Recorded Client Recorded Date Recorded By Document 05/26/23 10:47 [facility] Desktop 05/26/23 10:53 [facility] Document 06/02/23 15:59 JF Laptop 06/02/23 16:04 Document 06/09/23 11:46 JF Laptop 06/09/23 11:53 JF Edit Result 06/09/23 11:46 (1) Laptop 06/09/23 11:54 JF Document 06/15/23 08:23 MW Desktop 06/15/23 08:28 MW (1) #1 RT HEEL - Post Debridement (cm) - Length => 1.1 - Post Debridement (cm) - Width => 0.6 - Post Debridement (cm) - Depth => 0.1 - Total Square (Post) (cm) => 0.66 - Area of Debridement (cm) - Length => 1.1 - Area of Debridement (cm) - Width => 0.6 - Total Square (Area) (cm) => 0.66 05/26/23 06/02/23 06/09/23 10:47 15:59 11:46 Wound Center Nurse 2 #1 RT HEEL -Time 10:47 16:00 11:47 -Correct Patient Yes Yes Yes -Correct Side, Site, Position Yes Yes Yes -Correct Procedure Yes Yes Yes -Procedure Performed Yes Yes Yes -Type of Procedure Debridement Debridement Debridement -Clinical Debridement Subcutaneous Subcutaneous Subcutaneous -Tissue Removed Subcutaneous Subcutaneous Subcutaneous -Post Debridement (cm) - Length 1.5 1.1 -Post Debridement (cm) - Width 1.5 0.6 -Post Debridement (cm) - Depth 0.2 0.1 -Total Square (Post) (cm) 2.25 0.66 -Area of Debridement (cm) - Length 1.5 1.1 -Area of Debridement (cm) - Width 1.5 0.6 -Total Square (Area) (cm) 2.25 0.66 -Tunneling No No No -Undermining/Tunneling No No No -Circular Undermining No No No -Wound/Ulcer Outcome Not Healed Not Healed Not Healed -Ulcer Cleansing Rinsed/ Rinsed/ Rinsed/ Irrigated with Irrigated with Irrigated with Saline Saline Saline -Foul Odor after Cleansing No No No -Bioengineered Tissue Yes Yes Yes -Type of Bioengineered Tissue Epifix 18mm Epifix 18mm Epifix 18mm Disc Disc Disc -Expiration Date 12/21/27 01/21/28 01/21/28 -Product Lot Number [id number] -Percent Used 100 100 100 -Lot number of Saline Used [id number] -Bleeding Controlled with Pressure Pressure Pressure -Treatment Response Procedure Procedure Procedure Tolerated Well Tolerated Well Tolerated Well -Offloading No No No -Debridement - Subq, 1st 20sq cm No No No -Apply Skin Sub - 1st 25 sq cm - Feet 1 1 1 -Epifix 18mm Disc 3 3 3 Pain Scale: 0-10 Numeric Is Patient Pain Free? Yes Yes Yes 06/15/23 08:23 Wound Center Nurse 2 #1 RT HEEL -Time 08:24 -Correct Patient Yes -Correct Side, Site, Position Yes -Correct Procedure Yes -Procedure Performed Yes -Type of Procedure Debridement -Clinical Debridement Subcutaneous -Tissue Removed Subcutaneous -Post Debridement (cm) - Length 0.8 -Post Debridement (cm) - Width 0.7 -Post Debridement (cm) - Depth 0.1 -Total Square (Post) (cm) 0.56 -Area of Debridement (cm) - Length 0.8 -Area of Debridement (cm) - Width 0.7 -Total Square (Area) (cm) 0.56 -Tunneling No -Undermining/Tunneling No -Circular Undermining No -Wound/Ulcer Outcome Not Healed -Ulcer Cleansing Rinsed/ Irrigated with Saline -Foul Odor after Cleansing No -Bioengineered Tissue Yes -Type of Bioengineered Tissue Epifix 18mm Disc -Expiration Date 01/21/28 -Product Lot Number [id number] -Percent Used 100 -Lot number of Saline Used [id number] -Bleeding Controlled with Pressure -Treatment Response Procedure Tolerated Well -Offloading No -Debridement - Subq, 1st 20sq cm No -Apply Skin Sub - 1st 25 sq cm - Feet 1 -Epifix 18mm Disc 3 Pain Scale: 0-10 Numeric Is Patient Pain Free? Yes - Nurse 3 - General Ulcer D/C NN Start: 05/26/23 10:28 Freq: Status: Active Protocol: Activity Type Activity Date Activity User E-sign Co-sign Detail Recorded Client Recorded Date Recorded By Document 05/26/23 11:05 DL Desktop 05/26/23 11:07 DL Document 06/02/23 16:07 KW Desktop 06/02/23 16:08 KW Document 06/09/23 11:59 GM Desktop 06/09/23 12:02 GM Document 06/15/23 08:34 KW Desktop 06/15/23 08:34 KW 05/26/23 06/02/23 06/09/23 11:05 16:07 11:59 Wound Care Center Nurse 3 #1 RT HEEL -Ulcer Cleansing Not Cleansed -Foul Odor after Cleansing No No -Negative Pressure is Intermittent -Other Dressing epifix -Primary Dressing Covered/Secured with Dry Gauze & Dry Gauze & Dry Gauze & Roll Gauze, Roll Gauze, Roll Gauze, Secured with Secured with Secured with Tape Tape Tape -Other Covering Padding to heel Treatment Response Procedure Tolerated Well Pain Scale: 0-10 Numeric Is Patient Pain Free? Yes Yes Yes Teaching: Wound Center Eliminating Foot Pressure -Person Taught Patient -Teaching Method Discussion -Response to teaching Verbalize understanding WC - Visit Discharge Discharge Condition Stable Stable Stable Ambulatory Status Ambulatory Ambulatory Ambulatory Transportation Private Auto Private Auto Private Auto Accompanied by Medication Reconcilliation completed & No Yes provided to patient/care provider Clinical Summary of Care Provided Yes Yes 06/15/23 08:34 Wound Care Center Nurse 3 #1 RT HEEL -Ulcer Cleansing -Foul Odor after Cleansing -Negative Pressure is -Other Dressing -Primary Dressing Covered/Secured with Dry Gauze & Roll Gauze, Secured with Tape -Other Covering Treatment Response Pain Scale: 0-10 Numeric Is Patient Pain Free? Yes Teaching: Wound Center Eliminating Foot Pressure -Person Taught -Teaching Method -Response to teaching WC - Visit Discharge Discharge Condition Stable Ambulatory Status Ambulatory Transportation Private Auto Accompanied by Medication Reconcilliation completed & No provided to patient/care provider Clinical Summary of Care Provided Yes Assessment/Plan Assessment/Plan (1) Non-pressure chronic ulcer of right heel and midfoot with fat layer exposed: CODE(S): L97.412 - Non-pressure chronic ulcer of right heel and midfoot with fat layer exposed PLAN: Patient was examined and evaluated. All findings were discussed with the patient. All questions were answered to the patient's satisfaction. Excisional debridement of right posterior heel wound was performed down to including level of subcutaneous tissue using a #15 blade without incident. Patient tolerated procedure well.. Hemostasis obtained with light compression. Topical anesthesia used. Pre and postdebridement measurements documented nursing notes. EpiFix 18 mm disc was applied to the right full-thickness ulceration with 100% use, entire graft used. Fifth application. The graft site was free and clear of any infection. The wound/skin graft substitute was dressed with nonadherent bandage secured in place with Steri-Strips followed by bolster dressing as well as a double layer Tubigrip. Follow-up in [address] Suh Discussed heel float to offload right heel to prevent any pressure that may delay healing when resting in supine position (2) Type 2 diabetes mellitus without complications: CODE(S): E11.9 - Type 2 diabetes mellitus without complications
== END 2023-06-20 23:59 | disposition home or self-care (01) ==
LOC: WC 08:00
PROVIDERS: PCP Family Medicine; Referring Provider Family Medicine Geriatric Medicine; Visit Provider Podiatrist Foot & Ankle Surgery
DX: E11.621 Type 2 diabetes mellitus with foot ulcer (principal); L97.412 Non-pressure chronic ulcer of right heel and midfoot with fat layer exposed
CPT/HCPCS: 15275; Q4186

== ENCOUNTER 2023-07-14 13:45 | Outpatient (RCR) | payer MEDICARE, OTHER, SELFPAY ==
[2023-06-21 00:41] VITALS: BP 120/70; PULSE 81; RESP 18; TEMP 35.8
--- NOTE | 2023-06-23 11:26 | PN.PCM_ITS ---
History of Present Illness Date of Service: 06/23/23 Chief Complaint: Full-thickness wound right heel History of Wound: Pressure sore, right heel Subjective Subjective Ms. Sinha is a 68-year-old diabetic female presenting to the wound care center today for follow-up and evaluation of right heel ulceration secondary to pressure induced ulceration. Patient has been getting home dressing changes. She was continuing to use [facility] for every other day care. She admits her blood sugars well-controlled. She denies any drainage. Denies trauma. Denies constitutional symptoms. No other pedal complaints at this time. Objective Data Objective Data Vital Signs: Vital Signs Temp Pulse Resp BP O2 Del Method 96.5 F L 81 18 120/70 Room Air 06/21/23 00:41 06/21/23 00:41 06/21/23 00:41 06/21/23 00:41 06/23/23 10:41 Oxygen Delivery Method Room Air Physical Exam Narrative Vascular: DP and PT pulses are palpable to the right lower extremity. CFT is brisk. Nonpitting edema appreciated to the right heel. Skin temperature great is warm to warm from proximal ankle to distal digits bilateral. No focal increase noted in warmth to the right heel. Blanchable erythema without proximal streaking. Neurological: Light touch and epicritic sensation is intact. Dermatological: Evidence of full-thickness ulceration appreciated to the right heel measuring 0.8 x 0.5 x 0.2 cm. Wound base is fibrogranular nature. No malodor. No probe to bone. No sign of infection. No erythema or proximal streaking. Excision debridement down to and including subcutaneous tissue with a #3 mm dermal curette without incident to the right heel. Predebridement measurement was 0.6 x 0.3 x 0.1 centimeter. Postdebridement measurement is 0.8 x 0.5 x 0.2 cm. EpiFix 18 mm disc was applied to the right full-thickness ulceration with 100% use. Seventh application. The graft site was free and clear of any infection. The wound/skin graft substitute was dressed with nonadherent bandage secured in place with Steri-Strips followed by bolster dressing as well as a double layer Tubigrip. Musculoskeletal: Muscle strength deferred. Mild pain to palpation of the full- thickness ulceration. No pain with calf compression. Debridement Note Debridement Note Debridement Free Text: Excision debridement down to and including subcutaneous tissue with a #3 mm dermal curette without incident to the right heel. Predebr idement measurement was 0.6 x 0.3 x 0.1 centimeter. Postdebridement measurement is 0.8 x 0.5 x 0.2 cm. EpiFix 18 mm disc was applied to the right full-thickness ulceration with 100% use. Seventh application. The graft site was free and clear of any infection. The wound/skin graft substitute was dressed with nonadherent bandage secured in place with Steri-Strips followed by bolster dressing as well as a double layer Tubigrip. Post-Debridement Measurements and Additional Note: Post-Debridement Measurements/Treatment - Nurse 1 - General Ulcer Assessment Start: 06/23/23 10:40 Freq: Status: Active Protocol: BETZAIDA Activity Type Activity Date Activity User E-sign Co-sign Detail Recorded Client Recorded Date Recorded By Document 06/23/23 10:41 [email or web address] 06/23/23 10:49 06/23/23 10:41 WC - Today's Visit Information Type of service Follow-up Visit (Physician/CLINICAL CASE MANAGER ) Arrival Mode Ambulatory Transfer Assistance None Accompanied by spouse Patient Identification Verified (Name & Yes ) Vital Signs Temperature Source Temporal Pulse Location Monitor Respiratory rate source Observation Oxygen Delivery Method Room Air Source Monitor Position Sitting History Since Last Visit- (Skip if this is Patient's initial visit) Have you changed medications since your No last visit? Any new allergies or adverse reactions No Had a fall/change in ADL's that may No increase risk of falls Signs or symptoms of abuse and/or No neglect since last visit Have you been in the hospital since your No last visit? Has dressing in place as prescribed Yes Has compression in place as prescribed N/A Has offloadiing in place as prescribed N/A Experienced any changes in pain level or No management Left Footwear Regular Shoe Right Footwear Regular Shoe Pain Scale: 0-10 Numeric Is Patient Pain Free? Yes - Nurse 1 - General Ulcer Measurement Start: 06/23/23 10:40 Freq: Status: Active Protocol: Activity Type Activity Date Activity User E-sign Co-sign Detail Recorded Client Recorded Date Recorded By Document 06/23/23 10:41 [email or web address] 06/23/23 10:49 06/23/23 10:41 Wound Center Nurse 1 #1 RT HEEL -Current Size (cm) - Length 0.5 -Current Size (cm) - Width 0.7 -Current Size (cm) - Depth 0.1 -Total Square Cm 0.35 -Date of Last Picture (Recall this 06/23/23 field) -Photo Taken Yes -Exudate Amt Small -Exudate Type Serosanguineous -Wound Margin Thickened -Granulation Amt Large (67-100%) -Granulation Quality [place] -Texture (Amanda-wound Skin Appearance) Assessed -Moisture (Amanda-wound Skin Appearance) Assessed -Color (Amanda-wound Skin Appearance) Assessed -Temperature (Amanda-wound Skin No Abnormality Appearance) (Pt Warm) -Ulcer Cleansing Soap and Water -Foul Odor after Cleansing No -Anesthetic Used 5% Lidocaine Gel WC - Nurse 2 - General Ulcer CM Notes Start: 06/23/23 10:40 Freq: Status: Active Protocol: Activity Type Activity Date Activity User E-sign Co-sign Detail Recorded Client Recorded Date Recorded By Document 06/23/23 11:04 Laptop 06/23/23 11:10 06/23/23 11:04 Wound Center Nurse 2 -Time 11:09 -Correct Patient Yes -Correct Side, Site, Position Yes -Correct Procedure Yes -Procedure Performed Yes -Type of Procedure Debridement -Clinical Debridement Subcutaneous -Tissue Removed Subcutaneous -Post Debridement (cm) - Length 0.8 -Post Debridement (cm) - Width 0.5 -Post Debridement (cm) - Depth 0.1 -Total Square (Post) (cm) 0.40 -Area of Debridement (cm) - Length 0.8 -Area of Debridement (cm) - Width 0.5 -Total Square (Area) (cm) 0.40 -Tunneling No -Undermining/Tunneling No -Circular Undermining No -Wound/Ulcer Outcome Not Healed -Ulcer Cleansing Rinsed/ Irrigated with Saline -Foul Odor after Cleansing No -Bioengineered Tissue Yes -Type of Bioengineered Tissue Epifix 18mm Disc -Expiration Date 01/21/28 -Product Lot Number [id number] -Percent Used 100 -Lot number of Saline Used [id number] -Bleeding Controlled with Pressure -Treatment Response Procedure Tolerated Well -Offloading No -Debridement - Subq, 1st 20sq cm No -Apply Skin Sub - 1st 25 sq cm - Feet 1 -Epifix 18mm Disc 3 Pain Scale: 0-10 Numeric Is Patient Pain Free? Yes - Nurse 3 - General Ulcer D/C NN Start: 06/23/23 10:40 Freq: Status: Active Protocol: Activity Type Activity Date Activity User E-sign Co-sign Detail Recorded Client Recorded Date Recorded By Document 06/23/23 11:13 KW Desktop 06/23/23 11:14 KW 06/23/23 11:13 Wound Care Center Nurse 3 #1 RT HEEL -Primary Dressing Covered/Secured with Dry Gauze & Roll Gauze, Secured with Tape Pain Scale: 0-10 Numeric Is Patient Pain Free? Yes WC - Visit Discharge Discharge Condition Stable Ambulatory Status Ambulatory Transportation Private Auto Medication Reconcilliation completed & No provided to patient/care provider Clinical Summary of Care Provided Yes Assessment/Plan Assessment/Plan (1) Non-pressure chronic ulcer of right heel and midfoot with fat layer exposed: CODE(S): L97.412 - Non-pressure chronic ulcer of right heel and midfoot with fat layer exposed PLAN: Patient was examined and evaluated. All findings were discussed with the patient. All questions were answered to the patient's satisfaction. Excision debridement down to and including subcutaneous tissue with a #3 mm dermal curette without incident to the right heel. Predebridement measurement was 0.6 x 0.3 x 0.1 centimeter. Postdebridement measurement is 0.8 x 0.5 x 0.2 cm. EpiFix 18 mm disc was applied to the right full-thickness ulceration with 100% use. Seventh application. The graft site was free and clear of any infection. The wound/skin graft substitute was dressed with nonadherent bandage secured in place with Steri-Strips followed by bolster dressing as well as a double layer Tubigrip. Patient was given the go ahead to begin cardiac therapy and is okay to wear athletic shoes to her right lower extremity. After therapy she is to remove the shoe and apply her sandal and or slipper to decrease pressure on the back heel. She was understanding of this. Follow-up at the wound care center with Dr. Suh in 1 week. (2) Type 2 diabetes mellitus without complications: CODE(S): E11.9 - Type 2 diabetes mellitus without complications
[2023-06-30 10:44] VITALS: BP 116/68; PULSE 71; RESP 18; TEMP 36.3
--- NOTE | 2023-06-30 12:12 | PCM.WC.PN ---
History of Present Illness Date of Service: 06/30/23 Chief Complaint: Full-thickness wound right heel History of Wound: Pressure sore, right heel Subjective Subjective Ms. Sinha is a 68-year-old diabetic female presenting to the wound care center today for follow-up and evaluation of right heel ulceration secondary to pressure induced ulceration. She admits her blood sugars well-controlled. She has left her dressing clean dry and intact. She denies any drainage. She states that she will begin cardiac rehab Wednesday. Denies trauma. Denies constitutional symptoms. No other pedal complaints at this time. Objective Data Objective Data Vital Signs: Vital Signs Temp Pulse Resp BP O2 Del Method 97.3 F L 71 18 116/68 Room Air 06/30/23 10:44 06/30/23 10:44 06/30/23 10:44 06/30/23 10:44 06/30/23 10:44 Oxygen Delivery Method Room Air Physical Exam Narrative Vascular: DP and PT pulses are palpable to the right lower extremity. CFT is brisk. Nonpitting edema appreciated to the right heel. Skin temperature great is warm to warm from proximal ankle to distal digits bilateral. No focal increase noted in warmth to the right heel. Blanchable erythema without proximal streaking. Neurological: Light touch and epicritic sensation is intact. Dermatological: Evidence of full-thickness ulceration appreciated to the right heel measuring 0.6 x 0.4 x 0.2 cm. Wound base is fibrogranular nature. No malodor. No probe to bone. No sign of infection. No erythema or proximal streaking. Excision debridement down to and including subcutaneous tissue with a #3 mm dermal curette without incident to the right heel. Predebridement measurement was 0.5 x 0.3 x 0.1 centimeter. Postdebridement measurement is 0.6 x 0.4 x 0.2 cm. EpiFix 18 mm disc was applied to the right full-thickness ulceration with 100% use. Eighth application. The graft site was free and clear of any infection. The wound/skin graft substitute was dressed with nonadherent bandage secured in place with Steri-Strips followed by bolster dressing as well as a double layer Tubigrip. Musculoskeletal: Muscle strength deferred. Mild pain to palpation of the full-thickness ulceration. No pain with calf compression. Debridement Note Debridement Note Debridement Free Text: Excision debridement down to and including subcutaneous tissue with a #3 mm dermal curette without incident to the right heel. Predebridement measurement was 0.5 x 0.3 x 0.1 centimeter. Postdebridement measurement is 0.6 x 0.4 x 0.2 cm. EpiFix 18 mm disc was applied to the right full-thickness ulceration with 100% use. Eighth application. The graft site was free and clear of any infection. The wound/skin graft substitute was dressed with nonadherent bandage secured in place with Steri-Strips followed by bolster dressing as well as a double layer Tubigrip. Post-Debridement Measurements and Additional Note: Post-Debridement Measurements/Treatment - Nurse 1 - General Ulcer Assessment Start: 06/23/23 10:40 Freq: Status: Active Protocol: BETZAIDA Activity Type Activity Date Activity User E-sign Co-sign Detail Recorded Client Recorded Date Recorded By Document 06/23/23 10:41 [employer] 06/23/23 10:49 [employer] Document 06/30/23 10:44 [employer] 06/30/23 10:55 06/23/23 06/30/23 10:41 10:44 - Today's Visit Information Type of service Follow-up Visit Follow-up Visit (Physician/VIDEO TAPE TRANSFERRER (Physician/VIDEO TAPE TRANSFERRER ) ) Arrival Mode Ambulatory Ambulatory Transfer Assistance None Accompanied by spouse Patient Identification Verified (Name & Yes Yes ) Vital Signs Temperature (97.8 F-99.1 F) 97.3 F L Temperature Source Temporal Temporal Pulse Rate (60-100) 71 Pulse Location Monitor Monitor Respiratory Rate (12-18) 18 Respiratory rate source Observation Observation Oxygen Delivery Method Room Air Room Air Blood Pressure (90/60-120/80) 116/68 Blood Pressure Mean (mm Hg) 84 Source Monitor Monitor Position Sitting Semi-Fowlers Blood Pressure Location Right Arm History Since Last Visit- (Skip if this is Patient's initial visit) Have you changed medications since your No No last visit? Any new allergies or adverse reactions No No Had a fall/change in ADL's that may No No increase risk of falls Signs or symptoms of abuse and/or No No neglect since last visit Have you been in the hospital since your No No last visit? Has dressing in place as prescribed Yes Yes Has compression in place as prescribed N/A N/A Has offloadiing in place as prescribed N/A Yes Experienced any changes in pain level or No Yes management Left Footwear Regular Shoe Regular Shoe Right Footwear Regular Shoe Regular Shoe Pain Scale: 0-10 Numeric Is Patient Pain Free? Yes Yes PILAR - Nurse 1 - General Ulcer Measurement Start: 06/23/23 10:40 Freq: Status: Active Protocol: Activity Type Activity Date Activity User E-sign Co-sign Detail Recorded Client Recorded Date Recorded By Document 06/23/23 10:41 GM Desktop 06/23/23 10:49 GM Document 06/30/23 10:44 KW Desktop 06/30/23 10:55 KW 06/23/23 06/30/23 10:41 10:44 Wound Center Nurse 1 #1 RT HEEL -Current Size (cm) - Length 0.5 0.5 -Current Size (cm) - Width 0.7 0.5 -Current Size (cm) - Depth 0.1 0.1 -Total Square Cm 0.35 0.25 -Date of Last Picture (Recall this 06/23/23 field) -Photo Taken Yes -Exudate Amt Small Small -Exudate Type Serosanguineous Serosanguineous -Wound Margin Thickened Distinct, Outline Attached -Granulation Amt Large (67-100%) -Granulation Quality [place] -Texture (Amanda-wound Skin Appearance) Assessed Assessed -Moisture (Amanda-wound Skin Appearance) Assessed Assessed,Dry/ Scaly -Color (Amanda-wound Skin Appearance) Assessed Assessed -Temperature (Amanda-wound Skin No Abnormality No Abnormality Appearance) (Pt Warm) (Pt Warm) -Tenderness on Palpation (Amanda-wound No Skin Appearance) -Ulcer Cleansing Soap and Water Soap and Water -Foul Odor after Cleansing No No -Anesthetic Used 5% Lidocaine 5% Lidocaine Gel Gel -Wound Comment(s) scabbed WC - Nurse 2 - General Ulcer CM Notes Start: 06/23/23 10:40 Freq: Status: Active Protocol: Activity Type Activity Date Activity User E-sign Co-sign Detail Recorded Client Recorded Date Recorded By Document 06/23/23 11:04 JF Laptop 06/23/23 11:10 Document 06/30/23 11:24 Laptop 06/30/23 11:25 JF 06/23/23 06/30/23 11:04 11:24 Wound Center Nurse 2 #1 RT HEEL -Time 11:09 11:24 -Correct Patient Yes Yes -Correct Side, Site, Position Yes Yes -Correct Procedure Yes Yes -Procedure Performed Yes Yes -Type of Procedure Debridement Debridement -Clinical Debridement Subcutaneous Subcutaneous -Tissue Removed Subcutaneous Subcutaneous -Post Debridement (cm) - Length 0.8 0.6 -Post Debridement (cm) - Width 0.5 0.4 -Post Debridement (cm) - Depth 0.1 0.2 -Total Square (Post) (cm) 0.40 0.24 -Area of Debridement (cm) - Length 0.8 0.6 -Area of Debridement (cm) - Width 0.5 0.4 -Total Square (Area) (cm) 0.40 0.24 -Tunneling No No -Undermining/Tunneling No No -Circular Undermining No No -Wound/Ulcer Outcome Not Healed Not Healed -Ulcer Cleansing Rinsed/ Rinsed/ Irrigated with Irrigated with Saline Saline -Foul Odor after Cleansing No No -Bioengineered Tissue Yes Yes -Type of Bioengineered Tissue Epifix 18mm Epifix 18mm Disc Disc -Expiration Date 01/21/28 01/21/28 -Product Lot Number [id number] -Percent Used 100 100 -Lot number of Saline Used [id number] -Bleeding Controlled with Pressure Pressure -Treatment Response Procedure Procedure Tolerated Well Tolerated Well -Offloading No No -Debridement - Subq, 1st 20sq cm No No -Apply Skin Sub - 1st 25 sq cm - Feet 1 1 -Epifix 18mm Disc 3 3 Pain Scale: 0-10 Numeric Is Patient Pain Free? Yes Yes WC - Nurse 3 - General Ulcer D/C NN Start: 06/23/23 10:40 Freq: Status: Active Protocol: Activity Type Activity Date Activity User E-sign Co-sign Detail Recorded Client Recorded Date Recorded By Document 06/23/23 11:13 KW Desktop 06/23/23 11:14 KW Document 06/30/23 11:32 RB Desktop 06/30/23 11:33 RB 06/23/23 06/30/23 11:13 11:32 Wound Care Center Nurse 3 #1 RT HEEL -Other Dressing nurses hat -Primary Dressing Covered/Secured with Dry Gauze & Dry Gauze & Roll Gauze, Roll Gauze, Secured with Secured with Tape Tape -Other Covering hydrogel Treatment Response Procedure Tolerated Well Pain Scale: 0-10 Numeric Is Patient Pain Free? Yes Yes WC - Visit Discharge Discharge Condition Stable Stable Ambulatory Status Ambulatory Ambulatory Transportation Private Auto Private Auto Medication Reconcilliation completed & No No provided to patient/care provider Clinical Summary of Care Provided Yes Yes Assessment/Plan Assessment/Plan (1) Non-pressure chronic ulcer of right heel and midfoot with fat layer exposed: CODE(S): L97.412 - Non-pressure chronic ulcer of right heel and midfoot with fat layer exposed PLAN: Patient was examined and evaluated. All findings were discussed with the patient. All questions were answered to the patient's satisfaction. Excision debridement down to and including subcutaneous tissue with a #3 mm dermal curette without incident to the right heel. Predebridement measurement was 0.5 x 0.3 x 0.1 centimeter. Postdebridement measurement is 0.6 x 0.4 x 0.2 cm. EpiFix 18 mm disc was applied to the right full-thickness ulceration with 100% use. Eighth application. The graft site was free and clear of any infection. The wound/skin graft substitute was dressed with nonadherent bandage secured in place with Steri-Strips followed by bolster dressing as well as a double layer Tubigrip. Patient was given the go ahead to begin cardiac rehab with regular athletic shoe gear. After her rehab has completed she is to get back into her slides to decrease the likelihood of increased pressure to her right heel. She was understanding of this. Patient will continue strict blood sugar control. Follow-up at the wound care center with Dr. Suh in 1 week. (2) Type 2 diabetes mellitus without complications: CODE(S): E11.9 - Type 2 diabetes mellitus without complications
[2023-07-07 10:47] VITALS: BP 122/68; PULSE 72; RESP 16; TEMP 36.6
--- NOTE | 2023-07-07 11:29 | PCM.WC.PN ---
History of Present Illness Date of Service: 07/07/23 Chief Complaint: Full-thickness wound right heel History of Wound: Pressure sore, right heel Subjective Subjective Ms. Sinha is a 68-year-old diabetic female presenting to the wound care center today for follow-up and evaluation of right heel ulceration secondary to pressure induced ulceration. She admits her blood sugars well-controlled. She has left her dressing clean dry and intact. She denies any drainage. She states that she will begin cardiac rehab Wednesday. Denies trauma. Denies constitutional symptoms. No other pedal complaints at this time. Objective Data Objective Data Vital Signs: Vital Signs Temp Pulse Resp BP O2 Del Method 97.8 F 72 16 122/68 H Room Air 07/07/23 10:47 07/07/23 10:47 07/07/23 10:47 07/07/23 10:47 07/07/23 10:47 Oxygen Delivery Method Room Air Physical Exam Narrative Vascular: DP and PT pulses are palpable to the right lower extremity. CFT is brisk. Nonpitting edema appreciated to the right heel. Skin temperature great is warm to warm from proximal ankle to distal digits bilateral. No focal increase noted in warmth to the right heel. Blanchable erythema without proximal streaking. Neurological: Light touch and epicritic sensation is intact. Dermatological: Evidence of full-thickness ulceration appreciated to the right heel measuring 0.4 x 0.4 x 0.2 cm. Wound base is fibrogranular nature. No malodor. No probe to bone. No sign of infection. No erythema or proximal streaking. Excision debridement down to and including subcutaneous tissue with a #3 mm dermal curette without incident to the right heel. Predebridement measurement was 0.3 x 0.3 x 0.1 centimeter. Postdebridement measurement is 0.4 x 0.4 x 0.2 cm. EpiFix 18 mm disc was applied to the right full-thickness ulceration with 100% use. Ninth application. The graft site was free and clear of any infection. The wound/skin graft substitute was dressed with nonadherent bandage secured in place with Steri-Strips followed by bolster dressing as well as a double layer Tubigrip. Musculoskeletal: Muscle strength deferred. Mild pain to palpation of the full-thickness ulceration. No pain with calf compression Debridement Note Debridement Note Debridement Free Text: Excision debridement down to and including subcutaneous tissue with a #3 mm dermal curette without incident to the right heel. Predebridement measurement was 0.3 x 0.3 x 0.1 centimeter. Postdebridement measurement is 0.4 x 0.4 x 0.2 cm. EpiFix 18 mm disc was applied to the right full-thickness ulceration with 100% use. Ninth application. The graft site was free and clear of any infection. The wound/skin graft substitute was dressed with nonadherent bandage secured in place with Steri-Strips followed by bolster dressing as well as a double layer Tubigrip. Post-Debridement Measurements and Additional Note: Post-Debridement Measurements/Treatment - Nurse 1 - General Ulcer Assessment Start: 06/23/23 10:40 Freq: Status: Active Protocol: BETZAIDA Activity Type Activity Date Activity User E-sign Co-sign Detail Recorded Client Recorded Date Recorded By Document 06/23/23 10:41 [employer] 06/23/23 10:49 GM Document 06/30/23 10:44 KW [employer] 06/30/23 10:55 KW Document 07/07/23 10:47 [employer] 07/07/23 10:58 GM 06/23/23 06/30/23 07/07/23 10:41 10:44 10:47 - Today's Visit Information Type of service Follow-up Visit Follow-up Visit Initial Visit (Physician/ELECTRICAL AND INSTRUMENT ENGINEER (Physician/ELECTRICAL AND INSTRUMENT ENGINEER ) ) Arrival Mode Ambulatory Ambulatory Ambulatory Transfer Assistance None None Accompanied by spouse Patient Identification Verified (Name & Yes Yes Yes ) Vital Signs Temperature (97.8 F-99.1 F) 97.3 F L 97.8 F Temperature Source Temporal Temporal Temporal Pulse Rate (60-100) 71 72 Pulse Location Monitor Monitor Monitor Respiratory Rate (12-18) 18 16 Respiratory rate source Observation Observation Observation Oxygen Delivery Method Room Air Room Air Room Air Blood Pressure (90/60-120/80) 116/68 122/68 H Blood Pressure Mean (mm Hg) 84 86 Source Monitor Monitor Monitor Position Sitting Semi-Fowlers Sitting Blood Pressure Location Right Arm Right Arm History Since Last Visit- (Skip if this is Patient's initial visit) Have you changed medications since your No No No last visit? Any new allergies or adverse reactions No No No Had a fall/change in ADL's that may No No No increase risk of falls Signs or symptoms of abuse and/or No No No neglect since last visit Have you been in the hospital since your No No No last visit? Has dressing in place as prescribed Yes Yes Yes Has compression in place as prescribed N/A N/A No Has offloadiing in place as prescribed N/A Yes No Experienced any changes in pain level or No Yes No management Left Footwear Regular Shoe Regular Shoe Right Footwear Regular Shoe Regular Shoe Pain Scale: 0-10 Numeric Is Patient Pain Free? Yes Yes Yes WC - Nurse 1 - General Ulcer Measurement Start: 06/23/23 10:40 Freq: Status: Active Protocol: Activity Type Activity Date Activity User E-sign Co-sign Detail Recorded Client Recorded Date Recorded By Document 06/23/23 10:41 [employer] 06/23/23 10:49 GM Document 06/30/23 10:44 KW [employer] 06/30/23 10:55 KW Document 07/07/23 10:47 [employer] 07/07/23 10:58 GM 06/23/23 06/30/23 07/07/23 10:41 10:44 10:47 Wound Center Nurse 1 #1 RT HEEL -Current Size (cm) - Length 0.5 0.5 0.6 -Current Size (cm) - Width 0.7 0.5 0.6 -Current Size (cm) - Depth 0.1 0.1 0.1 -Total Square Cm 0.35 0.25 0.36 -Date of Last Picture (Recall this 06/23/23 field) -Photo Taken Yes No -Epithelialization Small 1-33% -Tunneling No -Undermining/Tunneling No -Circular Undermining No -Exudate Amt Small Small Small -Exudate Type Serosanguineous Serosanguineous Serous -Wound Margin Thickened Distinct, Distinct, Outline Outline Attached Attached -Granulation Amt Large (67-100%) Medium (34-66%) -Granulation Quality [place] -Necrosis Amt Small (1-33%) -Structure Exposed N/A -Texture (Amanda-wound Skin Appearance) Assessed Assessed Assessed -Moisture (Amanda-wound Skin Appearance) Assessed Assessed,Dry/ Assessed Scaly -Color (Amanda-wound Skin Appearance) Assessed Assessed Assessed -Temperature (Amanda-wound Skin No Abnormality No Abnormality No Abnormality Appearance) (Pt Warm) (Pt Warm) (Pt Warm) -Tenderness on Palpation (Amanda-wound No Skin Appearance) -Ulcer Cleansing Soap and Water Soap and Water Soap and Water -Foul Odor after Cleansing No No No -Anesthetic Used 5% Lidocaine 5% Lidocaine 5% Lidocaine Gel Gel Gel -Wound Comment(s) scabbed WC - Nurse 2 - General Ulcer CM Notes Start: 06/23/23 10:40 Freq: Status: Active Protocol: Activity Type Activity Date Activity User E-sign Co-sign Detail Recorded Client Recorded Date Recorded By Document 06/23/23 11:04 Laptop 06/23/23 11:10 Document 06/30/23 11:24 Laptop 06/30/23 11:25 Document 07/07/23 11:20 Laptop 07/07/23 11:21 06/23/23 06/30/23 07/07/23 11:04 11:24 11:20 Wound Center Nurse 2 #1 RT HEEL -Time 11:09 11:24 11:20 -Correct Patient Yes Yes Yes -Correct Side, Site, Position Yes Yes Yes -Correct Procedure Yes Yes Yes -Procedure Performed Yes Yes Yes -Type of Procedure Debridement Debridement Debridement -Clinical Debridement Subcutaneous Subcutaneous Subcutaneous -Tissue Removed Subcutaneous Subcutaneous Subcutaneous -Post Debridement (cm) - Length 0.8 0.6 0.4 -Post Debridement (cm) - Width 0.5 0.4 0.4 -Post Debridement (cm) - Depth 0.1 0.2 0.2 -Total Square (Post) (cm) 0.40 0.24 0.16 -Area of Debridement (cm) - Length 0.8 0.6 0.4 -Area of Debridement (cm) - Width 0.5 0.4 0.4 -Total Square (Area) (cm) 0.40 0.24 0.16 -Tunneling No No No -Undermining/Tunneling No No No -Circular Undermining No No No -Wound/Ulcer Outcome Not Healed Not Healed Not Healed -Ulcer Cleansing Rinsed/ Rinsed/ Rinsed/ Irrigated with Irrigated with Irrigated with Saline Saline Saline -Foul Odor after Cleansing No No No -Bioengineered Tissue Yes Yes Yes -Type of Bioengineered Tissue Epifix 18mm Epifix 18mm Epifix 18mm Disc Disc Disc -Expiration Date 01/21/28 01/21/28 01/21/28 -Product Lot Number [id number] -Percent Used 100 100 100 -Lot number of Saline Used [id number] -Bleeding Controlled with Pressure Pressure Pressure -Treatment Response Procedure Procedure Procedure Tolerated Well Tolerated Well Tolerated Well -Offloading No No No -Debridement - Subq, 1st 20sq cm No No No -Apply Skin Sub - 1st 25 sq cm - Feet 1 1 1 -Epifix 18mm Disc 3 3 3 Pain Scale: 0-10 Numeric Is Patient Pain Free? Yes Yes Yes - Nurse 3 - General Ulcer D/C NN Start: 06/23/23 10:40 Freq: Status: Active Protocol: Activity Type Activity Date Activity User E-sign Co-sign Detail Recorded Client Recorded Date Recorded By Document 06/23/23 11:13 KW Desktop 06/23/23 11:14 KW Document 06/30/23 11:32 RB Desktop 06/30/23 11:33 RB Document 07/07/23 11:26 CP Desktop 07/07/23 11:28 CP 06/23/23 06/30/23 07/07/23 11:13 11:32 11:26 Wound Care Center Nurse 3 #1 RT HEEL -Ulcer Cleansing Rinsed/ Irrigated with Saline -Foul Odor after Cleansing No -Other Dressing nurses hat abd -Primary Dressing Covered/Secured with Dry Gauze & Dry Gauze & Dry Gauze, Roll Gauze, Roll Gauze, Secured with Secured with Secured with Tape Tape Tape -Other Covering hydrogel Treatment Response Procedure Procedure Tolerated Well Tolerated Well Pain Scale: 0-10 Numeric Is Patient Pain Free? Yes Yes Yes WC - Visit Discharge Discharge Condition Stable Stable Stable Ambulatory Status Ambulatory Ambulatory Ambulatory Transportation Private Auto Private Auto Private Auto Medication Reconcilliation completed & No No No provided to patient/care provider Clinical Summary of Care Provided Yes Yes Yes Assessment/Plan Assessment/Plan (1) Non-pressure chronic ulcer of right heel and midfoot with fat layer exposed: CODE(S): L97.412 - Non-pressure chronic ulcer of right heel and midfoot with fat layer exposed PLAN: Patient was examined and evaluated. All findings were discussed with the patient. All questions were answered to the patient's satisfaction. Excision debridement down to and including subcutaneous tissue with a #3 mm dermal curette without incident to the right heel. Predebridement measurement was 0.3 x 0.3 x 0.1 centimeter. Postdebridement measurement is 0.4 x 0.4 x 0.2 cm. EpiFix 18 mm disc was applied to the right full-thickness ulceration with 100% use. Ninth application. The graft site was free and clear of any infection. The wound/skin graft substitute was dressed with nonadherent bandage secured in place with Steri-Strips followed by bolster dressing as well as a double layer Tubigrip. Follow-up at the wound care center with Dr. Suh in 1 week. (2) Type 2 diabetes mellitus without complications: CODE(S): E11.9 - Type 2 diabetes mellitus without complications
[2023-07-14 13:50] VITALS: BP 121/70; PULSE 66; RESP 16; TEMP 36.6
--- NOTE | 2023-07-14 14:35 | PCM.WC.PN ---
History of Present Illness Date of Service: 07/14/23 Chief Complaint: Full-thickness wound right heel History of Wound: Pressure sore, right heel Subjective Subjective Ms. Sinha is a 68-year-old diabetic female presenting to the wound care center today for follow-up and evaluation of right heel ulceration secondary to pressure induced ulceration. She admits her blood sugars well-controlled. She has left her dressing clean dry and intact. She denies any drainage. She is participating in cardiac rehab and doing well. Denies trauma. Denies constitutional symptoms. No other pedal complaints at this time. Objective Data Objective Data Vital Signs: Vital Signs Temp Pulse Resp BP O2 Del Method 97.8 F 66 16 121/70 H Room Air 07/14/23 13:50 07/14/23 13:50 07/14/23 13:50 07/14/23 13:50 07/14/23 13:50 Oxygen Delivery Method Room Air Physical Exam Narrative Vascular: DP and PT pulses are palpable to the right lower extremity. CFT is brisk. Nonpitting edema appreciated to the right heel. Skin temperature great is warm to warm from proximal ankle to distal digits bilateral. No focal increase noted in warmth to the right heel. Blanchable erythema without proximal streaking. Neurological: Light touch and epicritic sensation is intact. Dermatological: Evidence of full-thickness ulceration appreciated to the right heel measuring 0.3 x 0.4 x 0.1 cm. Wound base is fibrogranular nature. No malodor. No probe to bone. No sign of infection. No erythema or proximal streaking. Excision debridement down to and including subcutaneous tissue with a #3 mm dermal curette without incident to the right heel. Predebridement measurement was 0.2 x 0.3 x 0.1 centimeter. Postdebridement measurement is 0.3 x 0.4 x 0.1 cm. EpiFix 18 mm disc was applied to the right full-thickness ulceration with 100% use. 10th application. The graft site was free and clear of any infection. The wound/skin graft substitute was dressed with nonadherent bandage secured in place with Steri-Strips followed by bolster dressing as well as a double layer Tubigrip. Musculoskeletal: Muscle strength deferred. Mild pain to palpation of the full-thickness ulceration. No pain with calf Debridement Note Debridement Note Debridement Free Text: Excision debridement down to and including subcutaneous tissue with a #3 mm dermal curette without incident to the right heel. Predebridement measurement was 0.2 x 0.3 x 0.1 centimeter. Postdebridement measurement is 0.3 x 0.4 x 0.1 cm. EpiFix 18 mm disc was applied to the right full-thickness ulceration with 100% use. 10th application. The graft site was free and clear of any infection. The wound/skin graft substitute was dressed with nonadherent bandage secured in place with Steri-Strips followed by bolster dressing as well as a double layer Tubigrip. Post-Debridement Measurements and Additional Note: Post-Debridement Measurements/Treatment - Nurse 1 - General Ulcer Assessment Start: 06/23/23 10:40 Freq: Status: Active Protocol: BETZAIDA Activity Type Activity Date Activity User E-sign Co-sign Detail Recorded Client Recorded Date Recorded By Document 06/23/23 10:41 GM Desktop 06/23/23 10:49 GM Document 06/30/23 10:44 KW Desktop 06/30/23 10:55 KW Document 07/07/23 10:47 GM Desktop 07/07/23 10:58 GM Document 07/14/23 13:50 GM Desktop 07/14/23 14:00 GM 06/23/23 06/30/23 07/07/23 10:41 10:44 10:47 - Today's Visit Information Type of service Follow-up Visit Follow-up Visit Initial Visit (Physician/CLINICAL REVIEW SPECIALIST (Physician/CLINICAL REVIEW SPECIALIST ) ) Arrival Mode Ambulatory Ambulatory Ambulatory Transfer Assistance None None Accompanied by spouse Patient Identification Verified (Name & Yes Yes Yes ) Patient Requires Transmission-Based Precautions Safety Precautions Vital Signs Temperature (97.8 F-99.1 F) 97.3 F L 97.8 F Temperature Source Temporal Temporal Temporal Pulse Rate (60-100) 71 72 Pulse Location Monitor Monitor Monitor Respiratory Rate (12-18) 18 16 Respiratory rate source Observation Observation Observation Oxygen Delivery Method Room Air Room Air Room Air Blood Pressure (90/60-120/80) 116/68 122/68 H Blood Pressure Mean (mm Hg) 84 86 Source Monitor Monitor Monitor Position Sitting Semi-Fowlers Sitting Blood Pressure Location Right Arm Right Arm History Since Last Visit- (Skip if this is Patient's initial visit) Have you changed medications since your No No No last visit? Any new allergies or adverse reactions No No No Had a fall/change in ADL's that may No No No increase risk of falls Signs or symptoms of abuse and/or No No No neglect since last visit Have you been in the hospital since your No No No last visit? Has dressing in place as prescribed Yes Yes Yes Has compression in place as prescribed N/A N/A No Has offloadiing in place as prescribed N/A Yes No Experienced any changes in pain level or No Yes No management Left Footwear Regular Shoe Regular Shoe Right Footwear Regular Shoe Regular Shoe Pain Scale: 0-10 Numeric Is Patient Pain Free? Yes Yes Yes 07/14/23 13:50 WC - Today's Visit Information Type of service Follow-up Visit (Physician/CLINICAL REVIEW SPECIALIST ) Arrival Mode Ambulatory Transfer Assistance None Accompanied by Patient Identification Verified (Name & Yes ) Patient Requires Transmission-Based No Precautions Safety Precautions NA Vital Signs Temperature (97.8 F-99.1 F) 97.8 F Temperature Source Temporal Pulse Rate (60-100) 66 Pulse Location Monitor Respiratory Rate (12-18) 16 Respiratory rate source Observation Oxygen Delivery Method Room Air Blood Pressure (90/60-120/80) 121/70 H Blood Pressure Mean (mm Hg) 87 Source Monitor Position Sitting Blood Pressure Location Right Arm History Since Last Visit- (Skip if this is Patient's initial visit) Have you changed medications since your No last visit? Any new allergies or adverse reactions No Had a fall/change in ADL's that may No increase risk of falls Signs or symptoms of abuse and/or No neglect since last visit Have you been in the hospital since your No last visit? Has dressing in place as prescribed Yes Has compression in place as prescribed N/A Has offloadiing in place as prescribed N/A Experienced any changes in pain level or No management Left Footwear Right Footwear Pain Scale: 0-10 Numeric Is Patient Pain Free? Yes - Nurse 1 - General Ulcer Measurement Start: 06/23/23 10:40 Freq: Status: Active Protocol: Activity Type Activity Date Activity User E-sign Co-sign Detail Recorded Client Recorded Date Recorded By Document 06/23/23 10:41 Desktop 06/23/23 10:49 GM Document 06/30/23 10:44 KW Desktop 06/30/23 10:55 KW Document 07/07/23 10:47 GM Desktop 07/07/23 10:58 GM Document 07/14/23 13:50 GM Desktop 07/14/23 14:00 GM 06/23/23 06/30/23 07/07/23 10:41 10:44 10:47 Wound Center Nurse 1 #1 RT HEEL -Current Size (cm) - Length 0.5 0.5 0.6 -Current Size (cm) - Width 0.7 0.5 0.6 -Current Size (cm) - Depth 0.1 0.1 0.1 -Total Square Cm 0.35 0.25 0.36 -Date of Last Picture (Recall this 06/23/23 field) -Photo Taken Yes No -Epithelialization Small 1-33% -Tunneling No -Undermining/Tunneling No -Circular Undermining No -Exudate Amt Small Small Small -Exudate Type Serosanguineous Serosanguineous Serous -Wound Margin Thickened Distinct, Distinct, Outline Outline Attached Attached -Granulation Amt Large (67-100%) Medium (34-66%) -Granulation Quality [facility] [facility] -Slough/Fibrin -Necrosis Amt Small (1-33%) -Structure Exposed N/A -Texture (Amanda-wound Skin Appearance) Assessed Assessed Assessed -Moisture (Amanda-wound Skin Appearance) Assessed Assessed,Dry/ Assessed Scaly -Color (Amanda-wound Skin Appearance) Assessed Assessed Assessed -Temperature (Amanda-wound Skin No Abnormality No Abnormality No Abnormality Appearance) (Pt Warm) (Pt Warm) (Pt Warm) -Tenderness on Palpation (Amanda-wound No Skin Appearance) -Ulcer Cleansing Soap and Water Soap and Water Soap and Water -Foul Odor after Cleansing No No No -Anesthetic Used 5% Lidocaine 5% Lidocaine 5% Lidocaine Gel Gel Gel -Wound Comment(s) scabbed 07/14/23 13:50 Wound Center Nurse 1 #1 RT HEEL -Current Size (cm) - Length 0.4 -Current Size (cm) - Width 1.0 -Current Size (cm) - Depth 0.1 -Total Square Cm 0.40 -Date of Last Picture (Recall this field) -Photo Taken No -Epithelialization Medium 34-66% -Tunneling No -Undermining/Tunneling No -Circular Undermining No -Exudate Amt Small -Exudate Type Sanguineous -Wound Margin Distinct, Outline Attached -Granulation Amt Medium (34-66%) -Granulation Quality Red -Slough/Fibrin No -Necrosis Amt -Structure Exposed -Texture (Amanda-wound Skin Appearance) Assessed -Moisture (Amanda-wound Skin Appearance) Assessed -Color (Amanda-wound Skin Appearance) Assessed -Temperature (Amanda-wound Skin No Abnormality Appearance) (Pt Warm) -Tenderness on Palpation (Amanda-wound Skin Appearance) -Ulcer Cleansing Soap and Water -Foul Odor after Cleansing No -Anesthetic Used 5% Lidocaine Gel -Wound Comment(s) WC - Nurse 2 - General Ulcer CM Notes Start: 06/23/23 10:40 Freq: Status: Active Protocol: Activity Type Activity Date Activity User E-sign Co-sign Detail Recorded Client Recorded Date Recorded By Document 06/23/23 11:04 OpenBook Laptop 06/23/23 11:10 OpenBook Document 06/30/23 11:24 OpenBook Laptop 06/30/23 11:25 OpenBook Document 07/07/23 11:20 OpenBook Laptop 07/07/23 11:21 OpenBook Document 07/14/23 14:15 OpenBook Laptop 07/14/23 14:16 OpenBook 06/23/23 06/30/23 07/07/23 11:04 11:24 11:20 Wound Center Nurse 2 #1 RT HEEL -Time 11:09 11:24 11:20 -Correct Patient Yes Yes Yes -Correct Side, Site, Position Yes Yes Yes -Correct Procedure Yes Yes Yes -Procedure Performed Yes Yes Yes -Type of Procedure Debridement Debridement Debridement -Clinical Debridement Subcutaneous Subcutaneous Subcutaneous -Tissue Removed Subcutaneous Subcutaneous Subcutaneous -Post Debridement (cm) - Length 0.8 0.6 0.4 -Post Debridement (cm) - Width 0.5 0.4 0.4 -Post Debridement (cm) - Depth 0.1 0.2 0.2 -Total Square (Post) (cm) 0.40 0.24 0.16 -Area of Debridement (cm) - Length 0.8 0.6 0.4 -Area of Debridement (cm) - Width 0.5 0.4 0.4 -Total Square (Area) (cm) 0.40 0.24 0.16 -Tunneling No No No -Undermining/Tunneling No No No -Circular Undermining No No No -Wound/Ulcer Outcome Not Healed Not Healed Not Healed -Ulcer Cleansing Rinsed/ Rinsed/ Rinsed/ Irrigated with Irrigated with Irrigated with Saline Saline Saline -Foul Odor after Cleansing No No No -Bioengineered Tissue Yes Yes Yes -Type of Bioengineered Tissue Epifix 18mm Epifix 18mm Epifix 18mm Disc Disc Disc -Expiration Date 01/21/28 01/21/28 01/21/28 -Product Lot Number [id number] -Percent Used 100 100 100 -Lot number of Saline Used [id number] -Bleeding Controlled with Pressure Pressure Pressure -Treatment Response Procedure Procedure Procedure Tolerated Well Tolerated Well Tolerated Well -Offloading No No No -Debridement - Subq, 1st 20sq cm No No No -Apply Skin Sub - 1st 25 sq cm - Feet 1 1 1 -Epifix 18mm Disc 3 3 3 Pain Scale: 0-10 Numeric Is Patient Pain Free? Yes Yes Yes 07/14/23 14:15 Wound Center Nurse 2 #1 RT HEEL -Time 14:15 -Correct Patient Yes -Correct Side, Site, Position Yes -Correct Procedure Yes -Procedure Performed Yes -Type of Procedure Debridement -Clinical Debridement Subcutaneous -Tissue Removed Subcutaneous -Post Debridement (cm) - Length 0.3 -Post Debridement (cm) - Width 0.4 -Post Debridement (cm) - Depth 0.1 -Total Square (Post) (cm) 0.12 -Area of Debridement (cm) - Length 0.3 -Area of Debridement (cm) - Width 0.4 -Total Square (Area) (cm) 0.12 -Tunneling No -Undermining/Tunneling No -Circular Undermining No -Wound/Ulcer Outcome Not Healed -Ulcer Cleansing Rinsed/ Irrigated with Saline -Foul Odor after Cleansing No -Bioengineered Tissue Yes -Type of Bioengineered Tissue Epifix 18mm Disc -Expiration Date 01/21/28 -Product Lot Number [id number] -Percent Used 100 -Lot number of Saline Used [id number] -Bleeding Controlled with Pressure -Treatment Response Procedure Tolerated Well -Offloading No -Debridement - Subq, 1st 20sq cm No -Apply Skin Sub - 1st 25 sq cm - Feet 1 -Epifix 18mm Disc 3 Pain Scale: 0-10 Numeric Is Patient Pain Free? Yes - Nurse 3 - General Ulcer D/C NN Start: 06/23/23 10:40 Freq: Status: Active Protocol: Activity Type Activity Date Activity User E-sign Co-sign Detail Recorded Client Recorded Date Recorded By Document 06/23/23 11:13 KW Desktop 06/23/23 11:14 KW Document 06/30/23 11:32 RB Desktop 06/30/23 11:33 RB Document 07/07/23 11:26 CP Desktop 07/07/23 11:28 CP Document 07/14/23 14:29 GM Desktop 07/14/23 14:30 GM 06/23/23 06/30/23 07/07/23 11:13 11:32 11:26 Wound Care Center Nurse 3 #1 RT HEEL -Ulcer Cleansing Rinsed/ Irrigated with Saline -Foul Odor after Cleansing No -Other Dressing nurses hat abd -Primary Dressing Covered/Secured with Dry Gauze & Dry Gauze & Dry Gauze, Roll Gauze, Roll Gauze, Secured with Secured with Secured with Tape Tape Tape -Other Covering hydrogel Treatment Response Procedure Procedure Tolerated Well Tolerated Well Pain Scale: 0-10 Numeric Is Patient Pain Free? Yes Yes Yes Teaching: Wound Center Dressing Your Wound -Person Taught -Teaching Method -Response to teaching WC - Visit Discharge Discharge Condition Stable Stable Stable Ambulatory Status Ambulatory Ambulatory Ambulatory Transportation Private Auto Private Auto Private Auto Medication Reconcilliation completed & No No No provided to patient/care provider Clinical Summary of Care Provided Yes Yes Yes 07/14/23 14:29 Wound Care Center Nurse 3 #1 RT HEEL -Ulcer Cleansing Not Cleansed -Foul Odor after Cleansing No -Other Dressing -Primary Dressing Covered/Secured with Dry Gauze,Dry Gauze & Roll Gauze,Secured with Tape -Other Covering Treatment Response Pain Scale: 0-10 Numeric Is Patient Pain Free? Yes Teaching: Wound Center Dressing Your Wound -Person Taught Patient,Family -Teaching Method Discussion, Demonstration -Response to teaching Verbalize understanding WC - Visit Discharge Discharge Condition Stable Ambulatory Status Ambulatory Transportation Private Auto Medication Reconcilliation completed & provided to patient/care provider Clinical Summary of Care Provided Yes Assessment/Plan Assessment/Plan (1) Non-pressure chronic ulcer of right heel and midfoot with fat layer exposed: CODE(S): L97.412 - Non-pressure chronic ulcer of right heel and midfoot with fat layer exposed PLAN: Patient was examined and evaluated. All findings were discussed with the patient. All questions were answered to the patient's satisfaction. Excision debridement down to and including subcutaneous tissue with a #3 mm dermal curette without incident to the right heel. Predebridement measurement was 0.2 x 0.3 x 0.1 centimeter. Postdebridement measurement is 0.3 x 0.4 x 0.1 cm. EpiFix 18 mm disc was applied to the right full-thickness ulceration with 100% use. 10th application. The graft site was free and clear of any infection. The wound/skin graft substitute was dressed with nonadherent bandage secured in place with Steri-Strips followed by bolster dressing as well as a double layer Tubigrip. Follow-up at the wound care center with Dr. Suh in 1 week. (2) Type 2 diabetes mellitus without complications: CODE(S): E11.9 - Type 2 diabetes mellitus without complications
== END 2023-07-20 23:59 | disposition home or self-care (01) ==
LOC: WC 13:45
PROVIDERS: PCP Family Medicine; Referring Provider Family Medicine Geriatric Medicine; Visit Provider Podiatrist Foot & Ankle Surgery
DX: E11.621 Type 2 diabetes mellitus with foot ulcer (principal); L97.412 Non-pressure chronic ulcer of right heel and midfoot with fat layer exposed
CPT/HCPCS: 15275; Q4186

== ENCOUNTER 2023-08-11 13:00 | Outpatient (RCR) | payer MEDICARE, OTHER, SELFPAY ==
[2023-07-21 00:48] VITALS: BP 121/70; PULSE 66; RESP 16; TEMP 36.6
[2023-07-21 13:13] VITALS: BP 127/46; PULSE 69; RESP 18; TEMP 37
--- NOTE | 2023-07-21 14:13 | PCM.WC.PN ---
History of Present Illness Date of Service: 07/21/23 Chief Complaint: Full-thickness wound right heel History of Wound: Pressure sore, right heel Subjective Subjective Ms. Sinha is a 68-year-old diabetic female presenting to the wound care center today for follow-up and evaluation of right heel ulceration secondary to pressure induced ulceration. She admits her blood sugars well-controlled. She has left her dressing clean dry and intact. She denies any drainage. She is participating in cardiac rehab and doing well. Denies trauma. Denies constitutional symptoms. No other pedal complaints at this time. Objective Data Objective Data Vital Signs: Vital Signs Temp Pulse Resp BP O2 Del Method 98.6 F 69 18 127/46 H Room Air 07/21/23 13:13 07/21/23 13:13 07/21/23 13:13 07/21/23 13:13 07/21/23 13:13 Oxygen Delivery Method Room Air Physical Exam Narrative Vascular: DP and PT pulses are palpable to the right lower extremity. CFT is brisk. Nonpitting edema appreciated to the right heel. Skin temperature great is warm to warm from proximal ankle to distal digits bilateral. No focal increase noted in warmth to the right heel. Blanchable erythema without proximal streaking. Neurological: Light touch and epicritic sensation is intact. Dermatological: Evidence of full-thickness ulceration appreciated to the right heel measuring 0.1 x 0.1 x 0.1 cm. Wound base is fibrogranular nature. No malodor. No probe to bone. No sign of infection. No erythema or proximal streaking. Musculoskeletal: Muscle strength deferred. Mild pain to palpation of the full-thickness ulceration. No pain with calf compression Debridement Note Debridement Note Post-Debridement Measurements and Additional Note: Post-Debridement Measurements/Treatment - Nurse 1 - General Ulcer Assessment Start: 07/21/23 13:13 Freq: Status: Active Protocol: BETZAIDA Activity Type Activity Date Activity User E-sign Co-sign Detail Recorded Client Recorded Date Recorded By Document 07/21/23 13:13 KW Desktop 07/21/23 13:17 KW 07/21/23 13:13 - Today's Visit Information Type of service Follow-up Visit (Physician/ANESTHESIA ATTENDING ) Arrival Mode Ambulatory Patient Identification Verified (Name & Yes ) Vital Signs Temperature (97.8 F-99.1 F) 98.6 F Temperature Source Temporal Pulse Rate (60-100) 69 Pulse Location Monitor Respiratory Rate (12-18) 18 Respiratory rate source Observation Oxygen Delivery Method Room Air Blood Pressure (90/60-120/80) 127/46 H Blood Pressure Mean (mm Hg) 73 Source Monitor Position Semi-Fowlers Blood Pressure Location Left Arm History Since Last Visit- (Skip if this is Patient's initial visit) Have you changed medications since your No last visit? Any new allergies or adverse reactions No Had a fall/change in ADL's that may No increase risk of falls Signs or symptoms of abuse and/or No neglect since last visit Have you been in the hospital since your No last visit? Has dressing in place as prescribed Yes Has compression in place as prescribed N/A Has offloadiing in place as prescribed Yes Experienced any changes in pain level or No management Left Footwear Regular Shoe Right Footwear Regular Shoe Pain Scale: 0-10 Numeric Is Patient Pain Free? Yes WC - Nurse 1 - General Ulcer Measurement Start: 07/21/23 13:13 Freq: Status: Active Protocol: Activity Type Activity Date Activity User E-sign Co-sign Detail Recorded Client Recorded Date Recorded By Document 07/21/23 13:13 KW Desktop 07/21/23 13:17 KW 07/21/23 13:13 Wound Center Nurse 1 #1 RT HEEL -Texture (Amanda-wound Skin Appearance) Assessed -Moisture (Amanda-wound Skin Appearance) Assessed -Color (Amanda-wound Skin Appearance) Assessed -Temperature (Amanda-wound Skin No Abnormality Appearance) (Pt Warm) -Ulcer Cleansing Soap and Water -Foul Odor after Cleansing No -Wound Comment(s) LEAVE PRODUCT INTACT WC - Nurse 2 - General Ulcer CM Notes Start: 07/21/23 13:13 Freq: Status: Active Protocol: Activity Type Activity Date Activity User E-sign Co-sign Detail Recorded Client Recorded Date Recorded By Document 07/21/23 13:26 JF Laptop 07/21/23 13:27 JF 07/21/23 13:26 Wound Center Nurse 2 -Correct Patient No -Correct Side, Site, Position No -Correct Procedure No -Procedure Performed No -Post Debridement (cm) - Length 0.1 -Post Debridement (cm) - Width 0.1 -Post Debridement (cm) - Depth 0.1 -Total Square (Post) (cm) 0.01 -Area of Debridement (cm) - Length 0.1 -Area of Debridement (cm) - Width 0.1 -Total Square (Area) (cm) 0.01 -Wound/Ulcer Outcome Not Healed -Debridement - Subq, 1st 20sq cm No Pain Scale: 0-10 Numeric Is Patient Pain Free? Yes WC - Nurse 3 - General Ulcer D/C NN Start: 07/21/23 13:13 Freq: Status: Active Protocol: Activity Type Activity Date Activity User E-sign Co-sign Detail Recorded Client Recorded Date Recorded By Document 07/21/23 13:28 Laptop 07/21/23 13:28 07/21/23 13:28 Wound Care Center Nurse 3 #1 RT HEEL -Primary Dressing Covered/Secured with Dry Gauze, Secured with Tape Pain Scale: 0-10 Numeric Is Patient Pain Free? Yes WC - Visit Discharge Discharge Condition Stable Ambulatory Status Ambulatory Transportation Private Auto Medication Reconcilliation completed & Yes provided to patient/care provider Clinical Summary of Care Provided Yes Assessment/Plan Assessment/Plan (1) Non-pressure chronic ulcer of right heel and midfoot with fat layer exposed: CODE(S): L97.412 - Non-pressure chronic ulcer of right heel and midfoot with fat layer exposed PLAN: Patient was examined and evaluated. All findings were discussed with the patient. All questions were answered to the patient's satisfaction. Patient's left heel only shows full-thickness ulceration measuring 0.1 x 0.1 x 0.1 cm. Sterile Band-Aid was applied to the right heel followed by sock and regular athletic shoe gear. Patient can changes daily. She will continue strict blood sugar control. Follow-up at the wound care center with Dr. Suh in 1 week. (2) Type 2 diabetes mellitus without complications: CODE(S): E11.9 - Type 2 diabetes mellitus without complications
[2023-07-28 13:09] VITALS: BP 132/71; PULSE 67; RESP 18; TEMP 36.4
--- NOTE | 2023-07-28 14:06 | PCM.WC.PN ---
History of Present Illness Date of Service: 07/28/23 Chief Complaint: Full-thickness wound right heel History of Wound: Pressure sore, right heel Subjective Subjective Mrs. Sinha is a 68-year-old diabetic female presenting to clinic today for follow-up evaluation of right heel wound. Patient has left her graft clean dry and intact. Patient has been participating in cardiac rehab but did not attend today. She did present to the emergency department secondary to chest pain, but was discharged and encouraged to follow-up with her cake washer and or family physician. She admitts to strict blood sugar control. Denies trauma. Denies constitutional symptoms. No other pedal complaints at this time. Objective Data Objective Data Vital Signs: Vital Signs Temp Pulse Resp BP O2 Del Method 97.5 F L 67 18 132/71 H Room Air 07/28/23 13:09 07/28/23 13:09 07/28/23 13:09 07/28/23 13:09 07/21/23 13:13 Oxygen Delivery Method Room Air Physical Exam Narrative Vascular: DP and PT pulses are palpable to the right lower extremity. CFT is brisk. Nonpitting edema appreciated to the right heel. Skin temperature great is warm to warm from proximal ankle to distal digits bilateral. No focal increase noted in warmth to the right heel. Blanchable erythema without proximal streaking. Neurological: Light touch and epicritic sensation is intact. Dermatological: Evidence of full-thickness ulceration appreciated to the right heel measuring 0.1 x 0.1 x 0.1 cm. Wound base is fibrogranular nature. No malodor. No probe to bone. No sign of infection. No erythema or proximal streaking. Selective debridement down to and including dermal tissue with a number 3 mm dermal curette to the right heel without incident. Predebridement is callus. Post right measurement is 0.1 x 0.1 x 0.1 cm. Musculoskeletal: Muscle strength deferred. Mild pain to palpation of the full-thickness ulceration. No pain with calf compression Debridement Note Debridement Note Debridement Free Text: Selective debridement down to and including dermal tissue with a number 3 mm dermal curette to the right heel without incident. Predebridement is callus. Post right measurement is 0.1 x 0.1 x 0.1 cm. Post-Debridement Measurements and Additional Note: Post-Debridement Measurements/Treatment WC - Nurse 1 - General Ulcer Assessment Start: 07/21/23 13:13 Freq: Status: Active Protocol: BETZAIDA Activity Type Activity Date Activity User E-sign Co-sign Detail Recorded Client Recorded Date Recorded By Document 07/21/23 13:13 KW Desktop 07/21/23 13:17 KW Document 07/28/23 13:09 DL Desktop 07/28/23 13:14 DL 07/21/23 07/28/23 13:13 13:09 - Today's Visit Information Type of service Follow-up Visit Follow-up Visit (Physician/VENTURE CAPITAL ANALYST (Physician/VENTURE CAPITAL ANALYST ) ) Arrival Mode Ambulatory Ambulatory Transfer Assistance None Patient Identification Verified (Name & Yes Yes ) Patient Requires Transmission-Based No Precautions Vital Signs Temperature (97.8 F-99.1 F) 98.6 F 97.5 F L Temperature Source Temporal Temporal Pulse Rate (60-100) 69 67 Pulse Location Monitor Monitor Respiratory Rate (12-18) 18 18 Respiratory rate source Observation Observation Oxygen Delivery Method Room Air Blood Pressure (90/60-120/80) 127/46 H 132/71 H Blood Pressure Mean (mm Hg) 73 91 Source Monitor Monitor Position Semi-Fowlers Blood Pressure Location Left Arm History Since Last Visit- (Skip if this is Patient's initial visit) Have you changed medications since your No No last visit? Any new allergies or adverse reactions No No Had a fall/change in ADL's that may No No increase risk of falls Signs or symptoms of abuse and/or No No neglect since last visit Have you been in the hospital since your No No last visit? Has dressing in place as prescribed Yes Yes Has compression in place as prescribed N/A N/A Has offloadiing in place as prescribed Yes Yes Experienced any changes in pain level or No management Left Footwear Regular Shoe Right Footwear Regular Shoe Pain Scale: 0-10 Numeric Is Patient Pain Free? Yes Yes - Nurse 1 - General Ulcer Measurement Start: 07/21/23 13:13 Freq: Status: Active Protocol: Activity Type Activity Date Activity User E-sign Co-sign Detail Recorded Client Recorded Date Recorded By Document 07/21/23 13:13 KW Desktop 07/21/23 13:17 KW Document 07/28/23 13:09 DL Desktop 07/28/23 13:14 DL 07/21/23 07/28/23 13:13 13:09 Wound Center Nurse 1 #1 RT HEEL -Current Size (cm) - Length 0.1 -Current Size (cm) - Width 0.1 -Current Size (cm) - Depth 0.1 -Total Square Cm 0.01 -Exudate Amt None Present -Wound Margin Thickened -Granulation Amt None Present (0 %) -Necrosis Amt Small (1-33%) -Necrotic Tissue Type Eschar -Structure Exposed N/A -Texture (Amanda-wound Skin Appearance) Assessed Scarring -Moisture (Amanda-wound Skin Appearance) Assessed No Abnormality -Color (Amanda-wound Skin Appearance) Assessed No Abnormality -Temperature (Amanda-wound Skin No Abnormality No Abnormality Appearance) (Pt Warm) (Pt Warm) -Tenderness on Palpation (Amanda-wound No Skin Appearance) -Ulcer Cleansing Soap and Water Soap and Water -Foul Odor after Cleansing No No -Anesthetic Used 5% Lidocaine Gel -Wound Comment(s) LEAVE PRODUCT INTACT WC - Nurse 2 - General Ulcer CM Notes Start: 07/21/23 13:13 Freq: Status: Active Protocol: Activity Type Activity Date Activity User E-sign Co-sign Detail Recorded Client Recorded Date Recorded By Document 07/21/23 13:26 Rijuven Laptop 07/21/23 13:27 Document 07/28/23 13:19 Laptop 07/28/23 13:21 07/21/23 07/28/23 13:26 13:19 Wound Center Nurse 2 #1 RT HEEL -Time 13:20 -Correct Patient No Yes -Correct Side, Site, Position No Yes -Correct Procedure No Yes -Procedure Performed No Yes -Type of Procedure Debridement -Clinical Debridement Epidermis / Dermis -Tissue Removed Epidermis, Dermis -Post Debridement (cm) - Length 0.1 0.1 -Post Debridement (cm) - Width 0.1 0.1 -Post Debridement (cm) - Depth 0.1 0.1 -Total Square (Post) (cm) 0.01 0.01 -Area of Debridement (cm) - Length 0.1 0.1 -Area of Debridement (cm) - Width 0.1 0.1 -Total Square (Area) (cm) 0.01 0.01 -Tunneling No -Undermining/Tunneling No -Circular Undermining No -Wound/Ulcer Outcome Not Healed Not Healed -Ulcer Cleansing Rinsed/ Irrigated with Saline -Foul Odor after Cleansing No -Bioengineered Tissue No -Bleeding Controlled with Pressure -Treatment Response Procedure Tolerated Well -Offloading No -Debridement - Open, 1st 20sq cm Yes -Debridement - Subq, 1st 20sq cm No Pain Scale: 0-10 Numeric Is Patient Pain Free? Yes Yes - Nurse 3 - General Ulcer D/C NN Start: 07/21/23 13:13 Freq: Status: Active Protocol: Activity Type Activity Date Activity User E-sign Co-sign Detail Recorded Client Recorded Date Recorded By Document 07/21/23 13:28 Laptop 07/21/23 13:28 JF Document 07/28/23 13:33 DL Desktop 07/28/23 13:42 DL 07/21/23 07/28/23 13:28 13:33 Wound Care Center Nurse 3 #1 RT HEEL -Ulcer Cleansing Rinsed/ Irrigated with Saline -Foul Odor after Cleansing No -Primary Dressing Applied Promogran Harriett Matter -Primary Dressing Covered/Secured with Dry Gauze, Other Secured with Tape -Other Covering bandaid -Promogran Harriett Matter 1 Pain Scale: 0-10 Numeric Is Patient Pain Free? Yes Yes WC - Visit Discharge Discharge Condition Stable Stable Ambulatory Status Ambulatory Ambulatory Transportation Private Auto Private Auto Medication Reconcilliation completed & Yes provided to patient/care provider Clinical Summary of Care Provided Yes Assessment/Plan Assessment/Plan (1) Non-pressure chronic ulcer of right heel and midfoot with fat layer exposed: CODE(S): L97.412 - Non-pressure chronic ulcer of right heel and midfoot with fat layer exposed PLAN: Patient was examined and evaluated. All findings were discussed with the patient. All questions were answered to the patient's satisfaction. Selective debridement down to and including dermal tissue with a number 3 mm dermal curette to the right heel without incident. Predebridement is callus. Post right measurement is 0.1 x 0.1 x 0.1 cm. The right heel is white clean and patted dry. The ulceration was dressed with moist Harriett and sterile Band-Aid. Patient will do daily dressing changes and follow-up in 2 weeks. Follow-up at the wound care center with Dr. Suh in 2 week. (2) Type 2 diabetes mellitus without complications: CODE(S): E11.9 - Type 2 diabetes mellitus without complications
[2023-08-11 13:10] VITALS: BP 127/61; PULSE 62; RESP 18; TEMP 36.2
--- NOTE | 2023-08-11 14:18 | PN.PCM_ITS ---
History of Present Illness Date of Service: 08/11/23 Chief Complaint: Full-thickness wound right heel History of Wound: Pressure sore, right heel Subjective Subjective Mr. Lane is a 68-year-old diabetic female send clinic today for follow-up evaluation of right heel wound. Patient has been ambulating as tolerated. She continues her cardiac rehab. Her blood sugars well-controlled. She does admit to some tingling burning to her right foot ever since being in the hospital. She also complains of red scaly skin to the plantar aspect of both feet. She denies trauma. Denies constitutional symptoms. No other pedal complaints at this time. Objective Data Objective Data Vital Signs: Vital Signs Temp Pulse Resp BP O2 Del Method 97.1 F L 62 18 127/61 H Room Air 08/11/23 13:10 08/11/23 13:10 08/11/23 13:10 08/11/23 13:10 08/11/23 13:10 Oxygen Delivery Method Room Air Physical Exam Narrative Vascular: DP and PT pulses are palpable to the right lower extremity. CFT is brisk. Nonpitting edema appreciated to the right heel. Skin temperature great is warm to warm from proximal ankle to distal digits bilateral. No focal increase noted in warmth to the right heel. Blanchable erythema without proximal streaking. Neurological: Light touch and epicritic sensation is intact. Dermatological: Full-thickness ulcerations right heel is now healed. Patient does have evidence of moccasin distribution to bilateral lower extremity. Musculoskeletal: Muscle strength 5-5 in all quadrants bilateral. No pain to the right heel. No pain with calf compression Debridement Note Debridement Note Post-Debridement Measurements and Additional Note: Post-Debridement Measurements/Treatment - Nurse 1 - General Ulcer Assessment Start: 07/21/23 13:13 Freq: Status: Active Protocol: PILAR.LOWEXT Activity Type Activity Date Activity User E-sign Co-sign Detail Recorded Client Recorded Date Recorded By Document 07/21/23 13:13 KW Desktop 07/21/23 13:17 KW Document 07/28/23 13:09 DL Desktop 07/28/23 13:14 DL Document 08/11/23 13:10 KW wound center 08/11/23 13:16 KW 07/21/23 07/28/23 08/11/23 13:13 13:09 13:10 WC - Today's Visit Information Type of service Follow-up Visit Follow-up Visit Follow-up Visit (Physician/CHAR FILTER TANK TENDER HEAD (Physician/CHAR FILTER TANK TENDER HEAD (Physician/CHAR FILTER TANK TENDER HEAD ) ) ) Arrival Mode Ambulatory Ambulatory Ambulatory Transfer Assistance None Accompanied by Patient Identification Verified (Name & Yes Yes Yes ) Patient Requires Transmission-Based No Precautions Vital Signs Temperature (97.8 F-99.1 F) 98.6 F 97.5 F L 97.1 F L Temperature Source Temporal Temporal Temporal Pulse Rate (60-100) 69 67 62 Pulse Location Monitor Monitor Monitor Respiratory Rate (12-18) 18 18 18 Respiratory rate source Observation Observation Observation Oxygen Delivery Method Room Air Room Air Blood Pressure (90/60-120/80) 127/46 H 132/71 H 127/61 H Blood Pressure Mean (mm Hg) 73 91 83 Source Monitor Monitor Monitor Position Semi-Fowlers Semi-Fowlers Blood Pressure Location Left Arm Right Arm History Since Last Visit- (Skip if this is Patient's initial visit) Have you changed medications since your No No No last visit? Any new allergies or adverse reactions No No No Had a fall/change in ADL's that may No No No increase risk of falls Signs or symptoms of abuse and/or No No No neglect since last visit Have you been in the hospital since your No No No last visit? Has dressing in place as prescribed Yes Yes Yes Has compression in place as prescribed N/A N/A N/A Has offloadiing in place as prescribed Yes Yes N/A Experienced any changes in pain level or No No management Left Footwear Regular Shoe Regular Shoe Right Footwear Regular Shoe Regular Shoe Pain Scale: 0-10 Numeric Is Patient Pain Free? Yes Yes Yes - Nurse 1 - General Ulcer Measurement Start: 07/21/23 13:13 Freq: Status: Active Protocol: Activity Type Activity Date Activity User E-sign Co-sign Detail Recorded Client Recorded Date Recorded By Document 07/21/23 13:13 KW Desktop 07/21/23 13:17 KW Document 07/28/23 13:09 DL Desktop 07/28/23 13:14 DL Document 08/11/23 13:10 KW wound center 08/11/23 13:16 KW 07/21/23 07/28/23 08/11/23 13:13 13:09 13:10 Wound Center Nurse 1 #1 RT HEEL -Current Size (cm) - Length 0.1 0.1 -Current Size (cm) - Width 0.1 0.1 -Current Size (cm) - Depth 0.1 0.1 -Total Square Cm 0.01 0.01 -Date of Last Picture (Recall this 08/11/23 field) -Exudate Amt None Present -Wound Margin Thickened -Granulation Amt None Present (0 %) -Necrosis Amt Small (1-33%) -Necrotic Tissue Type Eschar -Structure Exposed N/A -Texture (Amanda-wound Skin Appearance) Assessed Scarring Assessed -Moisture (Amanda-wound Skin Appearance) Assessed No Abnormality Assessed -Color (Amanda-wound Skin Appearance) Assessed No Abnormality Assessed -Temperature (Amanda-wound Skin No Abnormality No Abnormality No Abnormality Appearance) (Pt Warm) (Pt Warm) (Pt Warm) -Tenderness on Palpation (Amanda-wound No No Skin Appearance) -Ulcer Cleansing Soap and Water Soap and Water Rinsed/ Irrigated with Saline -Foul Odor after Cleansing No No No -Anesthetic Used 5% Lidocaine 5% Lidocaine Gel Gel -Wound Comment(s) LEAVE PRODUCT scabbed INTACT WC - Nurse 2 - General Ulcer CM Notes Start: 07/21/23 13:13 Freq: Status: Active Protocol: Activity Type Activity Date Activity User E-sign Co-sign Detail Recorded Client Recorded Date Recorded By Document 07/21/23 13:26 Laptop 07/21/23 13:27 Document 07/28/23 13:19 Laptop 07/28/23 13:21 Document 08/11/23 13:28 [id number] 08/11/23 13:30 07/21/23 07/28/23 08/11/23 13:26 13:19 13:28 Wound Center Nurse 2 #1 RT HEEL -Time 13:20 -Correct Patient No Yes No -Correct Side, Site, Position No Yes No -Correct Procedure No Yes No -Procedure Performed No Yes No -Type of Procedure Debridement -Clinical Debridement Epidermis / Dermis -Tissue Removed Epidermis, Dermis -Post Debridement (cm) - Length 0.1 0.1 0 -Post Debridement (cm) - Width 0.1 0.1 0 -Post Debridement (cm) - Depth 0.1 0.1 0 -Total Square (Post) (cm) 0.01 0.01 0 -Area of Debridement (cm) - Length 0.1 0.1 0 -Area of Debridement (cm) - Width 0.1 0.1 0 -Total Square (Area) (cm) 0.01 0.01 0 -Tunneling No -Undermining/Tunneling No -Circular Undermining No -Wound/Ulcer Outcome Not Healed Not Healed Healed- Epithelialized -Ulcer Cleansing Rinsed/ Irrigated with Saline -Foul Odor after Cleansing No -Bioengineered Tissue No -Bleeding Controlled with Pressure -Treatment Response Procedure Tolerated Well -Offloading No -Debridement - Open, 1st 20sq cm Yes -Debridement - Subq, 1st 20sq cm No Pain Scale: 0-10 Numeric Is Patient Pain Free? Yes Yes Yes - Nurse 3 - General Ulcer D/C NN Start: 07/21/23 13:13 Freq: Status: Active Protocol: Activity Type Activity Date Activity User E-sign Co-sign Detail Recorded Client Recorded Date Recorded By Document 07/21/23 13:28 Laptop 07/21/23 13:28 Document 07/28/23 13:33 Desktop 07/28/23 13:42 Document 08/11/23 13:30 [id number] 08/11/23 13:31 07/21/23 07/28/23 08/11/23 13:28 13:33 13:30 Wound Care Center Nurse 3 #1 RT HEEL -Ulcer Cleansing Rinsed/ Irrigated with Saline -Foul Odor after Cleansing No -Primary Dressing Applied Promogran Harriett Matter -Primary Dressing Covered/Secured with Dry Gauze, Other Secured with Tape -Other Covering bandaid -Promogran Harriett Matter 1 Pain Scale: 0-10 Numeric Is Patient Pain Free? Yes Yes Yes - Visit Discharge Discharge Condition Stable Stable Stable Ambulatory Status Ambulatory Ambulatory Ambulatory Transportation Private Auto Private Auto Private Auto Medication Reconcilliation completed & Yes Yes provided to patient/care provider Clinical Summary of Care Provided Yes Yes Assessment/Plan Assessment/Plan (1) Non-pressure chronic ulcer of right heel and midfoot with fat layer exposed: CODE(S): L97.412 - Non-pressure chronic ulcer of right heel and midfoot with fat layer exposed PLAN: Patient was examined and evaluated. All findings were discussed with the patient. All questions were answered to the patient's satisfaction. The patient's right heel is now healed. The patient shows no evidence of new ul ceration or breakdown of skin to the bilateral lower extremity. The patient does show evidence of tinea pedis to the bilateral plantar feet. She will be placed on clotrimazole 1% to be applied twice daily for 30 days. A prescription be sent into the patient's pharmacy. Educated the patient continue strict blood sugar control which she was understanding of. The patient will follow-up with Dr. Suh in private office. The patient can follow back up with the wound care center if needed. (2) Type 2 diabetes mellitus without complications: CODE(S): E11.9 - Type 2 diabetes mellitus without complications QUALIFIERS: Diabetes mellitus materials analyst insulin use: with materials analyst use Qualified Code(s): E11.9 - Type 2 diabetes mellitus without complications; Z79.4 - [facility] (current) use of insulin (3) Tinea pedis: CODE(S): B35.3 - Tinea pedis QUALIFIERS: Laterality: bilateral Qualified Code(s): B35.3 - Tinea pedis
== END 2023-08-11 16:31 | disposition home or self-care (01) ==
LOC: WC 13:00
PROVIDERS: PCP Family Medicine; Referring Provider Family Medicine Geriatric Medicine; Visit Provider Podiatrist Foot & Ankle Surgery
DX: E11.622 Type 2 diabetes mellitus with other skin ulcer (principal); L97.412 Non-pressure chronic ulcer of right heel and midfoot with fat layer exposed
CPT/HCPCS: 97597; 99212; 99213; G0463